=== PATIENT | male | born 1950 | race African-American/Black ===

== ENCOUNTER 2018-08-26 13:08 | Emergency (ER) | payer MEDICARE, OTHER ==
[~2018-08-26] VITALS: Ht 180.3 cm; Wt 127.0 kg
[~2018-08-26 13:08] MED LIST: ASPI325T8 PO; HYDR-3164 PO
[2018-08-26 13:27] VITALS: BP 139/70
[2018-08-26] MEDS ORDERED: NAPROXEN 500 MG TABLET PO STA (13:31)
--- NOTE | 2018-08-26 13:37 | PHYS DOC ---
Past Medical History Past Medical History: No Pertinent History Past Surgical History: No Surgical History Alcohol Use: None Drug Use: None Adult General Chief Complaint Chief Complaint: INSECT BITE [facility] HPI Patient is a 67 year old right handed male who presents with complaining of right middle finger bug bite. Patient complaining of pain and swelling of right middle finger since yesterday as a constant pain and rated his pain 8/10. Patient states he did not have a known insect bite but thinks maybe he had insect bite because of the pain and edema of his finger. Patient denies injury, fever and chills, history of MRSA. Patient is up-to-date with tetanus immunization. Review of Systems Review of Systems Constitutional: Denies fever or chills [] Eyes: Denies change in visual acuity, redness, or eye pain [] HENT: Denies nasal congestion or sore throat [] Respiratory: Denies cough or shortness of breath [] Cardiovascular: No additional information not addressed in HPI [] GI: Denies abdominal pain, nausea, vomiting, bloody stools or diarrhea [] : Denies dysuria or hematuria [] Musculoskeletal: Denies back pain, reports joint pain [] Integument: Denies rash or skin lesions [] Neurologic: Denies headache, focal weakness or sensory changes [] Endocrine: Denies polyuria or polydipsia [] All other systems were reviewed and found to be within normal limits, except as documented in this note. Current Medications Current Medications Current Medications Medications (Trade) Dose Ordered Sig/Karine Start Time Stop Time Status Last Admin Dose Admin Naproxen (Naprosyn) 500 mg 1X STAT 08/26/18 13:31 08/26/18 13:36 DC 08/26/18 13:54 500 MG Allergies Allergies Allergies Coded Allergies Type Severity Reaction Last Updated Verified No Known Drug Allergies 04/03/14 No Physical Exam Physical Exam Constitutional: Well nourished, mild distress, non-toxic appearance. [] HENT: Normocephalic, atraumatic. Eyes: PERRLA, EOMI, conjunctiva normal, no discharge. [] Neck: Normal range of motion, no tenderness, supple, no stridor. [] Cardiovascular:Heart rate regular rhythm, no murmur [] Lungs & Thorax: Bilateral breath sounds clear to auscultation [] Extremities: Right middle finger with edema and tenderness in proximal phalanx without fluctuation or deformity sign of abscess. Neurologic: Alert and oriented X 3, normal motor function, normal sensory function, no focal deficits noted. [] Psychologic: Affect normal, judgement normal, mood normal. [] Current Patient Data Vital Signs Vital Signs Date Time Temp Pulse Resp B/P (MAP) Pulse Ox O2 Delivery O2 Flow Rate FiO2 08/26/18 13:27 98.5 97 16 139/70 (93) 94 Room Air 98.5 EKG EKG [] Radiology/Procedures Radiology/Procedures [facility] [address] [place] [address] IMAGING REPORT Signed PATIENT: FREDA DODD ACCOUNT: [id number] : 1950 LOCATION: ER AGE: 67 SEX: M EXAM STATUS: PRE ER ORD. PHYSICIAN: KAREN MARIE MD REASON: middle finger pain and edema PROCEDURE: FINGER(S) RIGHT Exam performed: 3 views right third digit. HISTORY: Pain and swelling for one day. DATE OF SERVICE: 08/26/2018. COMPARISON: None available FINDINGS: Single AP view and and lateral and oblique views of the third digit are obtained. There is narrowing of several distal interphalangeal joints, most notable in the second digit. There is no acute fracture or dislocation. Diffuse soft tissue swelling is seen. No foreign body. 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 No acute abnormality seen. Electronically signed by: Mayi Gross MD (08/26/2018 1:59 PM) [facility] DICTATED and SIGNED BY: MAYI GROSS MD DATE: 08/26/18 0083 Course & Med Decision Making Course & Med Decision Making Pertinent Labs and Imaging studies reviewed. (See chart for details) [] Dragon Disclaimer Dragon Disclaimer This electronic medical record was generated, in whole or in part, using a voice recognition dictation system. Departure Departure Impression: Primary Impression: Cellulitis of right middle finger Disposition: HOME, SELF-CARE (at 1408) Condition: STABLE Referrals: NO PCP (PCP) Patient Instructions: Cellulitis Additional Instructions: Apply ice on right middle finger Follow-up with your primary care physician in 2 days or return to ER in 2 days for reevaluation Scripts Hydrocodone/Apap 5-325 (NORCO 5-325 TABLET) 1 Each Tablet 1 TAB PO PRN Q6HRS PRN for PAIN, #10 TAB 0 Refills Prov: KAREN MARIE MD 08/26/18 Naproxen (NAPROSYN) 500 Mg Tablet 1 TAB PO BID for pain, #20 TAB Prov: KAREN MARIE MD 08/26/18 Cephalexin (KEFLEX) 500 Mg Capsule 2 CAP PO Q12HR, #28 CAP Prov: KAREN MARIE MD 08/26/18 Sulfamethoxazole/Trimethoprim (BACTRIM DS TABLET) 1 Each Tablet 1 TAB PO BID for infection, #14 TAB Prov: KAREN MARIE MD 08/26/18 KAREN MARIE MD Aug 26, 2018 13:37
--- NOTE | 2018-08-26 14:02 | RAD ---
Exam performed: 3 views right third digit. HISTORY: Pain and swelling for one day. DATE OF SERVICE: 08/26/2018. COMPARISON: None available FINDINGS: Single AP view and and lateral and oblique views of the third digit are obtained. There is narrowing of several distal interphalangeal joints, most notable in the second digit. There is no acute fracture or dislocation. Diffuse soft tissue swelling is seen. No foreign body. 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 No acute abnormality seen. Electronically signed by: Mayi Gross MD (08/26/2018 1:59 PM) [facility]
[2018-08-26] MEDS ORDERED: NAPR-683 PO (14:11)
[2018-08-26] MEDS ORDERED: CEPH-264 PO (14:11)
[2018-08-26] MEDS ORDERED: SULF1TAB24 PO (14:11)
[2018-08-26] MEDS ORDERED: HYDR-3164 PO (14:12)
== END 2018-08-26 14:19 | disposition home or self-care (01) ==
LOC: ER 13:08
DX: L03.011 Cellulitis of right finger (principal); W57.XXXA Bitten or stung by nonvenomous insect and other nonvenomous arthropods, initial encounter; Y93.89 Activity, other specified; Y92.89 Other specified places as the place of occurrence of the external cause; Y99.8 Other external cause status
CPT/HCPCS: 73140; 82962; 99285-25

== ENCOUNTER 2018-08-28 15:22 | Emergency (ER) | payer MEDICARE, OTHER ==
[~2018-08-28] VITALS: Ht 180.3 cm; Wt 127.0 kg
[~2018-08-28 15:22] MED LIST changes: +CEPH-264 PO; +NAPR-683 PO; +SULF1TAB24 PO
[2018-08-28 15:39] VITALS: BP 165/85
--- NOTE | 2018-08-28 15:40 | PHYS DOC ---
Past Medical History Past Medical History: No Pertinent History Past Surgical History: No Surgical History Alcohol Use: None Drug Use: None Adult General Chief Complaint Chief Complaint: WOUND CHECK [facility] Patient is a 67 year old right-handed male who presents with recheck on cellulitis of right middle finger. Patient was seen in this emergency room yesterday because of right middle finger cellulitis and treated with antibiotic and pain medication with improvement of his condition. The patient was advised to return after 48 hours but she decided to come today for reevaluation of his wound. He denies fever. Review of Systems Review of Systems Constitutional: Denies fever or chills [] Eyes: Denies change in visual acuity, redness, or eye pain [] HENT: Denies nasal congestion or sore throat [] Respiratory: Denies cough or shortness of breath [] Cardiovascular: No additional information not addressed in [facility] [] GI: Denies abdominal pain, nausea, vomiting, bloody stools or diarrhea [] : Denies dysuria or hematuria [] Musculoskeletal: Denies back pain, reports joint pain [] Integument: Denies rash or skin lesions [] Neurologic: Denies headache, focal weakness or sensory changes [] Endocrine: Denies polyuria or polydipsia [] All other systems were reviewed and found to be within normal limits, except as documented in this note. Allergies Allergies Allergies Coded Allergies Type Severity Reaction Last Updated Verified No Known Drug Allergies 04/03/14 No Physical Exam Physical Exam Constitutional: Well developed, well nourished, no acute distress, non-toxic appearance. [] HENT: Normocephalic, atraumatic. Eyes: PERRLA, EOMI, conjunctiva normal, no discharge. [] Neck: Normal range of motion, no tenderness, supple, no stridor. [] Cardiovascular:Heart rate regular rhythm, no murmur [] Lungs & Thorax: Bilateral breath sounds clear to auscultation [] Skin: Warm, dry, no rash, right middle finger with mild erythema and edema that improved compared to yesterday when I saw him. [] Back: No tenderness, no CVA tenderness. [] Extremities: No tenderness, no cyanosis, no clubbing, ROM intact. Neurologic: Alert and oriented X 3, normal motor function, normal sensory function, no focal deficits noted. [] Psychologic: Affect normal, judgement normal, mood normal. [] Current Patient Data Vital Signs Vital Signs Date Time Temp Pulse Resp B/P (MAP) Pulse Ox O2 Delivery O2 Flow Rate FiO2 08/28/18 15:39 98.8 77 20 165/85 (111) 96 Room Air 98.8 EKG EKG [] Radiology/Procedures Radiology/Procedures [] Course & Med Decision Making Course & Med Decision Making Evaluation of patient in ER showed 67-year-old male patient presented for evaluation of right middle finger cellulitis after seen in this emergency room yesterday. Patient condition was improved and was advised to continue current medication. Dragon Disclaimer Dragon Disclaimer This electronic medical record was generated, in whole or in part, using a voice recognition dictation system. Departure Departure Impression: Primary Impression: Visit for wound check Disposition: HOME, SELF-CARE (at 1538) Condition: STABLE Referrals: NO PCP (PCP) Patient Instructions: Cellulitis Additional Instructions: Elevate your right hand and apply warm moist wrap on your hand Follow-up with your primary care physician in 3-5 days Return to ER if not getting better Continue current medication KAREN MARIE MD Aug 28, 2018 15:40
== END 2018-08-28 15:46 | disposition home or self-care (01) ==
LOC: ER 15:22
DX: Z48.01 Encounter for change or removal of surgical wound dressing (principal)
CPT/HCPCS: 99281

== ENCOUNTER 2018-11-08 16:08 | Emergency (ER) | payer MEDICARE, OTHER ==
[~2018-11-08] VITALS: Ht 180.3 cm; Wt 149.7 kg
[2018-11-08 17:00] VITALS: BP 171/95
[2018-11-08] MEDS ORDERED: predniSONE 10 MG TABLET PO ONE (19:00)
[2018-11-08] MEDS ORDERED: NAPROXEN 500 MG TABLET PO ONE (19:00)
[2018-11-08] MEDS ORDERED: HYDROcodone/APAP 5/325MG 1 TAB TABLET PO ONE (19:00)
--- NOTE | 2018-11-08 19:07 | PHYS DOC ---
Past Medical History Past Medical History: Arthritis Past Surgical History: No Surgical History Alcohol Use: None Drug Use: None Adult General Chief Complaint Chief Complaint: WRIST PAIN HPI HPI Patient is a 68 year old with history of arthritis who presents to the ED today complaining of 9 out of 10 right elbow pain that began a week ago and right wrist pain that began 4 days ago. Patient states the pain is worse on range of motion. Describes the pain as throbbing and intermittent. Denies anything specifically relieving the pain. Denies any known injury. Review of Systems Review of Systems Constitutional: Denies fever or chills [] Musculoskeletal: Reports right wrist and right elbow pain Integument: Denies rash or skin lesions [] Neurologic: Denies headache, focal weakness or sensory changes [] All other systems were reviewed and found to be within normal limits, except as documented in this note. Current Medications Current Medications Current Medications Medications (Trade) Dose Ordered Sig/Karine Start Time Stop Time Status Last Admin Dose Admin Acetaminophen/ Hydrocodone Bitart (Lortab 5/325) 1 tab 1X ONCE 11/08/18 19:00 11/08/18 19:01 DC Naproxen (Naprosyn) 500 mg 1X ONCE 11/08/18 19:00 11/08/18 19:01 DC Prednisone (Prednisone) 50 mg 1X ONCE 11/08/18 19:00 11/08/18 19:01 DC Allergies Allergies Allergies Coded Allergies Type Severity Reaction Last Updated Verified No Known Drug Allergies 04/03/14 No Physical Exam Physical Exam Constitutional: Well developed, well nourished, no acute distress, non-toxic appearance. [] Back: No tenderness, no CVA tenderness. [] Extremities: Right wrist and right elbow with no obvious deformity. Trace amount of soft tissue swelling noted on the dorsal aspect of the right wrist. Tenderness diffusely on the right wrist. Full range of motion to the right wrist and right elbow. No scaphoid tenderness. Adequate radial, medial, ulnar sensation to the right upper extremity. +2 right radial pulse. Cap refill less than 2 seconds the right fingers. Neurologic: Alert and oriented X 3, normal motor function, normal sensory function, no focal deficits noted. [] Psychologic: Affect normal, judgement normal, mood normal. [] Current Patient Data Vital Signs Vital Signs Date Time Temp Pulse Resp B/P (MAP) Pulse Ox O2 Delivery O2 Flow Rate FiO2 11/08/18 17:00 98.6 91 20 171/95 (120) 97 Room Air 98.6 EKG EKG [] Radiology/Procedures Radiology/Procedures [] Course & Med Decision Making Course & Med Decision Making Pertinent Labs and Imaging studies reviewed. (See chart for details) This is a 68-year-old male patient presented to the ED today with a right wrist and right elbow pain for week, no known injury. Right wrist and right elbow x- rays interpreted by noted for arthritis no acute findings results given to patient with f/u information with Ortho. Patient walked out of the room asking for pain medicine. Informed him we can order pain medicines he stated the medicine is not coming first enough, he eloped Dragon Disclaimer Dragon Disclaimer This electronic medical record was generated, in whole or in part, using a voice recognition dictation system. 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
--- NOTE | 2018-11-09 06:41 | RAD ---
EXAM: PA, oblique and lateral views of the left wrist DATE: 11/08/2018 4:59 PM INDICATION: Pain, no injury COMPARISON: No Prior FINDINGS/ IMPRESSION: No evidence for acute fracture or dislocation. Multifocal degenerative changes are seen with joint space narrowing and associated proliferative changes. This is most prominent at the IP joints. Electronically signed by: Ravindra Arizmendi MD (11/09/2018 6:38 AM) [facility]
--- NOTE | 2018-11-09 06:42 | RAD ---
EXAM: AP, lateral and radial head views of the left elbow DATE: 11/08/2018 4:59 PM INDICATION: Left elbow pain COMPARISON: No Prior FINDINGS/ IMPRESSION: No elbow joint effusion. No evidence of acute fracture or dislocation. Electronically signed by: Ravindra Arizmendi MD (11/09/2018 6:38 AM) [facility]
[2018-11-09] MEDS ORDERED: PRED20TA PO (11:59)
[2018-11-09] MEDS ORDERED: COLC0.6T34 PO (11:59)
[2018-11-09] MEDS ORDERED: NAPR-514 PO (11:59)
== END 2018-11-08 18:45 | disposition left against medical advice (07) ==
LOC: ER 16:08
DX: M19.031 Primary osteoarthritis, right wrist (principal); M19.021 Primary osteoarthritis, right elbow
CPT/HCPCS: 73080; 73110; 99284

== ENCOUNTER 2018-11-09 10:51 | Emergency (ER) | payer MEDICARE, OTHER ==
[~2018-11-09] VITALS: Ht 180.3 cm; Wt 149.7 kg
[2018-11-09 11:04] VITALS: BP 138/83
--- NOTE | 2018-11-09 11:07 | PHYS DOC ---
Past Medical History Past Medical History: Arthritis Past Surgical History: No Surgical History Alcohol Use: None Drug Use: None Adult General Chief Complaint Chief Complaint: INSECT BITE HPI HPI Patient is a 68 year old male who was seen here yesterday for right wrist pain. He is diagnosed arthritis. States that he started having right wrist pain and swelling 4 days ago. States that it feels hot to the touch. His pain as 7 out of 10 in severity states he took Advil 1 tablet around 1 hour ago for arrival. Review of Systems Review of Systems Constitutional: Denies fever or chills [] Eyes: Denies change in visual acuity, redness, or eye pain [] HENT: Denies nasal congestion or sore throat [] Respiratory: Denies cough or shortness of breath [] Cardiovascular: No additional information not addressed in HPI [] GI: Denies abdominal pain, nausea, vomiting, bloody stools or diarrhea [] : Denies dysuria or hematuria [] Musculoskeletal: Denies back pain but reports R wrist pain. Integument: Denies rash or skin lesions [] Neurologic: Denies headache, focal weakness or sensory changes [] Endocrine: Denies polyuria or polydipsia [] Complete systems were reviewed and found to be within normal limits, except as documented in this note. Allergies Allergies Allergies Coded Allergies Type Severity Reaction Last Updated Verified No Known Drug Allergies 04/03/14 No Physical Exam Physical Exam Constitutional: Well developed, well nourished, no acute distress, non-toxic appearance. [] HENT: Normocephalic, atraumatic, bilateral external ears normal, oropharynx moist, no oral exudates, nose normal. [] Eyes: PERRLA, EOMI, conjunctiva normal, no discharge. [] Neck: Normal range of motion, no tenderness, supple, no stridor. [] Cardiovascular:Heart rate regular rhythm, no murmur [] Lungs & Thorax: Bilateral breath sounds clear to auscultation [] Abdomen: Bowel sounds normal, soft, no tenderness, no masses, no pulsatile masses. [] Skin: Warm, dry, no erythema, no rash. [] Back: No tenderness, no CVA tenderness. [] Extremities: Tenderness to R wrist with edema and reduced ROM. Neurologic: Alert and oriented X 3, normal motor function, normal sensory function, no focal deficits noted. [] Psychologic: Affect normal, judgement normal, mood normal. [] Current Patient Data Vital Signs Vital Signs Date Time Temp Pulse Resp B/P (MAP) Pulse Ox O2 Delivery O2 Flow Rate FiO2 11/09/18 11:04 98.8 91 18 138/83 (101) 94 Room Air 98.8 Lab Values Laboratory Tests Test 11/09/18 11:25 White Blood Count 9.7 x10^3/uL (4.0-11.0) Red Blood Count 5.03 x10^6/uL (4.30-5.70) Hemoglobin 13.9 g/dL (13.0-17.5) Hematocrit 41.7 % (39.0-53.0) Mean Corpuscular Volume 83 fL (79-100) Mean Corpuscular Hemoglobin 28 pg (25-35) Mean Corpuscular Hemoglobin Concent 33 g/dL (31-37) Red Cell Distribution Width 14.0 % (11.5-14.5) Platelet Count 268 x10^3/uL (140-400) Neutrophils (%) (Auto) 72 % (31-73) Lymphocytes (%) (Auto) 17 % (24-48) L Monocytes (%) (Auto) 9 % (0-9) Eosinophils (%) (Auto) 1 % (0-3) Basophils (%) (Auto) 1 % (0-3) Neutrophils # (Auto) 7.0 x10^3uL (1.8-7.7) Lymphocytes # (Auto) 1.6 x10^3/uL (1.0-4.8) Monocytes # (Auto) 0.9 x10^3/uL (0.0-1.1) Eosinophils # (Auto) 0.1 x10^3/uL (0.0-0.7) Basophils # (Auto) 0.1 x10^3/uL (0.0-0.2) Sodium Level 140 mmol/L (136-145) Potassium Level 4.0 mmol/L (3.5-5.1) Chloride Level 104 mmol/L (98-107) Carbon Dioxide Level 28 mmol/L (21-32) Anion Gap 8 (6-14) Blood Urea Nitrogen 11 mg/dL (8-26) Creatinine 1.2 mg/dL (0.7-1.3) Estimated GFR (Cockcroft-Gault) 73.3 BUN/Creatinine Ratio 9 (6-20) Glucose Level 148 mg/dL (70-99) H Uric Acid 8.8 mg/dL (3.5-7.2) H Calcium Level 9.5 mg/dL (8.5-10.1) Total Bilirubin 0.5 mg/dL (0.2-1.0) Aspartate Amino Transferase (AST) 21 U/L (15-37) Alanine Aminotransferase (ALT) 27 U/L (16-63) Alkaline Phosphatase 80 U/L (46-116) Total Protein 7.7 g/dL (6.4-8.2) Albumin 3.5 g/dL (3.4-5.0) Albumin/Globulin Ratio 0.8 (1.0-1.7) L Laboratory Tests 11/09/18 11:25 Laboratory Tests 11/09/18 11:25 EKG EKG [] Radiology/Procedures Radiology/Procedures [] Course & Med Decision Making Course & Med Decision Making Pertinent Labs and Imaging studies reviewed. (See chart for details) Gout vs Cellulitis. Will order cbc, cmp, and uric acid. Uric acid is 8.8. Appears to be gout. Dragon Disclaimer Dragon Disclaimer This electronic medical record was generated, in whole or in part, using a voice recognition dictation system. Departure Departure Impression: Primary Impression: Gout attack Disposition: 01 HOME, SELF-CARE Condition: STABLE Referrals: NO PCP (PCP) Patient Instructions: Gout Additional Instructions: Thank you for visiting [facility]. We appreciate you trusting us with your care. If any additional problems come up don't hesitate to return to visit us. Please follow up with your primary care provider so they can plan additional care if needed and know about the problem that you had. If symptoms worsen come back to the Emergency Department. Any concerning symptoms that start such as chest pain, shortness of Air, weakness or numbness on one side of the body, running high fevers or any other concerning symptoms return to the ER. Please fill your medications at any pharmacy and follow the prescription instructions. Please take 2 pills (1.2 mg of Colchicine and 1 hour later take 0.6 mg (1 pill). Scripts Colchicine (COLCRYS) 0.6 Mg Tablet 0.6 MG PO 1X, #3 TAB Take 2 0.6 mg tablets and 1 hour later take another 0.6 mg tablet. Prov: FREDRICK GOTTLIEB APRN 11/09/18 Prednisone (PREDNISONE) 20 Mg Tablet 3 TAB PO DAILY for 5 Days, #15 TAB Prov: FREDRICK GOTTLIEB APRN 11/09/18 Naproxen (NAPROXEN) 500 Mg Tablet 1 TAB PO BID PRN for PAIN, #60 TAB Prov: FREDRICK GOTTLIEB APRN 11/09/18 Problem Qualifiers Primary Impression: Gout attack Gout site: hand Gout etiology: unspecified cause Laterality: right Qualified Codes: M10.9 - Gout, unspecified FREDRICK GOTTLIEB APRN Nov 09, 2018 11:07
[2018-11-09 11:32] LABS: BASO # 0.1 x10^3/uL (0.0-0.2); BASO % 1 % (0-3); EOS # 0.1 x10^3/uL (0.0-0.7); EOS % 1 % (0-3); HEMATOCRIT 41.7 % (39.0-53.0); HEMOGLOBIN 13.9 g/dL (13.0-17.5); LYMPH # 1.6 x10^3/uL (1.0-4.8); LYMPH % 17 % (24-48); MEAN CORPUSCULAR HEMOGLOBIN 28 pg (25-35); MEAN CORPUSCULAR HGB CONC 33 g/dL (31-37); MEAN CORPUSCULAR VOLUME 83 fL (79-100); MONO # 0.9 x10^3/uL (0.0-1.1); MONO % 9 % (0-9); NEUT % 72 % (31-73); PLATELET COUNT 268 x10^3/uL (140-400); RED BLOOD COUNT 5.03 x10^6/uL (4.30-5.70); WHITE BLOOD COUNT 9.7 x10^3/uL (4.0-11.0)
[2018-11-09 11:43] LABS: CALCIUM 9.5 mg/dL (8.5-10.1); CREATININE 1.2 mg/dL (0.7-1.3); GFR 73.3
[2018-11-09 11:49] LABS: ALBUMIN 3.5 g/dL (3.4-5.0); ALBUMIN/GLOBULIN RATIO 0.8 (1.0-1.7); TOTAL BILIRUBIN 0.5 mg/dL (0.2-1.0); TOTAL PROTEIN 7.7 g/dL (6.4-8.2); URIC ACID 8.8 mg/dL (3.5-7.2)
[2018-11-09] MEDS ORDERED: PRED20TA PO (11:59)
[2018-11-09] MEDS ORDERED: COLC0.6T34 PO (11:59)
[2018-11-09] MEDS ORDERED: NAPR-514 PO (11:59)
[2018-11-09] MEDS ORDERED: KETOROLAC 60 MG/2 ML VIAL. IM ONE (12:00)
== END 2018-11-09 12:16 | disposition home or self-care (01) ==
LOC: ER 10:51
DX: M10.9 Gout, unspecified (principal); M19.90 Unspecified osteoarthritis, unspecified site
CPT/HCPCS: 36415; 80053; 84550; 85025; 96372; 99284; J1885

== ENCOUNTER 2019-02-10 18:47 | Inpatient (IN) | payer MEDICARE, OTHER ==
[~2019-02-10] VITALS: Ht 180.3 cm; Wt 152.9 kg
[~2019-02-10 18:47] MED LIST changes: +COLC0.6T34 PO; +NAPR-514 PO; +PRED20TA PO
--- NOTE | 2019-02-10 19:40 | PHYS DOC ---
Past Medical History Past Medical History: Arthritis (MICHELLE PINZON APRN) Past Surgical History: No Surgical History (MICHELLE PINZON APRN) Alcohol Use: None Drug Use: None (MICHELLE PINZON APRN) Adult General Chief Complaint Chief Complaint: LOWER EXTREMITY SWELLING HPI HPI Patient is a 68 year old male who presents with 1 week of lower extremity edema bilaterally. Patient states that he will get lower extremity swelling but in the morning when he wakes up it has gone down. Patient states that the only thing he has been diagnosed with a past of gout and arthritis. Patient denies any pain. Patient states he has been up on his feet a lot recently because he is trying to fix of a house. Patient rates pain a 0 out of 10. Patient states at times he will wake up and he feels like he is having chest pressure and tightness in that short of air that has been coming and going for a while. Patient states he does not feel this way at this time. (MICHELLE PINZON APRN) Review of Systems Review of Systems Respiratory: Denies cough. shortness of breath comes and goes[] Cardiovascular: Chest tightness or pressure comes and goes Musculoskeletal: Bilateral lower extremities swelling. Denies back pain or joint pain [] All other systems were reviewed and found to be within normal limits, except as documented in this note. (MICHELLE PINZON APRN) Current Medications Current Medications Current Medications Medications (Trade) Dose Ordered Sig/Karine Start Time Stop Time Status Last Admin Dose Admin Ceftriaxone Sodium (Rocephin) 1 gm 1X ONCE 02/10/19 21:15 02/10/19 21:16 DC 02/10/19 21:17 1 GM Clonidine HCl (Catapres) 0.1 mg 1X ONCE 02/10/19 21:15 02/10/19 21:16 DC 02/10/19 21:16 0.1 MG (LIN WALTON MD) Allergies Allergies Allergies Coded Allergies Type Severity Reaction Last Updated Verified No Known Drug Allergies 04/03/14 No (LIN WALTON MD) Physical Exam Physical Exam Constitutional: Well developed, well nourished, no acute distress, non-toxic appearance. [] HENT: Normocephalic, atraumatic, bilateral external ears normal, oropharynx moist, no oral exudates, nose normal. [] Eyes: PERRLA, EOMI, conjunctiva normal, no discharge. [] Neck: Normal range of motion, no tenderness, supple, no stridor. [] Cardiovascular: Heart rate regular rhythm, no murmur, Hypertensive [] Lungs & Thorax: Bilateral upper breath sounds clear to auscultation, bilateral lower lobes diminished. [] Abdomen: Bowel sounds normal, soft, no tenderness, no masses, no pulsatile masses. [] Skin: Warm, dry, no erythema, no rash. [] Back: No tenderness, no CVA tenderness. [] Extremities: No tenderness, no cyanosis, no clubbing, ROM intact, Bilateral lower extremities 3-4+ edema. [] Neurologic: Alert and oriented X 3, normal motor function, normal sensory function, no focal deficits noted. [] Psychologic: Affect normal, judgement normal, mood normal. [] (MICHELLE PINZON APRN) Current Patient Data Vital Signs Vital Signs Date Time Temp Pulse Resp B/P (MAP) Pulse Ox O2 Delivery O2 Flow Rate FiO2 02/10/19 21:24 90 35 218/99 (138) 96 Room Air 02/10/19 19:27 98.5 98.5 (LIN WALTON MD) Lab Values Laboratory Tests Test 02/10/19 20:05 02/10/19 20:26 White Blood Count 7.6 x10^3/uL (4.0-11.0) Red Blood Count 4.97 x10^6/uL (4.30-5.70) Hemoglobin 13.8 g/dL (13.0-17.5) Hematocrit 41.2 % (39.0-53.0) Mean Corpuscular Volume 83 fL (79-100) Mean Corpuscular Hemoglobin 28 pg (25-35) Mean Corpuscular Hemoglobin Concent 33 g/dL (31-37) Red Cell Distribution Width 14.5 % (11.5-14.5) Platelet Count 294 x10^3/uL (140-400) Neutrophils (%) (Auto) 60 % (31-73) Lymphocytes (%) (Auto) 26 % (24-48) Monocytes (%) (Auto) 9 % (0-9) Eosinophils (%) (Auto) 5 % (0-3) H Basophils (%) (Auto) 1 % (0-3) Neutrophils # (Auto) 4.6 x10^3/uL (1.8-7.7) Lymphocytes # (Auto) 1.9 x10^3/uL (1.0-4.8) Monocytes # (Auto) 0.7 x10^3/uL (0.0-1.1) Eosinophils # (Auto) 0.4 x10^3/uL (0.0-0.7) Basophils # (Auto) 0.0 x10^3/uL (0.0-0.2) Prothrombin Time 13.2 SEC (11.7-14.0) Prothrombin Time INR 1.0 (0.8-1.1) Sodium Level 143 mmol/L (136-145) Potassium Level 4.7 mmol/L (3.5-5.1) Chloride Level 106 mmol/L (98-107) Carbon Dioxide Level 30 mmol/L (21-32) Anion Gap 7 (6-14) Blood Urea Nitrogen 17 mg/dL (8-26) Creatinine 1.2 mg/dL (0.7-1.3) Estimated GFR (Cockcroft-Gault) 73.3 BUN/Creatinine Ratio 14 (6-20) Glucose Level 207 mg/dL (70-99) H Hemoglobin A1c 7.1 % (4.8-5.6) H Calcium Level 9.7 mg/dL (8.5-10.1) Total Bilirubin 0.3 mg/dL (0.2-1.0) Aspartate Amino Transferase (AST) 26 U/L (15-37) Alanine Aminotransferase (ALT) 27 U/L (16-63) Alkaline Phosphatase 101 U/L (46-116) Troponin I Quantitative < 0.017 ng/mL (0.000-0.055) MW-Wts-D-Type Natriuretic Peptide 65 pg/mL (0-124) Total Protein 7.2 g/dL (6.4-8.2) Albumin 3.5 g/dL (3.4-5.0) Albumin/Globulin Ratio 0.9 (1.0-1.7) L Urine Collection Type Unknown Urine Color Yellow Urine Clarity Cloudy Urine pH 5.5 Urine Specific [place] 1.020 Urine Protein Negative mg/dL (NEG-TRACE) Urine Glucose (UA) Negative mg/dL (NEG) Urine Ketones (Stick) Negative mg/dL (NEG) Urine Blood Negative (NEG) Urine Nitrite Negative (NEG) Urine Bilirubin Negative (NEG) Urine Urobilinogen Dipstick 1.0 mg/dL (0.2 mg/dL) Urine Leukocyte Esterase Moderate (NEG) Urine RBC Occ /HPF (0-2) Urine WBC 20-40 /HPF (0-4) Urine Squamous Epithelial Cells Mod /LPF Urine Bacteria Few /HPF (0-FEW) Urine Mucus Mod /LPF Urine Opiates Screen Neg (NEG) Urine Methadone Screen Neg (NEG) Urine Barbiturates Neg (NEG) Urine Phencyclidine Screen Neg (NEG) Urine Amphetamine/Methamphetamine Neg (NEG) Urine Benzodiazepines Screen Neg (NEG) Urine Cocaine Screen Neg (NEG) Urine Cannabinoids Screen Neg (NEG) Urine Ethyl Alcohol Neg (NEG) Laboratory Tests 02/10/19 20:05 Laboratory Tests 02/10/19 20:05 Microbiology 02/10/19 Urine Culture - Final, Complete 02/10/19 Urine Culture Result 1 (RAHUL) - Final, Complete (LIN WALTON MD) Lab Values Laboratory Tests Test 02/10/19 20:05 02/10/19 20:26 White Blood Count 7.6 x10^3/uL (4.0-11.0) Red Blood Count 4.97 x10^6/uL (4.30-5.70) Hemoglobin 13.8 g/dL (13.0-17.5) Hematocrit 41.2 % (39.0-53.0) Mean Corpuscular Volume 83 fL (79-100) Mean Corpuscular Hemoglobin 28 pg (25-35) Mean Corpuscular Hemoglobin Concent 33 g/dL (31-37) Red Cell Distribution Width 14.5 % (11.5-14.5) Platelet Count 294 x10^3/uL (140-400) Neutrophils (%) (Auto) 60 % (31-73) Lymphocytes (%) (Auto) 26 % (24-48) Monocytes (%) (Auto) 9 % (0-9) Eosinophils (%) (Auto) 5 % (0-3) H Basophils (%) (Auto) 1 % (0-3) Neutrophils # (Auto) 4.6 x10^3/uL (1.8-7.7) Lymphocytes # (Auto) 1.9 x10^3/uL (1.0-4.8) Monocytes # (Auto) 0.7 x10^3/uL (0.0-1.1) Eosinophils # (Auto) 0.4 x10^3/uL (0.0-0.7) Basophils # (Auto) 0.0 x10^3/uL (0.0-0.2) Prothrombin Time 13.2 SEC (11.7-14.0) Prothrombin Time INR 1.0 (0.8-1.1) Sodium Level 143 mmol/L (136-145) Potassium Level 4.7 mmol/L (3.5-5.1) Chloride Level 106 mmol/L (98-107) Carbon Dioxide Level 30 mmol/L (21-32) Anion Gap 7 (6-14) Blood Urea Nitrogen 17 mg/dL (8-26) Creatinine 1.2 mg/dL (0.7-1.3) Estimated GFR (Cockcroft-Gault) 73.3 BUN/Creatinine Ratio 14 (6-20) Glucose Level 207 mg/dL (70-99) H Calcium Level 9.7 mg/dL (8.5-10.1) Total Bilirubin 0.3 mg/dL (0.2-1.0) Aspartate Amino Transferase (AST) 26 U/L (15-37) Alanine Aminotransferase (ALT) 27 U/L (16-63) Alkaline Phosphatase 101 U/L (46-116) Troponin I Quantitative < 0.017 ng/mL (0.000-0.055) BG-Vmm-C-Type Natriuretic Peptide 65 pg/mL (0-124) Total Protein 7.2 g/dL (6.4-8.2) Albumin 3.5 g/dL (3.4-5.0) Albumin/Globulin Ratio 0.9 (1.0-1.7) L Urine Collection Type Unknown Urine Color Yellow Urine Clarity Cloudy Urine pH 5.5 Urine Specific [place] 1.020 Urine Protein Negative mg/dL (NEG-TRACE) Urine Glucose (UA) Negative mg/dL (NEG) Urine Ketones (Stick) Negative mg/dL (NEG) Urine Blood Negative (NEG) Urine Nitrite Negative (NEG) Urine Bilirubin Negative (NEG) Urine Urobilinogen Dipstick 1.0 mg/dL (0.2 mg/dL) Urine Leukocyte Esterase Moderate (NEG) Urine RBC Occ /HPF (0-2) Urine WBC 20-40 /HPF (0-4) Urine Squamous Epithelial Cells Mod /LPF Urine Bacteria Few /HPF (0-FEW) Urine Mucus Mod /LPF Urine Opiates Screen Neg (NEG) Urine Methadone Screen Neg (NEG) Urine Barbiturates Neg (NEG) Urine Phencyclidine Screen Neg (NEG) Urine Amphetamine/Methamphetamine Neg (NEG) Urine Benzodiazepines Screen Neg (NEG) Urine Cocaine Screen Neg (NEG) Urine Cannabinoids Screen Neg (NEG) Urine Ethyl Alcohol Neg (NEG) Laboratory Tests 02/10/19 20:05 Laboratory Tests 02/10/19 20:05 (MICHELLE PINZON APRN) EKG EKG Sinus rhythm with nonspecific T was abnormality. [] Interpretation Time: [address] Walton (MICHELLE PINZON APRN) Radiology/Procedures Radiology/Procedures [] (MICHELLE PINZON APRN) Impressions: [facility] [address] [place], [place] [id number] IMAGING REPORT Signed PATIENT: FREDA DODD ACCOUNT: [id number] : 1950 LOCATION: ER AGE: 68 SEX: M EXAM STATUS: REG ER ORD. PHYSICIAN: MICHELLE PINZON APRN REASON: 3-4+ edema, new onset swelling, Right worse than left PROCEDURE: VENOUS LOWER EXT BILATERAL Bilateral lower extremity venous duplex study 02/10/2019 Clinical History: Bilateral leg swelling. Technique: Using a combination of real time ultrasound imaging and color-flow and pulse Doppler imaging techniques along with graded compression and augmentation, duplex evaluation of the deep venous system of the both lower extremities was performed. Multiple images were obtained. Findings: Echogenic thrombus consistent with partially occlusive DVT is seen involving the right popliteal vein extending to involve the majority of the right superficial femoral vein. The right common femoral vein is patent. There is no sonographic evidence of deep venous thrombosis involving the visualized deep venous structures of the left lower extremity. IMPRESSION: DVT is seen extending from the right popliteal vein to involve the right superficial femoral vein. Electronically signed by: Robles Crawley MD (02/10/2019 10:35 PM) [facility] DICTATED and SIGNED BY: ROBLES CRAWLEY MD DATE: 02/10/192234 (MICHELLE PINZON APRN) Course & Med Decision Making Course & Med Decision Making Patient is a 68 year old male who presents with 1 week of lower extremity edema bilaterally. Patient states that he will get lower extremity swelling but in the morning when he wakes up it has gone down. Patient states that the only thing he has been diagnosed with a past of gout and arthritis. Patient denies any pain. Patient states he has been up on his feet a lot recently because he is trying to fix of a house. Patient rates pain a 0 out of 10. Patient states at times he will wake up and he feels like he is having chest pressure and tightness in that short of air that has been coming and going for a while. Patient states he does not feel this way at this time. Patient is hypertensive. Lungs are clear to auscultation upper lobes but diminished in lower lobes. Right lower extremity from the calf to the foot there is 3-4+ edema with ankle and foot being pitting edema. Cap refill less than 3 seconds. Patient states at times he gets tingling to the bottom of feet but not currently. Left lower extremity is swollen from above the ankle to foot at 3-4+ edema pitting edema. No calf tenderness. Cap Refill less than 3 seconds. Because of the swelling I cannot feel a pedal pulse. Skin is pink warm and dry. There is no redness or heat or tenderness to any joints. Patient has no swelling in his hands. Alert and oriented. Speaks in full clear sentences. Ambulatory with steady gait. Patient denies chest pain, shortness of air, nausea, vomiting, abdominal pain, dizziness, visual changes, syncope, headache. Chest Xray shows no obvious acute findings and was read by Dr Walton. I have consulted with Dr Walton on this patient and the patient is to be admitted for edema and hypertension. Patient admitted by Dr. Aguayo. US Shows IMPRESSION: DVT is seen extending from the right popliteal vein to involve the right superficial femoral vein. Patient given Xeralto 15mg in the ED. Dr Walton aware of this. (MICHELLE PINZON APRN) Course & Med Decision Making Staff Physician Addendum: I was working in the ER during the course of this patient's visit. I was available for consultation as needed, but I was not directly involved in the care of this patient. (LIN WALTON MD) Dragon Disclaimer Dragon Disclaimer This electronic medical record was generated, in whole or in part, using a voice recognition dictation system. (MICHELLE PINZON APRN) The HEART Score for CP Pts HEART Score for Chest Pain: HEART Score for Chest Pain Response (Comments) Value History Slighlty/Non-Suspicious 0 ECG Nonspecific Repolarizatio 1 Age > 65 2 Risk Factors 1 or 2 Risk Factors 1 Troponin < Normal Limit 0 Total 4 Risk Factors: Risk Factors: DM, Current or recent (<one month) smoker, HTN, HLP, family history of CAD, obesity. Risk Scores: Score 0 - 3: 2.5% MACE over next 6 weeks - Discharge Home Score 4 - 6: 20.3% MACE over next 6 weeks - Admit for Clinical Observation Score 7 - 10: 72.7% MACE over next 6 weeks - Early Invasive Strategies (MICHELLE PINZON APRN) Departure Departure Impression: Primary Impression: Hypertension Additional Impressions: Extremity edema DVT (deep venous thrombosis) Disposition: ADMITTED INPATIENT Admitting Physician: CEE (MICHELLE PINZON APRN) Condition: STABLE Referrals: NO PCP (PCP) Scripts Rivaroxaban (XARELTO) 15 Mg Tablet 15 MG PO BID for PE for 30 Days, #60 TAB Prov: LIZET PONCE III DO 02/13/19 Problem Qualifiers Primary Impression: Hypertension Hypertension type: unspecified Qualified Codes: I10 - Essential (primary) hypertension Additional Impressions: DVT (deep venous thrombosis) DVT location: lower extremity Affected thrombotic vein of extremity: unspecified vein of extremity Chronicity: acute Laterality: right Qualified Codes: I82.401 - Acute embolism and thrombosis of unspecified deep veins of right lower extremity MICHELLE PINZON APRN Feb 10, 2019 19:40 LIN WALTON MD Feb 20, 2019 06:13
[2019-02-10 20:18] LABS: BASO % 1 % (0-3); EOS # 0.4 x10^3/uL (0.0-0.7); EOS % 5 % (0-3); HEMATOCRIT 41.2 % (39.0-53.0); HEMOGLOBIN 13.8 g/dL (13.0-17.5); LYMPH # 1.9 x10^3/uL (1.0-4.8); LYMPH % 26 % (24-48); MEAN CORPUSCULAR HEMOGLOBIN 28 pg (25-35); MEAN CORPUSCULAR HGB CONC 33 g/dL (31-37); MEAN CORPUSCULAR VOLUME 83 fL (79-100); MONO # 0.7 x10^3/uL (0.0-1.1); MONO % 9 % (0-9); NEUT # 4.6 x10^3/uL (1.8-7.7); NEUT % 60 % (31-73); PLATELET COUNT 294 x10^3/uL (140-400); RED BLOOD COUNT 4.97 x10^6/uL (4.30-5.70); RED CELL DISTRIBUTION WIDTH 14.5 % (11.5-14.5); WHITE BLOOD COUNT 7.6 x10^3/uL (4.0-11.0)
[2019-02-10 20:24] LABS: CALCIUM 9.7 mg/dL (8.5-10.1); CREATININE 1.2 mg/dL (0.7-1.3); GFR 73.3; POTASSIUM 4.7 mmol/L (3.5-5.1)
[2019-02-10 20:30] LABS: ALBUMIN 3.5 g/dL (3.4-5.0); ALBUMIN/GLOBULIN RATIO 0.9 (1.0-1.7); TOTAL BILIRUBIN 0.3 mg/dL (0.2-1.0); TOTAL PROTEIN 7.2 g/dL (6.4-8.2)
[2019-02-10 20:34] LABS: PROTHROMBIN TIME PATIENT 13.2 SEC (11.7-14.0)
[2019-02-10 20:35] LABS: BILIRUBIN,URINE NEGATIVE (NEG); CLARITY,URINE CLOUDY; COLOR,URINE YELLOW; NITRITE,URINE NEGATIVE (NEG); PH,URINE 5.5; PROTEIN,URINE NEGATIVE (NEG-TRACE)
[2019-02-10 20:39] LABS: BACTERIA,URINE FEW /HPF (0-FEW); RBC,URINE OCC /HPF (0-2); WBC,URINE 20-40 /HPF (0-4)
[2019-02-10 20:40] LABS: SQUAMOUS EPITHELIAL CELL,UR MOD /LPF
[2019-02-10 20:41] LABS: BARBITURATES NEG (NEG); BENZODIAZEPINES NEG (NEG); CANNABINOIDS NEG (NEG); COCAINE NEG (NEG); METHADONE NEG (NEG); OPIATES NEG (NEG); PHENCYCLIDINE NEG (NEG)
[2019-02-10 20:42] LABS: AMPHETAMINE/METHAMPHETAMINE NEG (NEG)
[2019-02-10] MEDS ORDERED: cloNIDine HCL 0.1 MG TABLET PO ONE (21:15)
[2019-02-10] MEDS ORDERED: cefTRIAXone IV Push 1 GM VIAL. IVP ONE (21:15)
[2019-02-10] MEDS ORDERED: ONDANSETRON PF 4 MG/2 ML VIAL. IV PRN (21:45)
[2019-02-10] MEDS ORDERED: ACETAMINOPHEN 325 MG TABLET. PO PRN (21:45)
[2019-02-10] MEDS ORDERED: fentaNYL PF VIAL 100 MCG/2 ML VIAL IV PRN (21:45)
--- NOTE | 2019-02-10 22:17 | RAD ---
AP portable chest radiograph 02/10/2019 Clinical History: Shortness of breath. An AP erect portable digital radiograph of the chest was obtained. No previous studies are available for comparison. The cardiac silhouette is normal in size. The thoracic aorta is mildly tortuous. No acute pulmonary infiltrate is seen. No pleural effusion or pneumothorax is noted. Degenerative changes are seen involving the thoracic spine. IMPRESSION: No acute abnormality is seen. Electronically signed by: Robles Crawley MD (02/10/2019 10:14 PM) [facility]
--- NOTE | 2019-02-10 22:38 | RAD ---
Bilateral lower extremity venous duplex study 02/10/2019 Clinical History: Bilateral leg swelling. Technique: Using a combination of real time ultrasound imaging and color-flow and pulse Doppler imaging techniques along with graded compression and augmentation, duplex evaluation of the deep venous system of the both lower extremities was performed. Multiple images were obtained. Findings: Echogenic thrombus consistent with partially occlusive DVT is seen involving the right popliteal vein extending to involve the majority of the right superficial femoral vein. The right common femoral vein is patent. There is no sonographic evidence of deep venous thrombosis involving the visualized deep venous structures of the left lower extremity. IMPRESSION: DVT is seen extending from the right popliteal vein to involve the right superficial femoral vein. Electronically signed by: Robles Crawley MD (02/10/2019 10:35 PM) [facility]
[2019-02-10] MEDS ORDERED: RIVAROXABAN 15 MG TABLET. PO SCH (23:30)
[2019-02-11] VITALS (7 sets, daily range): BP systolic 127–177; BP diastolic 79–102
[2019-02-11] MEDS ORDERED: INFLUENZA VAX SCREEN BY RX. MC PRN (00:45)
--- NOTE | 2019-02-11 08:52 | PDOC1 ---
History and Physical Date of Admission Date of Admission DATE: 02/11/19 TIME: 08:50 Identification/Chief Complaint Chief Complaint seen in er , 68 year old male who presents with 1 week of lower extremity edema bilaterally. Patient states that he will get lower extremity swelling but in the morning when he wakes up it has gone down. US POS FOR DVT OF LEG CTA OF CHEST PENDING NO PCP, HAS not seen pcp for years rapid response called earlier, to move to CVC BED, CTA CHEST ORDERED STAT Past Medical History Past Medical History Past Medical History Past Medical History: Arthritis Past Surgical History: No Surgical History Alcohol Use: None Drug Use: None fhx obesity Family History Family History: High Cholestrol, Hypertension Social History Smoke: No ALCOHOL: none Drugs: None Current Problem List Problem List Problems Medical Problems: (1) Extremity edema Status: Acute (2) Hypertension Status: Acute Current Medications Current Medications Current Medications Clonidine HCl (Catapres) 0.1 mg 1X ONCE PO Last administered on 02/10/19at 21:16; Start 02/10/19 at 21:15; Stop 02/10/19 at 21:16; Status DC Ceftriaxone Sodium (Rocephin) 1 gm 1X ONCE IVP Last administered on 02/10/19at 21:17; Start 02/10/19 at 21:15; Stop 02/10/19 at 21:16; Status DC Ondansetron HCl (Zofran) 4 mg PRN Q8HRS PRN IV NAUSEA/VOMITING; Start 02/10/19 at 21:45; Stop 02/11/19 at 21:44 Fentanyl Citrate (Fentanyl 2ml Vial) 50 mcg PRN Q1HR PRN IV PAIN; Start 02/10/19 at 21:45; Stop 02/11/19 at 21:44 Acetaminophen (Tylenol) 650 mg PRN Q4HRS PRN PO FEVER; Start 02/10/19 at 21:45; Stop 02/11/19 at 21:44 Rivaroxaban (Xarelto) 15 mg 1X PO ; Start 02/10/19 at 23:30 Influenza Virus Vaccine Quadrival (Afluria Quad 2019-20 (3yr Up) Syringe) 0.5 ml ONCE ONCE VAX IM ; Start 02/11/19 at 09:00; Stop 02/11/19 at 09:01 Info (FLU VACCINE SCREEN per RX) 1 each PRN 1X PRN MC SEE COMMENTS; Start 02/11/19 at 00:45; Status Cancel Active Scripts Active Colcrys (Colchicine) 0.6 Mg Tablet 0.6 Mg PO 1X Take 2 0.6 mg tablets and 1 hour later take another 0.6 mg tablet. Prednisone 20 Mg Tablet 3 Tab PO DAILY 5 Days Naproxen 500 Mg Tablet 1 Tab PO BID PRN Sterling 5-325 Tablet (Acetaminophen/Hydrocodone Bitart) 1 Each Tablet 1 Tab PO PRN Q6HRS PRN Naprosyn (Naproxen) 500 Mg Tablet 1 Tab PO BID Keflex (Cephalexin) 500 Mg Capsule 2 Cap PO Q12HR Bactrim Ds Tablet (Sulfamethoxazole/Trimethoprim) 1 Each Tablet 1 Tab PO BID Sterling 5-325 Tablet (Acetaminophen/Hydrocodone Bitart) 1 Each Tablet 1 Tab PO PRN Q6HRS PRN Reported Aspirin 325 Mg Tablet 1 Tab PO DAILY Allergies Allergies: Coded Allergies: No Known Drug Allergies (Unverified , 04/03/14) ROS Review of System Review of Systems Review of Systems Respiratory: Denies cough. shortness of breath comes and goes[] Cardiovascular: Chest tightness or pressure comes and goes Musculoskeletal: Bilateral lower extremities swelling. Denies back pain or joint pain [] SNORES AT NIGHT 14 PT systems were reviewed and found to be within normal limits, except as documented General: YES: Fatigue PSYCHOLOGICAL ROS: No: Anxiety, Behavioral Disorder, Concentration difficultie, Decreased libido, Depression, Disorientation, Hallucinations, Hostility, Irritablity, Memory difficulties, Mood Swings, Obsessive thoughts, Physical abuse, Sexual abuse, Sleep disturbances, Suicidal ideation, Other ALLERGY AND IMMUNOLOGY: No: Hives, Insect Bite Sensitivity, Itchy/Watery Eyes, Nasal Congestion, Post Nasal Drip, Seasonal Allergies, Other Hematological and Lymphatic: No: Bleeding Problems, Blood Clots, Blood Transfusions, Brusing, Night Sweats, Pallor, Swollen Lymph Nodes, Other Respiratory: YES: Shortness of breath, SOB with excertion Cardiovascular: yes Palpitations, yes Edema; No Chest Pain, No Orthopnea, No Paroxysmal Noc. Dyspnea, No Lt Headedness, No Other Gastrointestinal: No Nausea, No Vomiting, No Abdominal Pain, No Diarrhea, No Constipation, No Melena, No Hematochezia, No Other Musculoskeletal: Yes Gait Disturbance, Yes Joint Stiffness, Yes Joint Swelling Neurological: Yes Gait Disturbance Physical Exam Physical Exam Physical Exam Physical Exam Constitutional: Well developed, well nourished VERY OBESE, no acute distress, non-toxic appearance. [] HENT: Normocephalic, atraumatic, bilateral external ears normal, oropharynx moist, no oral exudates, nose normal. POOR DENTITION[] Eyes: PERRLA, EOMI, conjunctiva normal, no discharge. [] Neck: Normal range of motion, no tenderness, supple, no stridor. [] Cardiovascular: Heart rate regular rhythm, no murmur, Hypertensive [] Lungs & Thorax: Bilateral upper breath sounds clear to auscultation, bilateral lower lobes diminished. [] Abdomen: Bowel sounds normal, soft, no tenderness, no masses, no pulsatile masses. [] Skin: Warm, dry, no erythema, no rash. [] Back: No tenderness, no CVA tenderness. [] Extremities: No tenderness, no cyanosis, no clubbing, ROM intact, Bilateral lower extremities 3-4+ edema. SEVERE ONYCHOMYCOSIS BOTH FEET NAILS[] Neurologic: Alert and oriented X 3, normal motor function, normal sensory function, no focal deficits noted. [] Psychologic: Affect normal, judgment normal, mood normal. [] General: Alert, Oriented X3, Cooperative, No acute distress HEENT: Atraumatic Lungs: Clear to auscultation, Normal air movement Heart: RRR Abdomen: Normal bowel sounds, Soft Rectal Exam: not examined Extremities: No cyanosis Neuro: Normal speech, Cranial nerves 3-12 NL Psych/Mental Status: Mental status NL, Mood NL Vitals Vitals Vital Signs Date Time Temp Pulse Resp B/P (MAP) Pulse Ox O2 Delivery O2 Flow Rate FiO2 02/11/19 07:00 98.8 83 24 154/82 (106) 96 Room Air 98.8 Labs Labs Laboratory Tests Test 02/10/19 20:05 02/10/19 20:26 02/11/19 00:45 White Blood Count 7.6 x10^3/uL (4.0-11.0) Red Blood Count 4.97 x10^6/uL (4.30-5.70) Hemoglobin 13.8 g/dL (13.0-17.5) Hematocrit 41.2 % (39.0-53.0) Mean Corpuscular Volume 83 fL (79-100) Mean Corpuscular Hemoglobin 28 pg (25-35) Mean Corpuscular Hemoglobin Concent 33 g/dL (31-37) Red Cell Distribution Width 14.5 % (11.5-14.5) Platelet Count 294 x10^3/uL (140-400) Neutrophils (%) (Auto) 60 % (31-73) Lymphocytes (%) (Auto) 26 % (24-48) Monocytes (%) (Auto) 9 % (0-9) Eosinophils (%) (Auto) 5 % (0-3) Basophils (%) (Auto) 1 % (0-3) Neutrophils # (Auto) 4.6 x10^3/uL (1.8-7.7) Lymphocytes # (Auto) 1.9 x10^3/uL (1.0-4.8) Monocytes # (Auto) 0.7 x10^3/uL (0.0-1.1) Eosinophils # (Auto) 0.4 x10^3/uL (0.0-0.7) Basophils # (Auto) 0.0 x10^3/uL (0.0-0.2) Prothrombin Time 13.2 SEC (11.7-14.0) Prothromb Time International Ratio 1.0 (0.8-1.1) Sodium Level 143 mmol/L (136-145) Potassium Level 4.7 mmol/L (3.5-5.1) Chloride Level 106 mmol/L (98-107) Carbon Dioxide Level 30 mmol/L (21-32) Anion Gap 7 (6-14) Blood Urea Nitrogen 17 mg/dL (8-26) Creatinine 1.2 mg/dL (0.7-1.3) Estimated GFR (Cockcroft-Gault) 73.3 BUN/Creatinine Ratio 14 (6-20) Glucose Level 207 mg/dL (70-99) Calcium Level 9.7 mg/dL (8.5-10.1) Total Bilirubin 0.3 mg/dL (0.2-1.0) Aspartate Amino Transf (AST/SGOT) 26 U/L (15-37) Alanine Aminotransferase (ALT/SGPT) 27 U/L (16-63) Alkaline Phosphatase 101 U/L (46-116) Troponin I Quantitative < 0.017 ng/mL (0.000-0.055) < 0.017 ng/mL (0.000-0.055) WW-Zlp-[id number]-Type Natriuretic Peptide 65 pg/mL (0-124) Total Protein 7.2 g/dL (6.4-8.2) Albumin 3.5 g/dL (3.4-5.0) Albumin/Globulin Ratio 0.9 (1.0-1.7) Urine Collection Type Unknown Urine Color Yellow Urine Clarity Cloudy Urine pH 5.5 Urine Specific Wilson 1.020 Urine Protein Negative mg/dL (NEG-TRACE) Urine Glucose (UA) Negative mg/dL (NEG) Urine Ketones (Stick) Negative mg/dL (NEG) Urine Blood Negative (NEG) Urine Nitrite Negative (NEG) Urine Bilirubin Negative (NEG) Urine Urobilinogen Dipstick 1.0 mg/dL (0.2 mg/dL) Urine Leukocyte Esterase Moderate (NEG) Urine RBC Occ /HPF (0-2) Urine WBC 20-40 /HPF (0-4) Urine Squamous Epithelial Cells Mod /LPF Urine Bacteria Few /HPF (0-FEW) Urine Mucus Mod /LPF Urine Opiates Screen Neg (NEG) Urine Methadone Screen Neg (NEG) Urine Barbiturates Neg (NEG) Urine Phencyclidine Screen Neg (NEG) Urine Amphetamine/Methamphetamine Neg (NEG) Urine Benzodiazepines Screen Neg (NEG) Urine Cocaine Screen Neg (NEG) Urine Cannabinoids Screen Neg (NEG) Urine Ethyl Alcohol Neg (NEG) Laboratory Tests Test 02/10/19 20:05 02/10/19 20:26 02/11/19 00:45 White Blood Count 7.6 x10^3/uL (4.0-11.0) Red Blood Count 4.97 x10^6/uL (4.30-5.70) Hemoglobin 13.8 g/dL (13.0-17.5) Hematocrit 41.2 % (39.0-53.0) Mean Corpuscular Volume 83 fL (79-100) Mean Corpuscular Hemoglobin 28 pg (25-35) Mean Corpuscular Hemoglobin Concent 33 g/dL (31-37) Red Cell Distribution Width 14.5 % (11.5-14.5) Platelet Count 294 x10^3/uL (140-400) Neutrophils (%) (Auto) 60 % (31-73) Lymphocytes (%) (Auto) 26 % (24-48) Monocytes (%) (Auto) 9 % (0-9) Eosinophils (%) (Auto) 5 % (0-3) Basophils (%) (Auto) 1 % (0-3) Neutrophils # (Auto) 4.6 x10^3/uL (1.8-7.7) Lymphocytes # (Auto) 1.9 x10^3/uL (1.0-4.8) Monocytes # (Auto) 0.7 x10^3/uL (0.0-1.1) Eosinophils # (Auto) 0.4 x10^3/uL (0.0-0.7) Basophils # (Auto) 0.0 x10^3/uL (0.0-0.2) Prothrombin Time 13.2 SEC (11.7-14.0) Prothromb Time International Ratio 1.0 (0.8-1.1) Sodium Level 143 mmol/L (136-145) Potassium Level 4.7 mmol/L (3.5-5.1) Chloride Level 106 mmol/L (98-107) Carbon Dioxide Level 30 mmol/L (21-32) Anion Gap 7 (6-14) Blood Urea Nitrogen 17 mg/dL (8-26) Creatinine 1.2 mg/dL (0.7-1.3) Estimated GFR (Cockcroft-Gault) 73.3 BUN/Creatinine Ratio 14 (6-20) Glucose Level 207 mg/dL (70-99) Calcium Level 9.7 mg/dL (8.5-10.1) Total Bilirubin 0.3 mg/dL (0.2-1.0) Aspartate Amino Transf (AST/SGOT) 26 U/L (15-37) Alanine Aminotransferase (ALT/SGPT) 27 U/L (16-63) Alkaline Phosphatase 101 U/L (46-116) Troponin I Quantitative < 0.017 ng/mL (0.000-0.055) < 0.017 ng/mL (0.000-0.055) WY-[id number]-P-Type Natriuretic Peptide 65 pg/mL (0-124) Total Protein 7.2 g/dL (6.4-8.2) Albumin 3.5 g/dL (3.4-5.0) Albumin/Globulin Ratio 0.9 (1.0-1.7) Urine Collection Type Unknown Urine Color Yellow Urine Clarity Cloudy Urine pH 5.5 Urine Specific Wilson 1.020 Urine Protein Negative mg/dL (NEG-TRACE) Urine Glucose (UA) Negative mg/dL (NEG) Urine Ketones (Stick) Negative mg/dL (NEG) Urine Blood Negative (NEG) Urine Nitrite Negative (NEG) Urine Bilirubin Negative (NEG) Urine Urobilinogen Dipstick 1.0 mg/dL (0.2 mg/dL) Urine Leukocyte Esterase Moderate (NEG) Urine RBC Occ /HPF (0-2) Urine WBC 20-40 /HPF (0-4) Urine Squamous Epithelial Cells Mod /LPF Urine Bacteria Few /HPF (0-FEW) Urine Mucus Mod /LPF Urine Opiates Screen Neg (NEG) Urine Methadone Screen Neg (NEG) Urine Barbiturates Neg (NEG) Urine Phencyclidine Screen Neg (NEG) Urine Amphetamine/Methamphetamine Neg (NEG) Urine Benzodiazepines Screen Neg (NEG) Urine Cocaine Screen Neg (NEG) Urine Cannabinoids Screen Neg (NEG) Urine Ethyl Alcohol Neg (NEG) Images Images Bilateral lower extremity venous duplex study 02/10/2019 Clinical History: Bilateral leg swelling. Technique: Using a combination of real time ultrasound imaging and color-flow and pulse Doppler imaging techniques along with graded compression and augmentation, duplex evaluation of the deep venous system of the both lower extremities was performed. Multiple images were obtained. Findings: Echogenic thrombus consistent with partially occlusive DVT is seen involving the right popliteal vein extending to involve the majority of the right superficial femoral vein. The right common femoral vein is patent. There is no sonographic evidence of deep venous thrombosis involving the visualized deep venous structures of the left lower extremity. IMPRESSION: DVT is seen extending from the right popliteal vein to involve the right superficial femoral vein. Electronically signed by: Robles Crawley MD (02/10/2019 10:35 PM) [facility] AP portable chest radiograph 02/10/2019 Clinical History: Shortness of breath. An AP erect portable digital radiograph of the chest was obtained. No previous studies are available for comparison. The cardiac silhouette is normal in size. The thoracic aorta is mildly tortuous. No acute pulmonary infiltrate is seen. No pleural effusion or pneumothorax is noted. Degenerative changes are seen involving the thoracic spine. IMPRESSION: No acute abnormality is seen. Electronically signed by: Robles Crawley MD (02/10/2019 10:14 PM) [facility] ABDOMEN COMPLETE History: Edema Comparison: CT April 03, 2014. Technique: Transabdominal ultrasound images are obtained of the right upper quadrant. Findings: Visualized pancreas is not well seen due to overlying bowel gas. Liver is increased in echogenicity. Right hepatic lobe measures 21 cm. Portal flow is hepatopedal. Contracted gallbladder degrading evaluation. Cholelithiasis. No pericholecystic fluid. Negative sonographic Castro sign. Common bile duct caliber is normal measuring 3.9 mm in diameter. The right kidney measures 2.7 x 4.9 x 4.4 cm in length. Left kidney measures 12.4 x 5.1 x 7.1 cm. No hydronephrosis bilaterally. Left renal cyst measures 2.7 cm. No solid renal mass. The spleen measures 10.1 cm. Aorta and IVC not well seen due to overlying bowel gas. IMPRESSION: 1. Cholelithiasis with contracted gallbladder. HIDA scan can further evaluate gallbladder function if indicated. 2. Hepatomegaly with steatosis. 3. Left renal cyst. Electronically signed by: Darrell Gleason DO (02/11/2019 10:29 AM) [facility] AP portable chest radiograph 02/10/2019 Clinical History: Shortness of breath. An AP erect portable digital radiograph of the chest was obtained. No previous studies are available for comparison. The cardiac silhouette is normal in size. The thoracic aorta is mildly tortuous. No acute pulmonary infiltrate is seen. No pleural effusion or pneumothorax is noted. Degenerative changes are seen involving the thoracic spine. IMPRESSION: No acute abnormality is seen. Electronically signed by: Robles Crawley MD (02/10/2019 10:14 PM) [facility] DICTATED and SIGNED BY: ROBLES CRAWLEY MD DATE: 02/10/19 2214 VTE Prophylaxis Ordered VTE Prophylaxis Devices: No VTE Pharmacological Prophylaxi: Yes Assessment/Plan Assessment/Plan IMPRESSION 1. UNCONTROLLED HYPERTENSION 2. Extreme morbid obesity 3. Hepatomegaly with steatosis. 4. probable sleep apnea 5. suspected pulmonary hypertension 6. ACUTE DVT is seen extending from the right popliteal vein to involve the right superficial femoral vein. 7. POSSIBLE PE 8. untreated diabetes 9. onychomycosis both feet plan ADMIT cvc bed BP CONTROL Cardiology consult ECHO pulm consult CT PE PROTOCOL STAT podiatry consult ss insulin accuchecks A1C 74 min pt exam, chart review, > 50% ochart review, pt care coordination KUMAR ASH MD Feb 11, 2019 08:52
[2019-02-11] MEDS ORDERED: FLU VAX QS 2019-20 (36MOS+)/PF 0.5 ML SYRINGE. VAX IM ONE (09:00)
--- NOTE | 2019-02-11 10:32 | RAD ---
ABDOMEN COMPLETE History: Edema Comparison: CT April 03, 2014. Technique: Transabdominal ultrasound images are obtained of the right upper quadrant. Findings: Visualized pancreas is not well seen due to overlying bowel gas. Liver is increased in echogenicity. Right hepatic lobe measures 21 cm. Portal flow is hepatopedal. Contracted gallbladder degrading evaluation. Cholelithiasis. No pericholecystic fluid. Negative sonographic Castro sign. Common bile duct caliber is normal measuring 3.9 mm in diameter. The right kidney measures 2.7 x 4.9 x 4.4 cm in length. Left kidney measures 12.4 x 5.1 x 7.1 cm. No hydronephrosis bilaterally. Left renal cyst measures 2.7 cm. No solid renal mass. The spleen measures 10.1 cm. Aorta and IVC not well seen due to overlying bowel gas. IMPRESSION: 1. Cholelithiasis with contracted gallbladder. HIDA scan can further evaluate gallbladder function if indicated. 2. Hepatomegaly with steatosis. 3. Left renal cyst. Electronically signed by: Darrell Gleason DO (02/11/2019 10:29 AM) [facility]
--- NOTE | 2019-02-11 10:52 | NUR ---
Pt heart rate increased to 200's, pt c/o SOB but no chest pain at this time. Rapid Response called. Pt placed on 4L NC, oxygen sat 96%, BP 157/89. Rapid response team had the patient bear down a couple times and pt HR dropped to the 80's and the SOB subsided. Dr. Calabrese notified and requests a transfer to CV. Dr. Aguayo notified. No further orders obtained at this time. Will continue to monitor.
--- NOTE | 2019-02-11 11:15 | NUR ---
rapid Resp note: Called to Rm 658 for rapid HR on pt admitted last night. HR 180 reg. Pt A&O c/o sl SOA since HR increased. Denies chest discomfort. BP 102 /65. Pt was asked to bear down and HR returned to 80's SR. Dr Austin updated and will see pt soon. BP up to 160 sys, denied SOA now. Tx to CVC floor when bed avail. IVx1 patent.
--- NOTE | 2019-02-11 11:20 | EKG ---
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
[2019-02-11] MEDS ORDERED: COLCHICINE 0.6 MG TABLET PO SCH (11:30)
[2019-02-11] MEDS ORDERED: DEXTROSE 50% 25 GM / 50ML DISP.SYRIN. IV PRN (12:00)
[2019-02-11] MEDS ORDERED: IOHEXOL 350 MG/ML 100 ML VIAL. IV ONE ×2 (12:00→17:30)
[2019-02-11] MEDS ORDERED: CONTRAST GIVEN. MC PRN (12:00)
[2019-02-11] MEDS: INSULIN LISPRO 300 UNITS/3 ML VIAL. SQ SCH ×2 (12:00→17:00)
--- NOTE | 2019-02-11 12:12 | EKG ---
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
--- NOTE | 2019-02-11 12:25 | RAD ---
PQRS Compliance statement: One or more of the following individualized dose reduction techniques were utilized for this examination: 1. Automated exposure control. 2. Adjustment of the mA and/or kV according to patient size. 3. Use of iterative reconstruction technique. Indication:Possible PE. TECHNIQUE: CT angiogram of the chest with IV contrast with multiplanar MIP reformats. COMPARISON: None FINDINGS: Suboptimal PE study due to contrast bolus timing and breathing motion artifact. However there are filling defects in the segmental and subsegmental pulmonary arteries. No saddle embolus. Heart is normal in size. No pericardial or pleural effusion. No enlarged axillary, mediastinal or hilar adenopathy. No focal consolidation. Lungs are grossly clear. Visualized sections through the liver, spleen, pancreas, adrenals and upper kidneys within normal limits. No suspicious bony lesion. IMPRESSION: 1. Subpleural PE study due to contrast bolus timing and breathing motion artifact. However, there are segmental or subsegmental filling defects in the bilateral pulmonary arteries. Critical findings were identified on 02/11/2019 12:16 PM, read back and verified with Nurse Gonzalez on 02/11/2019 12:[address] Ahsan Dodson DO. Electronically signed by: Ahsan Dodson DO (02/11/2019 12:23 PM) [facility]
[2019-02-11] MEDS: ASPIRIN 325 MG TABLET PO SCH (12:32)
[2019-02-11] MEDS: RIVAROXABAN 15 MG TABLET. PO SCH ×2 (12:32→20:55)
[2019-02-11 13:00] LABS: BASE EXCESS COOX 0 mmol/L (-3-3); HCO3 COOX 25 mmol/L (21-28); METHEMOGLOBIN 0.3 % (0.0-1.9); OXYHEMOGLOBIN 92.6 %; PCO2 COOX 41 mmHg (35-46); PO2 COOX 69 mmHg (65-108); SAT O2 COOX 93 % (92-99)
--- NOTE | 2019-02-11 16:00 | NUR ---
Pt transferred to room 205. Report called to JACIEL Haile. Pt transported via bed. All belongings left with patient at the time of transfer.
--- NOTE | 2019-02-11 17:53 | PDOC2 ---
CONSULT Date of Consult Date of Consult DATE: 02/11/19 TIME: 17:48 Reason for Consult Reason for Consult: Shortness of breath, PSVT Referring Physician Referring Physician: Dr. Aguayo Identification/Chief Complaint Chief Complaint Shortness of breath, lower extremity swelling Source Source: Chart review, Patient History of Present Illness Reason for Visit: The patient is a 68-year-old male who was admitted through the emergency room with chief complaints of lower extremity swelling, shortness of breath and some chest pressure. Patient states the edema has been increasing over the past week. He also reported occasional episodes of shortness of breath and chest pressure over the past several weeks. Initial workup showed a positive right sided DVT in the lower extremity and he was started on anticoagulation. Earlier today the patient had a run of PSVT which resolved with Valsalva. Following this the patient had a CT of the chest which was positive for pulmonary emboli. The patient is feeling slightly better. His chest pain has resolved. He continues to have some shortness of breath. Past Medical History Cardiovascular: HTN Past Surgical History Past Surgical History: No pertinent history Family History Family History: High Cholestrol, Hypertension Social History No ALCOHOL: none Drugs: None Current Problem List Problem List Problems Medical Problems: (1) Extremity edema Status: Acute (2) Hypertension Status: Acute Current Medications Current Medications Current Medications Clonidine HCl (Catapres) 0.1 mg 1X ONCE PO Last administered on 02/10/19at 21:16; Start 02/10/19 at 21:15; Stop 02/10/19 at 21:16; Status DC Ceftriaxone Sodium (Rocephin) 1 gm 1X ONCE IVP Last administered on 02/10/19at 21:17; Start 02/10/19 at 21:15; Stop 02/10/19 at 21:16; Status DC Ondansetron HCl (Zofran) 4 mg PRN Q8HRS PRN IV NAUSEA/VOMITING; Start 02/10/19 at 21:45; Stop 02/11/19 at 21:44 Fentanyl Citrate (Fentanyl 2ml Vial) 50 mcg PRN Q1HR PRN IV PAIN; Start 02/10/19 at 21:45; Stop 02/11/19 at 21:44 Acetaminophen (Tylenol) 650 mg PRN Q4HRS PRN PO FEVER; Start 02/10/19 at 21:45; Stop 02/11/19 at 21:44 Rivaroxaban (Xarelto) 15 mg 1X PO ; Start 02/10/19 at 23:30; Stop 02/11/19 at 11:37; Status DC Influenza Virus Vaccine Quadrival (Afluria Quad 2019-20 (3yr Up) Syringe) 0.5 ml ONCE ONCE VAX IM ; Start 02/11/19 at 09:00; Stop 02/11/19 at 09:01; Status DC Info (FLU VACCINE SCREEN per RX) 1 each PRN 1X PRN MC SEE COMMENTS; Start 02/11/19 at 00:45; Status Cancel Aspirin (Neeraj Aspirin) 325 mg DAILY PO Last administered on 02/11/19at 12:32; Start 02/11/19 at 12:00 Colchicine (Colcrys) 0.6 mg 1X PO ; Start 02/11/19 at 11:30 Lisinopril (Prinivil) 5 mg BID66 PO ; Start 02/11/19 at 18:00 Rivaroxaban (Xarelto) 15 mg BID PO Last administered on 02/11/19at 12:32; Start 02/11/19 at 12:00 Iohexol (Omnipaque 350 Mg/ml) 100 ml 1X ONCE IV ; Start 02/11/19 at 12:00; Stop 02/11/19 at 12:01; Status DC Info (CONTRAST GIVEN -- Rx MONITORING) 1 each PRN DAILY PRN MC SEE COMMENTS; Start 02/11/19 at 12:00; Stop 02/13/19 at 11:59 Insulin Human Lispro (HumaLOG) 0-5 UNITS TIDWMEALS SQ ; Start 02/11/19 at 12:00 Dextrose (Dextrose 50%-Water Syringe) 12.5 gm PRN Q15MIN PRN IV SEE COMMENTS; Start 02/11/19 at 12:00 Ceftriaxone Sodium (Rocephin) 1 gm Q24H IVP ; Start 02/11/19 at 21:00 Iohexol (Omnipaque 350 Mg/ml) 100 ml 1X ONCE IV Last administered on 02/11/19at 17:23; Start 02/11/19 at 17:30; Stop 02/11/19 at 17:31; Status DC Active Scripts Active Colcrys (Colchicine) 0.6 Mg Tablet 0.6 Mg PO 1X Take 2 0.6 mg tablets and 1 hour later take another 0.6 mg tablet. Prednisone 20 Mg Tablet 3 Tab PO DAILY 5 Days Naproxen 500 Mg Tablet 1 Tab PO BID PRN [place] 5-325 Tablet (Acetaminophen/Hydrocodone Bitart) 1 Each Tablet 1 Tab PO PRN Q6HRS PRN Naprosyn (Naproxen) 500 Mg Tablet 1 Tab PO BID Keflex (Cephalexin) 500 Mg Capsule 2 Cap PO Q12HR Bactrim Ds Tablet (Sulfamethoxazole/Trimethoprim) 1 Each Tablet 1 Tab PO BID [place] 5-325 Tablet (Acetaminophen/Hydrocodone Bitart) 1 Each Tablet 1 Tab PO PRN Q6HRS PRN Reported Aspirin 325 Mg Tablet 1 Tab PO DAILY Allergies Allergies: Coded Allergies: No Known Drug Allergies (Unverified , 04/03/14) ROS General: YES: Fatigue Respiratory: YES: Shortness of breath, SOB with excertion Physical Exam General: mild distress HEENT: Atraumatic Lungs: Clear to auscultation Heart: Regular rate Abdomen: Normal bowel sounds Extremities: Other (+2 edema bilaterally) Vitals VITALS Vital Signs Date Time Temp Pulse Resp B/P (MAP) Pulse Ox O2 Delivery O2 Flow Rate FiO2 02/11/19 15:00 98.6 83 28 127/84 (98) 97 Room Air 98.6 Labs Labs Laboratory Tests Test 02/10/19 20:05 02/10/19 20:26 02/11/19 00:45 02/11/19 12:26 White Blood Count 7.6 x10^3/uL (4.0-11.0) Red Blood Count 4.97 x10^6/uL (4.30-5.70) Hemoglobin 13.8 g/dL (13.0-17.5) Hematocrit 41.2 % (39.0-53.0) Mean Corpuscular Volume 83 fL (79-100) Mean Corpuscular Hemoglobin 28 pg (25-35) Mean Corpuscular Hemoglobin Concent 33 g/dL (31-37) Red Cell Distribution Width 14.5 % (11.5-14.5) Platelet Count 294 x10^3/uL (140-400) Neutrophils (%) (Auto) 60 % (31-73) Lymphocytes (%) (Auto) 26 % (24-48) Monocytes (%) (Auto) 9 % (0-9) Eosinophils (%) (Auto) 5 % (0-3) Basophils (%) (Auto) 1 % (0-3) Neutrophils # (Auto) 4.6 x10^3/uL (1.8-7.7) Lymphocytes # (Auto) 1.9 x10^3/uL (1.0-4.8) Monocytes # (Auto) 0.7 x10^3/uL (0.0-1.1) Eosinophils # (Auto) 0.4 x10^3/uL (0.0-0.7) Basophils # (Auto) 0.0 x10^3/uL (0.0-0.2) Prothrombin Time 13.2 SEC (11.7-14.0) Prothromb Time International Ratio 1.0 (0.8-1.1) Sodium Level 143 mmol/L (136-145) Potassium Level 4.7 mmol/L (3.5-5.1) Chloride Level 106 mmol/L (98-107) Carbon Dioxide Level 30 mmol/L (21-32) Anion Gap 7 (6-14) Blood Urea Nitrogen 17 mg/dL (8-26) Creatinine 1.2 mg/dL (0.7-1.3) Estimated GFR (Cockcroft-Gault) 73.3 BUN/Creatinine Ratio 14 (6-20) Glucose Level 207 mg/dL (70-99) Calcium Level 9.7 mg/dL (8.5-10.1) Total Bilirubin 0.3 mg/dL (0.2-1.0) Aspartate Amino Transf (AST/SGOT) 26 U/L (15-37) Alanine Aminotransferase (ALT/SGPT) 27 U/L (16-63) Alkaline Phosphatase 101 U/L (46-116) Troponin I Quantitative < 0.017 ng/mL (0.000-0.055) < 0.017 ng/mL (0.000-0.055) SX-Sfc-I-Type Natriuretic Peptide 65 pg/mL (0-124) Total Protein 7.2 g/dL (6.4-8.2) Albumin 3.5 g/dL (3.4-5.0) Albumin/Globulin Ratio 0.9 (1.0-1.7) Urine Collection Type Unknown Urine Color Yellow Urine Clarity Cloudy Urine pH 5.5 Urine Specific [place] 1.020 Urine Protein Negative mg/dL (NEG-TRACE) Urine Glucose (UA) Negative mg/dL (NEG) Urine Ketones (Stick) Negative mg/dL (NEG) Urine Blood Negative (NEG) Urine Nitrite Negative (NEG) Urine Bilirubin Negative (NEG) Urine Urobilinogen Dipstick 1.0 mg/dL (0.2 mg/dL) Urine Leukocyte Esterase Moderate (NEG) Urine RBC Occ /HPF (0-2) Urine WBC 20-40 /HPF (0-4) Urine Squamous Epithelial Cells Mod /LPF Urine Bacteria Few /HPF (0-FEW) Urine Mucus Mod /LPF Urine Opiates Screen Neg (NEG) Urine Methadone Screen Neg (NEG) Urine Barbiturates Neg (NEG) Urine Phencyclidine Screen Neg (NEG) Urine Amphetamine/Methamphetamine Neg (NEG) Urine Benzodiazepines Screen Neg (NEG) Urine Cocaine Screen Neg (NEG) Urine Cannabinoids Screen Neg (NEG) Urine Ethyl Alcohol Neg (NEG) Glucose (Fingerstick) 134 mg/dL (70-99) Test 02/11/19 12:57 02/11/19 17:01 O2 Saturation 93 % (92-99) Arterial Blood pH 7.41 (7.35-7.45) Arterial Blood pCO2 at Patient Temp 41 mmHg (35-46) Arterial Blood pO2 at Patient Temp 69 mmHg (65-108) Arterial Blood HCO3 25 mmol/L (21-28) Arterial Blood Base Excess 0 mmol/L (-3-3) Oxyhemoglobin 92.6 % Methemoglobin 0.3 % (0.0-1.9) Carbon Monoxide, Quantitative 0.4 % (0.0-1.9) FiO2 21 Glucose (Fingerstick) 138 mg/dL (70-99) Laboratory Tests Test 02/10/19 20:05 02/10/19 20:26 02/11/19 00:45 02/11/19 12:26 White Blood Count 7.6 x10^3/uL (4.0-11.0) Red Blood Count 4.97 x10^6/uL (4.30-5.70) Hemoglobin 13.8 g/dL (13.0-17.5) Hematocrit 41.2 % (39.0-53.0) Mean Corpuscular Volume 83 fL (79-100) Mean Corpuscular Hemoglobin 28 pg (25-35) Mean Corpuscular Hemoglobin Concent 33 g/dL (31-37) Red Cell Distribution Width 14.5 % (11.5-14.5) Platelet Count 294 x10^3/uL (140-400) Neutrophils (%) (Auto) 60 % (31-73) Lymphocytes (%) (Auto) 26 % (24-48) Monocytes (%) (Auto) 9 % (0-9) Eosinophils (%) (Auto) 5 % (0-3) Basophils (%) (Auto) 1 % (0-3) Neutrophils # (Auto) 4.6 x10^3/uL (1.8-7.7) Lymphocytes # (Auto) 1.9 x10^3/uL (1.0-4.8) Monocytes # (Auto) 0.7 x10^3/uL (0.0-1.1) Eosinophils # (Auto) 0.4 x10^3/uL (0.0-0.7) Basophils # (Auto) 0.0 x10^3/uL (0.0-0.2) Prothrombin Time 13.2 SEC (11.7-14.0) Prothromb Time International Ratio 1.0 (0.8-1.1) Sodium Level 143 mmol/L (136-145) Potassium Level 4.7 mmol/L (3.5-5.1) Chloride Level 106 mmol/L (98-107) Carbon Dioxide Level 30 mmol/L (21-32) Anion Gap 7 (6-14) Blood Urea Nitrogen 17 mg/dL (8-26) Creatinine 1.2 mg/dL (0.7-1.3) Estimated GFR (Cockcroft-Gault) 73.3 BUN/Creatinine Ratio 14 (6-20) Glucose Level 207 mg/dL (70-99) Calcium Level 9.7 mg/dL (8.5-10.1) Total Bilirubin 0.3 mg/dL (0.2-1.0) Aspartate Amino Transf (AST/SGOT) 26 U/L (15-37) Alanine Aminotransferase (ALT/SGPT) 27 U/L (16-63) Alkaline Phosphatase 101 U/L (46-116) Troponin I Quantitative < 0.017 ng/mL (0.000-0.055) < 0.017 ng/mL (0.000-0.055) SA-Ynt-B-Type Natriuretic Peptide 65 pg/mL (0-124) Total Protein 7.2 g/dL (6.4-8.2) Albumin 3.5 g/dL (3.4-5.0) Albumin/Globulin Ratio 0.9 (1.0-1.7) Urine Collection Type Unknown Urine Color Yellow Urine Clarity Cloudy Urine pH 5.5 Urine Specific [place] 1.020 Urine Protein Negative mg/dL (NEG-TRACE) Urine Glucose (UA) Negative mg/dL (NEG) Urine Ketones (Stick) Negative mg/dL (NEG) Urine Blood Negative (NEG) Urine Nitrite Negative (NEG) Urine Bilirubin Negative (NEG) Urine Urobilinogen Dipstick 1.0 mg/dL (0.2 mg/dL) Urine Leukocyte Esterase Moderate (NEG) Urine RBC Occ /HPF (0-2) Urine WBC 20-40 /HPF (0-4) Urine Squamous Epithelial Cells Mod /LPF Urine Bacteria Few /HPF (0-FEW) Urine Mucus Mod /LPF Urine Opiates Screen Neg (NEG) Urine Methadone Screen Neg (NEG) Urine Barbiturates Neg (NEG) Urine Phencyclidine Screen Neg (NEG) Urine Amphetamine/Methamphetamine Neg (NEG) Urine Benzodiazepines Screen Neg (NEG) Urine Cocaine Screen Neg (NEG) Urine Cannabinoids Screen Neg (NEG) Urine Ethyl Alcohol Neg (NEG) Glucose (Fingerstick) 134 mg/dL (70-99) Test 02/11/19 12:57 02/11/19 17:01 O2 Saturation 93 % (92-99) Arterial Blood pH 7.41 (7.35-7.45) Arterial Blood pCO2 at Patient Temp 41 mmHg (35-46) Arterial Blood pO2 at Patient Temp 69 mmHg (65-108) Arterial Blood HCO3 25 mmol/L (21-28) Arterial Blood Base Excess 0 mmol/L (-3-3) Oxyhemoglobin 92.6 % Methemoglobin 0.3 % (0.0-1.9) Carbon Monoxide, Quantitative 0.4 % (0.0-1.9) FiO2 21 Glucose (Fingerstick) 138 mg/dL (70-99) Images Images Lower she may ultrasound positive for right sided DVT. Chest x-ray shows no acute changes. CT scan of the chest possible pulmonary emboli. Assessment/Plan Assessment/Plan 1. Pulmonary emboli. Patient reports shortness of breath and some chest pressure as noted above. Ultrasound is positive for a right lower extremity DVT. Anticoagulation as per the pulmonary service. We'll check echocardiogram for right sided pressures. 2. PSVT. Episode of PSVT converted with Valsalva. Probably secondary to #1 as above. Continue monitoring. Echo as above. 3. Hypertension. Blood pressures under control. Will continue to monitor. 4. Unknown cholesterol panel. Family history of hyperlipidemia. We'll check lab. Thank you for allowing us to participate in the care of your patient. RAUL VILLAR MD Feb 11, 2019 17:53
[2019-02-11] MEDS ORDERED: LISINOPRIL 5 MG TABLET. PO SCH (18:00)
[2019-02-11] MEDS: cefTRIAXone IV Push 1 GM VIAL. IVP SCH (20:55)
[2019-02-11] MEDS: LISINOPRIL 5 MG TABLET. PO SCH (22:01)
[2019-02-12 02:45] VITALS: BP 160/90
[2019-02-12 03:11] LABS: HEMOGLOBIN A1C 7.1 % (4.8-5.6)
[2019-02-12] MEDS: LISINOPRIL 5 MG TABLET. PO SCH ×2 (05:55→08:38)
[2019-02-12 07:00] VITALS: BP 191/90
[2019-02-12] MEDS: INSULIN LISPRO 300 UNITS/3 ML VIAL. SQ SCH ×3 (08:00→17:00)
[2019-02-12] MEDS ORDERED: ANTI-COAG MONITOR BY PHARMACY. MC PRN (08:15)
[2019-02-12] MEDS: ASPIRIN 325 MG TABLET PO SCH (08:38)
[2019-02-12] MEDS: LACTOBACILLUS RHAMNOSUS GG 1 CAPSULE. PO SCH ×2 (08:38→21:16)
[2019-02-12] MEDS: RIVAROXABAN 15 MG TABLET. PO SCH ×2 (08:38→21:16)
[2019-02-12 08:41] LABS: BASO # 0.1 x10^3/uL (0.0-0.2); BASO % 1 % (0-3); EOS # 0.4 x10^3/uL (0.0-0.7); EOS % 6 % (0-3); HEMATOCRIT 39.8 % (39.0-53.0); HEMOGLOBIN 13.2 g/dL (13.0-17.5); LYMPH # 1.5 x10^3/uL (1.0-4.8); LYMPH % 23 % (24-48); MEAN CORPUSCULAR HEMOGLOBIN 28 pg (25-35); MEAN CORPUSCULAR HGB CONC 33 g/dL (31-37); MEAN CORPUSCULAR VOLUME 83 fL (79-100); MONO # 0.6 x10^3/uL (0.0-1.1); MONO % 10 % (0-9); NEUT # 3.7 x10^3/uL (1.8-7.7); NEUT % 60 % (31-73); PLATELET COUNT 289 x10^3/uL (140-400); RED BLOOD COUNT 4.78 x10^6/uL (4.30-5.70); WHITE BLOOD COUNT 6.2 x10^3/uL (4.0-11.0)
[2019-02-12 08:48] LABS: CHOLESTEROL/HDL RATIO 5.3
--- NOTE | 2019-02-12 10:26 | CONS ---
DATE OF CONSULTATION: 02/12/2019 PULMONARY CONSULTATION ATTENDING PHYSICIAN: Alex Aguayo M.D. REASON FOR CONSULTATION: DVT and PE. HISTORY OF PRESENT ILLNESS: The patient is a 68-year-old morbidly obese male with a BMI of 46. The patient was recently noticed to have swelling in his right lower extremity, in fact in both the extremities. He was evaluated and a Doppler of the lower extremity was performed and it was consistent with DVT involving the right lower extremity. This was performed on the . The patient underwent angiography, which was reviewed by me. The patient has evidence of small PE involving the lower lobe segmental and subsegmental arteries. The bolus was not the best, but no obvious central pulmonary emboli were seen. 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 He states that sometimes he has to drive 8 hours at a stretch. He drives between [place] and [place]. He has no known cancers. He has no family history of thromboembolic disease. The patient states he is otherwise active. He was started on anticoagulation and his oxygen requirements are very minimal, in fact, he is on room air. PAST MEDICAL HISTORY: Significant for arthritis. PAST SURGICAL HISTORY: None. FAMILY HISTORY: Dyslipidemia and hypertension. No family history of thromboembolic disease. SOCIAL HISTORY: Does not smoke, does not vape, and no drugs. ALLERGIES: None. CURRENT MEDICATIONS: Reviewed as listed in the MRAD including Xarelto. REVIEW OF SYSTEMS: Twelve-point system obtained. Pertinent positives discussed in my history of present illness, otherwise noncontributory. All systems that were negative were reviewed as well. PHYSICAL EXAMINATION: VITAL SIGNS: Stable, blood pressure is in fact on the high side, has ranged 160 systolic to 191 systolic, afebrile, pulse ox 96% on room air. NECK: Supple. LUNGS: Clear. CARDIOVASCULAR: With a regular rate. ABDOMEN: Soft and obese. EXTREMITIES: With bilateral pitting edema. LABORATORY DATA: Reviewed. White cell count 6.2, hemoglobin 13.2, and platelets are 289. ABGs with a pH of 7.41, pCO2 of 41, and a pO2 of 69 on room air. BUN and creatinine were 17 and 1.2. IMPRESSION: 1. Acute pulmonary embolism involving the segmental and subsegmental branches of the lower lobes and also right lower extremity deep vein thrombosis. The risk factors are underlying morbid obesity and his profession. 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 He has been doing this for 15 years. No history of cancer. No family history of thromboembolic disease. 3. No evidence of right ventricular ischemia. 4. No significant tobacco history. 5. Morbid obesity, suspect underlying obstructive sleep apnea and needs to be ruled out as an outpatient with a sleep study. RECOMMENDATIONS: 1. Continue with Xarelto. We will need minimum of 3-6 months of anticoagulation. 2. Since his risk factors are his profession as well as his morbid obesity, these need to be addressed in future and this will determine the duration of his treatment with anticoagulation. 3. I would recommend followup CTA chest and Dopplers in 6 weeks. 4. We will also consider hypercoagulable workup as an outpatient. 5. Weight loss is strongly emphasized. 6. Consider sleep study as an outpatient. 7. Discussed with RN. AMAN RAZO MD DR: YELITZA/karo JOB#: [id number] / [id number]
[2019-02-12 11:00] VITALS: BP 166/85
--- NOTE | 2019-02-12 13:27 | NUR ---
SS following for discharge planning. SS reviewed pt chart. Pt is from home with spouse and is currently on room air. Pt is receiving heart cath today. SS will continue to follow for discharge planning. Addendum: 02/12/19 at 1330 by ADRIANNA ALLEN SS DISREGARD PREVIOUS NOTE: WRONG PATIENT.
--- NOTE | 2019-02-12 13:32 | NUR ---
SS following for discharge planning. SS reviewed pt chart and received referral regarding homelessness. SS attempted to meet with pt but pt currently in ECHO. SS will meet with pt when back in his room to assess for needs. Pt is currently on room air. SS will continue to follow.
--- NOTE | 2019-02-12 13:48 | CARD ---
MR#: [id number] Date of Study: 02/12/2019 Ordering Physician: KUMAR ASH, Referring Physician: KUMAR ASH Tech: Linda Patterson RDCS APPROVED REPORT EXAM: Two-dimensional and M-mode echocardiogram with Doppler and color Doppler. Other Information Quality : Technically LimitedHR: 79bpm Rhythm : NSRTechnically limited study due to body habitus. INDICATION Hypertension/HCVD 2D DIMENSIONS RVDd3.0 (2.9-3.5cm)Left Atrium(2D)3.4 (1.6-4.0cm) IVSd1.1 (0.7-1.1cm)Aortic Root(2D)3.0 (2.0-3.7cm) LVDd5.0 (3.9-5.9cm)LVOT Diameter2.1 (1.8-2.4cm) PWd1.1 (0.7-1.1cm)LVDs3.7 (2.5-4.0cm) FS (%) 27.0 %SV63.0 ml LVEF(%)52.4 (>50%) M-Mode DIMENSIONS Left Atrium(MM)3.12 (2.5-4.0cm)Aortic Root3.54 (2.2-3.7cm) Aortic Valve AoV Peak Wagner.119.8cm/sAoV VTI18.4cm AO Peak GR.5.7mmHgLVOT Peak Wagner.107.5cm/s AO Mean GR.3mmHgAVA (VMAX)3.11cm2 JESSICA (VTI)3.10cm2 Mitral Valve MV E Oqivaznn91.3cm/sMV DECEL [id number] MV A Giswlspt90.9cm/sE/A Ratio1.0 Pulmonary Valve PV Peak Cdzbpnlz648.8cm/s Pulmonary Vein S1 Svealwlt30.0cm/sD2 Pbnyxhla25.6cm/s LEFT VENTRICLE The left ventricle is normal size. There is mild concentric left ventricular hypertrophy. Left ventri oumou systolic function is normal. The Ejection Fraction is 50-55%. There is normal LV segmental wall m otion. RIGHT VENTRICLE The right ventricle is normal size. There is normal right ventricular wall thickness. The right ventr icular systolic function is normal. ATRIA The left atrium size is normal. The right atrium size is normal. The interatrial septum is intact wit h no evidence for an atrial septal defect or patent foramen ovale as noted on 2-D or Doppler imaging. AORTIC VALVE The aortic valve is calcified but opens well. The aortic valve is trileaflet. Doppler and Color Flow revealed no significant aortic regurgitation. There is no significant aortic valvular stenosis. MITRAL VALVE The mitral valve is normal in structure and function. There is no evidence of mitral valve prolapse. There is no mitral valve stenosis. Doppler and Color Flow revealed no mitral valve regurgitation note d. TRICUSPID VALVE The tricuspid valve is not well visualized. Doppler and Color Flow revealed no tricuspid valve regurg itation noted. There is no tricuspid valve prolapse or vegetation. PULMONIC VALVE The pulmonic valve is not well visualized. GREAT VESSELS The aortic root is normal in size. The ascending aorta is normal in size. The IVC is normal in size a nd collapses >50% with inspiration. PERICARDIAL EFFUSION There is no evidence of significant pericardial effusion. Critical Notification Critical Value: No <Conclusion> Technically difficult study. Valves poorly visualized. Left ventricle systolic function is normal. The Ejection Fraction is 50-55%. There is normal LV segmental wall motion. There is no evidence of significant pericardial effusion. Signed by : Robert Ware, Electronically Approved : 02/12/2019 13:48:27
--- NOTE | 2019-02-12 14:18 | PDOC ---
PROGRESS NOTES Chief Complaint Chief Complaint 1. acute pulmonary embolism 2. morbid obesity, BMI 47 3. Hepatomegaly with steatosis. 4. [place] 5. accelerated hypertension 6. ACUTE DVT is seen extending from the right popliteal vein to involve the right superficial femoral vein. 7. POSSIBLE PE 8. untreated diabetes 2 cvc bed BP CONTROL Cardiology consult ECHO pulm consult CT PE PROTOCOL STAT podiatry consult ss insulin accuchecks A1C History of Present Illness History of Present Illness feels better today still weak str better slept OK plan DC in AM, Xarelto Vitals Vitals Vital Signs Date Time Temp Pulse Resp B/P (MAP) Pulse Ox O2 Delivery O2 Flow Rate FiO2 02/12/19 11:00 97.6 84 20 166/85 (112) 95 Room Air 97.6 Physical Exam General: mild distress Heart: Regular rate Abdomen: Normal bowel sounds Extremities: No cyanosis, Other (+2 edema bilaterally) Skin: No rashes, Other (poor nailcare) Labs LABS Laboratory Tests Test 02/11/19 17:01 02/11/19 20:54 02/12/19 07:11 02/12/19 08:15 Glucose (Fingerstick) 138 mg/dL (70-99) 156 mg/dL (70-99) 133 mg/dL (70-99) White Blood Count 6.2 x10^3/uL (4.0-11.0) Red Blood Count 4.78 x10^6/uL (4.30-5.70) Hemoglobin 13.2 g/dL (13.0-17.5) Hematocrit 39.8 % (39.0-53.0) Mean Corpuscular Volume 83 fL (79-100) Mean Corpuscular Hemoglobin 28 pg (25-35) Mean Corpuscular Hemoglobin Concent 33 g/dL (31-37) Red Cell Distribution Width 14.0 % (11.5-14.5) Platelet Count 289 x10^3/uL (140-400) Neutrophils (%) (Auto) 60 % (31-73) Lymphocytes (%) (Auto) 23 % (24-48) Monocytes (%) (Auto) 10 % (0-9) Eosinophils (%) (Auto) 6 % (0-3) Basophils (%) (Auto) 1 % (0-3) Neutrophils # (Auto) 3.7 x10^3/uL (1.8-7.7) Lymphocytes # (Auto) 1.5 x10^3/uL (1.0-4.8) Monocytes # (Auto) 0.6 x10^3/uL (0.0-1.1) Eosinophils # (Auto) 0.4 x10^3/uL (0.0-0.7) Basophils # (Auto) 0.1 x10^3/uL (0.0-0.2) Triglycerides Level 58 mg/dL (0-150) Cholesterol Level 153 mg/dL (0-200) LDL Cholesterol, Calculated 112 mg/dL (0-100) VLDL Cholesterol, Calculated 12 mg/dL (0-40) Non-HDL Cholesterol Calculated 124 mg/dL (0-129) HDL Cholesterol 29 mg/dL (40-60) Cholesterol/HDL Ratio 5.3 Test 02/12/19 11:51 Glucose (Fingerstick) 129 mg/dL (70-99) Review of Systems Review of Systems no nausea or vomiting, good PO intake, breathing easier Assessment and Plan Assessmemt and Plan Problems Medical Problems: (1) Extremity edema Status: Acute (2) Hypertension Status: Acute Comment Review of Relevant I have reviewed the following items bao (where applicable) has been applied. Labs Laboratory Tests Test 02/10/19 20:05 02/10/19 20:26 02/11/19 00:45 02/11/19 12:26 White Blood Count 7.6 x10^3/uL (4.0-11.0) Red Blood Count 4.97 x10^6/uL (4.30-5.70) Hemoglobin 13.8 g/dL (13.0-17.5) Hematocrit 41.2 % (39.0-53.0) Mean Corpuscular Volume 83 fL (79-100) Mean Corpuscular Hemoglobin 28 pg (25-35) Mean Corpuscular Hemoglobin Concent 33 g/dL (31-37) Red Cell Distribution Width 14.5 % (11.5-14.5) Platelet Count 294 x10^3/uL (140-400) Neutrophils (%) (Auto) 60 % (31-73) Lymphocytes (%) (Auto) 26 % (24-48) Monocytes (%) (Auto) 9 % (0-9) Eosinophils (%) (Auto) 5 % (0-3) Basophils (%) (Auto) 1 % (0-3) Neutrophils # (Auto) 4.6 x10^3/uL (1.8-7.7) Lymphocytes # (Auto) 1.9 x10^3/uL (1.0-4.8) Monocytes # (Auto) 0.7 x10^3/uL (0.0-1.1) Eosinophils # (Auto) 0.4 x10^3/uL (0.0-0.7) Basophils # (Auto) 0.0 x10^3/uL (0.0-0.2) Prothrombin Time 13.2 SEC (11.7-14.0) Prothromb Time International Ratio 1.0 (0.8-1.1) Sodium Level 143 mmol/L (136-145) Potassium Level 4.7 mmol/L (3.5-5.1) Chloride Level 106 mmol/L (98-107) Carbon Dioxide Level 30 mmol/L (21-32) Anion Gap 7 (6-14) Blood Urea Nitrogen 17 mg/dL (8-26) Creatinine 1.2 mg/dL (0.7-1.3) Estimated GFR (Cockcroft-Gault) 73.3 BUN/Creatinine Ratio 14 (6-20) Glucose Level 207 mg/dL (70-99) Hemoglobin A1c 7.1 % (4.8-5.6) Calcium Level 9.7 mg/dL (8.5-10.1) Total Bilirubin 0.3 mg/dL (0.2-1.0) Aspartate Amino Transf (AST/SGOT) 26 U/L (15-37) Alanine Aminotransferase (ALT/SGPT) 27 U/L (16-63) Alkaline Phosphatase 101 U/L (46-116) Troponin I Quantitative < 0.017 ng/mL (0.000-0.055) < 0.017 ng/mL (0.000-0.055) RV-Gva-U-Type Natriuretic Peptide 65 pg/mL (0-124) Total Protein 7.2 g/dL (6.4-8.2) Albumin 3.5 g/dL (3.4-5.0) Albumin/Globulin Ratio 0.9 (1.0-1.7) Urine Collection Type Unknown Urine Color Yellow Urine Clarity Cloudy Urine pH 5.5 Urine Specific [place] 1.020 Urine Protein Negative mg/dL (NEG-TRACE) Urine Glucose (UA) Negative mg/dL (NEG) Urine Ketones (Stick) Negative mg/dL (NEG) Urine Blood Negative (NEG) Urine Nitrite Negative (NEG) Urine Bilirubin Negative (NEG) Urine Urobilinogen Dipstick 1.0 mg/dL (0.2 mg/dL) Urine Leukocyte Esterase Moderate (NEG) Urine RBC Occ /HPF (0-2) Urine WBC 20-40 /HPF (0-4) Urine Squamous Epithelial Cells Mod /LPF Urine Bacteria Few /HPF (0-FEW) Urine Mucus Mod /LPF Urine Opiates Screen Neg (NEG) Urine Methadone Screen Neg (NEG) Urine Barbiturates Neg (NEG) Urine Phencyclidine Screen Neg (NEG) Urine Amphetamine/Methamphetamine Neg (NEG) Urine Benzodiazepines Screen Neg (NEG) Urine Cocaine Screen Neg (NEG) Urine Cannabinoids Screen Neg (NEG) Urine Ethyl Alcohol Neg (NEG) Glucose (Fingerstick) 134 mg/dL (70-99) Test 02/11/19 12:57 02/11/19 17:01 02/11/19 20:54 02/12/19 07:11 O2 Saturation 93 % (92-99) Arterial Blood pH 7.41 (7.35-7.45) Arterial Blood pCO2 at Patient Temp 41 mmHg (35-46) Arterial Blood pO2 at Patient Temp 69 mmHg (65-108) Arterial Blood HCO3 25 mmol/L (21-28) Arterial Blood Base Excess 0 mmol/L (-3-3) Oxyhemoglobin 92.6 % Methemoglobin 0.3 % (0.0-1.9) Carbon Monoxide, Quantitative 0.4 % (0.0-1.9) FiO2 21 Glucose (Fingerstick) 138 mg/dL (70-99) 156 mg/dL (70-99) 133 mg/dL (70-99) Test 02/12/19 08:15 02/12/19 11:51 White Blood Count 6.2 x10^3/uL (4.0-11.0) Red Blood Count 4.78 x10^6/uL (4.30-5.70) Hemoglobin 13.2 g/dL (13.0-17.5) Hematocrit 39.8 % (39.0-53.0) Mean Corpuscular Volume 83 fL (79-100) Mean Corpuscular Hemoglobin 28 pg (25-35) Mean Corpuscular Hemoglobin Concent 33 g/dL (31-37) Red Cell Distribution Width 14.0 % (11.5-14.5) Platelet Count 289 x10^3/uL (140-400) Neutrophils (%) (Auto) 60 % (31-73) Lymphocytes (%) (Auto) 23 % (24-48) Monocytes (%) (Auto) 10 % (0-9) Eosinophils (%) (Auto) 6 % (0-3) Basophils (%) (Auto) 1 % (0-3) Neutrophils # (Auto) 3.7 x10^3/uL (1.8-7.7) Lymphocytes # (Auto) 1.5 x10^3/uL (1.0-4.8) Monocytes # (Auto) 0.6 x10^3/uL (0.0-1.1) Eosinophils # (Auto) 0.4 x10^3/uL (0.0-0.7) Basophils # (Auto) 0.1 x10^3/uL (0.0-0.2) Triglycerides Level 58 mg/dL (0-150) Cholesterol Level 153 mg/dL (0-200) LDL Cholesterol, Calculated 112 mg/dL (0-100) VLDL Cholesterol, Calculated 12 mg/dL (0-40) Non-HDL Cholesterol Calculated 124 mg/dL (0-129) HDL Cholesterol 29 mg/dL (40-60) Cholesterol/HDL Ratio 5.3 Glucose (Fingerstick) 129 mg/dL (70-99) Laboratory Tests Test 02/11/19 17:01 02/11/19 20:54 02/12/19 07:11 02/12/19 08:15 Glucose (Fingerstick) 138 mg/dL (70-99) 156 mg/dL (70-99) 133 mg/dL (70-99) White Blood Count 6.2 x10^3/uL (4.0-11.0) Red Blood Count 4.78 x10^6/uL (4.30-5.70) Hemoglobin 13.2 g/dL (13.0-17.5) Hematocrit 39.8 % (39.0-53.0) Mean Corpuscular Volume 83 fL (79-100) Mean Corpuscular Hemoglobin 28 pg (25-35) Mean Corpuscular Hemoglobin Concent 33 g/dL (31-37) Red Cell Distribution Width 14.0 % (11.5-14.5) Platelet Count 289 x10^3/uL (140-400) Neutrophils (%) (Auto) 60 % (31-73) Lymphocytes (%) (Auto) 23 % (24-48) Monocytes (%) (Auto) 10 % (0-9) Eosinophils (%) (Auto) 6 % (0-3) Basophils (%) (Auto) 1 % (0-3) Neutrophils # (Auto) 3.7 x10^3/uL (1.8-7.7) Lymphocytes # (Auto) 1.5 x10^3/uL (1.0-4.8) Monocytes # (Auto) 0.6 x10^3/uL (0.0-1.1) Eosinophils # (Auto) 0.4 x10^3/uL (0.0-0.7) Basophils # (Auto) 0.1 x10^3/uL (0.0-0.2) Triglycerides Level 58 mg/dL (0-150) Cholesterol Level 153 mg/dL (0-200) LDL Cholesterol, Calculated 112 mg/dL (0-100) VLDL Cholesterol, Calculated 12 mg/dL (0-40) Non-HDL Cholesterol Calculated 124 mg/dL (0-129) HDL Cholesterol 29 mg/dL (40-60) Cholesterol/HDL Ratio 5.3 Test 02/12/19 11:51 Glucose (Fingerstick) 129 mg/dL (70-99) Medications Current Medications Clonidine HCl (Catapres) 0.1 mg 1X ONCE PO Last administered on 02/10/19at 21:16; Start 02/10/19 at 21:15; Stop 02/10/19 at 21:16; Status DC Ceftriaxone Sodium (Rocephin) 1 gm 1X ONCE IVP Last administered on 02/10/19at 21:17; Start 02/10/19 at 21:15; Stop 02/10/19 at 21:16; Status DC Ondansetron HCl (Zofran) 4 mg PRN Q8HRS PRN IV NAUSEA/VOMITING; Start 02/10/19 at 21:45; Stop 02/11/19 at 21:44; Status DC Fentanyl Citrate (Fentanyl 2ml Vial) 50 mcg PRN Q1HR PRN IV PAIN; Start 02/10/19 at 21:45; Stop 02/11/19 at 21:44; Status DC Acetaminophen (Tylenol) 650 mg PRN Q4HRS PRN PO FEVER; Start 02/10/19 at 21:45; Stop 02/11/19 at 21:44; Status DC Rivaroxaban (Xarelto) 15 mg 1X PO ; Start 02/10/19 at 23:30; Stop 02/11/19 at 11:37; Status DC Influenza Virus Vaccine Quadrival (Afluria Quad 2019-20 (3yr Up) Syringe) 0.5 ml ONCE ONCE VAX IM Last administered on 02/11/19at 18:38; Start 02/11/19 at 09:00; Stop 02/11/19 at 09:01; Status DC Info (FLU VACCINE SCREEN per RX) 1 each PRN 1X PRN MC SEE COMMENTS; Start 02/11/19 at 00:45; Status Cancel Aspirin (Neeraj Aspirin) 325 mg DAILY PO Last administered on 02/12/19at 08:38; Start 02/11/19 at 12:00 Colchicine (Colcrys) 0.6 mg 1X PO ; Start 02/11/19 at 11:30; Status Cancel Lisinopril (Prinivil) 5 mg [id number] PO Last administered on 02/11/19at 18:36; Start 02/11/19 at 18:00; Stop 02/11/19 at 21:15; Status DC Rivaroxaban (Xarelto) 15 mg BID PO Last administered on 02/12/19at 08:38; Start 02/11/19 at 12:00 Iohexol (Omnipaque 350 Mg/ml) 100 ml 1X ONCE IV ; Start 02/11/19 at 12:00; Stop 02/11/19 at 12:01; Status DC Info (CONTRAST GIVEN -- Rx MONITORING) 1 each PRN DAILY PRN MC SEE COMMENTS; Start 02/11/19 at 12:00; Stop 02/13/19 at 11:59 Insulin Human Lispro (HumaLOG) 0-5 UNITS TIDWMEALS SQ ; Start 02/11/19 at 12:00 Dextrose (Dextrose 50%-Water Syringe) 12.5 gm PRN Q15MIN PRN IV SEE COMMENTS; Start 02/11/19 at 12:00 Ceftriaxone Sodium (Rocephin) 1 gm Q24H IVP Last administered on 02/11/19at 20:55; Start 02/11/19 at 21:00 Iohexol (Omnipaque 350 Mg/ml) 100 ml 1X ONCE IV Last administered on 02/11/19at 17:23; Start 02/11/19 at 17:30; Stop 02/11/19 at 17:31; Status DC Lisinopril (Prinivil) 10 mg [id number] PO Last administered on 02/12/19at 08:38; Start 02/11/19 at 21:30 Info (Anti-Coagulation Monitoring By Pharmacy) 1 each PRN DAILY PRN MC SEE COMMENTS Last administered on 02/12/19at 08:10; Start 02/12/19 at 08:15 Lactobacillus Rhamnosus (Culturelle) 1 cap BID PO Last administered on 02/12/19at 08:38; Start 02/12/19 at 09:00 Active Scripts Active Colcrys (Colchicine) 0.6 Mg Tablet 0.6 Mg PO 1X Take 2 0.6 mg tablets and 1 hour later take another 0.6 mg tablet. Prednisone 20 Mg Tablet 3 Tab PO DAILY 5 Days Naproxen 500 Mg Tablet 1 Tab PO BID PRN [place] 5-325 Tablet (Acetaminophen/Hydrocodone Bitart) 1 Each Tablet 1 Tab PO PRN Q6HRS PRN Naprosyn (Naproxen) 500 Mg Tablet 1 Tab PO BID Keflex (Cephalexin) 500 Mg Capsule 2 Cap PO Q12HR Bactrim Ds Tablet (Sulfamethoxazole/Trimethoprim) 1 Each Tablet 1 Tab PO BID [place] 5-325 Tablet (Acetaminophen/Hydrocodone Bitart) 1 Each Tablet 1 Tab PO PRN Q6HRS PRN Reported Aspirin 325 Mg Tablet 1 Tab PO DAILY Vitals/I & O Vital Sign - Last 24 Hours 02/11/19 02/11/19 02/11/19 02/11/19 15:00 17:00 18:36 19:40 Temp 98.6 98.3 98.6 98.6 98.3 98.6 Pulse 83 82 85 Resp 28 18 20 B/P (MAP) 127/84 (98) 168/100 (122) 168/100 177/90 (119) Pulse Ox 97 96 96 O2 Delivery Room Air Room Air Room Air 02/11/19 02/11/19 02/11/19 02/12/19 20:00 22:01 23:00 02:45 Temp 97.7 98.2 97.7 98.2 Pulse 85 84 86 Resp 20 20 B/P (MAP) 177/90 160/102 (121) 160/90 (113) Pulse Ox 95 96 O2 Delivery Room Air Room Air 02/12/19 02/12/19 02/12/19 02/12/19 05:55 07:00 08:10 08:38 Temp 98.2 98.2 Pulse 86 81 80 Resp 20 B/P (MAP) 160/90 191/90 (123) Pulse Ox 96 O2 Delivery Room Air Room Air 02/12/19 11:00 Temp 97.6 97.6 Pulse 84 Resp 20 B/P (MAP) 166/85 (112) Pulse Ox 95 O2 Delivery Room Air Intake and Output 02/11/19 02/11/19 02/12/19 14:59 22:59 06:59 Intake Total 520 ml 370 ml Output Total 350 ml Balance 170 ml 370 ml JAYCEE PEDRO MD Feb 12, 2019 14:18
[2019-02-12 15:00] VITALS: BP 168/85
--- NOTE | 2019-02-12 17:34 | PDOC ---
PROGRESS NOTES Subjective Subjective Patient seen and examined Objective Objective Vital Signs Date Time Temp Pulse Resp B/P (MAP) Pulse Ox O2 Delivery O2 Flow Rate FiO2 02/12/19 15:00 98.3 76 20 168/85 (112) 94 Room Air 98.3 Intake and Output 02/12/19 07:00 Intake Total 890 ml Output Total 350 ml Balance 540 ml Intake Oral 890 ml Output Urine Total 350 ml # Voids 2 # Bowel Movements 1 Physical Exam Abdomen: Normal bowel sounds Heart: Regular rate General: No acute distress Lungs: Other (mildly decreased breath sounds) Assessment Assessment Problems Medical Problems: (1) Extremity edema Status: Acute (2) Hypertension Status: Acute 1. Pulmonary emboli. On anticoagulation. Feeling better. Ultrasound is positive for a right lower extremity DVT. Anticoagulation as per the pulmonary service. ECHO with intact LV systolic function and no significant elevation in right side pressures. 2. PSVT. Episode of PSVT converted with Valsalva. Probably secondary to #1 as above. Monitor stable overnight. Continue present treatment. 3. Hypertension. Blood pressures under control. Will continue to monitor. Comment Review of Relevant I have reviewed the following items bao (where applicable) has been applied. Labs Laboratory Tests Test 02/10/19 20:05 02/10/19 20:26 02/11/19 00:45 02/11/19 12:26 White Blood Count 7.6 x10^3/uL (4.0-11.0) Red Blood Count 4.97 x10^6/uL (4.30-5.70) Hemoglobin 13.8 g/dL (13.0-17.5) Hematocrit 41.2 % (39.0-53.0) Mean Corpuscular Volume 83 fL (79-100) Mean Corpuscular Hemoglobin 28 pg (25-35) Mean Corpuscular Hemoglobin Concent 33 g/dL (31-37) Red Cell Distribution Width 14.5 % (11.5-14.5) Platelet Count 294 x10^3/uL (140-400) Neutrophils (%) (Auto) 60 % (31-73) Lymphocytes (%) (Auto) 26 % (24-48) Monocytes (%) (Auto) 9 % (0-9) Eosinophils (%) (Auto) 5 % (0-3) Basophils (%) (Auto) 1 % (0-3) Neutrophils # (Auto) 4.6 x10^3/uL (1.8-7.7) Lymphocytes # (Auto) 1.9 x10^3/uL (1.0-4.8) Monocytes # (Auto) 0.7 x10^3/uL (0.0-1.1) Eosinophils # (Auto) 0.4 x10^3/uL (0.0-0.7) Basophils # (Auto) 0.0 x10^3/uL (0.0-0.2) Prothrombin Time 13.2 SEC (11.7-14.0) Prothromb Time International Ratio 1.0 (0.8-1.1) Sodium Level 143 mmol/L (136-145) Potassium Level 4.7 mmol/L (3.5-5.1) Chloride Level 106 mmol/L (98-107) Carbon Dioxide Level 30 mmol/L (21-32) Anion Gap 7 (6-14) Blood Urea Nitrogen 17 mg/dL (8-26) Creatinine 1.2 mg/dL (0.7-1.3) Estimated GFR (Cockcroft-Gault) 73.3 BUN/Creatinine Ratio 14 (6-20) Glucose Level 207 mg/dL (70-99) Hemoglobin A1c 7.1 % (4.8-5.6) Calcium Level 9.7 mg/dL (8.5-10.1) Total Bilirubin 0.3 mg/dL (0.2-1.0) Aspartate Amino Transf (AST/SGOT) 26 U/L (15-37) Alanine Aminotransferase (ALT/SGPT) 27 U/L (16-63) Alkaline Phosphatase 101 U/L (46-116) Troponin I Quantitative < 0.017 ng/mL (0.000-0.055) < 0.017 ng/mL (0.000-0.055) ZK-Psp-P-Type Natriuretic Peptide 65 pg/mL (0-124) Total Protein 7.2 g/dL (6.4-8.2) Albumin 3.5 g/dL (3.4-5.0) Albumin/Globulin Ratio 0.9 (1.0-1.7) Urine Collection Type Unknown Urine Color Yellow Urine Clarity Cloudy Urine pH 5.5 Urine Specific [place] 1.020 Urine Protein Negative mg/dL (NEG-TRACE) Urine Glucose (UA) Negative mg/dL (NEG) Urine Ketones (Stick) Negative mg/dL (NEG) Urine Blood Negative (NEG) Urine Nitrite Negative (NEG) Urine Bilirubin Negative (NEG) Urine Urobilinogen Dipstick 1.0 mg/dL (0.2 mg/dL) Urine Leukocyte Esterase Moderate (NEG) Urine RBC Occ /HPF (0-2) Urine WBC 20-40 /HPF (0-4) Urine Squamous Epithelial Cells Mod /LPF Urine Bacteria Few /HPF (0-FEW) Urine Mucus Mod /LPF Urine Opiates Screen Neg (NEG) Urine Methadone Screen Neg (NEG) Urine Barbiturates Neg (NEG) Urine Phencyclidine Screen Neg (NEG) Urine Amphetamine/Methamphetamine Neg (NEG) Urine Benzodiazepines Screen Neg (NEG) Urine Cocaine Screen Neg (NEG) Urine Cannabinoids Screen Neg (NEG) Urine Ethyl Alcohol Neg (NEG) Glucose (Fingerstick) 134 mg/dL (70-99) Test 02/11/19 12:57 02/11/19 17:01 02/11/19 20:54 02/12/19 07:11 O2 Saturation 93 % (92-99) Arterial Blood pH 7.41 (7.35-7.45) Arterial Blood pCO2 at Patient Temp 41 mmHg (35-46) Arterial Blood pO2 at Patient Temp 69 mmHg (65-108) Arterial Blood HCO3 25 mmol/L (21-28) Arterial Blood Base Excess 0 mmol/L (-3-3) Oxyhemoglobin 92.6 % Methemoglobin 0.3 % (0.0-1.9) Carbon Monoxide, Quantitative 0.4 % (0.0-1.9) FiO2 21 Glucose (Fingerstick) 138 mg/dL (70-99) 156 mg/dL (70-99) 133 mg/dL (70-99) Test 02/12/19 08:15 02/12/19 11:51 02/12/19 17:09 White Blood Count 6.2 x10^3/uL (4.0-11.0) Red Blood Count 4.78 x10^6/uL (4.30-5.70) Hemoglobin 13.2 g/dL (13.0-17.5) Hematocrit 39.8 % (39.0-53.0) Mean Corpuscular Volume 83 fL (79-100) Mean Corpuscular Hemoglobin 28 pg (25-35) Mean Corpuscular Hemoglobin Concent 33 g/dL (31-37) Red Cell Distribution Width 14.0 % (11.5-14.5) Platelet Count 289 x10^3/uL (140-400) Neutrophils (%) (Auto) 60 % (31-73) Lymphocytes (%) (Auto) 23 % (24-48) Monocytes (%) (Auto) 10 % (0-9) Eosinophils (%) (Auto) 6 % (0-3) Basophils (%) (Auto) 1 % (0-3) Neutrophils # (Auto) 3.7 x10^3/uL (1.8-7.7) Lymphocytes # (Auto) 1.5 x10^3/uL (1.0-4.8) Monocytes # (Auto) 0.6 x10^3/uL (0.0-1.1) Eosinophils # (Auto) 0.4 x10^3/uL (0.0-0.7) Basophils # (Auto) 0.1 x10^3/uL (0.0-0.2) Triglycerides Level 58 mg/dL (0-150) Cholesterol Level 153 mg/dL (0-200) LDL Cholesterol, Calculated 112 mg/dL (0-100) VLDL Cholesterol, Calculated 12 mg/dL (0-40) Non-HDL Cholesterol Calculated 124 mg/dL (0-129) HDL Cholesterol 29 mg/dL (40-60) Cholesterol/HDL Ratio 5.3 Glucose (Fingerstick) 129 mg/dL (70-99) 111 mg/dL (70-99) Laboratory Tests Test 02/11/19 20:54 02/12/19 07:11 02/12/19 08:15 02/12/19 11:51 Glucose (Fingerstick) 156 mg/dL (70-99) 133 mg/dL (70-99) 129 mg/dL (70-99) White Blood Count 6.2 x10^3/uL (4.0-11.0) Red Blood Count 4.78 x10^6/uL (4.30-5.70) Hemoglobin 13.2 g/dL (13.0-17.5) Hematocrit 39.8 % (39.0-53.0) Mean Corpuscular Volume 83 fL (79-100) Mean Corpuscular Hemoglobin 28 pg (25-35) Mean Corpuscular Hemoglobin Concent 33 g/dL (31-37) Red Cell Distribution Width 14.0 % (11.5-14.5) Platelet Count 289 x10^3/uL (140-400) Neutrophils (%) (Auto) 60 % (31-73) Lymphocytes (%) (Auto) 23 % (24-48) Monocytes (%) (Auto) 10 % (0-9) Eosinophils (%) (Auto) 6 % (0-3) Basophils (%) (Auto) 1 % (0-3) Neutrophils # (Auto) 3.7 x10^3/uL (1.8-7.7) Lymphocytes # (Auto) 1.5 x10^3/uL (1.0-4.8) Monocytes # (Auto) 0.6 x10^3/uL (0.0-1.1) Eosinophils # (Auto) 0.4 x10^3/uL (0.0-0.7) Basophils # (Auto) 0.1 x10^3/uL (0.0-0.2) Triglycerides Level 58 mg/dL (0-150) Cholesterol Level 153 mg/dL (0-200) LDL Cholesterol, Calculated 112 mg/dL (0-100) VLDL Cholesterol, Calculated 12 mg/dL (0-40) Non-HDL Cholesterol Calculated 124 mg/dL (0-129) HDL Cholesterol 29 mg/dL (40-60) Cholesterol/HDL Ratio 5.3 Test 02/12/19 17:09 Glucose (Fingerstick) 111 mg/dL (70-99) Medications Current Medications Clonidine HCl (Catapres) 0.1 mg 1X ONCE PO Last administered on 02/10/19at 21:16; Start 02/10/19 at 21:15; Stop 02/10/19 at 21:16; Status DC Ceftriaxone Sodium (Rocephin) 1 gm 1X ONCE IVP Last administered on 02/10/19at 21:17; Start 02/10/19 at 21:15; Stop 02/10/19 at 21:16; Status DC Ondansetron HCl (Zofran) 4 mg PRN Q8HRS PRN IV NAUSEA/VOMITING; Start 02/10/19 at 21:45; Stop 02/11/19 at 21:44; Status DC Fentanyl Citrate (Fentanyl 2ml Vial) 50 mcg PRN Q1HR PRN IV PAIN; Start 02/10/19 at 21:45; Stop 02/11/19 at 21:44; Status DC Acetaminophen (Tylenol) 650 mg PRN Q4HRS PRN PO FEVER; Start 02/10/19 at 21:45; Stop 02/11/19 at 21:44; Status DC Rivaroxaban (Xarelto) 15 mg 1X PO ; Start 02/10/19 at 23:30; Stop 02/11/19 at 11:37; Status DC Influenza Virus Vaccine Quadrival (Afluria Quad 2019-20 (3yr Up) Syringe) 0.5 ml ONCE ONCE VAX IM Last administered on 02/11/19at 18:38; Start 02/11/19 at 09:00; Stop 02/11/19 at 09:01; Status DC Info (FLU VACCINE SCREEN per RX) 1 each PRN 1X PRN MC SEE COMMENTS; Start 02/11/19 at 00:45; Status Cancel Aspirin (Neeraj Aspirin) 325 mg DAILY PO Last administered on 02/12/19at 08:38; Start 02/11/19 at 12:00 Colchicine (Colcrys) 0.6 mg 1X PO ; Start 02/11/19 at 11:30; Status Cancel Lisinopril (Prinivil) 5 mg [id number] PO Last administered on 02/11/19at 18:36; Start 02/11/19 at 18:00; Stop 02/11/19 at 21:15; Status DC Rivaroxaban (Xarelto) 15 mg BID PO Last administered on 02/12/19at 08:38; Start 02/11/19 at 12:00 Iohexol (Omnipaque 350 Mg/ml) 100 ml 1X ONCE IV ; Start 02/11/19 at 12:00; Stop 02/11/19 at 12:01; Status DC Info (CONTRAST GIVEN -- Rx MONITORING) 1 each PRN DAILY PRN MC SEE COMMENTS; Start 02/11/19 at 12:00; Stop 02/13/19 at 11:59 Insulin Human Lispro (HumaLOG) 0-5 UNITS TIDWMEALS SQ ; Start 02/11/19 at 12:00 Dextrose (Dextrose 50%-Water Syringe) 12.5 gm PRN Q15MIN PRN IV SEE COMMENTS; Start 02/11/19 at 12:00 Ceftriaxone Sodium (Rocephin) 1 gm Q24H IVP Last administered on 02/11/19at 20:55; Start 02/11/19 at 21:00 Iohexol (Omnipaque 350 Mg/ml) 100 ml 1X ONCE IV Last administered on 02/11/19at 17:23; Start 02/11/19 at 17:30; Stop 02/11/19 at 17:31; Status DC Lisinopril (Prinivil) 10 mg [id number] PO Last administered on 02/12/19at 08:38; Start 02/11/19 at 21:30 Info (Anti-Coagulation Monitoring By Pharmacy) 1 each PRN DAILY PRN MC SEE COMMENTS Last administered on 02/12/19at 08:10; Start 02/12/19 at 08:15 Lactobacillus Rhamnosus (Culturelle) 1 cap BID PO Last administered on 02/12/19at 08:38; Start 02/12/19 at 09:00 Active Scripts Active Colcrys (Colchicine) 0.6 Mg Tablet 0.6 Mg PO 1X Take 2 0.6 mg tablets and 1 hour later take another 0.6 mg tablet. Prednisone 20 Mg Tablet 3 Tab PO DAILY 5 Days Naproxen 500 Mg Tablet 1 Tab PO BID PRN [place] 5-325 Tablet (Acetaminophen/Hydrocodone Bitart) 1 Each Tablet 1 Tab PO PRN Q6HRS PRN Naprosyn (Naproxen) 500 Mg Tablet 1 Tab PO BID Keflex (Cephalexin) 500 Mg Capsule 2 Cap PO Q12HR Bactrim Ds Tablet (Sulfamethoxazole/Trimethoprim) 1 Each Tablet 1 Tab PO BID [place] 5-325 Tablet (Acetaminophen/Hydrocodone Bitart) 1 Each Tablet 1 Tab PO PRN Q6HRS PRN Reported Aspirin 325 Mg Tablet 1 Tab PO DAILY Vitals/I & O Vital Sign - Last 24 Hours 02/11/19 02/11/19 02/11/19 02/11/19 18:36 19:40 20:00 22:01 Temp 98.6 98.6 Pulse 85 85 Resp 20 B/P (MAP) 168/100 177/90 (119) 177/90 Pulse Ox 96 O2 Delivery Room Air Room Air 02/11/19 02/12/19 02/12/19 02/12/19 23:00 02:45 05:55 07:00 Temp 97.7 98.2 98.2 97.7 98.2 98.2 Pulse 84 86 86 81 Resp 20 20 20 B/P (MAP) 160/102 (121) 160/90 (113) 160/90 191/90 (123) Pulse Ox 95 96 96 O2 Delivery Room Air Room Air 02/12/19 02/12/19 02/12/19 02/12/19 08:10 08:38 11:00 15:00 Temp 97.6 98.3 97.6 98.3 Pulse 80 84 76 Resp 20 20 B/P (MAP) 166/85 (112) 168/85 (112) Pulse Ox 95 94 O2 Delivery Room Air Room Air Room Air Intake and Output 02/11/19 02/11/19 02/12/19 15:00 23:00 07:00 Intake Total 520 ml 370 ml Output Total 350 ml Balance 170 ml 370 ml RAUL VILLAR MD Feb 12, 2019 17:34
[2019-02-12 19:30] VITALS: BP 177/97
[2019-02-12] MEDS: cefTRIAXone IV Push 1 GM VIAL. IVP SCH (21:17)
[2019-02-12 23:00] VITALS: BP 182/104
[2019-02-12] MEDS: ACETAMINOPHEN 500 MG TABLET PO PRN (23:48)
[2019-02-13 03:10] VITALS: BP 192/112
[2019-02-13] MEDS: LISINOPRIL 5 MG TABLET. PO SCH (03:21)
--- NOTE | 2019-02-13 04:00 | NUR ---
BP 192/112. Gave AM dose Prinivil 10mg PO now.
[2019-02-13 05:07] VITALS: BP 158/89
--- NOTE | 2019-02-13 05:09 | NUR ---
1 hour after Prinivil given BP 158/89 with HR 70. Patient sitting at bedside in chair watching TV eating snack. Call light at hand.
[2019-02-13 07:00] VITALS: BP 150/83
[2019-02-13] MEDS: INSULIN LISPRO 300 UNITS/3 ML VIAL. SQ SCH ×2 (08:00→12:35)
[2019-02-13] MEDS: ASPIRIN 325 MG TABLET PO SCH (08:54)
[2019-02-13] MEDS: LACTOBACILLUS RHAMNOSUS GG 1 CAPSULE. PO SCH (08:54)
[2019-02-13] MEDS: RIVAROXABAN 15 MG TABLET. PO SCH (08:54)
[2019-02-13] MEDS: ACETAMINOPHEN 500 MG TABLET PO PRN (08:59)
--- NOTE | 2019-02-13 09:32 | PDOC ---
PULMONARY PROGRESS NOTES Subjective PT NOT MORE SOA NO CHEST PAIN Vitals Vital Signs Date Time Temp Pulse Resp B/P (MAP) Pulse Ox O2 Delivery O2 Flow Rate FiO2 02/13/19 07:00 98.0 74 20 150/83 (105) 97 Room Air 98.0 ROS: No Nausea, No Chest Pain, No Abdominal Pain, No Increase Cough General: Alert Lungs: Clear Cardiovascular: S1, S2 Abdomen: Soft, Other (OBESE) Neuro Exam: Alert Extremities: No Edema Skin: Warm Labs Laboratory Tests Test 02/11/19 12:26 02/11/19 12:57 02/11/19 17:01 02/11/19 20:54 Glucose (Fingerstick) 134 mg/dL (70-99) 138 mg/dL (70-99) 156 mg/dL (70-99) O2 Saturation 93 % (92-99) Arterial Blood pH 7.41 (7.35-7.45) Arterial Blood pCO2 at Patient Temp 41 mmHg (35-46) Arterial Blood pO2 at Patient Temp 69 mmHg (65-108) Arterial Blood HCO3 25 mmol/L (21-28) Arterial Blood Base Excess 0 mmol/L (-3-3) Oxyhemoglobin 92.6 % Methemoglobin 0.3 % (0.0-1.9) Carbon Monoxide, Quantitative 0.4 % (0.0-1.9) FiO2 21 Test 02/12/19 07:11 02/12/19 08:15 02/12/19 11:51 02/12/19 17:09 Glucose (Fingerstick) 133 mg/dL (70-99) 129 mg/dL (70-99) 111 mg/dL (70-99) White Blood Count 6.2 x10^3/uL (4.0-11.0) Red Blood Count 4.78 x10^6/uL (4.30-5.70) Hemoglobin 13.2 g/dL (13.0-17.5) Hematocrit 39.8 % (39.0-53.0) Mean Corpuscular Volume 83 fL (79-100) Mean Corpuscular Hemoglobin 28 pg (25-35) Mean Corpuscular Hemoglobin Concent 33 g/dL (31-37) Red Cell Distribution Width 14.0 % (11.5-14.5) Platelet Count 289 x10^3/uL (140-400) Neutrophils (%) (Auto) 60 % (31-73) Lymphocytes (%) (Auto) 23 % (24-48) Monocytes (%) (Auto) 10 % (0-9) Eosinophils (%) (Auto) 6 % (0-3) Basophils (%) (Auto) 1 % (0-3) Neutrophils # (Auto) 3.7 x10^3/uL (1.8-7.7) Lymphocytes # (Auto) 1.5 x10^3/uL (1.0-4.8) Monocytes # (Auto) 0.6 x10^3/uL (0.0-1.1) Eosinophils # (Auto) 0.4 x10^3/uL (0.0-0.7) Basophils # (Auto) 0.1 x10^3/uL (0.0-0.2) Triglycerides Level 58 mg/dL (0-150) Cholesterol Level 153 mg/dL (0-200) LDL Cholesterol, Calculated 112 mg/dL (0-100) VLDL Cholesterol, Calculated 12 mg/dL (0-40) Non-HDL Cholesterol Calculated 124 mg/dL (0-129) HDL Cholesterol 29 mg/dL (40-60) Cholesterol/HDL Ratio 5.3 Test 02/12/19 20:51 02/13/19 08:03 Glucose (Fingerstick) 232 mg/dL (70-99) 144 mg/dL (70-99) Laboratory Tests Test 02/12/19 11:51 02/12/19 17:09 02/12/19 20:51 02/13/19 08:03 Glucose (Fingerstick) 129 mg/dL (70-99) 111 mg/dL (70-99) 232 mg/dL (70-99) 144 mg/dL (70-99) Medications Active Scripts Medications Dose Route/Sig Max Daily Dose Days Date Category Dose Instructions Colcrys (Colchicine) 0.6 Mg Tablet 0.6 Mg PO 1X 11/09/18 Rx Take 2 0.6 mg tablets and 1 hour later take another 0.6 mg tablet. Prednisone 20 Mg Tablet 3 Tab PO DAILY 5 11/09/18 Rx Naproxen 500 Mg Tablet 1 Tab PO BID PRN 11/09/18 Rx [place] 5-325 Tablet (Acetaminophen/Hydrocodone Bitart) 1 Each Tablet 1 Tab PO PRN Q6HRS PRN 08/26/18 Rx Naprosyn (Naproxen) 500 Mg Tablet 1 Tab PO BID 08/26/18 Rx Keflex (Cephalexin) 500 Mg Capsule 2 Cap PO Q12HR 08/26/18 Rx Bactrim Ds Tablet (Sulfamethoxazole/Trimethoprim) 1 Each Tablet 1 Tab PO BID 08/26/18 Rx [place] 5-325 Tablet (Acetaminophen/Hydrocodone Bitart) 1 Each Tablet 1 Tab PO PRN Q6HRS PRN 04/20/16 Rx Aspirin 325 Mg Tablet 1 Tab PO DAILY 04/03/14 Reported Impression . IMPRESSION: 1. Acute pulmonary embolism involving the segmental and subsegmental branches of the lower lobes and also right lower extremity deep vein thrombosis. The risk factors are underlying morbid obesity and his profession. 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 He has been doing this for 15 years. No history of cancer. No family history of thromboembolic disease. 3. No evidence of right ventricular ischemia. 4. No significant tobacco history. 5. Morbid obesity, suspect underlying obstructive sleep apnea and needs to be ruled out as an outpatient with a sleep study. Plan . FOLLOW UP WITH DR RAZO PT INSTRUCTED TO CONTINUE ON AC OUT PT SLEEP STUDY 1. Continue with Xarelto. We will need minimum of 3-6 months of anticoagulation. 2. Since his risk factors are his profession as well as his morbid obesity, these need to be addressed in future and this will determine the duration of his treatment with anticoagulation. 3. I would recommend followup CTA chest and Dopplers in 6 weeks. 4. We will also consider hypercoagulable workup as an outpatient. 5. Weight loss is strongly emphasized. 6. Consider sleep study as an outpatient. STEPHANE HART MD Feb 13, 2019 09:31
[2019-02-13 11:00] VITALS: BP 150/85
[2019-02-13] MEDS ORDERED: RIVA15TA PO (11:35)
--- NOTE | 2019-02-13 11:36 | PDOC ---
[facility] PROGRESS NOTE Chief Complaint Chief Complaint Acute pulmonary embolism Obesity - BMI 47 Hepatomegaly with steatosis WINSTON Accelerated HTN Untreated DM 2 History of Present Illness History of Present Illness 02/13/19 Pt seen and examined at bedside In good spirits, was resting in bed DW RN Charts and labs reviewed 02/12/19 Feels better today Still weak str better Slept OK Plan DC in AM, Xarelto Vitals/I&O Vitals/I&O: Vital Signs Date Time Temp Pulse Resp B/P (MAP) Pulse Ox O2 Delivery O2 Flow Rate FiO2 02/13/19 08:00 Room Air 02/13/19 07:00 98.0 74 20 150/83 (105) 97 98.0 I & O 02/12/19 02/12/19 02/13/19 15:00 23:00 07:00 Intake Total 30 ml 900 ml Output Total 500 ml 200 ml Balance -470 ml 700 ml Physical Exam General: Alert, Oriented X3, Cooperative, No acute distress Heart: Regular rate Lungs: Clear Abdomen: Normal bowel sounds, No tenderness, Other (Hepatomegaly) Extremities: No cyanosis, Other (+2 edema bilaterally) Skin: No rashes, Other (poor nailcare) Labs Labs: Laboratory Tests Test 02/12/19 11:51 02/12/19 17:09 02/12/19 20:51 02/13/19 08:03 Glucose (Fingerstick) 129 mg/dL (70-99) 111 mg/dL (70-99) 232 mg/dL (70-99) 144 mg/dL (70-99) Review of Systems Review of Systems: No nausea, no vomiting No chest pain, no palpitations Assessment and Plan Assessmemt and Plan Problems Medical Problems: (1) Extremity edema Status: Acute (2) Hypertension Status: Acute Assessment Acute pulmonary embolism Obesity Hepatomegaly WINSTON Hypertension Diabetes mellitus Plan Continue Xarelto per pulmonary Anticoagulation for 3-6 months Weight loss PT/OT Home meds Full code Comment Review of Relevant I have reviewed the following items bao (where applicable) has been applied. Medications: Current Medications Medications (Trade) Dose Ordered Sig/Karine Route PRN Reason Start Time Stop Time Status Last Admin Dose Admin Acetaminophen (Tylenol) 500 mg PRN Q6HRS PRN PO MILD PAIN / TEMP 02/12/19 23:45 02/13/19 08:59 CASTLE,NIAL K III DO Feb 13, 2019 11:36
--- NOTE | 2019-02-13 13:46 | NUR ---
SS following up with discharge planning. Discharge order on the chart for home with self care. SS met with pt and pt reported that he is staying with friends and if needed would pay to stay in a motel for a couple of days. Pt reported that he has friends that will come to the hospital to get him. Pt's RN notified.
[2019-02-13] MEDS ORDERED: hydroCHLOROthiazide 12.5 MG CAPSULE PO SCH (14:00)
[2019-02-13] MEDS ORDERED: HYDR12.575 PO (14:56)
[2019-02-13] MEDS ORDERED: LISI-334 PO (14:56)
[2019-02-13] MEDS ORDERED: AMOX1TAB61 PO (14:57)
[2019-02-13 15:00] VITALS: BP 157/76
--- NOTE | 2019-02-13 16:17 | PDOC ---
CARDIO Progress Notes Date and Time Date of Service 02/13/2019 Time of Evaluation 1400 Subjective Subjective: No Chest Pain, No shortness of breath, No Palpitations Vitals Vitals Vital Signs Date Time Temp Pulse Resp B/P (MAP) Pulse Ox O2 Delivery O2 Flow Rate FiO2 02/13/19 15:00 98.3 96 20 157/76 (103) 96 Room Air 98.3 Weight Weight [ ] Input and Output Intake and Output Intake and Output 02/13/19 08:59 Intake Total 930 ml Output Total 700 ml Balance 230 ml Intake Oral 930 ml Output Urine Total 700 ml Laboratory Labs Laboratory Tests Test 02/12/19 17:09 02/12/19 20:51 02/13/19 08:03 02/13/19 11:27 Glucose (Fingerstick) 111 mg/dL (70-99) 232 mg/dL (70-99) 144 mg/dL (70-99) 256 mg/dL (70-99) Microbiology Micro Microbiology 02/10/19 Urine Culture - Final, Complete 02/10/19 Urine Culture Result 1 (RAHUL) - Final, Complete Physical Exam HEENT: Neck Supple W Full Motion Chest: Symmetric LUNGS: Clear to Auscultation Heart: S1S2, RRR (SR) Abdomen: Soft N/T Extremities: No Calf Tenderness Neurology: alert, oriented, follow commands Assessment Assessment 1. Acute PE/RLE DVT: pulmonary managing. EF/WM nml 2. PSVT: due to above 3. HTN; labile episodes. Recommendations 1. Follow up n office 2.Continue lisinopril and add HCTZ PIETER WHITT APRN Feb 13, 2019 16:17
--- NOTE | 2019-02-13 17:57 | NUR ---
Discharge Note: LUDY DODD PERRYTON Discharge instructions and discharge home medications reviewed with Patient and a copy given. All questions have been answered and understanding verbalized.
--- NOTE | 2019-02-16 08:58 | DS ---
DATE OF DISCHARGE: 02/13/2019 ADMISSION DIAGNOSES: Hypertension and lower extremity edema. DISCHARGE DIAGNOSES: Resolving hypertension, pulmonary embolism, resolving edema, urinary tract infection. HOSPITAL COURSE: The patient is a pleasant 68-year-old male who initially presented with hypertension and lower extremity edema. He was admitted. We have discovered he had a UTI and pulmonary embolism. He was placed on Xarelto and appropriate blood pressure meds. We also gave him Rocephin. Over the next few days, he returned to his baseline. We discharged to home with close outpatient followup. DISPOSITION: Home. ACTIVITY: As tolerated. DIET: Low sodium. MEDICATIONS: Please see the MRAD. We also gave him IV Rocephin and continue his home meds, did some physical therapy. TOTAL TIME: 32 minutes. LIZET PONCE DO DR: PAULO/karo JOB#: [id number] / [id number]
== END 2019-02-13 17:58 | disposition home or self-care (01) | DRG 299 ==
LOC: ER 18:47 → 6 SOUTH 21:35 → 2 NORTH 02-11 16:26
PROVIDERS: ADMIT Family Medicine; ATTEND Family Medicine
DX: I82.401 Acute embolism and thrombosis of unspecified deep veins of right lower extremity (principal); I26.99 Other pulmonary embolism without acute cor pulmonale; Z68.42 Body mass index [BMI] 45.0-49.9, adult; I47.1 Supraventricular tachycardia; N39.0 Urinary tract infection, site not specified; E66.01 Morbid (severe) obesity due to excess calories; E11.9 Type 2 diabetes mellitus without complications; R07.89 Other chest pain; G47.33 Obstructive sleep apnea (adult) (pediatric); I10 Essential (primary) hypertension; M10.9 Gout, unspecified; M19.90 Unspecified osteoarthritis, unspecified site; Z82.49 Family history of ischemic heart disease and other diseases of the circulatory system; Z86.711 Personal history of pulmonary embolism; B35.1 Tinea unguium
CPT/HCPCS: 36415; 36600; 71045; 71275; 76700; 80053; 80061; 80307; 81001; 82805; 82962; 83036; 83880; 84484; 85025; 85610; 87086; 90471; 90686; 93005; 93306; 93970; 96374; J0696; J1815; Q9967; 99285-25; G0378

== ENCOUNTER 2019-07-16 17:53 | Emergency (ER) | payer MEDICARE, OTHER ==
[~2019-07-16] VITALS: Ht 180.3 cm; Wt 144.5 kg
[~2019-07-16 17:53] MED LIST changes: +ACET325T9 PO; +ALBU2.5V8 NEB; +AMOX1TAB10 PO; +AMOX1TAB61 PO; +DOCU-153 PO; +ENOX150D3 MC; +ENOX150D3 SQ; +HYDR12.575 PO; +LACT1CAP19 PO; +LISI-334 PO; +MAG30ORA2 PO; +RIVA15TA PO; +WARF10TA45 MC; +WARF7.5T45 PO
[2019-07-16 18:00] VITALS: BP 126/95
[2019-07-16] MEDS ORDERED: IBUP-1027 PO (18:22)
[2019-07-16] MEDS ORDERED: COLC0.6T34 PO (18:22)
[2019-07-16] MEDS ORDERED: KETOROLAC TROMETHAMINE 10 MG TABLET PO STA (18:23)
--- NOTE | 2019-07-16 18:23 | PHYS DOC ---
Past Medical History Past Medical History: Arthritis, Hypertension (FREDRICK GOTTLIEB APRN) Past Surgical History: No Surgical History (FREDRICK GOTTLIEB APRN) Smoking Status: Never Smoker Alcohol Use: None Drug Use: None (FREDRICK GOTTLIEB APRN) Adult General Chief Complaint Chief Complaint: FINGER INJURY HPI HPI Patient is a 68 year old male who presents with left third finger pain is been ongoing for 2 days. Denies any trauma to the finger. Reports pain is 9 out of 10 in severity and sharp. Complete ROS were reviewed and found to be within normal limits, except as documented in the HPI (FREDRICK GOTTLIEB APRN) Current Medications Current Medications Current Medications Medications (Trade) Dose Ordered Sig/Karine Start Time Stop Time Status Last Admin Dose Admin Colchicine (Colcrys) 1.2 mg 1X ONCE 07/16/19 18:30 07/16/19 18:31 DC 07/16/19 18:30 1.2 MG Ketorolac Tromethamine (Toradol) 10 mg 1X STAT 07/16/19 18:23 07/16/19 18:26 DC 07/16/19 18:30 10 MG (FREDRICK MCCARTY DO) Allergies Allergies Allergies Coded Allergies Type Severity Reaction Last Updated Verified No Known Drug Allergies 04/03/14 No (FREDRICK MCCARTY DO) Physical Exam Physical Exam Constitutional: Well developed, well nourished, no acute distress, non-toxic appearance. [] HENT: Normocephalic, atraumatic, bilateral external ears normal, oropharynx moist, no oral exudates, nose normal. [] Cardiovascular:Heart rate regular rhythm, no murmur [] Lungs & Thorax: Bilateral breath sounds clear to auscultation [] Extremities: Edema and tenderness to the proximal joint of the third digit left hand. Neurologic: Alert and oriented X 3, normal motor function, normal sensory function, no focal deficits noted. [] Psychologic: Affect normal, judgement normal, mood normal. [] (FREDRICK GOTTLIEB APRN) Current Patient Data Vital Signs Vital Signs Date Time Temp Pulse Resp B/P (MAP) Pulse Ox O2 Delivery O2 Flow Rate FiO2 07/16/19 18:56 101 20 96 Room Air 07/16/19 18:00 98.4 126/95 (105) 98.4 (FREDRICK MCCARTY DO) EKG EKG [] (FREDRICK GOTTLIEB APRN) Radiology/Procedures Radiology/Procedures [] (FREDRICK GOTTLIEB APRN) Course & Med Decision Making Course & Med Decision Making Pertinent Labs and Imaging studies reviewed. (See chart for details) Discussed with the patient this is likely gout. Recent creatinine was 1.1. Will place the patient on colchicine and have the patient take NSAIDs for the next 3 days. (FREDRICK GOTTLIEB APRN) Dragon Disclaimer Dragon Disclaimer This electronic medical record was generated, in whole or in part, using a voice recognition dictation system. (FREDRICK GOTTLIEB APRN) Departure Departure Impression: Primary Impression: Gout attack Disposition: HOME, SELF-CARE Condition: STABLE Referrals: NO PCP (PCP) Patient Instructions: Gout Scripts Ibuprofen (IBUPROFEN) 400 Mg Tablet 400 MG PO PRN Q6HRS PRN for INFLAMMATION for 3 Days, TAB Prov: FREDRICK GOTTLIEB APRN 07/16/19 Colchicine (COLCRYS) 0.6 Mg Tablet 1 TAB PO ONCE for gout pain for 1 Day, TAB 0 Refills Had 1.2 mg in ER and needs 0.6 mg 1 hour later. Prov: FREDRICK GOTTLIEB APRN 07/16/19 Attending Signature Attending Signature I have reviewed the PA/BEEF SPLITTER's note and plan of care. I was available for consultation as needed during the patient's visit in the emergency department. I agree with the clinical impression, plan, and disposition. (FREDRICK MCCARTY DO) Problem Qualifiers Primary Impression: Gout attack Gout site: hand Gout etiology: unspecified cause Laterality: left Qualified Codes: M10.9 - Gout, unspecified FREDRICK GOTTLIEB APRN Jul 16, 2019 18:23 FREDRICK MCCARTY DO Jul 16, 2019 20:42
[2019-07-16] MEDS ORDERED: COLCHICINE 0.6 MG TABLET PO ONE (18:30)
== END 2019-07-16 18:56 | disposition home or self-care (01) ==
LOC: ER 17:53
DX: M10.9 Gout, unspecified (principal); I10 Essential (primary) hypertension; M19.90 Unspecified osteoarthritis, unspecified site
CPT/HCPCS: 99284

== ENCOUNTER 2019-08-06 11:36 | Emergency (ER) | payer MEDICARE, OTHER ==
[~2019-08-06] VITALS: Ht 180.3 cm; Wt 140.0 kg
[~2019-08-06 11:36] MED LIST changes: +IBUP-1027 PO
[2019-08-06] MEDS ORDERED: HYDROcodone/APAP 5/325MG 1 TAB TABLET PO ONE (13:45)
[2019-08-06] MEDS ORDERED: predniSONE 20 MG TABLET PO ONE (13:45)
--- NOTE | 2019-08-06 13:46 | PHYS DOC ---
Past Medical History Past Medical History: Arthritis, DVT, Hypertension, Other Additional Past Medical Histor: DJD,PE,GOUT (SANTI CLAIRE APRN) Past Surgical History: No Surgical History (SANTI CLAIRE APRN) Smoking Status: Never Smoker Alcohol Use: None Drug Use: None (SANTI CLAIRE APRN) Adult General Chief Complaint Chief Complaint: UPPER EXTREMITY PAIN HPI HPI Patient is a 68 year old male with history of hypertension, gout, arthritis, who presents to the ED today complaining of moderate pain to the right hand with swelling, symptoms began a couple days ago. Patient is not clear on how many days. States the symptoms are worse on range of motion. Denies any known injury. States he does not have a PCP and comes to the ED for pain management related to gout. He is not on any daily gout medications. (SANTI CLAIRE APRN) Review of Systems Review of Systems Constitutional: Denies fever or chills [] Musculoskeletal: Reports right hand pain and swelling Integument: Denies rash or skin lesions [] Neurologic: Denies headache, focal weakness or sensory changes [] All other systems were reviewed and found to be within normal limits, except as documented in this note. (SANTI CLAIRE APRN) Current Medications Current Medications Current Medications Medications (Trade) Dose Ordered Sig/Karine Start Time Stop Time Status Last Admin Dose Admin Acetaminophen/ Hydrocodone Bitart (Lortab 5/325) 2 tab 1X ONCE 08/06/19 13:45 08/06/19 13:46 DC 08/06/19 14:21 2 TAB Prednisone (Prednisone) 60 mg 1X ONCE 08/06/19 13:45 08/06/19 13:46 DC 08/06/19 14:21 60 MG (GOLLAPALLI,DEVIKA E DO) Allergies Allergies Allergies Coded Allergies Type Severity Reaction Last Updated Verified No Known Drug Allergies 04/03/14 No (GOLLAPALLI,DEVIKA E DO) Physical Exam Physical Exam Constitutional: Well developed, well nourished, no acute distress, non-toxic appearance. [] Skin: Warm, dry, no erythema, no rash. [] Back: No tenderness, no CVA tenderness. [] Extremities: Right hand with no obvious deformity, moderate swelling noted on the right dorsal hand, tenderness on the right dorsal wrist, full passive range of motion to the right hand and wrist. No scaphoid tenderness. Adequate radial, medial, ulnar sensation to the right hand. +2 right radial pulse. Cap refill less than 2 seconds the right fingers. Neurologic: Alert and oriented X 3, normal motor function, normal sensory function, no focal deficits noted. [] Psychologic: Affect normal, judgement normal, mood normal. [] (ALETHEASANTI LINUX KERNEL ENGINEER) Current Patient Data Vital Signs Vital Signs Date Time Temp Pulse Resp B/P (MAP) Pulse Ox O2 Delivery O2 Flow Rate FiO2 08/06/19 15:05 72 18 175/84 (114) 97 Room Air 08/06/19 13:00 98.6 98.6 (GOLLAPALLI,DEVIKA E DO) Lab Values Laboratory Tests Test 08/06/19 13:49 White Blood Count 9.4 x10^3/uL (4.0-11.0) Red Blood Count 5.10 x10^6/uL (4.30-5.70) Hemoglobin 13.5 g/dL (13.0-17.5) Hematocrit 41.1 % (39.0-53.0) Mean Corpuscular Volume 81 fL (79-100) Mean Corpuscular Hemoglobin 27 pg (25-35) Mean Corpuscular Hemoglobin Concent 33 g/dL (31-37) Red Cell Distribution Width 15.2 % (11.5-14.5) H Platelet Count 257 x10^3/uL (140-400) Neutrophils (%) (Auto) 62 % (31-73) Lymphocytes (%) (Auto) 23 % (24-48) L Monocytes (%) (Auto) 12 % (0-9) H Eosinophils (%) (Auto) 2 % (0-3) Basophils (%) (Auto) 1 % (0-3) Neutrophils # (Auto) 5.8 x10^3/uL (1.8-7.7) Lymphocytes # (Auto) 2.1 x10^3/uL (1.0-4.8) Monocytes # (Auto) 1.1 x10^3/uL (0.0-1.1) Eosinophils # (Auto) 0.2 x10^3/uL (0.0-0.7) Basophils # (Auto) 0.1 x10^3/uL (0.0-0.2) Sodium Level 136 mmol/L (136-145) Potassium Level 3.7 mmol/L (3.5-5.1) Chloride Level 103 mmol/L (98-107) Carbon Dioxide Level 26 mmol/L (21-32) Anion Gap 7 (6-14) Blood Urea Nitrogen 15 mg/dL (8-26) Creatinine 1.0 mg/dL (0.7-1.3) Estimated GFR (Cockcroft-Gault) 90.5 BUN/Creatinine Ratio 15 (6-20) Glucose Level 93 mg/dL (70-99) Uric Acid 8.3 mg/dL (3.5-7.2) H Calcium Level 9.6 mg/dL (8.5-10.1) Total Bilirubin 0.6 mg/dL (0.2-1.0) Aspartate Amino Transferase (AST) 14 U/L (15-37) L Alanine Aminotransferase (ALT) 18 U/L (16-63) Alkaline Phosphatase 82 U/L (46-116) Total Protein 7.5 g/dL (6.4-8.2) Albumin 3.5 g/dL (3.4-5.0) Albumin/Globulin Ratio 0.9 (1.0-1.7) L Laboratory Tests 08/06/19 13:49 Laboratory Tests 08/06/19 13:49 ([facility],DEVIKA E DO) Lab Values Laboratory Tests Test 08/06/19 13:49 White Blood Count 9.4 x10^3/uL (4.0-11.0) Red Blood Count 5.10 x10^6/uL (4.30-5.70) Hemoglobin 13.5 g/dL (13.0-17.5) Hematocrit 41.1 % (39.0-53.0) Mean Corpuscular Volume 81 fL (79-100) Mean Corpuscular Hemoglobin 27 pg (25-35) Mean Corpuscular Hemoglobin Concent 33 g/dL (31-37) Red Cell Distribution Width 15.2 % (11.5-14.5) H Platelet Count 257 x10^3/uL (140-400) Neutrophils (%) (Auto) 62 % (31-73) Lymphocytes (%) (Auto) 23 % (24-48) L Monocytes (%) (Auto) 12 % (0-9) H Eosinophils (%) (Auto) 2 % (0-3) Basophils (%) (Auto) 1 % (0-3) Neutrophils # (Auto) 5.8 x10^3/uL (1.8-7.7) Lymphocytes # (Auto) 2.1 x10^3/uL (1.0-4.8) Monocytes # (Auto) 1.1 x10^3/uL (0.0-1.1) Eosinophils # (Auto) 0.2 x10^3/uL (0.0-0.7) Basophils # (Auto) 0.1 x10^3/uL (0.0-0.2) Sodium Level 136 mmol/L (136-145) Potassium Level 3.7 mmol/L (3.5-5.1) Chloride Level 103 mmol/L (98-107) Carbon Dioxide Level 26 mmol/L (21-32) Anion Gap 7 (6-14) Blood Urea Nitrogen 15 mg/dL (8-26) Creatinine 1.0 mg/dL (0.7-1.3) Estimated GFR (Cockcroft-Gault) 90.5 BUN/Creatinine Ratio 15 (6-20) Glucose Level 93 mg/dL (70-99) Uric Acid 8.3 mg/dL (3.5-7.2) H Calcium Level 9.6 mg/dL (8.5-10.1) Total Bilirubin 0.6 mg/dL (0.2-1.0) Aspartate Amino Transferase (AST) 14 U/L (15-37) L Alanine Aminotransferase (ALT) 18 U/L (16-63) Alkaline Phosphatase 82 U/L (46-116) Total Protein 7.5 g/dL (6.4-8.2) Albumin 3.5 g/dL (3.4-5.0) Albumin/Globulin Ratio 0.9 (1.0-1.7) L Laboratory Tests 08/06/19 13:49 Laboratory Tests 08/06/19 13:49 (SANTI CLAIRE APRN) EKG EKG [] (SANTI CLAIRE APRN) Radiology/Procedures Radiology/Procedures []PROCEDURE: HAND RIGHT 3V PROCEDURE: HAND RIGHT 3V STUDY DATE: 08/06/2019 CLINICAL INDICATION / HISTORY: Right hand pain and swelling. History of gout. TECHNIQUE: PA, lateral and oblique views of the right hand. COMPARISON: None FINDINGS: No fracture or dislocation is identified. The bone density is normal. The joint spaces are maintained, and there are no erosions to suggest an inflammatory arthropathy. The soft tissues show mild diffuse swelling notably in the hand and wrist. There are arterial calcifications in the radial artery.. IMPRESSION: No acute osseous abnormality. Electronically signed by: Leatha Bhatt MD (08/06/2019 2:29 PM) [id number] DICTATED and SIGNED BY: LEATHA BHATT MD DATE: 08/06/19 1429 (SANTI CLAIRE APRN) Course & Med Decision Making Course & Med Decision Making Pertinent Labs and Imaging studies reviewed. (See chart for details) This is a 68-year-old male patient presenting to the ED today with right hand pain and swelling for a couple days, no known injury. History of gout. Right hand x-rays interpreted by radiologist are negative for any acute findings. CBC with normal WBC, uric acid 8.3, CMP with normal creatinine as well as BUN. Patient was given prescription for colchicine, medrol dose pack and Tramadol. Provided clinic list for follow up. (SANTI CLAIRE APRN) Dragon Disclaimer Dragon Disclaimer This electronic medical record was generated, in whole or in part, using a voice recognition dictation system. (SANTI CLAIRE APRN) Attending Signature I have participated in the care of this patient and I have reviewed and agree with all pertinent clinical information above including history, exam, and recommendations. (DEVIKA EDMONDS DO) Departure Departure Impression: Primary Impression: Gout attack Disposition: 01 HOME, SELF-CARE Condition: STABLE Referrals: NO PCP (PCP) follow up with a primary care doctor in 1 week Patient Instructions: Gout, [id number] Additional Instructions: You were evaluated in the emergency room with gout pain to right hand. Please follow-up with a primary care doctor in the next 1-2 weeks. Scripts Tramadol Hcl (TRAMADOL HCL) 50 Mg Tablet 50 MG PO Q6HRS PRN for PAIN, #20 TAB Prov: SANTI CLAIRE APRN 08/06/19 Methylprednisolone (MEDROL) 4 Mg Tab.ds.pk 1 PKG PO UD, #1 PKG Prov: SANTI CLAIRE APRN 08/06/19 Colchicine (Colchicine) 0.6 Mg Tablet 1 TAB PO DAILY for gout pain, #3 TAB 0 Refills 1.2 mg now and repeat 0.6 mg in 2 hours Prov: SANTI CLAIRE LINUX KERNEL ENGINEER 08/06/19 Problem Qualifiers Primary Impression: Gout attack Gout site: hand Gout etiology: unspecified cause Laterality: right Qualified Codes: M10.9 - Gout, unspecified SANTI CLAIRE APRN Aug 06, 2019 13:46 DEVIKA EDMONDS DO Aug 08, 2019 10:13
[2019-08-06 14:01] LABS: BASO # 0.1 x10^3/uL (0.0-0.2); BASO % 1 % (0-3); EOS # 0.2 x10^3/uL (0.0-0.7); EOS % 2 % (0-3); HEMATOCRIT 41.1 % (39.0-53.0); HEMOGLOBIN 13.5 g/dL (13.0-17.5); LYMPH # 2.1 x10^3/uL (1.0-4.8); LYMPH % 23 % (24-48); MEAN CORPUSCULAR HEMOGLOBIN 27 pg (25-35); MEAN CORPUSCULAR HGB CONC 33 g/dL (31-37); MEAN CORPUSCULAR VOLUME 81 fL (79-100); MONO # 1.1 x10^3/uL (0.0-1.1); MONO % 12 % (0-9); NEUT # 5.8 x10^3/uL (1.8-7.7); NEUT % 62 % (31-73); PLATELET COUNT 257 x10^3/uL (140-400); RED CELL DISTRIBUTION WIDTH 15.2 % (11.5-14.5); WHITE BLOOD COUNT 9.4 x10^3/uL (4.0-11.0)
[2019-08-06 14:11] LABS: CALCIUM 9.6 mg/dL (8.5-10.1); GFR 90.5; POTASSIUM 3.7 mmol/L (3.5-5.1)
[2019-08-06 14:17] LABS: ALBUMIN 3.5 g/dL (3.4-5.0); ALBUMIN/GLOBULIN RATIO 0.9 (1.0-1.7); TOTAL BILIRUBIN 0.6 mg/dL (0.2-1.0); TOTAL PROTEIN 7.5 g/dL (6.4-8.2); URIC ACID 8.3 mg/dL (3.5-7.2)
--- NOTE | 2019-08-06 14:32 | RAD ---
PROCEDURE: HAND RIGHT 3V STUDY DATE: 08/06/2019 CLINICAL INDICATION / HISTORY: Right hand pain and swelling. History of gout. TECHNIQUE: PA, lateral and oblique views of the right hand. COMPARISON: None FINDINGS: No fracture or dislocation is identified. The bone density is normal. The joint spaces are maintained, and there are no erosions to suggest an inflammatory arthropathy. The soft tissues show mild diffuse swelling notably in the hand and wrist. There are arterial calcifications in the radial artery.. IMPRESSION: No acute osseous abnormality. Electronically signed by: Ranjith Bhatt MD (08/06/2019 2:29 PM) [id number]
[2019-08-06] MEDS ORDERED: METH4TAB2 PO (14:48)
[2019-08-06] MEDS ORDERED: COLC0.6T42 PO (14:48)
[2019-08-06] MEDS ORDERED: TRAM50TA PO (14:48)
[2019-08-06 15:05] VITALS: BP 175/84
== END 2019-08-06 15:09 | disposition home or self-care (01) ==
LOC: ER 11:36
DX: M10.9 Gout, unspecified (principal); I10 Essential (primary) hypertension; Z86.718 Personal history of other venous thrombosis and embolism
CPT/HCPCS: 36415; 73130; 80053; 84550; 85025; 99284; J7512

== ENCOUNTER 2019-10-27 13:25 | Emergency (ER) | payer MEDICARE, OTHER ==
[~2019-10-27] VITALS: Ht 180.3 cm; Wt 154.5 kg
[~2019-10-27 13:25] MED LIST changes: +COLC0.6T42 PO; +METF500T16 PO; +METH4TAB2 PO; +METO25TA4 PO; +TRAM50TA PO
[2019-10-27 13:44] VITALS: BP 160/107
[2019-10-27] MEDS ORDERED: IBUPROFEN 200 MG TABLET. PO ONE (14:00)
--- NOTE | 2019-10-27 14:10 | RAD ---
Left hand and wrist 3 views each 10/27/2019. Reason for exam: Swelling. No known injury. Left hand: No fracture or dislocation is seen. There is no apparent bone destruction or foreign body. There is no unusual arthritic change. Diffuse soft tissue swelling is seen. IMPRESSION: No acute bony abnormality. Left wrist 3 views: No acute fracture or dislocation is seen. There are mild arthritic changes at the first carpometacarpal joint. There is no apparent destructive process. IMPRESSION: Mild arthritic change. No acute abnormality. Electronically signed by: Dhaval Webster Jr., MD (10/27/2019 2:07 PM) [id number]
[2019-10-27] MEDS ORDERED: IBUP-1007 PO (15:11)
--- NOTE | 2019-10-27 15:12 | PHYS DOC ---
Past Medical History Past Medical History: Arthritis, DVT, GERD, Hypertension, Other Additional Past Medical Histor: DJD,PE,GOUT, NECK/BACK PAIN, OBESITY Past Surgical History: No Surgical History Smoking Status: Never Smoker Alcohol Use: None Drug Use: None General Adult EDM: Chief Complaint: UPPER EXTREMITY SWELLING HPI: HPI: Patient is a 69 year old AA male who presents to the emergency department with complaints of swelling and pain in his left wrist and medial left hand. He denies any known injury. Patient states that the pain began 3 days ago. He reports a history of gout however denies any redness or warmth of the affected area and states that the pain is not similar to his gout flares. He denies any fever, cough, nasal congestion, sore throat, ear pain, headache, nausea, vomit ing, diarrhea, abdominal pain, shortness of breath, or rash. He denies any numbness, tingling, or decreased sensation of his left hand. Patient reports he took 200 mg of ibuprofen earlier this morning with no relief of his pain. He currently rates his pain a 9 out of 10 on the pain scale, the pain is worse with palpation and movement, there are no alleviating factors. Review of Systems: Review of Systems: Constitutional: Denies fever or chills. [] Eyes: Denies change in visual acuity. [] HENT: Denies nasal congestion or sore throat. [] Respiratory: Denies cough or shortness of breath. [] Cardiovascular: Denies chest pain or edema. [] GI: Denies abdominal pain, nausea, vomiting, bloody stools or diarrhea. [] : Denies dysuria. [] Musculoskeletal: See HPI Integument: Denies rash. [] Neurologic: Denies headache, focal weakness or sensory changes. [] Endocrine: Denies polyuria or polydipsia. [] Lymphatic: Denies swollen glands. [] Psychiatric: Denies depression or anxiety. [] Heart Score: Risk Factors: Risk Factors: DM, Current or recent (<one month) smoker, HTN, HLP, family history of CAD, obesity. Risk Scores: Score 0 - 3: 2.5% MACE over next 6 weeks - Discharge Home Score 4 - 6: 20.3% MACE over next 6 weeks - Admit for Clinical Observation Score 7 - 10: 72.7% MACE over next 6 weeks - Early Invasive Strategies Current Medications: Current Medications Medications (Trade) Dose Ordered Sig/Karine Start Time Stop Time Status Last Admin Dose Admin Ibuprofen (Motrin) 600 mg 1X ONCE 10/27/19 14:00 10/27/19 14:01 DC 10/27/19 14:17 600 MG Allergies: Allergies: Allergies Coded Allergies Type Severity Reaction Last Updated Verified No Known Drug Allergies 04/03/14 No Physical Exam: PE: Constitutional: Well developed, well nourished, no acute distress, non-toxic appearance, obese. [] HENT: Normocephalic, atraumatic, bilateral external ears normal, nose normal. [] Eyes: PERRLA, EOMI, conjunctiva normal, no discharge. [] Neck: Normal range of motion, no stridor. [] Cardiovascular:Heart rate regular rhythm Lungs & Thorax: Respirations even and unlabored, no retractions, no respiratory distress Skin: Warm, dry, no erythema, no rash. [] Extremities: Left wrist: No obvious deformity, no crepitus, no cyanosis, ROM intact, 1+ edema. [] Neurologic: Alert and oriented X 3, no focal deficits noted. [] Psychologic: Affect normal, judgement normal, mood normal. [] Current Patient Data: Vital Signs: Vital Signs Date Time Temp Pulse Resp B/P (MAP) Pulse Ox O2 Delivery O2 Flow Rate FiO2 10/27/19 13:44 98.2 87 18 160/107 (124) 97 Room Air 98.2 EKG: EKG: [] Radiology/Procedures: Radiology/Procedures: PROCEDURE: HAND LEFT 3V Left hand and wrist 3 views each 10/27/2019. Reason for exam: Swelling. No known injury. Left hand: No fracture or dislocation is seen. There is no apparent bone destruction or foreign body. There is no unusual arthritic change. Diffuse soft tissue swelling is seen. IMPRESSION: No acute bony abnormality. Left wrist 3 views: No acute fracture or dislocation is seen. There are mild arthritic changes at the first carpometacarpal joint. There is no apparent destructive process. IMPRESSION: Mild arthritic change. No acute abnormality. [] Course & Med Decision Making: Course & Med Decision Making Pertinent Labs and Imaging studies reviewed. (See chart for details) Patient is a 69-year-old -[place] male who presented to the emergency department with complaints of pain and swelling in the left wrist and medial hand for 3 days. X-ray of the left wrist and hand revealed no acute findings, only arthritic changes. The patient was given 600 mg of ibuprofen in the emergency department. Prescription was written for 600 mg of ibuprofen every 6 hours as needed for pain. Recommended that the patient follow-up with his primary care doctor symptoms persist, return to the ER symptoms worsen or he develops fever. Patient verbalized an understanding of home care, medications, follow-up, and return to ED instructions and was in agreement with the plan of care. [] Dragon Disclaimer: Dragon Disclaimer: This electronic medical record was generated, in whole or in part, using a voice recognition dictation system. Departure Departure Impression: Primary Impression: Acute pain of left wrist Disposition: 01 HOME, SELF-CARE Condition: STABLE Referrals: SYLVESTER PLASCENCIA MD Patient Instructions: Wrist Pain, [id number] Additional Instructions: Fill prescription(s) and use as directed. Recommend application of ice, elevation, and rest of affected extremity. Wear the splint that was placed until follow up appointment. Follow-up with your primary care doctor or Dr. Plascencia for further evaluation. Rreturn to the ER if your symptoms worsen. Scripts Ibuprofen (IBUPROFEN) 600 Mg Tablet 600 MG PO PRN Q6HRS PRN for INFLAMMATION for 10 Days, #40 TAB 0 Refills Prov: KARIE TINSLEY APRN 10/27/19 Justicifation of Admission Dx: Justifications for Admission: Justification of Admission Dx: N/A KARIE TINSLEY APRN Oct 27, 2019 15:12
== END 2019-10-27 15:37 | disposition home or self-care (01) ==
LOC: ER 13:25
DX: M25.532 Pain in left wrist (principal); M79.642 Pain in left hand; R22.32 Localized swelling, mass and lump, left upper limb; I10 Essential (primary) hypertension; K21.9 Gastro-esophageal reflux disease without esophagitis; Z86.718 Personal history of other venous thrombosis and embolism; M10.9 Gout, unspecified; E66.9 Obesity, unspecified; Z68.41 Body mass index [BMI] 40.0-44.9, adult
CPT/HCPCS: 73110; 73130; 99284

== ENCOUNTER 2019-11-16 07:58 | Emergency (ER) | payer MEDICARE, OTHER ==
[~2019-11-16] VITALS: Ht 180.3 cm; Wt 136.3 kg
[~2019-11-16 07:58] MED LIST changes: +IBUP-1007 PO
[2019-11-16 08:28] VITALS: BP 153/72
--- NOTE | 2019-11-16 09:12 | PHYS DOC ---
Past Medical History Past Medical History: Arthritis, Diabetes-Type II, DVT, GERD, Hypertension, Other Additional Past Medical Histor: DJD,PE,GOUT, NECK/BACK PAIN, OBESITY Past Surgical History: No Surgical History Smoking Status: Never Smoker Alcohol Use: None Drug Use: None General Adult EDM: Chief Complaint: TESTICULAR PAIN OR INJURY HPI: HPI: 69-year-old male presenting with right testicular pain and swelling of the last 24 hours. He reports his pain is a moderate sharp shooting nonradiating pain. No alleviating or exacerbating factors. He denies any abdominal pain or vomiting. He has not had a fever recently. He denies any new rashes. Review of systems negative for rashes chest pain fever abdominal pain vomiting. All other review of systems negative. ED course: 69-year-old male presenting with right-sided testicular pain. He is afebrile here. On examination his right testicle is mildly swollen. The s crotal sac was lifted and there is no underlying rash. No crepitus to palpation of the testicles. Otherwise abdomen is soft and nontender without rebound tenderness or guarding. CBC shows mild leukocytosis. Chemistry unremarkable. Urinalysis shows urinary tract infection. I attempted to initially admit the patient to the hospital and give him IV Rocephin to be monitored overnight for his condition because after the first examination his pain continued and he was having pretty significant pain. On third examination he is feeling much better and does not want to stay in the hospital he does not want any antibiotics. I communicated that these antibiotics are really important for his urinary tract infection. He is not willing to take IV antibiotics but will take oral antibiotics. He will need to follow-up with his doctor tomorrow or the next day. He states he has an appointment on Tuesday. He is to return if he is willing to be monitored for longer. He understands the risks and benefits to his decision. He is able to make medical decisions. He understands the risk of disability and severe pain. He will leave AMA but refused to sign the paperwork for it. PPE Statement: During the patient's care I used an level 3 mask, gloves, and face sheild. Heart Score: Risk Factors: Risk Factors: DM, Current or recent (<one month) smoker, HTN, HLP, family history of CAD, obesity. Risk Scores: Score 0 - 3: 2.5% MACE over next 6 weeks - Discharge Home Score 4 - 6: 20.3% MACE over next 6 weeks - Admit for Clinical Observation Score 7 - 10: 72.7% MACE over next 6 weeks - Early Invasive Strategies Allergies: Allergies: Allergies Coded Allergies Type Severity Reaction Last Updated Verified No Known Drug Allergies 04/03/14 No Physical Exam: PE: Constitutional: Well developed, well nourished, no acute distress, non-toxic appearance. [] HENT: Normocephalic, atraumatic, bilateral external ears normal, oropharynx moist, no oral exudates, nose normal. [] Eyes: PERRLA, EOMI, conjunctiva normal, no discharge. [] Neck: Normal range of motion, no tenderness, supple, no stridor. [] Cardiovascular:Heart rate regular rhythm, no murmur [] Lungs & Thorax: Bilateral breath sounds clear to auscultation [] Abdomen: Bowel sounds normal, soft, no tenderness, no masses, no pulsatile masses. [] exam as above. Skin: Warm, dry, no erythema, no rash. [] Back: No tenderness, no CVA tenderness. [] Extremities: No tenderness, no cyanosis, no clubbing, ROM intact, no edema. [] Neurologic: Alert and oriented X 3, normal motor function, normal sensory function, no focal deficits noted. [] Psychologic: Affect normal, judgement normal, mood normal. [] Current Patient Data: Vital Signs: Vital Signs Date Time Temp Pulse Resp B/P (MAP) Pulse Ox O2 Delivery O2 Flow Rate FiO2 11/16/19 08:28 99.0 96 16 153/72 (99) 96 Room Air 99.0 EKG: EKG: [] Radiology/Procedures: Radiology/Procedures: [] Course & Med Decision Making: Course & Med Decision Making Pertinent Labs and Imaging studies reviewed. (See chart for details) [] Dragon Disclaimer: Dragon Disclaimer: This electronic medical record was generated, in whole or in part, using a voice recognition dictation system. Departure Departure Impression: Primary Impression: UTI (urinary tract infection) Disposition: AGAINST MEDICAL ADVICE Condition: GUARDED Referrals: NO PCP (PCP) Patient Instructions: Urinary Tract Infection Scripts Doxycycline Hyclate (DOXYCYCLINE HYCLATE) 100 Mg Capsule 1 CAP PO BID for 10 Days, #20 CAP Prov: MIRIAN HOLT MD 11/16/19 Justicifation of Admission Dx: Justifications for Admission: Justification of Admission Dx: N/A MIRIAN HOLT MD Nov 16, 2019 09:12
[2019-11-16 09:40] LABS: BASO # 0.1 x10^3/uL (0.0-0.2); BASO % 1 % (0-3); EOS # 0.2 x10^3/uL (0.0-0.7); EOS % 2 % (0-3); HEMATOCRIT 39.9 % (39.0-53.0); HEMOGLOBIN 13.3 g/dL (13.0-17.5); LYMPH # 1.5 x10^3/uL (1.0-4.8); LYMPH % 12 % (24-48); MEAN CORPUSCULAR HEMOGLOBIN 27 pg (25-35); MEAN CORPUSCULAR HGB CONC 33 g/dL (31-37); MEAN CORPUSCULAR VOLUME 81 fL (79-100); MONO # 1.1 x10^3/uL (0.0-1.1); MONO % 9 % (0-9); NEUT # 9.4 x10^3/uL (1.8-7.7); NEUT % 76 % (31-73); PLATELET COUNT 273 x10^3/uL (140-400); RED BLOOD COUNT 4.93 x10^6/uL (4.30-5.70); RED CELL DISTRIBUTION WIDTH 14.9 % (11.5-14.5); WHITE BLOOD COUNT 12.3 x10^3/uL (4.0-11.0)
[2019-11-16 09:55] LABS: CALCIUM 9.3 mg/dL (8.5-10.1); CREATININE 1.1 mg/dL (0.7-1.3); GFR 80.8; POTASSIUM 4.2 mmol/L (3.5-5.1)
[2019-11-16] MEDS: fentaNYL PF VIAL 100 MCG/2 ML VIAL IV PRN ×2 (10:00→10:03)
--- NOTE | 2019-11-16 10:21 | RAD ---
EXAM: SCROTAL SONOGRAM WITH DOPPLER. HISTORY: Right testicular pain. COMPARISON: None. FINDINGS: Grayscale and Doppler analysis of the scrotum and contents was performed. The right testicle measures 4.4 x 3.5 x 2.5 cm. The parenchyma is homogeneous without focal lesions. A benign right epididymal head cyst measures 10 x 5 x 4 mm. Internal flow is normal. There is a moderate right hydrocele. The left testicle measures 4.6 x 3.5 x 3.1 cm. The parenchyma is homogeneous without focal lesions. A benign epididymal head cyst measures 6 x 5 mm. Testicular flow appears mildly asymmetrically increased in comparison with the right. A moderate left hydrocele contains a thin septation. IMPRESSION: 1. Moderate bilateral hydroceles. Correlate for systemic edematous states or scrotal inflammation. 2. Mildly asymmetrically increased testicular flow on the left. Correlate for left orchitis. Electronically signed by: Alex Carrero MD (11/16/2019 10:17 AM) [id number]
[2019-11-16 12:12] LABS: BILIRUBIN,URINE NEGATIVE (NEG); CLARITY,URINE CLEAR; COLOR,URINE YELLOW; NITRITE,URINE POSITIVE (NEG); PH,URINE 5.5 (<5.0-8.0); PROTEIN,URINE NEGATIVE (NEG-TRACE)
[2019-11-16 12:18] LABS: BACTERIA,URINE MANY /HPF (0-FEW); SQUAMOUS EPITHELIAL CELL,UR FEW /LPF; WBC,URINE >40 /HPF (0-4)
[2019-11-16] MEDS ORDERED: DOXY100C2 PO (12:31)
[2019-11-16] MEDS ORDERED: cefTRIAXone IV Push 1 GM VIAL. IVP ONE (12:45)
== END 2019-11-16 12:49 | disposition left against medical advice (07) ==
LOC: ER 07:58
DX: N39.0 Urinary tract infection, site not specified (principal); K21.9 Gastro-esophageal reflux disease without esophagitis; E11.9 Type 2 diabetes mellitus without complications; I10 Essential (primary) hypertension; M10.9 Gout, unspecified; E66.9 Obesity, unspecified; Z68.41 Body mass index [BMI] 40.0-44.9, adult; Z86.718 Personal history of other venous thrombosis and embolism
CPT/HCPCS: 36415; 76870; 80048; 81001; 85025; 87086; 96374; 99284; J3010

== ENCOUNTER 2019-11-18 12:08 | Emergency (ER) | payer MEDICARE, OTHER ==
[~2019-11-18] VITALS: Ht 180.3 cm; Wt 150.0 kg
[~2019-11-18 12:08] MED LIST changes: +DOXY100C2 PO
[2019-11-18] MEDS ORDERED: IV NORMAL SALINE 1000ML BAG 1,000 ML IV ONE (12:15)
[2019-11-18 12:45] VITALS: BP 161/74
[2019-11-18 13:08] LABS: BILIRUBIN,URINE NEGATIVE (NEG); CLARITY,URINE CLOUDY; COLOR,URINE YELLOW; NITRITE,URINE NEGATIVE (NEG); PH,URINE 5.5 (<5.0-8.0); PROTEIN,URINE 100 mg/dL (NEG-TRACE)
[2019-11-18 13:19] LABS: SQUAMOUS EPITHELIAL CELL,UR FEW /LPF
[2019-11-18 13:20] LABS: BACTERIA,URINE FEW /HPF (0-FEW); RBC,URINE 0 /HPF (0-2); WBC,URINE >40 /HPF (0-4)
[2019-11-18] MEDS ORDERED: AZITHROMYCIN 250 MG TABLET. PO ONE (13:45)
[2019-11-18] MEDS ORDERED: cefTRIAXone IM 250 MG VIAL IM ONE (13:45)
[2019-11-18] MEDS ORDERED: LEVO500T59 PO (14:03)
--- NOTE | 2019-11-18 14:04 | PHYS DOC ---
Past Medical History Past Medical History: Arthritis, Diabetes-Type II, DVT, GERD, Hypertension, Other Additional Past Medical Histor: DJD,PE,GOUT, NECK/BACK PAIN, OBESITY Past Surgical History: No Surgical History Smoking Status: Never Smoker Alcohol Use: None Drug Use: None General Adult EDM: Chief Complaint: TESTICULAR PAIN OR INJURY HPI: HPI: Patient is a 69 year old [f__sex] who presents with [] Review of Systems: Review of Systems: Constitutional: Denies fever or chills. [] Eyes: Denies change in visual acuity. [] HENT: Denies nasal congestion or sore throat. [] Respiratory: Denies cough or shortness of breath. [] Cardiovascular: Denies chest pain or edema. [] GI: Denies abdominal pain, nausea, vomiting, bloody stools or diarrhea. [] : Denies dysuria. [] Musculoskeletal: Denies back pain or joint pain. [] Integument: Denies rash. [] Neurologic: Denies headache, focal weakness or sensory changes. [] Endocrine: Denies polyuria or polydipsia. [] Lymphatic: Denies swollen glands. [] Psychiatric: Denies depression or anxiety. [] Heart Score: Risk Factors: Risk Factors: DM, Current or recent (<one month) smoker, HTN, HLP, family history of CAD, obesity. Risk Scores: Score 0 - 3: 2.5% MACE over next 6 weeks - Discharge Home Score 4 - 6: 20.3% MACE over next 6 weeks - Admit for Clinical Observation Score 7 - 10: 72.7% MACE over next 6 weeks - Early Invasive Strategies Current Medications: Current Medications Medications (Trade) Dose Ordered Sig/Karine Start Time Stop Time Status Last Admin Dose Admin Azithromycin (Zithromax) 1,000 mg 1X ONCE 11/18/19 13:45 11/18/19 13:54 DC Ceftriaxone Sodium (Rocephin Im) 250 mg 1X ONCE 11/18/19 13:45 11/18/19 13:54 DC Sodium Chloride 1,000 ml @ 1,000 mls/hr 1X ONCE 11/18/19 12:15 11/18/19 12:36 DC Allergies: Allergies: Allergies Coded Allergies Type Severity Reaction Last Updated Verified No Known Drug Allergies 04/03/14 No Physical Exam: PE: Constitutional: Well developed, well nourished, no acute distress, non-toxic jose alejandro earance. [] HENT: Normocephalic, atraumatic, bilateral external ears normal, oropharynx moist, no oral exudates, nose normal. [] Eyes: PERRLA, EOMI, conjunctiva normal, no discharge. [] Neck: Normal range of motion, no tenderness, supple, no stridor. [] Cardiovascular:Heart rate regular rhythm, no murmur [] Lungs & Thorax: Bilateral breath sounds clear to auscultation [] Abdomen: Bowel sounds normal, soft, no tenderness, no masses, no pulsatile masses. [] Skin: Warm, dry, no erythema, no rash. [] Back: No tenderness, no CVA tenderness. [] Extremities: No tenderness, no cyanosis, no clubbing, ROM intact, no edema. [] Neurologic: Alert and oriented X 3, normal motor function, normal sensory function, no focal deficits noted. [] Psychologic: Affect normal, judgement normal, mood normal. [] Current Patient Data: Labs: Laboratory Tests Test 11/18/19 12:40 Urine Collection Type Unknown Urine Color Yellow Urine Clarity Cloudy Urine pH 5.5 (<5.0-8.0) Urine Specific [place] 1.020 (1.000-1.030) Urine Protein 100 mg/dL (NEG-TRACE) Urine Glucose (UA) Negative mg/dL (NEG) Urine Ketones (Stick) Negative mg/dL (NEG) Urine Blood Small (NEG) Urine Nitrite Negative (NEG) Urine Bilirubin Negative (NEG) Urine Urobilinogen Dipstick 1.0 mg/dL (0.2 mg/dL) Urine Leukocyte Esterase Large (NEG) Urine RBC 0 /HPF (0-2) Urine WBC >40 /HPF (0-4) Urine Squamous Epithelial Cells Few /LPF Urine Bacteria Few /HPF (0-FEW) Urine Mucus Slight /LPF Vital Signs: Vital Signs Date Time Temp Pulse Resp B/P (MAP) Pulse Ox O2 Delivery O2 Flow Rate FiO2 11/18/19 12:45 99.0 88 18 161/74 (103) 97 Room Air 99.0 EKG: EKG: [] Radiology/Procedures: Radiology/Procedures: [] Course & Med Decision Making: Course & Med Decision Making Pertinent Labs and Imaging studies reviewed. (See chart for details) [] Dragon Disclaimer: Dragon Disclaimer: This electronic medical record was generated, in whole or in part, using a voice recognition dictation system. Departure Departure Impression: Primary Impression: Urinary tract infection Qualified Codes: N30.00 - Acute cystitis without hematuria Additional Impressions: Hx of orchitis Hx of hydrocele Disposition: HOME, SELF-CARE Condition: STABLE Referrals: NO PCP (PCP) Patient Instructions: Orchitis, Urinary Tract Infection, [id number] Additional Instructions: May continue previous antibiotics till completion. May use over the counter Tylenol and/or Ibuprofen for pain or discomfort. Purchase scrotal support (IE compression shorts/jock strap) to elevated testicles. Call and make an appointment with Urology for further evaluation and treatment. [facility] Address: [facility] [address] [facility] [address], [place] [address] Scripts Levofloxacin (LEVAQUIN) 500 Mg Tablet 1 TAB PO DAILY, #10 TAB Prov: FREDRICK MCCARTY DO 11/18/19 Justicifation of Admission Dx: Justifications for Admission: Justification of Admission Dx: N/A FREDRICK MCCARTY DO Nov 18, 2019 14:03
== END 2019-11-18 14:30 | disposition home or self-care (01) ==
LOC: ER 12:08
DX: N30.00 Acute cystitis without hematuria (principal); N50.812 Left testicular pain; M19.90 Unspecified osteoarthritis, unspecified site; E11.9 Type 2 diabetes mellitus without complications; K21.9 Gastro-esophageal reflux disease without esophagitis; I10 Essential (primary) hypertension; E66.9 Obesity, unspecified; Z68.42 Body mass index [BMI] 45.0-49.9, adult; Z86.718 Personal history of other venous thrombosis and embolism
CPT/HCPCS: 81001; 87086; 87491; 87591; 96372; 99283; J0696

== ENCOUNTER 2020-07-09 19:57 | Emergency (ER) | payer MEDICARE, OTHER ==
[~2020-07-09] VITALS: Ht 180.3 cm; Wt 113.6 kg
[~2020-07-09 19:57] MED LIST changes: -COLC0.6T42 PO; +COLC0.6T45 PO; +LEVO500T59 PO; -LISI-334 PO; +LISI20TA18 PO
[2020-07-09 20:00] VITALS: BP 142/92
--- NOTE | 2020-07-09 20:44 | PHYS DOC ---
Past Medical History Past Medical History: Arthritis, Diabetes-Type II, DVT, GERD, Hypertension, Other Additional Past Medical Histor: DJD,PE,GOUT, NECK/BACK PAIN, OBESITY (SANTI CLAIRE APRN) Past Surgical History: No Surgical History (SANTI CLAIRE APRN) Smoking Status: Never Smoker Alcohol Use: None Drug Use: None (SANTI CLAIRE APRN) General Adult EDM: Chief Complaint: HAND PROBLEM HPI: HPI: Patient is a 69 year old male with history of gout, arthritis, hypertension, diabetes among other illnesses who presents to the ED today complaining of moderate pain to the right hand and swelling that he thinks began a week ago but is not sure. Patient denies any injuries. He states he used [id number] rubbing balm with some relief. Patient states the pain is worse with using the right hand. He states he is right-handed. Describes the pain as throbbing and intermittent. (SANTI CLAIRE APRN) Review of Systems: Review of Systems: Constitutional: Denies fever or chills. [] Musculoskeletal: Reports right hand pain Integument: Denies rash. [] Neurologic: Denies headache, focal weakness or sensory changes. [] Psychiatric: Denies depression or anxiety. [] (SANTI CLAIRE APRN) Heart Score: Risk Factors: Risk Factors: DM, Current or recent (<one month) smoker, HTN, HLP, family history of CAD, obesity. Risk Scores: Score 0 - 3: 2.5% MACE over next 6 weeks - Discharge Home Score 4 - 6: 20.3% MACE over next 6 weeks - Admit for Clinical Observation Score 7 - 10: 72.7% MACE over next 6 weeks - Early Invasive Strategies (SANTI CLAIRE APRN) Allergies: Allergies: Allergies Coded Allergies Type Severity Reaction Last Updated Verified No Known Drug Allergies 04/03/14 No (SANTI CLAIRE APRN) Physical Exam: PE: Constitutional: Well developed, well nourished, no acute distress, non-toxic appearance. [] Skin: Warm, dry, no erythema, no rash. [] Back: No tenderness, no CVA tenderness. [] Extremities: Right hand with mild diffuse soft tissue swelling on the dorsal aspect. Tenderness diffusely. Full passive range of motion to the right hand and fingers, adequate radial, medial, ulnar sensation to the right hand. +2 right radial pulse. Cap refill less than 2 seconds to right fingers. Neurologic: Alert and oriented X 3, normal motor function, normal sensory function, no focal deficits noted. [] Psychologic: Affect normal, judgement normal, mood normal. [] (SANTI CLAIRE APRN) EKG: EKG: [] (SANTI CLAIRE APRN) Radiology/Procedures: Radiology/Procedures: []PROCEDURE: HAND RIGHT 3V XR HAND_RIGHT 3 VIEWS Clinical Indication: Reason: pain /history of gout. Comparison: Right hand, 3 views, August 06, 2019. Findings: No acute fracture is seen. There is dorsal hand soft tissue swelling and soft tissue swelling of the fingers, similar to prior study. Arterial calcifications are seen. There is second DIP joint space narrowing with marginal osteophytes. Other joint spaces are maintained. No definite bone erosion. IMPRESSION: 1. No acute fracture. 2. Soft tissue swelling. Electronically signed by: Tarun Ramirez MD (07/09/2020 9:47 PM) [facility] DICTATED and SIGNED BY: TARUN RAMIREZ MD DATE: 07/09/20 [id number] (SANTI CLAIRE APRN) Course & Med Decision Making: Course & Med Decision Making Pertinent Labs and Imaging studies reviewed. (See chart for details) This is a 69-year-old male patient presented to the ED today with right hand pain and swelling, symptoms began a week ago. Right hand x-rays interpreted by radiologist are negative for any acute findings. Noted for soft tissue swelling. Garrett wrap applied to the right hand by the ED RN, neurovascular exam is intact, ice elevation encouraged. Discharged home with hydrocodone and Voltaren cream. Encouraged to ice and elevate the affected hand. Provided Ortho for follow-up. (SANTI CLAIRE APRN) Dragon Disclaimer: Dragon Disclaimer: This electronic medical record was generated, in whole or in part, using a voice recognition dictation system. (SANTI CLAIRE APRN) Departure Departure Impression: Primary Impression: Right hand pain Additional Impression: Swelling of right hand Disposition: 01 DC HOME SELF CARE/HOMELESS Condition: STABLE Referrals: NO PCP (PCP) KRIS JAVIER MD follow up in 1 week Patient Instructions: Edema, [id number] Additional Instructions: You were seen for right hand pain. Try to ice and elevate the extremity. Use the prescribed medications as ordered. Follow-up with your doctor in 1 to 2 weeks. You can also follow-up with the provided orthopedic doctor Scripts Hydrocodone Bit/Acetaminophen (HYDROCODONE-APAP 5-325 ) 1 Tab Tablet 1 TAB PO PRN Q6HRS PRN for PAIN, #12 TAB 0 Refills Prov: SANTI CLAIRE APRN 07/09/20 Diclofenac Sodium (VOLTAREN) 100 Gm Gel..gram. 1 GM TP QID for pain for 30 Days, #1 EACH 0 Refills apply to affected area(s) Prov: SANTI CLAIRE APRN 07/09/20 Attending Signature Attending Signature I have reviewed the PA/METER READING CLERK's note and plan of care. I was available for consultation as needed during the patient's visit in the emergency department. I agree with the clinical impression, plan, and disposition. (FREDRICK MCCARTY DO) SANTI CLAIRE APRN Jul 09, 2020 20:44 FREDRICK MCCARTY DO Jul 10, 2020 01:02
[2020-07-09] MEDS ORDERED: NAPROXEN 500 MG TABLET PO STA (21:24)
[2020-07-09] MEDS ORDERED: HYDROcodone/APAP 5/325MG 1 TAB TABLET PO ONE (21:30)
[2020-07-09] MEDS ORDERED: DICL100G54 TP (21:42)
[2020-07-09] MEDS ORDERED: HYDR-2761 PO (21:42)
--- NOTE | 2020-07-09 21:50 | RAD ---
XR HAND_RIGHT 3 VIEWS Clinical Indication: Reason: pain /history of gout. Comparison: Right hand, 3 views, August 06, 2019. Findings: No acute fracture is seen. There is dorsal hand soft tissue swelling and soft tissue swelling of the fingers, similar to prior study. Arterial calcifications are seen. There is second DIP joint space na rrowing with marginal osteophytes. Other joint spaces are maintained. No definite bone erosion. IMPRESSION: 1. No acute fracture. 2. Soft tissue swelling. Electronically signed by: Tarun Ramirez MD (07/09/2020 9:47 PM) [email or web address]
== END 2020-07-09 21:50 | disposition home or self-care (01) ==
LOC: ER 19:57
DX: M79.641 Pain in right hand (principal); R60.0 Localized edema; R20.2 Paresthesia of skin; M19.90 Unspecified osteoarthritis, unspecified site; E11.9 Type 2 diabetes mellitus without complications; K21.9 Gastro-esophageal reflux disease without esophagitis; I10 Essential (primary) hypertension; Z86.718 Personal history of other venous thrombosis and embolism
CPT/HCPCS: 73130; 99283

== ENCOUNTER 2020-07-14 04:22 | Observation (INO) | payer MEDICARE, OTHER ==
[~2020-07-14] VITALS: Ht 180.3 cm; Wt 148.9 kg
[~2020-07-14 04:22] MED LIST changes: +DICL100G54 TP; +HYDR-2761 PO
[2020-07-14] MEDS ORDERED: IBUPROFEN 400 MG TABLET. PO ONE (05:00)
--- NOTE | 2020-07-14 06:37 | PHYS DOC ---
Past Medical History Past Medical History: Arthritis, Diabetes-Type II, DVT, GERD, Hypertension, Other Additional Past Medical Histor: DJD,PE,GOUT, NECK/BACK PAIN, OBESITY Past Surgical History: No Surgical History Smoking Status: Former Smoker Alcohol Use: Rarely Drug Use: None General Adult EDM: Chief Complaint: MULTIPLE COMPLAINTS HPI: HPI: Patient is a 69 year old male with history of DVT who presents with right hand swelling. Patient reports right hand swelling for approximately 1.5 weeks. He denies any injury. He feels like is getting worse. Pain is worse with range of motion of the right wrist. Patient was seen in the emergency department several days ago for similar symptoms. He reports he was sent home and did not follow- up and symptoms have not improved. Patient denies chest pain shortness of breath fever chills nausea vomiting abdominal pain numbness weakness headache. Patient is not a smoker. Denies drugs or alcohol. Patient reports history of DVT in the lower extremity in the past. Currently not on any anticoagulants. Review of Systems: Review of Systems: Review of Systems: Constitutional: Denies fever or chills Eyes: Denies redness or eye pain HENT: Denies nasal congestion or sore throat Respiratory: Denies cough or shortness of breath Cardiovascular: Denies chest pain or palpitations GI: denies abdominal pain and nausea, denies vomiting or diarrhea : Denies dysuria or hematuria Musculoskeletal: Denies back pain or joint pain Integument: Denies rash or skin lesions Neurologic: Denies headache, focal weakness or sensory changes Heart Score: C/O Chest Pain: No Current Medications: Current Medications Medications (Trade) Dose Ordered Sig/[facility] Start Time Stop Time Status Last Admin Dose Admin Ibuprofen (Motrin) 800 mg 1X ONCE 07/14/20 05:00 07/14/20 05:01 DC 07/14/20 05:59 800 MG Allergies: Allergies: Allergies Coded Allergies Type Severity Reaction Last Updated Verified No Known Drug Allergies 04/03/14 No Physical Exam: PE: *GENERAL APPEARANCE: Awake and alert. Cooperative. No acute distress. Non toxic appearing. HEAD: Normocephalic. Atraumatic. EYES: EOM's grossly intact. Sclera anicteric. Conjunctiva clear ENT:. Airway patent. Mucous membranes moist. No trismus. Tolerating secretions. NECK: Supple. Trachea midline. HEART: Regular rate and rhythm. Radial pulses 2+. Good capillary refill. LUNGS: Respirations unlabored. Clear to auscultation bilaterally. No rales, rhonchi, wheezing or retractions. ABDOMEN: Soft. Non-tender. No guarding or rebound. No CVA tenderness. No palpable or pulsatile mass. EXTREMITIES: No acute deformities. No edema, erythema or calf tenderness. Right upper extremity: Swelling over the entire right hand. Range of motion of the wrist is limited secondary to pain. Patient can range the fingers but difficult secondary to edema. Pulses and sensation normal. Warmth over the right hand. SKIN: Warm and dry. No rash. NEUROLOGICAL: Alert and oriented x3. No gross neurological deficits. Moves all 4 extremities spontaneously. PSYCHIATRIC: Normal mood. Current Patient Data: Vital Signs: Vital Signs Date Time Temp Pulse Resp B/P (MAP) Pulse Ox O2 Delivery O2 Flow Rate FiO2 07/14/20 04:30 98.6 106 20 206/108 (140) 93 Room Air 98.6 EKG: EKG: [] Radiology/Procedures: Radiology/Procedures: PROCEDURE: WRIST 2V RIGHT EXAM: XR RT WRIST 2 VIEWS 07/14/2020 6:39 AM CLINICAL INDICATION: Edema and pain for 2 weeks COMPARISON: Right wrist radiographs 11/08/2018 TECHNIQUE: 3 views of the right wrist FINDINGS: No acute fracture. Alignment is normal. There is mild degenerative joint disease of the triscaphe joint. Small scattered erosions including at the thumb MCP joint, fifth metacarpal base and ulnar styloid are unchanged. There is degenerative joint disease with osteophytes at the thumb interphalangeal joint. Mild diffuse soft tissue swelling. IMPRESSION: 1. No acute osseous abnormality. 2. Mild diffuse soft tissue swelling. 3. Unchanged degenerative joint disease and small scattered erosions. Electronically signed by: Julia Mackey MD (07/14/2020 7:15 AM) [id number] DICTATED and SIGNED BY: JULIA MACKEY MD DATE: 07/14/20 [id number] PROCEDURE: VENOUS UPPER EXTREMITY RIGHT EXAMINATION: US DPLX VENOUS EXTREMITY UPPER RT, 07/14/2020 6:35 AM CLINICAL INDICATION: Edema, history of DVT COMPARISON: None PROCEDURE: Multiple grayscale, color Doppler and spectral Doppler sonographic images of the right upper extremity was obtained. FINDINGS: There is no evidence of deep venous thrombosis in the right upper extremity. The right internal jugular vein, subclavian vein, axillary vein, brachial vein, cephalic vein, and basilic vein are echolucent with normal flow on color Doppler imaging and compressibility. The radial and ulnar veins are also patent. IMPRESSION: No evidence of deep venous thrombosis in the right upper extremity. Electronically signed by: Julia Mackey MD (07/14/2020 7:20 AM) [id number] DICTATED and SIGNED BY: JULIA MACKEY MD DATE: 07/14/20 [id number] 0 Course & Med Decision Making: Course & Med Decision Making Medical decision making: This is a 69-year-old male presents emergency department for right hand swelling. Patient has history of DVT. Chart also reports history of diabetes and hypertension. Patient denies this. I suspect patient is noncompliant on medications. Patient was seen in the emergency department several days ago for similar symptoms. At that time he had hand x- ray that showed soft tissue swelling without any other acute abnormalities. Patient was given pain medication and follow-up. Patient unfortunately was unable to get follow-up. He did not fill medications. Patient has limited access to care. He is homeless. Here in the emergency department patient is neurovascularly intact in the arm. He does have some soft tissue swelling. Labs: No leukocytosis. Hemoglobin stable. Glucose 267. Patient is not in diabetic ketoacidosis. CRP 23.1. X-ray right wrist: No acute osseous abnormality. Mild diffuse soft tissue swelling. Unchanged degenerative joint disease and small scattered erosions. Hand x-ray was done during last emergency department visit that showed soft tissue swelling with no acute abnormalities. US RUE: No DVT in right upper extremity. Patient was given a dose of clindamycin. At this time based on patient's symptoms and findings will admit to the hospital for further observation and evaluation. Spoke with patient. Agreeable to admission. They are aware of all labs and imaging. All questions answered and patient stable at time of admission. Dragon Disclaimer: Dragon Disclaimer: This electronic medical record was generated, in whole or in part, using a voice recognition dictation system. I have spoken to the patient and/or caregivers. I have explained the patient's condition, diagnoses and treatment plan based on the information available to me at this time. I have answered the patient's and/or caregiver's questions and addressed my concerns. The patient and/or caregivers has a good understanding of the patient's diagnosis, condition and treatment plan as can be expected at this point. The patient has been stabilized within the capability of the emergency department. The patient will be transported for further care and management or will be moved to an observation or inpatient service. I have communicated with the staff or medical practitioner taking over this patient's care. Departure Departure Impression: Primary Impression: Swelling of right hand Additional Impressions: Right hand pain Hyperglycemia due to diabetes mellitus Disposition: ADMITTED INPT THIS HOSP Admitting Physician: HIMS (accepted by Dr. Aguayo at 0750, agrees with admission and plan. patient stable at time of admission. ) Condition: STABLE Referrals: NO PCP (PCP) DUSTIN RICKS DO Jul 14, 2020 06:37
--- NOTE | 2020-07-14 07:17 | RAD ---
EXAM: XR RT WRIST 2 VIEWS 07/14/2020 6:39 AM CLINICAL INDICATION: Edema and pain for 2 weeks COMPARISON: Right wrist radiographs 11/08/2018 TECHNIQUE: 3 views of the right wrist FINDINGS: No acute fracture. Alignment is normal. There is mild degenerative joint disease of the tr iscaphe joint. Small scattered erosions including at the thumb MCP joint, fifth metacarpal base and u lnar styloid are unchanged. There is degenerative joint disease with osteophytes at the thumb interph alangeal joint. Mild diffuse soft tissue swelling. IMPRESSION: 1. No acute osseous abnormality. 2. Mild diffuse soft tissue swelling. 3. Unchanged degenerative joint disease and small scattered erosions. Electronically signed by: Julia Mackey MD (07/14/2020 7:15 AM) [id number]
--- NOTE | 2020-07-14 07:22 | RAD ---
EXAMINATION: US DPLX VENOUS EXTREMITY UPPER RT, 07/14/2020 6:35 AM CLINICAL INDICATION: Edema, history of DVT COMPARISON: None PROCEDURE: Multiple grayscale, color Doppler and spectral Doppler sonographic images of the right upp er extremity was obtained. FINDINGS: There is no evidence of deep venous thrombosis in the right upper extremity. The right inte rnal jugular vein, subclavian vein, axillary vein, brachial vein, cephalic vein, and basilic vein are echolucent with normal flow on color Doppler imaging and compressibility. The radial and ulnar veins are also patent. IMPRESSION: No evidence of deep venous thrombosis in the right upper extremity. Electronically signed by: Julia Mackey MD (07/14/2020 7:20 AM) [id number]
[2020-07-14] MEDS ORDERED: CLINDAMYCIN 600MG PREMIX 50 ML IV ONE (07:45)
[2020-07-14] MEDS ORDERED: ONDANSETRON PF 4 MG/2 ML VIAL. IV PRN ×2 (08:00→08:45)
[2020-07-14] MEDS ORDERED: MORPHINE SULFATE 4 MG/ML VIAL. IV PRN (08:00)
--- NOTE | 2020-07-14 08:32 | PDOC1 ---
History and Physical Date of Admission Date of Admission DATE: 07/14/20 TIME: 08:31 Identification/Chief Complaint Chief Complaint r wrist and hand pain, swelling legs and r hand x 3 days History of Present Illness History of Present Illness History of Present Illness Mr Marks is a 68-year-old male who is homeless w/ PMHx HTN, DM2, OA, Morbid obesity and h/o DVT/PE. C/o worsening LE edema and pain, found with bilateral deep venous thrombosis in past , involving the femoral and popliteal veins in our ED. Admitted for further treatment. OF CELLULITIS RIGHT WRIST, HAD worsening symptoms x 4 days [He was seen on 02/12/2019. At that time, he had acute pulmonary emboli involving the segmental and subsegmental branches of the lower lobes. 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 He returned in March 2019 with recurrence, unable to afford xarelto, which he h ad previously taken.] Past Medical History Past Medical History Past Medical History Past Medical History Past Medical History: Arthritis, Diabetes-Type II, DVT, GERD, Hypertension, Other Additional Past Medical Histor: DJD,PE,GOUT, NECK/BACK PAIN, OBESITY Past Surgical History: No Surgical History Smoking Status: Former Smoker Alcohol Use: Rarely Drug Use: None FHX OBESITY Cardiovascular: HTN, Other Pulmonary: Pulmonary embolus GI: GERD Hepatobiliary: Cholelithiasis, Other Psych: Other Musculoskeletal: Osteoarthritis Rheumatologic: Gout Infectious disease: No pertinent hx Renal/: Benign prostatic enlarg. Endocrine: No pertinent hx Past Surgical History Past Surgical History: No pertinent history Family History Family History: Hypertension Social History Smoke: No ALCOHOL: none Drugs: None Current Problem List Problem List Problems Medical Problems: (1) Hyperglycemia due to diabetes mellitus Status: Acute (2) Right hand pain Status: Acute (3) Swelling of right hand Status: Acute Current Medications Current Medications Current Medications Ibuprofen (Motrin) 800 mg 1X ONCE PO Last administered on 07/14/20at 05:59; Start 07/14/20 at 05:00; Stop 07/14/20 at 05:01; Status DC Clindamycin Phosphate 50 ml @ 100 mls/hr 1X ONCE IV Last administered on 07/14/20at 07:52; Start 07/14/20 at 07:45; Stop 07/14/20 at 08:14; Status DC Ondansetron HCl (Zofran) 4 mg PRN Q8HRS PRN IV NAUSEA/VOMITING; Start 07/14/20 at 08:00; Stop 07/15/20 at 07:59 Morphine Sulfate (Morphine Sulfate) 4 mg PRN Q2HR PRN IV PAIN; Start 07/14/20 at 08:00; Stop 07/15/20 at 07:59 Active Scripts Active Hydrocodone-Apap 5-325 (Hydrocodone Bit/Acetaminophen) 1 Tab Tablet 1 Tab PO PRN Q6HRS PRN Voltaren (Diclofenac Sodium) 100 Gm Gel..gram. 1 Gm TP QID 30 Days apply to affected area(s) Levaquin (Levofloxacin) 500 Mg Tablet 1 Tab PO DAILY Doxycycline Hyclate 100 Mg Capsule 1 Cap PO BID 10 Days Ibuprofen 600 Mg Tablet 600 Mg PO PRN Q6HRS PRN 10 Days Metformin Hcl 500 Mg Tablet 500 Mg PO BIDWMEALS 30 Days Metoprolol Tartrate 25 Mg Tablet 25 Mg PO BID 30 Days Coumadin (Warfarin Sodium) 10 Mg Tablet 1 Each MC PRN DAILY PRN 30 Days Amox Tr-K Clv 500-125 Mg Tab (Amoxicillin/Potassium Clav) 1 Each Tablet 1 Tab PO BID 5 Days Tramadol Hcl 50 Mg Tablet 50 Mg PO Q6HRS PRN Colchicine 0.6 Mg Tablet 1 Tab PO DAILY 1.2 mg now and repeat 0.6 mg in 2 hours Ibuprofen 400 Mg Tablet 400 Mg PO PRN Q6HRS PRN 3 Days Colcrys (Colchicine) 0.6 Mg Tablet 1 Tab PO ONCE 1 Days Had 1.2 mg in ER and needs 0.6 mg 1 hour later. Culturelle (Lactobacillus Rhamnosus Gg) 1 Each Cap.sprink 1 Cap PO BID 30 Days Dok (Docusate Sodium) 100 Mg Capsule 100 Mg PO PRN BID PRN 14 Days Mag-Al Plus Xs Suspension (Mag Hydrox/Al Hydrox/Simeth) 30 Ml Oral.susp 30 Ml PO PRN DAILY PRN 10 Days Tylenol (Acetaminophen) 325 Mg Tablet 650 Mg PO PRN Q4HRS PRN 14 Days Enoxaparin Sodium 150 Mg/1 Ml Disp.syrin 1 Each MC PRN DAILY PRN 10 Days Proair Hfa (Albuterol Sulfate) 8.5 Gm Hfa.aer.ad 2.5 Mg NEB PRN Q4HRS PRN 30 Days Reported Hydrochlorothiazide Capsule (Hydrochlorothiazide) 12.5 Mg Capsule 12.5 Mg PO DAILY Lisinopril 20 Mg Tablet 1 Tab PO BID Aspirin 325 Mg Tablet 1 Tab PO DAILY Allergies Allergies: Coded Allergies: No Known Drug Allergies (Unverified , 04/03/14) ROS Review of System Review of Systems: Review of Systems: Review of Systems: Constitutional: Denies fever or chills Eyes: Denies redness or eye pain HENT: Denies nasal congestion or sore throat Respiratory: Denies cough or shortness of breath Cardiovascular: Denies chest pain or palpitations GI: denies abdominal pain and nausea, denies vomiting or diarrhea : Denies dysuria or hematuria Musculoskeletal: Denies back pain pos for right wrist and hand joint pain, swelling Integument: right hand rash Neurologic: Denies headache, focal weakness or sensory changes 14 pt ros otherwise neg Physical Exam Physical Exam NECK: Supple. Trachea midline. HEART: Regular rate and rhythm. Radial pulses 2+. Good capillary refill. LUNGS: Respirations unlabored. Clear to auscultation bilaterally. No rales, rhonchi, wheezing or retractions. ABDOMEN: Soft. Non-tender. No guarding or rebound. No CVA tenderness. No palpable or pulsatile mass. EXTREMITIES: No acute deformities. edema, NO erythema or calf tenderness. Right upper extremity: Swelling over the entire right hand. Range of motion of the wrist is limited secondary to pain. Patient can range the fingers but difficult secondary to edema. Pulses and sensation normal. Warmth over the right hand. SKIN: Warm and dry. No rash. NEUROLOGICAL: Alert and oriented x3. No gross neurological deficits. Moves all 4 extremities spontaneously. PSYCHIATRIC: Normal mood. General: Alert, Oriented X3, Cooperative, No acute distress HEENT: Atraumatic, PERRLA, EOMI, Mucous membr. moist/pink Lungs: Clear to auscultation, Normal air movement Heart: RRR, no thrills, no gallops Breasts: Not examined Abdomen: Normal bowel sounds, Soft, Other (obese) Rectal Exam: not examined Extremities: No cyanosis, Other (3 plus edema both lower legs) Skin: Other (onychomycosis severe both feet) Neuro: Normal speech, Cranial nerves 3-12 NL Psych/Mental Status: Mental status NL, Mood NL Vitals Vitals Vital Signs Date Time Temp Pulse Resp B/P (MAP) Pulse Ox O2 Delivery O2 Flow Rate FiO2 07/14/20 07:50 84 18 147/71 (96) Room Air 07/14/20 07:07 100 07/14/20 04:30 98.6 98.6 Images Images PATIENT: FREDA MARKS ACCOUNT: [id number] : 1950 LOCATION: ER AGE: 69 SEX: M EXAM STATUS: REG ER ORD. PHYSICIAN: DUSTIN RICKS DO REASON: edema PROCEDURE: VENOUS UPPER EXTREMITY RIGHT EXAMINATION: US DPLX VENOUS EXTREMITY UPPER RT, 07/14/2020 6:35 AM CLINICAL INDICATION: Edema, history of DVT COMPARISON: None PROCEDURE: Multiple grayscale, color Doppler and spectral Doppler sonographic images of the right upper extremity was obtained. FINDINGS: There is no evidence of deep venous thrombosis in the right upper extremity. The right internal jugular vein, subclavian vein, axillary vein, brachial vein, cephalic vein, and basilic vein are echolucent with normal flow on color Doppler imaging and compressibility. The radial and ulnar veins are als o patent. IMPRESSION: No evidence of deep venous thrombosis in the right upper extremity. Electronically signed by: Julia Mackey MD (07/14/2020 7:20 AM) [id number] DICTATED and SIGNED BY: JULIA MACKEY MD DATE: 07/14/20 [id number] PATIENT: FREDA MARKS ACCOUNT: [id number] : 1950 LOCATION: ER AGE: 69 SEX: M EXAM STATUS: REG ER ORD. PHYSICIAN: DUSTIN RICKS DO REASON: edema and pain x 2 weeks PROCEDURE: WRIST 2V RIGHT EXAM: XR RT WRIST 2 VIEWS 07/14/2020 6:39 AM CLINICAL INDICATION: Edema and pain for 2 weeks COMPARISON: Right wrist radiographs 11/08/2018 TECHNIQUE: 3 views of the right wrist FINDINGS: No acute fracture. Alignment is normal. There is mild degenerative joint disease of the triscaphe joint. Small scattered erosions including at the thumb MCP joint, fifth metacarpal base and ulnar styloid are unchanged. There is degenerative joint disease with osteophytes at the thumb interphalangeal joint. Mild diffuse soft tissue swelling. IMPRESSION: 1. No acute osseous abnormality. 2. Mild diffuse soft tissue swelling. 3. Unchanged degenerative joint disease and small scattered erosions. Electronically signed by: Julia Mackey MD (07/14/2020 7:15 AM) [id number] VTE Prophylaxis Ordered VTE Prophylaxis Devices: Contraindicated VTE Pharmacological Prophylaxi: Yes Assessment/Plan Assessment/Plan IMPRESSION cellulitis right hand and wrist, acute, concern for septic joint, ie wrist HX Extensive bilateral LE DVT - HTN urgency - 2/2 compliance difficulties Acute on chronic diastolic CHF: due to uncontrolled HTN. will nenita, DM2 - A1c 7.3. IN PAST Morbid obesity Compliance difficulties SEC to finances Housing insecure - homelessness History of pulmonary embolism, deep venous thrombosis. Abnormal venous Doppler of the lower extremity with evidence of DVT His risk factors for persistent DVT are underlying morbid obesity and noncompliance. Morbid obesity. Hypertension. Lower extremity edema Hepatomegaly with steatosis. Probable sleep apnea Suspected pulmonary hypertension Onychomycosis both feet, severe Suspect PVD Ventricular tachycardia HX, NONSUSTAINED plan admit blood cultures crp emperic iv zosyn pending ID consult venous dopplers both legs chelsy, // sq lovenox 1 mg/kg sq bid inr ID CONSULT ORTHO CONSULT CT RIGHT WRIST AND HAND 74 MIN Justifications for Admission Other Justification KUMAR ASH MD Jul 14, 2020 08:32
[2020-07-14] MEDS ORDERED: ENOXAPARIN 40 MG/0.4 ML SYRINGE. SQ SCH (08:45)
[2020-07-14] MEDS ORDERED: DOCUSATE SODIUM 100 MG CAPSULE. PO PRN (08:45)
[2020-07-14] MEDS ORDERED: hydrALAZINE 20 MG/ML VIAL. IVP PRN (08:45)
[2020-07-14] MEDS ORDERED: guaiFENesin ORAL 200 MG/10 ML LIQUID. PO PRN (08:45)
[2020-07-14] MEDS ORDERED: MAG HYDROX/ALUMINUM HYD/SIMETH 30 ML ORAL.SUSP PO PRN ×2 (08:45)
[2020-07-14] MEDS ORDERED: 0.9 % SODIUM CHLORIDE 10 ML DISP.SYRIN. IV PRN (08:45)
[2020-07-14] MEDS ORDERED: traMADol 50 MG TABLET PO PRN (08:45)
[2020-07-14] MEDS ORDERED: SODIUM PHOSPHATES 19/7GM 133 ML ENEMA. PR PRN (08:45)
[2020-07-14] MEDS ORDERED: PIPERACILLIN/TAZOBACTAM 3.375 GM in IV NORMAL SALINE 50ML 50 ML IV ONE (08:45)
[2020-07-14] MEDS ORDERED: ACETAMINOPHEN 325 MG TABLET. PO PRN (08:45)
[2020-07-14] MEDS ORDERED: ALBUTEROL SULFATE 2.5 MG/3 ML NEBU. NEB PRN (08:45)
[2020-07-14] MEDS ORDERED: DEXTROSE 50% 25 GM / 50ML DISP.SYRIN. IV PRN (09:00)
[2020-07-14] MEDS ORDERED: FUROSEMIDE 40 MG/4 ML VIAL. IVP ONE (09:00)
[2020-07-14] MEDS: DICLOFENAC SODIUM 1% TOPICAL GEL 100GM TUBE. TP SCH ×4 (09:00→21:10)
[2020-07-14] MEDS ORDERED: metFORMIN 500 MG TABLET PO SCH (09:00)
--- NOTE | 2020-07-14 10:13 | PDOC ---
Infectious Disease Note Vital Sign Vital Signs Vital Signs Date Time Temp Pulse Resp B/P (MAP) Pulse Ox O2 Delivery O2 Flow Rate FiO2 07/14/20 08:59 82 20 149/77 (101) 98 Room Air 07/14/20 04:30 98.6 98.6 Objective Assessment pt seen, consult dictated Plan Plan of Care / YULIET GALLEGO MD Jul 14, 2020 10:13
--- NOTE | 2020-07-14 10:27 | RAD ---
EXAM: Bilateral lower extremity venous Doppler sonogram. HISTORY: DVT follow-up. TECHNIQUE: Johnson scale and color Doppler sonographic evaluation of the bilateral lower extremity veins with spectral waveform analysis was performed. FINDINGS: The exam is limited due to patient body habitus and soft tissue edema. There is persistent nonocclusive thrombus within the bilateral superficial femoral veins and popliteal veins. The calf ve ins are obscured. IMPRESSION: Nonocclusive thrombus within the bilateral superficial femoral and popliteal veins. The p reviously demonstrated occlusive thrombus within both lower extremities is no longer seen. The calf v eins are not well assessed due to body habitus and soft tissue edema. Electronically signed by: Tia Jay MD (07/14/2020 10:24 AM) [id number]
[2020-07-14] MEDS ORDERED: CONTRAST GIVEN. MC PRN (10:30)
[2020-07-14] MEDS ORDERED: IOHEXOL 300 MG/ML 100ML VIAL. IV ONE (10:30)
--- NOTE | 2020-07-14 11:01 | HP ---
ADMIT DATE: 07/14/2020 CHIEF COMPLAINT: Pain in the right wrist and hand with swelling x 3 days. HISTORY OF PRESENT ILLNESS: The patient is a pleasant 69-year-old male who is homeless. He has a history of noncompliance due to economic reasons, hypertension, diabetes, osteoarthritis, history of extensive DVT and PE complaining of worsening edema and pain in the legs. He has a history of bilateral DVTs in the past in both legs. He was seen in the ER today with swelling of the right wrist, cellulitis with hand swelling and worsening for the last 4 days. He has a history of pulmonary emboli in 02/2019 involving segmental and subsegmental branches in the lower lobes, felt to be secondary to immobility. He has been unable to take Xarelto due to cost in the past. PAST MEDICAL HISTORY: Significant for arthritis, diabetes, DVT, GERD, hypertension, degenerative joint disease, gout, neck and back pain, obesity. He is a former smoker. He rarely uses alcohol and denies drug use. FAMILY HISTORY: Positive for obesity. PAST SOCIAL HISTORY: Not currently smoking. Remote history of smoking. No alcohol use or illicit drug use. CURRENT MEDICATIONS: Please see medication reconciliation. REVIEW OF SYSTEMS: Denies fever or chills. Denies eye redness, eye pain or vision loss. Denies nasal congestion, cough, shortness of breath, chest pain or palpitations. Denies abdominal pain, nausea, vomiting, diarrhea, or melena. Denies dysuria or hematuria. Denies back pain, but has right wrist and hand joint pain and swelling, right hand rash, difficulty with closing the right hand. Denies headache, focal weakness or sensory changes. PHYSICAL EXAMINATION NECK: Supple. HEENT: Throat and pharynx clear. Pupils equal and reactive to light. Extraocular muscles are intact. Mucous membranes are moist. Respirations are unlabored. LUNGS: Clear, without rales, rhonchi or wheezing. ABDOMEN: Soft, obese without tenderness. No palpable mass. EXTREMITIES: Some edema of both legs. There is no erythema of the calf muscles or calf tenderness, swelling over the entire right hand with limited range of motion. Pulses and sensation are intact Radial pulses are 2+. NEUROLOGIC: He is alert and oriented, without gross neurological deficits. Moves all extremities well. Gait is normal. Speech is normal. Mental status is normal. Cranial nerves 2-12 are grossly intact. Muscles of masticaton are symmetric bilaterally. ASSESSMENT: 1. Cellulitis of the right wrist and hand with concern for septic joint. His CRP is elevated at 11. procalcitonin pending 2. Extensive bilateral deep vein thrombosis of both extremities. 3. Hypertensive urgency secondary to compliance. 4. Acute on chronic diastolic heart failure with uncontrolled hypertension. We will diurese. 5. Diabetes. We will plan a1c. 6. Morbid obesity. 7. Housing insecurity with homelessness. 8. History of pulmonary embolism with deep vein thrombosis. 9. Risk factors for persistent deep vein thrombosis that are high due to noncompliance. 10. Hypertension. 11. Lower extremity edema. 12. Hepatomegaly with steatosis. 13. Probable sleep apnea. 14. Suspected pulmonary hypertension. 15. Onychomycosis of both feet, severe. 16. Suspected peripheral vascular disease. 17. History of ventricular tachycardia, nonsustained. place on tele bed PLAN: Admit. Blood cultures, CRP, empiric IV Zosyn, pending ID consult, venous Doppler of both legs since possible subcutaneous Lovenox, DVT prophylaxis 1 mg/kg subcutaneous b.i.d., ID consult, Ortho consult, CT right wrist and right hand. Total time spent with the patient's exam, chart review was 74 minutes, greater than 50% of time was spent with the patient's exam, chart review and the patient's care and coordination. This has been a was made difficult patient due to his history of homelessness and noncompliance. Anticipate length of stay greater than [address] ASH MD DR: NADIA/karo JOB#: [id number] / [id number] YVONNE
--- NOTE | 2020-07-14 11:03 | CONS ---
DATE OF CONSULTATION: 07/14/2020 REQUESTING PHYSICIAN: Dr. Aguayo. REASON FOR CONSULTATION: Right hand pain and swelling, possible cellulitis. HISTORY OF PRESENT ILLNESS: This is a 69-year-old -[place] gentleman who apparently is homeless for 1 year, who comes in with right hand pain and swelling. He does not know. He denies any injury. He may have slept on it on that side for a long period of time he says, also has swelling of the legs. He denies any nausea, vomiting, diarrhea. Denies any chest pain, shortness of breath, abdominal pain, urinary symptoms, bowel symptoms, headaches, visual symptoms, fever or chills. PAST MEDICAL HISTORY: History of DVT, hypertension, obesity, gastroesophageal reflux disease, chronic back problem and cardiac disorders. SOCIAL HISTORY: Negative for smoking, alcohol use or drug use, he says. CURRENT MEDICATIONS: Reviewed. REVIEW OF SYSTEMS: As per HPI, all other systems reviewed are negative. PHYSICAL EXAMINATION: GENERAL: Alert, oriented gentleman, not in distress. VITAL SIGNS: Stable, afebrile. HEENT: NAD. NECK: Supple, no JVP, no lymphadenopathy. LUNGS: Clear. HEART: S1, S2 regular. ABDOMEN: Benign. EXTREMITIES: Does have edema of the lower extremity, he does have edema of the right hand and wrist, which wrist has tenderness. There is no erythema. There is no break in the skin or open wound. It is inflamed hand and the wrist. SKIN: Rest of the skin examination unremarkable. NEUROLOGIC: The patient is alert, awake and appropriate. No focal neurologic deficit. LABORATORY DATA: White count is normal. Platelets are normal. BUN and creatinine is normal. His glucose is 267. Hemoglobin A1c 7.5. Uric acid is 8.3. Alkaline phosphatase is 117. CK is 398. CRP is 23.1. Cultures are pending. CT of the upper extremity is pending. Ultrasound was negative for DVT. X-ray of the wrist is showing arthritis and small scattered erosions. IMPRESSION: 1. Right upper extremity swelling, the hand swelling and wrist swelling and pain and it appears to be inflamed. This could be gout versus pseudogout or some soft tissue injury. It does not appear to have any infection. 2. Diabetes looks like new onset. 3. Hypertension. 4. Obesity. 5. Gastroesophageal reflux disease. 6. Homelessness. RECOMMENDATIONS: I do not see the need for any antibiotics at this stage, supportive care may have to use anti-inflammatory. Orthopedic Surgery has been consulted and will see what their opinion is and we will continue to follow. Thank you very much, Dr. Aguayo, for giving me the opportunity to participate in this patient's care. YULIET GALLEGO MD DR: DASHAWN/karo JOB#: [id number] / [id number]
[2020-07-14] MEDS: INSULIN LISPRO 300 UNITS/3 ML VIAL. SQ SCH ×2 (12:00→16:41)
[2020-07-14 12:05] LABS: PROTHROMBIN TIME PATIENT 14.3 SEC (11.7-14.0)
[2020-07-14 12:24] LABS: CREATININE 1.2 mg/dL (0.7-1.3); GFR 73.1; POTASSIUM 4.1 mmol/L (3.5-5.1)
[2020-07-14 12:25] LABS: HEMATOCRIT 40.1 % (39.0-53.0); HEMOGLOBIN 13.2 g/dL (13.0-17.5); RED BLOOD COUNT 4.86 x10^6/uL (4.30-5.70); RED CELL DISTRIBUTION WIDTH 14.9 % (11.5-14.5); WHITE BLOOD COUNT 7.4 x10^3/uL (4.0-11.0)
[2020-07-14 12:30] LABS: ALBUMIN 3.2 g/dL (3.4-5.0); ALBUMIN/GLOBULIN RATIO 0.9 (1.0-1.7); TOTAL BILIRUBIN 0.3 mg/dL (0.2-1.0); TOTAL PROTEIN 6.9 g/dL (6.4-8.2)
[2020-07-14] MEDS: ASPIRIN 325 MG TABLET PO SCH (12:50)
[2020-07-14] MEDS: hydroCHLOROthiazide 12.5 MG CAPSULE PO SCH (12:53)
[2020-07-14] MEDS: METOPROLOL TART IMMED RELEASE 25 MG TABLET. PO SCH ×2 (12:53→21:07)
[2020-07-14] MEDS: LISINOPRIL 20 MG TABLET PO SCH ×2 (12:53→21:07)
[2020-07-14] MEDS: LACTOBACILLUS RHAMNOSUS GG 1 CAPSULE. PO SCH ×2 (12:53→21:07)
[2020-07-14 15:00] VITALS: BP 149/85
--- NOTE | 2020-07-14 15:15 | NUR ---
SW following for discharge planning. Spoke with RN and reviewed chart. Pt homeless, room air, IV pain medications. Pt COVID negative. ID consulted. No abx needed. SW following.
[2020-07-14] MEDS ORDERED: PIPERACILLIN/TAZOBACTAM 3.375 GM in IV NORMAL SALINE 50ML 50 ML IV SCH (17:00)
--- NOTE | 2020-07-14 17:46 | PDOC2 ---
CONSULT Date of Consult Date of Consult DATE: 07/14/20 TIME: 17:38 Reason for Consult Reason for Consult: History of ventricular arrhythmias Referring Physician Referring Physician: Dr. Aguayo Identification/Chief Complaint Chief Complaint Right hand swelling Source Source: Chart review, Patient History of Present Illness Reason for Visit: The patient is a 69-year-old male who is admitted through the emergency room for progressive right hand and upper extremity swelling. Patient states his hand swelling has been present for greater than 10 days. Initial work-up included ultrasound of his right upper extremity was negative for a DVT. In the emergency room his initial blood pressure was greater than 200. He denies chest pain or dizziness. We have been asked to evaluate him for history of VT. He is a limited historian. He denies any history of a heart attack or heart failure but does report a history of cardiac arrhythmias. An echocardiogram in 2019 showed an ejection fraction of 50 to 55%. He has also a history of extensive lower extremity DVTs as well as a pulmonary embolism in 2019 and probably again last year. He reportedly has been unable to take outpatient anticoagulation due to financial issues. At the present time he is comfortable in a chair and responds to questions. Past Medical History Cardiovascular: HTN, Other (Possible VT) Pulmonary: Pulmonary embolus GI: GERD Hepatobiliary: Cholelithiasis, Other Psych: Other Musculoskeletal: Osteoarthritis Rheumatologic: Gout Infectious disease: No pertinent hx Renal/: Benign prostatic enlarg. Endocrine: No pertinent hx, Diabetes Past Surgical History Past Surgical History: No pertinent history Family History Family History: Hypertension Social History Quit ALCOHOL: rare Drugs: None Current Problem List Problem List Problems Medical Problems: (1) Hyperglycemia due to diabetes mellitus Status: Acute (2) Right hand pain Status: Acute (3) Swelling of right hand Status: Acute Current Medications Current Medications Current Medications Ibuprofen (Motrin) 800 mg 1X ONCE PO Last administered on 07/14/20at 05:59; Start 07/14/20 at 05:00; Stop 07/14/20 at 05:01; Status DC Clindamycin Phosphate 50 ml @ 100 mls/hr 1X ONCE IV Last administered on 07/14/20at 07:52; Start 07/14/20 at 07:45; Stop 07/14/20 at 08:14; Status DC Ondansetron HCl (Zofran) 4 mg PRN Q8HRS PRN IV NAUSEA/VOMITING; Start 07/14/20 at 08:00; Stop 07/15/20 at 07:59 Morphine Sulfate (Morphine Sulfate) 4 mg PRN Q2HR PRN IV PAIN; Start 07/14/20 at 08:00; Stop 07/15/20 at 07:59 Piperacillin Sod/ Tazobactam Sod 3.375 gm/Sodium Chloride 50 ml @ 100 mls/hr Q6HRS IV ; Start 07/14/20 at 17:00; Stop 07/14/20 at 10:15; Status DC Piperacillin Sod/ Tazobactam Sod 3.375 gm/Sodium Chloride 50 ml @ 100 mls/hr 1X ONCE IV Last administered on 07/14/20at 09:02; Start 07/14/20 at 08:45; Stop 07/14/20 at 09:14; Status DC Sodium Chloride (Normal Saline Flush) 3 ml QSHIFT PRN IV AFTER MEDS AND BLOOD DRAWS; Start 07/14/20 at 08:45 Ondansetron HCl (Zofran) 4 mg PRN Q4HRS PRN IV NAUSEA/VOMITING; Start 07/14/20 at 08:45 Acetaminophen (Tylenol) 650 mg PRN Q4HRS PRN PO TEMP OVER 100.4F OR MILD PAIN; Start 07/14/20 at 08:45 Al Hydroxide/Mg Hydroxide (Mylanta Plus Xs) 30 ml PRN DAILY PRN PO HEARTBURN / GAS; Start 07/14/20 at 08:45; Stop 07/14/20 at 08:47; Status DC Sodium Monofluorophosphate (Fleet Adult) 133 ml PRN DAILY PRN NV CONSTIPATION; Start 07/14/20 at 08:45 Docusate Sodium (Colace) 100 mg PRN BID PRN PO HARD STOOLS; Start 07/14/20 at 08:45 Albuterol Sulfate (Ventolin Neb Soln) 2.5 mg PRN Q4HRS PRN NEB SHORTNESS OF BREATH; Start 07/14/20 at 08:45 Guaifenesin (Robitussin) 200 mg PRN Q4HRS PRN PO COUGH; Start 07/14/20 at 08:45 Enoxaparin Sodium (Lovenox 40mg Syringe) 40 mg Q24H SQ ; Start 07/14/20 at 08:45; Stop 07/14/20 at 08:52; Status DC Aspirin (Neeraj Aspirin) 325 mg DAILY PO Last administered on 07/14/20at 12:50; Start 07/14/20 at 09:00 Diclofenac Sodium (Voltaren) 1 jose alejandro QID TP Last administered on 07/14/20at 17:10; Start 07/14/20 at 09:00 Hydrochlorothiazide (Microzide) 12.5 mg DAILY PO Last administered on 07/14/20at 12:53; Start 07/14/20 at 09:00 Acetaminophen/ Hydrocodone Bitart (Lortab 5/325) 1 tab PRN Q6HRS PRN PO SEVERE PAIN; Start 07/14/20 at 08:45 Lactobacillus Rhamnosus (Culturelle) 1 cap BID PO Last administered on 07/14/20at 12:53; Start 07/14/20 at 09:00 Lisinopril (Prinivil) 20 mg BID PO Last administered on 07/14/20at 12:53; Start 07/14/20 at 09:00 Al Hydroxide/Mg Hydroxide (Mylanta Plus Xs) 30 ml PRN DAILY PRN PO HEARTBURN / GAS; Start 07/14/20 at 08:45 Metformin HCl (Glucophage) 500 mg BIDWMEALS PO ; Start 07/14/20 at 09:00; Stop 07/14/20 at 10:19; Status DC Metoprolol Tartrate (Lopressor) 25 mg BID PO Last administered on 07/14/20at 12:53; Start 07/14/20 at 09:00 Tramadol HCl (Ultram) 50 mg Q6HRS PRN PO MODERATE PAIN; Start 07/14/20 at 08:45 Hydralazine HCl (Apresoline Inj) 10 mg PRN Q4HRS PRN IVP ELEVATED BP, SEE COMMENTS; Start 07/14/20 at 08:45 Enoxaparin Sodium (Lovenox Per Pharmacy Treatment Dosing) 1 each PRN DAILY PRN MC SEE COMMENTS; Start 07/14/20 at 09:00 Enoxaparin Sodium (Lovenox 150mg Syringe) 140 mg Q12HR SQ Last administered on 07/14/20at 12:52; Start 07/14/20 at 09:00 Insulin Human Lispro (HumaLOG) 0-7 UNITS TIDWMEALS SQ ; Start 07/14/20 at 12:00 Dextrose (Dextrose 50%-Water Syringe) 12.5 gm PRN Q15MIN PRN IV SEE COMMENTS; Start 07/14/20 at 09:00 Furosemide (Lasix) 40 mg 1X ONCE IVP Last administered on 07/14/20at 12:54; Start 07/14/20 at 09:00; Stop 07/14/20 at 09:01; Status DC Iohexol (Omnipaque 300 Mg/ml) 75 ml 1X ONCE IV Last administered on 07/14/20at 10:52; Start 07/14/20 at 10:30; Stop 07/14/20 at 10:31; Status DC Info (CONTRAST GIVEN -- Rx MONITORING) 1 each PRN DAILY PRN MC SEE COMMENTS; Start 07/14/20 at 10:30; Stop 07/16/20 at 10:29 Metformin HCl (Glucophage) 500 mg BIDWMEALS PO ; Start 07/16/20 at 17:00 Active Scripts Active Hydrocodone-Apap 5-325 (Hydrocodone Bit/Acetaminophen) 1 Tab Tablet 1 Tab PO PRN Q6HRS PRN Voltaren (Diclofenac Sodium) 100 Gm Gel..gram. 1 Gm TP QID 30 Days apply to affected area(s) Levaquin (Levofloxacin) 500 Mg Tablet 1 Tab PO DAILY Doxycycline Hyclate 100 Mg Capsule 1 Cap PO BID 10 Days Metformin Hcl 500 Mg Tablet 500 Mg PO BIDWMEALS 30 Days Metoprolol Tartrate 25 Mg Tablet 25 Mg PO BID 30 Days Coumadin (Warfarin Sodium) 10 Mg Tablet 1 Each MC PRN DAILY PRN 30 Days Amox Tr-K Clv 500-125 Mg Tab (Amoxicillin/Potassium Clav) 1 Each Tablet 1 Tab PO BID 5 Days Tramadol Hcl 50 Mg Tablet 50 Mg PO Q6HRS PRN Colchicine 0.6 Mg Tablet 1 Tab PO DAILY 1.2 mg now and repeat 0.6 mg in 2 hours Ibuprofen 400 Mg Tablet 400 Mg PO PRN Q6HRS PRN 3 Days Colcrys (Colchicine) 0.6 Mg Tablet 1 Tab PO ONCE 1 Days Had 1.2 mg in ER and needs 0.6 mg 1 hour later. Culturelle (Lactobacillus Rhamnosus Gg) 1 Each Cap.sprink 1 Cap PO BID 30 Days Dok (Docusate Sodium) 100 Mg Capsule 100 Mg PO PRN BID PRN 14 Days Mag-Al Plus Xs Suspension (Mag Hydrox/Al Hydrox/Simeth) 30 Ml Oral.susp 30 Ml PO PRN DAILY PRN 10 Days Tylenol (Acetaminophen) 325 Mg Tablet 650 Mg PO PRN Q4HRS PRN 14 Days Enoxaparin Sodium 150 Mg/1 Ml Disp.syrin 1 Each MC PRN DAILY PRN 10 Days Proair Hfa (Albuterol Sulfate) 8.5 Gm Hfa.aer.ad 2.5 Mg NEB PRN Q4HRS PRN 30 Days Reported Hydrochlorothiazide Capsule (Hydrochlorothiazide) 12.5 Mg Capsule 12.5 Mg PO DAILY Lisinopril 20 Mg Tablet 1 Tab PO BID Aspirin 325 Mg Tablet 1 Tab PO DAILY Allergies Allergies: Coded Allergies: No Known Drug Allergies (Unverified , 04/03/14) ROS General: YES: Fatigue Respiratory: YES: SOB with excertion Physical Exam General: mild distress HEENT: Atraumatic Lungs: Other (Slightly decreased breath sounds) Heart: Regular rate Abdomen: Normal bowel sounds Extremities: Other (Right hand swelling) Vitals VITALS Vital Signs Date Time Temp Pulse Resp B/P (MAP) Pulse Ox O2 Delivery O2 Flow Rate FiO2 07/14/20 15:00 98.6 66 20 149/85 (106) 96 Room Air 98.6 Labs Labs Laboratory Tests Test 07/14/20 04:57 07/14/20 10:56 07/14/20 11:40 07/14/20 13:42 Procalcitonin < 0.10 ng/mL (0.00-0.10) Glucose (Fingerstick) 168 mg/dL (70-99) White Blood Count 7.4 x10^3/uL (4.0-11.0) Red Blood Count 4.86 x10^6/uL (4.30-5.70) Hemoglobin 13.2 g/dL (13.0-17.5) Hematocrit 40.1 % (39.0-53.0) Mean Corpuscular Volume 82 fL (79-100) Mean Corpuscular Hemoglobin 27 pg (25-35) Mean Corpuscular Hemoglobin Concent 33 g/dL (31-37) Red Cell Distribution Width 14.9 % (11.5-14.5) Platelet Count 322 x10^3/uL (140-400) Prothrombin Time 14.3 SEC (11.7-14.0) Prothromb Time International Ratio 1.1 (0.8-1.1) Sodium Level 141 mmol/L (136-145) Potassium Level 4.1 mmol/L (3.5-5.1) Chloride Level 104 mmol/L (98-107) Carbon Dioxide Level 28 mmol/L (21-32) Anion Gap 9 (6-14) Blood Urea Nitrogen 10 mg/dL (8-26) Creatinine 1.2 mg/dL (0.7-1.3) Estimated GFR (Cockcroft-Gault) 73.1 BUN/Creatinine Ratio 8 (6-20) Glucose Level 214 mg/dL (70-99) Calcium Level 9.0 mg/dL (8.5-10.1) Total Bilirubin 0.3 mg/dL (0.2-1.0) Aspartate Amino Transf (AST/SGOT) 19 U/L (15-37) Alanine Aminotransferase (ALT/SGPT) 29 U/L (16-63) Alkaline Phosphatase 116 U/L (46-116) C-Reactive Protein, Quantitative 21.9 mg/L (0-3.3) Total Protein 6.9 g/dL (6.4-8.2) Albumin 3.2 g/dL (3.4-5.0) Albumin/Globulin Ratio 0.9 (1.0-1.7) SARS-CoV-2 Antigen (Rapid) Negative (NEGATIVE) Test 07/14/20 16:35 Glucose (Fingerstick) 143 mg/dL (70-99) Laboratory Tests Test 07/14/20 04:57 07/14/20 10:56 07/14/20 11:40 07/14/20 13:42 Procalcitonin < 0.10 ng/mL (0.00-0.10) Glucose (Fingerstick) 168 mg/dL (70-99) White Blood Count 7.4 x10^3/uL (4.0-11.0) Red Blood Count 4.86 x10^6/uL (4.30-5.70) Hemoglobin 13.2 g/dL (13.0-17.5) Hematocrit 40.1 % (39.0-53.0) Mean Corpuscular Volume 82 fL (79-100) Mean Corpuscular Hemoglobin 27 pg (25-35) Mean Corpuscular Hemoglobin Concent 33 g/dL (31-37) Red Cell Distribution Width 14.9 % (11.5-14.5) Platelet Count 322 x10^3/uL (140-400) Prothrombin Time 14.3 SEC (11.7-14.0) Prothromb Time International Ratio 1.1 (0.8-1.1) Sodium Level 141 mmol/L (136-145) Potassium Level 4.1 mmol/L (3.5-5.1) Chloride Level 104 mmol/L (98-107) Carbon Dioxide Level 28 mmol/L (21-32) Anion Gap 9 (6-14) Blood Urea Nitrogen 10 mg/dL (8-26) Creatinine 1.2 mg/dL (0.7-1.3) Estimated GFR (Cockcroft-Gault) 73.1 BUN/Creatinine Ratio 8 (6-20) Glucose Level 214 mg/dL (70-99) Calcium Level 9.0 mg/dL (8.5-10.1) Total Bilirubin 0.3 mg/dL (0.2-1.0) Aspartate Amino Transf (AST/SGOT) 19 U/L (15-37) Alanine Aminotransferase (ALT/SGPT) 29 U/L (16-63) Alkaline Phosphatase 116 U/L (46-116) C-Reactive Protein, Quantitative 21.9 mg/L (0-3.3) Total Protein 6.9 g/dL (6.4-8.2) Albumin 3.2 g/dL (3.4-5.0) Albumin/Globulin Ratio 0.9 (1.0-1.7) SARS-CoV-2 Antigen (Rapid) Negative (NEGATIVE) Test 07/14/20 16:35 Glucose (Fingerstick) 143 mg/dL (70-99) Images Images Right upper extremity ultrasound with no DVT. Assessment/Plan Assessment/Plan 1. Right hand and upper extremity swelling. As noted above the patient's ultrasound showed no evidence of DVT in his right upper extremity. He is being evaluated by the ID service. 2. Hypertensive urgency. Significantly elevated blood pressure on admission to the ER. Improved at this time. We will continue present treatment and monitoring. 3. Reported history of ventricular tachycardia. We will place the patient on telemetry. We will attempt to obtain further old records. The patient however denies a history of coronary disease or heart failure. We will check an echocardiogram in the morning to evaluate LV function after checking a Covid test. 4. Diabetes mellitus. Initial glucose of 267. As per the primary service. 5. History of DVTs and PEs. Patient apparently has been unable to take outpatient anticoagulation secondary to financial considerations. Thank you for allowing us to participate in the care of your patient. RAUL VILLAR MD Jul 14, 2020 17:45
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
--- NOTE | 2020-07-14 18:46 | RAD ---
EXAMINATION: CT RIGHT WRIST WITH AND WITHOUT IV CONTRAST CLINICAL HISTORY: POSSIBLE SEPTIC JOINT, WRIST, HAND TECHNIQUE: Serial axial images obtained through the right wrist with and without intravenous contrast with sagittal and coronal reconstructions. CT Dose Reduction Employed: One or more of the following individualized dose reduction techniques wer e utilized for this examination: 1. Automated exposure control 2. Adjustment of the mA and/or kV ac cording to patient size 3. Use of iterative reconstruction technique. COMPARISON: Right wrist radiographs same day FINDINGS: 1.2 cm collection with thin enhancing goss along the volar aspect of the ulnar styloid. No evidence of additional organized collection or joint effusion. Diffuse subcutaneous edema, greatest along the dorsal aspect of the wrist and hand. Redemonstration of scattered subchondral cystic changes and/or erosions in the distal radius, ulnar h ead/styloid, throughout the carpal bones, first and fifth metacarpal base is, and first proximal phal angeal base. Marked degenerative changes in the second DIP joint with mild radial subluxation of the distal phalanx. No acute fracture. Tiny corticated ossicle along the dorsal aspect of the first IP alix int, likely related to remote trauma. Limited evaluation of the muscles and flexor and extensor tendons unremarkable. IMPRESSION: 1.2 cm collection along the volar ulnar styloid as described, nonspecific. Recommend MRI for further evaluation of suspected septic joint if the patient is able to undergo MRI. Degenerative changes throughout the wrist and scattered in the hand as described. Electronically signed by: Boby Mix DO (07/14/2020 6:44 PM) [id number]
[2020-07-14 18:58] LABS: BILIRUBIN,URINE NEGATIVE (NEG); CLARITY,URINE CLEAR; COLOR,URINE YELLOW; NITRITE,URINE NEGATIVE (NEG); PROTEIN,URINE NEGATIVE (NEG-TRACE); UROBILINOGEN,URINE 0.2 mg/dL (0.2 mg/dL)
[2020-07-14 19:00] VITALS: BP 149/92
[2020-07-14 19:07] LABS: BACTERIA,URINE 0 /HPF (0-FEW); RBC,URINE 0 /HPF (0-2); WBC,URINE RARE /HPF (0-4)
[2020-07-14 22:48] VITALS: BP 152/84
[2020-07-15] MEDS: HYDROcodone/APAP 5/325MG 1 TAB TABLET PO PRN ×2 (00:27→07:39)
[2020-07-15 01:09] LABS: HEMOGLOBIN A1C 8.4 % (4.8-5.6)
[2020-07-15 02:45] VITALS: BP 158/94
[2020-07-15 07:00] VITALS: BP 151/99
[2020-07-15] MEDS: INSULIN LISPRO 300 UNITS/3 ML VIAL. SQ SCH ×3 (08:00→17:44)
[2020-07-15 08:49] LABS: BASO # 0.1 x10^3/uL (0.0-0.2); BASO % 1 % (0-3); EOS # 0.4 x10^3/uL (0.0-0.7); EOS % 5 % (0-3); HEMOGLOBIN 13.3 g/dL (13.0-17.5); LYMPH # 1.6 x10^3/uL (1.0-4.8); LYMPH % 23 % (24-48); MEAN CORPUSCULAR HEMOGLOBIN 27 pg (25-35); MEAN CORPUSCULAR HGB CONC 33 g/dL (31-37); MEAN CORPUSCULAR VOLUME 82 fL (79-100); MONO # 0.6 x10^3/uL (0.0-1.1); MONO % 8 % (0-9); NEUT # 4.2 x10^3/uL (1.8-7.7); NEUT % 62 % (31-73); PLATELET COUNT 367 x10^3/uL (140-400); RED BLOOD COUNT 4.99 x10^6/uL (4.30-5.70); RED CELL DISTRIBUTION WIDTH 14.9 % (11.5-14.5); WHITE BLOOD COUNT 6.8 x10^3/uL (4.0-11.0)
[2020-07-15 09:05] LABS: CALCIUM 9.3 mg/dL (8.5-10.1); CREATININE 1.1 mg/dL (0.7-1.3); GFR 80.8; MAGNESIUM 1.8 mg/dL (1.8-2.4); POTASSIUM 3.9 mmol/L (3.5-5.1); URIC ACID 8.3 mg/dL (3.5-7.2)
[2020-07-15] MEDS: hydroCHLOROthiazide 12.5 MG CAPSULE PO SCH (09:13)
[2020-07-15] MEDS: ASPIRIN 325 MG TABLET PO SCH (09:13)
[2020-07-15] MEDS: METOPROLOL TART IMMED RELEASE 25 MG TABLET. PO SCH ×2 (09:13→21:37)
[2020-07-15] MEDS: LACTOBACILLUS RHAMNOSUS GG 1 CAPSULE. PO SCH ×2 (09:13→21:37)
[2020-07-15] MEDS: LISINOPRIL 20 MG TABLET PO SCH ×2 (09:14→21:38)
[2020-07-15 09:16] LABS: CHOLESTEROL/HDL RATIO 5.4
[2020-07-15] MEDS: DICLOFENAC SODIUM 1% TOPICAL GEL 100GM TUBE. TP SCH ×4 (09:18→21:38)
--- NOTE | 2020-07-15 09:34 | EKG ---
[facility] [address] [place] [id number] Test Date: 2020-07-15 Test Time: 09:31:59 Pat Name: FREDA DODD Department: Room: [facility] Gender: M V [employer]: AGNES : 1950 Requested By: RAUL VILLAR Order Number: [id number] Reading MD: Measurements Intervals [place] Rate: 73 P: 48 VA: 164 QRS: 67 QRSD: 102 T: 117 QT: 390 QTc: 433 Interpretive Statements SINUS RHYTHM T ABNORMALITY IN ANTERIOR LEADS ABNORMAL ECG RI6.01 Compared to ECG 10/10/2019 10:43:25 T-wave abnormality now present
--- NOTE | 2020-07-15 10:00 | PDOC ---
Infectious Disease Note Subjective Subjective pt is feeling better ROS ROS no n/v/d/sob Vital Sign Vital Signs Vital Signs Date Time Temp Pulse Resp B/P (MAP) Pulse Ox O2 Delivery O2 Flow Rate FiO2 07/15/20 09:14 80 151/99 07/15/20 09:14 99 Room Air 07/15/20 07:39 20 07/15/20 07:00 98.0 98.0 Physical Exam PHYSICAL EXAM GENERAL: Alert, oriented gentleman, not in distress. VITAL SIGNS: Stable, afebrile. HEENT: NAD. NECK: Supple, no JVP, no lymphadenopathy. LUNGS: Clear. HEART: S1, S2 regular. ABDOMEN: Benign. EXTREMITIES: Does have edema of the lower extremity, he does have edema of the right hand and wrist, which wrist has tenderness. There is no erythema. There is no break in the skin or open wound. It is inflamed hand and the wrist. SKIN: Rest of the skin examination unremarkable. NEUROLOGIC: The patient is alert, awake and appropriate. No focal neurologic deficit. Labs Lab Laboratory Tests Test 07/14/20 10:56 07/14/20 11:40 07/14/20 13:42 07/14/20 16:35 Glucose (Fingerstick) 168 mg/dL (70-99) 143 mg/dL (70-99) White Blood Count 7.4 x10^3/uL (4.0-11.0) Red Blood Count 4.86 x10^6/uL (4.30-5.70) Hemoglobin 13.2 g/dL (13.0-17.5) Hematocrit 40.1 % (39.0-53.0) Mean Corpuscular Volume 82 fL (79-100) Mean Corpuscular Hemoglobin 27 pg (25-35) Mean Corpuscular Hemoglobin Concent 33 g/dL (31-37) Red Cell Distribution Width 14.9 % (11.5-14.5) Platelet Count 322 x10^3/uL (140-400) Prothrombin Time 14.3 SEC (11.7-14.0) Prothromb Time International Ratio 1.1 (0.8-1.1) Sodium Level 141 mmol/L (136-145) Potassium Level 4.1 mmol/L (3.5-5.1) Chloride Level 104 mmol/L (98-107) Carbon Dioxide Level 28 mmol/L (21-32) Anion Gap 9 (6-14) Blood Urea Nitrogen 10 mg/dL (8-26) Creatinine 1.2 mg/dL (0.7-1.3) Estimated GFR (Cockcroft-Gault) 73.1 BUN/Creatinine Ratio 8 (6-20) Glucose Level 214 mg/dL (70-99) Hemoglobin A1c 8.4 % (4.8-5.6) Uric Acid 7.2 mg/dL (3.5-7.2) Calcium Level 9.0 mg/dL (8.5-10.1) Total Bilirubin 0.3 mg/dL (0.2-1.0) Aspartate Amino Transf (AST/SGOT) 19 U/L (15-37) Alanine Aminotransferase (ALT/SGPT) 29 U/L (16-63) Alkaline Phosphatase 116 U/L (46-116) C-Reactive Protein, Quantitative 21.9 mg/L (0-3.3) Total Protein 6.9 g/dL (6.4-8.2) Albumin 3.2 g/dL (3.4-5.0) Albumin/Globulin Ratio 0.9 (1.0-1.7) SARS-CoV-2 Antigen (Rapid) Negative (NEGATIVE) Test 07/14/20 17:26 07/14/20 19:57 07/15/20 07:44 07/15/20 08:20 Urine Collection Type Unknown Urine Color Yellow Urine Clarity Clear Urine pH 5.0 (<5.0-8.0) Urine Specific Fitzwilliam 1.010 (1.000-1.030) Urine Protein Negative mg/dL (NEG-TRACE) Urine Glucose (UA) Negative mg/dL (NEG) Urine Ketones (Stick) Negative mg/dL (NEG) Urine Blood Negative (NEG) Urine Nitrite Negative (NEG) Urine Bilirubin Negative (NEG) Urine Urobilinogen Dipstick 0.2 mg/dL (0.2 mg/dL) Urine Leukocyte Esterase Negative (NEG) Urine RBC 0 /HPF (0-2) Urine WBC Rare /HPF (0-4) Urine Squamous Epithelial Cells Occ /LPF Urine Bacteria 0 /HPF (0-FEW) Glucose (Fingerstick) 204 mg/dL (70-99) 167 mg/dL (70-99) White Blood Count 6.8 x10^3/uL (4.0-11.0) Red Blood Count 4.99 x10^6/uL (4.30-5.70) Hemoglobin 13.3 g/dL (13.0-17.5) Hematocrit 41.0 % (39.0-53.0) Mean Corpuscular Volume 82 fL (79-100) Mean Corpuscular Hemoglobin 27 pg (25-35) Mean Corpuscular Hemoglobin Concent 33 g/dL (31-37) Red Cell Distribution Width 14.9 % (11.5-14.5) Platelet Count 367 x10^3/uL (140-400) Neutrophils (%) (Auto) 62 % (31-73) Lymphocytes (%) (Auto) 23 % (24-48) Monocytes (%) (Auto) 8 % (0-9) Eosinophils (%) (Auto) 5 % (0-3) Basophils (%) (Auto) 1 % (0-3) Neutrophils # (Auto) 4.2 x10^3/uL (1.8-7.7) Lymphocytes # (Auto) 1.6 x10^3/uL (1.0-4.8) Monocytes # (Auto) 0.6 x10^3/uL (0.0-1.1) Eosinophils # (Auto) 0.4 x10^3/uL (0.0-0.7) Basophils # (Auto) 0.1 x10^3/uL (0.0-0.2) Sodium Level 140 mmol/L (136-145) Potassium Level 3.9 mmol/L (3.5-5.1) Chloride Level 104 mmol/L (98-107) Carbon Dioxide Level 30 mmol/L (21-32) Anion Gap 6 (6-14) Blood Urea Nitrogen 10 mg/dL (8-26) Creatinine 1.1 mg/dL (0.7-1.3) Estimated GFR (Cockcroft-Gault) 80.8 Glucose Level 163 mg/dL (70-99) Uric Acid 8.3 mg/dL (3.5-7.2) Calcium Level 9.3 mg/dL (8.5-10.1) Magnesium Level 1.8 mg/dL (1.8-2.4) Triglycerides Level 96 mg/dL (0-150) Cholesterol Level 166 mg/dL (0-200) LDL Cholesterol, Calculated 116 mg/dL (0-100) VLDL Cholesterol, Calculated 19 mg/dL (0-40) Non-HDL Cholesterol Calculated 135 mg/dL (0-129) HDL Cholesterol 31 mg/dL (40-60) Cholesterol/HDL Ratio 5.4 Micro Microbiology 07/14/20 Gram Stain - Final, Complete 07/14/20 Gram Stain - Final, Resulted 07/14/20 Aerobic and Anaerobic Culture - Preliminary, Resulted Objective Assessment IMPRESSION: 1. Right upper extremity swelling, the hand swelling and wrist swelling and pain and it appears to be inflamed. This could be gout versus pseudogout or some soft tissue injury. It does not appear to have any infection. 2. Diabetes looks like new onset. 3. Hypertension. 4. Obesity. 5. Gastroesophageal reflux disease. 6. Homelessness. Plan Plan of Care supportive care anti inflammatory YULIET Mireles MD Jul 15, 2020 10:00
[2020-07-15 11:00] VITALS: BP 177/80
[2020-07-15] MEDS ORDERED: PERFLUTREN PROTEIN-A MICROSPHR 0.22 MG/ML 3 ML VIAL. IV ONE ×2 (11:33→12:15)
--- NOTE | 2020-07-15 13:29 | NUR ---
SW following for discharge planning. Spoke with RN and reviewed chart. SW consulted as pt is homeless. Pt to have echo today. No plans for surgery or IV abx. Possible discharge today, 07/15. Discharge plan is self-care to [facility]. Pt to be provided cab pass. RN notified. No additional SW needs at this time. Addendum: 07/15/20 at 1436 by RENNY COLÓN Ze[employer] prescription drug savings card provided to pt prior to discharge.
--- NOTE | 2020-07-15 14:17 | CARD ---
MR#: [id number] Date of Study: 07/15/2020 Ordering Physician: DHAVAL AUSTIN, Referring Physician: DHAVAL AUSTIN, Tech: Fifi Ford [facility] APPROVED REPORT EXAM: Two-dimensional and M-mode echocardiogram with Doppler and color Doppler. Other Information Quality : Technically LimitedHR: 91bpm Rhythm : NSR INDICATION Dyspnea Echo Enhancing Agent Indication: Endocardial border delineation Agent/Amount Used: Optison 2mL RISK FACTORS Hypertension Obesity Hyperlipidemia Diabetes 2D DIMENSIONS RVDd2.8 (2.9-3.5cm)Left Atrium(2D)3.4 (1.6-4.0cm) IVSd1.2 (0.7-1.1cm)Aortic Root(2D)4.0 (2.0-3.7cm) LVDd5.1 (3.9-5.9cm)LVOT Diameter2.3 (1.8-2.4cm) PWd1.2 (0.7-1.1cm)LVDs3.0 (2.5-4.0cm) FS (%) 41.9 %SV89.5 ml Aortic Valve AoV Peak Wagner.134.7cm/sAoV VTI23.8cm AO Peak GR.7.3mmHgLVOT Peak Wagner.99.0cm/s AO Mean GR.3mmHgAVA (VMAX)2.95cm2 Mitral Valve MV E Jtwigtqi84.2cm/sMV DECEL PYJQ970be MV A Fxyfmziw64.3cm/sE/A Ratio1.0 Pulmonary Valve PV Peak Zupbwjci363.5cm/s LEFT VENTRICLE The left ventricle is normal size. There is mild concentric left ventricular hypertrophy. The left ve ntricular systolic function is normal. Estimated ejection fraction 55-60% There is normal LV segmenta l wall motion. Transmitral Doppler flow pattern is Grade I-abnormal relaxation pattern. RIGHT VENTRICLE The right ventricle is normal size. There is normal right ventricular wall thickness. The right ventr icular systolic function is normal. ATRIA The left atrium size is normal. The right atrium size is normal. The interatrial septum is intact wit h no evidence for an atrial septal defect or patent foramen ovale as noted on 2-D or Doppler imaging. AORTIC VALVE The aortic valve is normal in structure and function. Doppler and Color Flow revealed trace aortic re gurgitation. There is no significant aortic valvular stenosis. MITRAL VALVE The mitral valve is normal in structure and function. There is no evidence of mitral valve prolapse. There is no mitral valve stenosis. Doppler and Color Flow revealed no mitral valve regurgitation note d. TRICUSPID VALVE The tricuspid valve is normal in structure and function. Doppler and Color Flow revealed no tricuspid valve regurgitation noted. There is no tricuspid valve stenosis. PULMONIC VALVE The pulmonary valve is normal in structure and function. Doppler and Color Flow revealed no pulmonic valvular regurgitation. GREAT VESSELS The aortic root is mildly enlarged. Due to poor image quality, the IVC could not be assessed. PERICARDIAL EFFUSION There is no evidence of significant pericardial effusion. Critical Notification Critical Value: No <Conclusion> The left ventricle is normal size. The left ventricular systolic function is normal. Estimated ejection fraction 55-60% There is mild concentric left ventricular hypertrophy. Doppler and Color Flow revealed trace aortic regurgitation. There is no significant aortic valvular stenosis. Doppler and Color Flow revealed no mitral valve regurgitation noted. Doppler and Color Flow revealed no tricuspid valve regurgitation noted. Signed by : Dhaval Austin MD Electronically Approved : 07/15/2020 14:16:54
[2020-07-15 15:00] VITALS: BP 130/72
[2020-07-15] MEDS ORDERED: ANTI-COAG MONITOR BY PHARMACY. MC PRN (15:15)
--- NOTE | 2020-07-15 16:08 | PDOC ---
PIETER WHITT SCOURING PADS SUPERVISOR 07/15/20 1608: CARDIO Progress Notes Date and Time Date of Service 07/15/2020 Time of Evaluation 1220 Subjective Subjective: No Chest Pain, No shortness of breath, No Palpitations Vitals Vitals Vital Signs Date Time Temp Pulse Resp B/P (MAP) Pulse Ox O2 Delivery O2 Flow Rate FiO2 07/15/20 15:00 98.4 89 18 130/72 (91) 96 Room Air 98.4 Weight Weight [ ] Input and Output Intake and Output Intake and Output 07/15/20 07:00 Intake Total 100 ml Balance 100 ml IV Total 100 ml # Voids 6 Laboratory Labs Laboratory Tests Test 07/14/20 16:35 07/14/20 17:26 07/14/20 19:57 07/15/20 07:44 Glucose (Fingerstick) 143 mg/dL (70-99) 204 mg/dL (70-99) 167 mg/dL (70-99) Urine Collection Type Unknown Urine Color Yellow Urine Clarity Clear Urine pH 5.0 (<5.0-8.0) Urine Specific Laura 1.010 (1.000-1.030) Urine Protein Negative mg/dL (NEG-TRACE) Urine Glucose (UA) Negative mg/dL (NEG) Urine Ketones (Stick) Negative mg/dL (NEG) Urine Blood Negative (NEG) Urine Nitrite Negative (NEG) Urine Bilirubin Negative (NEG) Urine Urobilinogen Dipstick 0.2 mg/dL (0.2 mg/dL) Urine Leukocyte Esterase Negative (NEG) Urine RBC 0 /HPF (0-2) Urine WBC Rare /HPF (0-4) Urine Squamous Epithelial Cells Occ /LPF Urine Bacteria 0 /HPF (0-FEW) Test 07/15/20 08:20 07/15/20 11:26 White Blood Count 6.8 x10^3/uL (4.0-11.0) Red Blood Count 4.99 x10^6/uL (4.30-5.70) Hemoglobin 13.3 g/dL (13.0-17.5) Hematocrit 41.0 % (39.0-53.0) Mean Corpuscular Volume 82 fL (79-100) Mean Corpuscular Hemoglobin 27 pg (25-35) Mean Corpuscular Hemoglobin Concent 33 g/dL (31-37) Red Cell Distribution Width 14.9 % (11.5-14.5) Platelet Count 367 x10^3/uL (140-400) Neutrophils (%) (Auto) 62 % (31-73) Lymphocytes (%) (Auto) 23 % (24-48) Monocytes (%) (Auto) 8 % (0-9) Eosinophils (%) (Auto) 5 % (0-3) Basophils (%) (Auto) 1 % (0-3) Neutrophils # (Auto) 4.2 x10^3/uL (1.8-7.7) Lymphocytes # (Auto) 1.6 x10^3/uL (1.0-4.8) Monocytes # (Auto) 0.6 x10^3/uL (0.0-1.1) Eosinophils # (Auto) 0.4 x10^3/uL (0.0-0.7) Basophils # (Auto) 0.1 x10^3/uL (0.0-0.2) Sodium Level 140 mmol/L (136-145) Potassium Level 3.9 mmol/L (3.5-5.1) Chloride Level 104 mmol/L (98-107) Carbon Dioxide Level 30 mmol/L (21-32) Anion Gap 6 (6-14) Blood Urea Nitrogen 10 mg/dL (8-26) Creatinine 1.1 mg/dL (0.7-1.3) Estimated GFR (Cockcroft-Gault) 80.8 Glucose Level 163 mg/dL (70-99) Uric Acid 8.3 mg/dL (3.5-7.2) Calcium Level 9.3 mg/dL (8.5-10.1) Magnesium Level 1.8 mg/dL (1.8-2.4) Triglycerides Level 96 mg/dL (0-150) Cholesterol Level 166 mg/dL (0-200) LDL Cholesterol, Calculated 116 mg/dL (0-100) VLDL Cholesterol, Calculated 19 mg/dL (0-40) Non-HDL Cholesterol Calculated 135 mg/dL (0-129) HDL Cholesterol 31 mg/dL (40-60) Cholesterol/HDL Ratio 5.4 Glucose (Fingerstick) 224 mg/dL (70-99) Microbiology Micro Microbiology 07/14/20 Gram Stain - Final, Complete 07/14/20 Gram Stain - Final, Resulted 07/14/20 Aerobic and Anaerobic Culture - Preliminary, Resulted 07/14/20 Blood Culture - Preliminary, Resulted NO GROWTH AFTER 1 DAY Physical Exam HEENT: Neck Supple W Full Motion Chest: Symmetric LUNGS: Other (diminished bases) Heart: RRR (SR) Abdomen: Soft N/T Extremities: No Calf Tenderness, Other (2-3+ bilateral LE pittined edema) Neurology: alert, oriented, follow commands Assessment Assessment 1. Right wrist and forearm swelling: possibly gout, ortho following 2. HTN urgency: labile episodes 3. Hx of VT: no regimen and tele revealed no significnat arrhythmias. 4. DM2 5. History of DVTs and PE: could not afford anticoagulation as an outpt hence not continued before. Presently still has bilateral nonocclusive LE DVT Recommendations 1. Continue current BP regimen including metoprolol and adjust per BP trend 2. anticoagulation per PCP 3. Secondary prevention measures with ASA, ACEi and statin 4. Nothing further cardiac linder. Follow up in office. Justicifation of Admission Dx: Justifications for Admission: Justification of Admission Dx: N/A RAUL VILLAR MD 07/16/20 1033: CARDIO Progress Notes Assessment Assessment Patient seen and examined on 07/15/20. I agree with our nurse practitioners assessment and plan. Right wrist and forearm swelling: ortho following, ID has reviewed. HTN urgency: labile episodes. Overall improving on metoprolol. Reported history of VT: no regimen and tele revealed no significnat arrhythmias. Echocardiogram shows intact LV systolic function. Continue beta- blockers. DM2 History of DVTs and PE: could not afford anticoagulation as an outpt hence not continued before. Presently still has bilateral nonocclusive LE DVT. Anticoagulation as above. PIETER WHITT APRN Jul 15, 2020 16:08 RAUL VILLAR MD Jul 16, 2020 10:33
[2020-07-15 18:49] VITALS: BP 149/85
[2020-07-15] MEDS ORDERED: ATORVASTATIN CALCIUM 20 MG TABLET PO SCH (21:00)
[2020-07-15 23:00] VITALS: BP 142/82
[2020-07-16 02:45] VITALS: BP 158/84
[2020-07-16 07:26] VITALS: BP 195/81
[2020-07-16] MEDS: LACTOBACILLUS RHAMNOSUS GG 1 CAPSULE. PO SCH (08:25)
[2020-07-16] MEDS: hydroCHLOROthiazide 12.5 MG CAPSULE PO SCH (08:25)
[2020-07-16] MEDS: LISINOPRIL 20 MG TABLET PO SCH (08:25)
[2020-07-16] MEDS: ASPIRIN 325 MG TABLET PO SCH (08:25)
[2020-07-16] MEDS: METOPROLOL TART IMMED RELEASE 25 MG TABLET. PO SCH (08:26)
[2020-07-16] MEDS: DICLOFENAC SODIUM 1% TOPICAL GEL 100GM TUBE. TP SCH ×2 (08:26→13:00)
[2020-07-16] MEDS: INSULIN LISPRO 300 UNITS/3 ML VIAL. SQ SCH ×2 (08:29→11:36)
[2020-07-16] MEDS ORDERED: METF500T PO (08:52)
[2020-07-16] MEDS ORDERED: ATOR20TA58 PO (08:52)
[2020-07-16] MEDS ORDERED: LISI-130 PO (08:52)
[2020-07-16] MEDS ORDERED: METO25TA4 PO (08:53)
[2020-07-16] MEDS ORDERED: ALLO100T PO (08:55)
--- NOTE | 2020-07-16 10:53 | NUR ---
SW following for discharge planning. Discharge held from 07/15. SW met with pt. Pt stated he drives and can stay with friends. Pt declined to go to a homeless skilled nursing or NH. Pt requesting discharge today, 07/16. Pt stated he is ambulatory. Pt confirmed his [facility] pharmacy ([phone]) and SW called to check on benefits for Eliquis script. Pharmacist confirmed that between pt's Medicare and Medicaid that pt will have a $4 copay. Pt to discharge today, self-care. Copy of script on chart. Script faxed to [facility]. Pt also has a GoodRx card. RN notified. No further SW needs at this time.
[2020-07-16 11:08] VITALS: BP 149/89
--- NOTE | 2020-07-16 11:25 | PDOC ---
Infectious Disease Note Subjective Subjective Hand is feeling much better patient says ready to go home ROS ROS No nausea vomiting diarrhea Vital Sign Vital Signs Vital Signs Date Time Temp Pulse Resp B/P (MAP) Pulse Ox O2 Delivery O2 Flow Rate FiO2 07/16/20 11:08 98.2 75 20 149/89 (109) 96 Room Air 98.2 Physical Exam PHYSICAL EXAM GENERAL: Alert, oriented gentleman, not in distress. VITAL SIGNS: Stable, afebrile. HEENT: NAD. NECK: Supple, no JVP, no lymphadenopathy. LUNGS: Clear. HEART: S1, S2 regular. ABDOMEN: Benign. EXTREMITIES: Does have edema of the lower extremity, he does have edema of the right hand and wrist, which wrist has tenderness. There is no erythema. There is no break in the skin or open wound. It is inflamed hand and the wrist. SKIN: Rest of the skin examination unremarkable. NEUROLOGIC: The patient is alert, awake and appropriate. No focal neurologic deficit. Labs Lab Laboratory Tests Test 07/15/20 11:26 07/15/20 17:35 07/15/20 19:35 07/16/20 07:00 Glucose (Fingerstick) 224 mg/dL (70-99) 170 mg/dL (70-99) 228 mg/dL (70-99) 158 mg/dL (70-99) Micro GRAM STAIN Final Final NO ORGANISMS SEEN. SQUAMOUS EPI CELL:NOT APPLICABLE PMN (WBCs):RARE Unless otherwise specified, Testing Performed by: [address] [id number] For Inquires, the Physician may contact the Microbiology department at [phone] ANAEROBIC-AEROBIC CULTURE Preliminary Preliminary No Growth on 07/15/20 at 0918 No Growth on 07/16/20 at 0830 Unless otherwise specified, Testing Performed by: [address] [id number] For Inquires, the Physician may contact the Microbiology department at [phone] Objective Assessment IMPRESSION: 1. Right upper extremity swelling, the hand swelling and wrist swelling and pain and it appears to be inflamed. This could be gout versus pseudogout or some soft tissue injury. It does not appear to have any infection. 2. Diabetes looks like new onset. 3. Hypertension. 4. Obesity. 5. Gastroesophageal reflux disease. 6. Homelessness. Plan Plan of Care supportive care anti inflammatory meds Okay to [facility] YULIET GALLEGO MD Jul 16, 2020 11:25
--- NOTE | 2020-07-16 11:50 | DISCH ---
DISCHARGE INSTRUCTIONS Condition on Discharge Condition on Discharge: Stable Activity After Discharge Activity Instructions for Disc: Activity as tolerated Exercise Instruction after Dis: Progress as tolerated Weight Bearing Status after Di: As tolerated Diet after Discharge Diet after Discharge: Regular Diet Texture: Regular Swallowing Supervision: None needed Checks after Discharge Checks after discharge: Check blood press - daily, Check blood sugar, ac/hs, Check your Temp as needed, Weigh Yourself Daily Contacting the DR. after DC Call your doctor for: If your condition worsens Follow-Up Follow up with: PCP within 2 weeks of discharge Follow Up With: Cardiology as scheduled Treatment/Equipment after DC Adaptive Equipment Issued: None SERVANDO YIP MD Jul 16, 2020 11:50
--- NOTE | 2020-07-16 14:44 | NUR ---
Discharge Note: PT DISCHARGED HOME WITH SELF CARE. PT LEFT FACILITY VIA PRIVATE VEHICLE WITH SELF. PT STABLE AND ALERT UPON DISCHARGE. PT PIV REMOVED FROM L AC WITHOUT COMPLICATIONS, BANDAGE APPLIED. PT EDUCATED ABOUT DISCHARGE INSTRUCTIONS, DISCHARGE MEDICATIONS, AND FOLLOW-UP INSTRUCTIONS/APPOINTMENT. PT EDUCATED TO RAILROAD DISPATCHER PRESCRIPTIONS AT [facility] UPON DISCHARGE, PT ALSO EDUCATED TO CALL DR. MULLINS OFFICE FOR A FOLLOW-UP APPOINTMENT. PT VOICED NO CONCERNS AT THIS TIME. PT LEFT WITH ALL PERSONAL BELONGINGS. SANDRA DODD Discharge instructions and discharge home medications reviewed with Patient and a copy given. All questions have been answered and understanding verbalized.
[2020-07-16] MEDS ORDERED: metFORMIN 500 MG TABLET PO SCH (17:00)
--- NOTE | 2020-07-17 21:22 | PDOC3 ---
[facility]-Discharge Summary Date of Admission: Date of Admission: Jul 14, 2020 Date of Discharge: Date of Discharge: Jul 16, 2020 Discharge Diagnosis: Discharge Diagnosis: 1. Acute gout flare 2. Extensive bilateral deep vein thrombosis of both extremities. 3. Hypertensive urgency secondary to compliance. 4. Acute on chronic diastolic heart failure with uncontrolled hypertension. We will diurese. 5. Diabetes. We will plan a1c. 6. Morbid obesity. 7. Housing insecurity with homelessness. 8. History of pulmonary embolism with deep vein thrombosis. 9. Risk factors for persistent deep vein thrombosis that are high due to noncompliance. 10. Hypertension. 11. Lower extremity edema. 12. Hepatomegaly with steatosis. 13. Probable sleep apnea. 14. Suspected pulmonary hypertension. 15. Onychomycosis of both feet, severe. 16. Suspected peripheral vascular disease. 17. History of ventricular tachycardia, nonsustained. place on tele bed Hospital Course: Hospital Course: 69-year-old male who is homeless. He has a history of noncompliance due to economic reasons, hypertension, diabetes, osteoarthritis, history of extensive DVT and PE complaining of worsening edema and pain in the legs. He has a history of bilateral DVTs in the past in both legs. He was seen in the ER today with swelling of the right wrist, cellulitis with hand swelling and worsening for the last 4 days. He has a history of pulmonary emboli in 02/2019 involving segmental and subsegmental branches in the lower lobes, felt to be secondary to immobility. He has been unable to take Xarelto due to cost in the past. Patient was evaluted by ID and Ortho and both believe this is a gout flare. A uric acid level ordered and his level was 8.7. Patient will be sent home with allopurinol for chronic management for his gout. He will also need close follow up with a PCP for the rest of his comorbidities. Scripts were sent to his desired pharmacy. Disposition: Disposition/Orders: D/C to Home Activity: Activity: Resume previous activity Diet: Diet: Cardiac Medications: Home Meds Active Scripts Allopurinol (ALLOPURINOL) 100 Mg Tablet, 1 TAB PO DAILY for gout, #30 TAB 5 Refills Prov:SERVANDO YIP MD 07/16/20 Metoprolol Tartrate (METOPROLOL TARTRATE) 25 Mg Tablet, 25 MG PO BID for rate control for 30 Days, #60 TAB Prov:SERVANDO YIP MD 07/16/20 Metformin Hcl (GLUCOPHAGE) 500 Mg Tablet, 500 MG PO BIDWMEALS for diabetes for 30 Days, #60 TAB Prov:SERVANDO YIP MD 07/16/20 Lisinopril (LISINOPRIL) 40 Mg Tablet, 20 MG PO BID for blood pressure for 30 Days, #30 TAB Prov:SERVANDO YIP MD 07/16/20 Atorvastatin Calcium (ATORVASTATIN CALCIUM) 20 Mg Tablet, 20 MG PO QHS for cholesterol for 30 Days, #30 TAB Prov:SERVANDO YIP MD 07/16/20 Diclofenac Sodium (VOLTAREN) 100 Gm Gel..gram., 1 GM TP QID for pain for 30 Days, #1 EACH 0 Refills apply to affected area(s) Prov:SANTI CLAIRE QUALITY PROCESS AUDITOR 07/09/20 Ibuprofen (IBUPROFEN) 600 Mg Tablet, 600 MG PO PRN Q6HRS PRN for INFLAMMATION for 10 Days, #40 TAB 0 Refills Prov:KARIE TINSLEY QUALITY PROCESS AUDITOR 10/27/19 Ibuprofen (IBUPROFEN) 400 Mg Tablet, 400 MG PO PRN Q6HRS PRN for INFLAMMATION for 3 Days, TAB Prov:FREDRICK GOTTLIEB QUALITY PROCESS AUDITOR 07/16/19 Lactobacillus Rhamnosus Gg (CULTURELLE) 1 Each Cap.sprink, 1 CAP PO BID for SUPPLEMENT for 30 Days, #60 CAP Prov:KUMAR ASH MD 04/03/19 Acetaminophen (TYLENOL) 325 Mg Tablet, 650 MG PO PRN Q4HRS PRN for TEMP OVER 100.4F OR MILD PAIN for 14 Days, #30 TAB Prov:KUMAR ASH MD 04/03/19 Albuterol Sulfate (Proair Hfa) 8.5 Gm Hfa.aer.ad, 2.5 MG NEB PRN Q4HRS PRN for SHORTNESS OF BREATH for 30 Days, #1 INHALER Prov:KUMAR ASH MD 04/03/19 Reported Medications Aspirin (ASPIRIN) 325 Mg Tablet, 1 TAB PO DAILY, #30 TAB 5 Refills 04/03/14 Discontinued Reported Medications Hydrochlorothiazide (HYDROCHLOROTHIAZIDE CAPSULE ) 12.5 Mg Capsule, 12.5 MG PO DAILY for DIURETIC, CAP 0 Refills 02/13/19 Lisinopril (LISINOPRIL) 20 Mg Tablet, 1 TAB PO BID for HTN, #30 TAB 5 Refills 02/13/19 Discontinued Scripts Hydrocodone Bit/Acetaminophen (HYDROCODONE-APAP 5-325 ) 1 Tab Tablet, 1 TAB PO PRN Q6HRS PRN for PAIN, #12 TAB 0 Refills Prov:SANTI CLAIRE APRN 07/09/20 Levofloxacin (LEVAQUIN) 500 Mg Tablet, 1 TAB PO DAILY, #10 TAB Prov:FREDRICK MCCARTY DO 11/18/19 Doxycycline Hyclate (DOXYCYCLINE HYCLATE) 100 Mg Capsule, 1 CAP PO BID for 10 Days, #20 CAP Prov:MIRIAN HOLT MD 11/16/19 Metformin Hcl (METFORMIN HCL) 500 Mg Tablet, 500 MG PO BIDWMEALS for ANTI- DIABETIC for 30 Days, #60 TAB 0 Refills Prov:PAWAN AKHTAR MD 10/11/19 Warfarin Sodium (COUMADIN) 10 Mg Tablet, 1 EACH MC PRN DAILY PRN for SEE COMMENTS for 30 Days, #30 TAB Prov:PAWAN AKHTAR MD 10/11/19 Amoxicillin/Potassium Clav (AMOX TR-K CLV 500-125 MG TAB) 1 Each Tablet, 1 TAB PO BID for bronchitis for 5 Days, #10 TAB Prov:PAWAN AKHTAR MD 10/11/19 Tramadol Hcl (TRAMADOL HCL) 50 Mg Tablet, 50 MG PO Q6HRS PRN for PAIN, #20 TAB Prov:SANTI CLAIRE APRN 08/06/19 Colchicine (Colchicine) 0.6 Mg Tablet, 1 TAB PO DAILY for gout pain, #3 TAB 0 Refills 1.2 mg now and repeat 0.6 mg in 2 hours Prov:SANTI CLAIRE APRN 08/06/19 Colchicine (COLCRYS) 0.6 Mg Tablet, 1 TAB PO ONCE for gout pain for 1 Day, TAB 0 Refills Had 1.2 mg in ER and needs 0.6 mg 1 hour later. Prov:FREDRICK GOTTLIEB APRN 07/16/19 Docusate Sodium (DOK) 100 Mg Capsule, 100 MG PO PRN BID PRN for CONSTIPATION for 14 Days, #14 CAP Prov:KUMAR ASH MD 04/03/19 Mag Hydrox/Al Hydrox/Simeth (MAG-AL PLUS XS SUSPENSION) 30 Ml Oral.susp, 30 ML PO PRN DAILY PRN for HEARTBURN / GAS for 10 Days, #120 MISC Prov:KUMAR ASH MD 04/03/19 Enoxaparin Sodium (ENOXAPARIN SODIUM) 150 Mg/1 Ml Disp.syrin, 1 EACH MC PRN DAILY PRN for SEE COMMENTS for 10 Days, #10 DIS.SYR Prov:KUMAR ASH MD 04/03/19 Scheduled Allopurinol (Allopurinol), 1 TAB PO DAILY Aspirin (Aspirin), 1 TAB PO DAILY, (Reported) Atorvastatin Calcium (Atorvastatin Calcium), 20 MG PO QHS Diclofenac Sodium (Voltaren), 1 GM TP QID Lactobacillus Rhamnosus Gg (Culturelle), 1 CAP PO BID Lisinopril (Lisinopril), 20 MG PO BID Metformin Hcl (Glucophage), 500 MG PO BIDWMEALS Metoprolol Tartrate (Metoprolol Tartrate), 25 MG PO BID Scheduled PRN Acetaminophen (Tylenol), 650 MG PO PRN Q4HRS PRN for TEMP OVER 100.4F OR MILD PAIN Albuterol Sulfate (Proair Hfa), 2.5 MG NEB PRN Q4HRS PRN for SHORTNESS OF BREATH Ibuprofen (Ibuprofen), 400 MG PO PRN Q6HRS PRN for INFLAMMATION Ibuprofen (Ibuprofen), 600 MG PO PRN Q6HRS PRN for INFLAMMATION Discontinued Medications Amoxicillin/Potassium Clav (Amox Tr-K Clv 500-125 Mg Tab), 1 TAB PO BID Colchicine (Colcrys), 1 TAB PO ONCE Colchicine (Colchicine), 1 TAB PO DAILY Docusate Sodium (Dok), 100 MG PO PRN BID PRN for CONSTIPATION Doxycycline Hyclate (Doxycycline Hyclate), 1 CAP PO BID Enoxaparin Sodium (Enoxaparin Sodium), 1 EACH MC PRN DAILY PRN for SEE COMMENTS Hydrochlorothiazide (Hydrochlorothiazide Capsule ), 12.5 MG PO DAILY, (Reported) Hydrocodone Bit/Acetaminophen (Hydrocodone-Apap 5-325 ), 1 TAB PO PRN Q6HRS PRN for PAIN Levofloxacin (Levaquin), 1 TAB PO DAILY Lisinopril (Lisinopril), 1 TAB PO BID, (Reported) Mag Hydrox/Al Hydrox/Simeth (Mag-Al Plus Xs Suspension), 30 ML PO PRN DAILY PRN for HEARTBURN / GAS Metformin Hcl (Metformin Hcl), 500 MG PO BIDWMEALS Tramadol Hcl (Tramadol Hcl), 50 MG PO Q6HRS PRN for PAIN Warfarin Sodium (Coumadin), 1 EACH MC PRN DAILY PRN for SEE COMMENTS Total Time: Total Time: Total time spent was 50 minutes in preparing scripts, discharge planning with SW and RN, and preparing this discharge summary. Patient seen and examined on day of discharge. Justicifation of Admission Dx: Justifications for Admission: Justification of Admission Dx: N/A SERVANDO YIP MD Jul 17, 2020 21:22
== END 2020-07-16 14:47 | disposition home or self-care (01) ==
LOC: ER 04:22 → INTOOBSV 07:50 → 6 SOUTH 07:50
PROVIDERS: ADMIT Family Medicine; ATTEND Family Medicine
DX: E11.65 Type 2 diabetes mellitus with hyperglycemia (principal); Z20.822 Contact with and (suspected) exposure to COVID-19; L03.113 Cellulitis of right upper limb; I82.403 Acute embolism and thrombosis of unspecified deep veins of lower extremity, bilateral; I11.0 Hypertensive heart disease with heart failure; I50.33 Acute on chronic diastolic (congestive) heart failure; M25.531 Pain in right wrist; M79.89 Other specified soft tissue disorders; M19.90 Unspecified osteoarthritis, unspecified site; M10.9 Gout, unspecified; E66.01 Morbid (severe) obesity due to excess calories; G47.30 Sleep apnea, unspecified; K80.20 Calculus of gallbladder without cholecystitis without obstruction; R16.0 Hepatomegaly, not elsewhere classified; N40.0 Benign prostatic hyperplasia without lower urinary tract symptoms; Z87.891 Personal history of nicotine dependence; Z86.711 Personal history of pulmonary embolism; Z86.79 Personal history of other diseases of the circulatory system; Z91.14 Patient's other noncompliance with medication regimen; Z91.19 Patient's noncompliance with other medical treatment and regimen; Z79.84 Long term (current) use of oral hypoglycemic drugs; Z79.82 Long term (current) use of aspirin; Z79.01 Long term (current) use of anticoagulants; Z59.0 Homelessness; Z79.899 Other long term (current) drug therapy; Z98.890 Other specified postprocedural states; Z68.42 Body mass index [BMI] 45.0-49.9, adult
CPT/HCPCS: 36415; 73100; 73202; 80048; 80053; 80061; 81001; 82962; 83036; 83735; 84145; 84550; 85025; 85027; 85610; 86140; 87040; 87071; 87075; 87426; 93005; 93306; 93970; 93971; 96365; 96367; 96372; 96375; 97110; 97162; 97166; 97530; 97535; 99285; G0378; J1650; J1815; J1940; J2543; J3490; Q9956; Q9967; U0003; G0379

== ENCOUNTER 2020-08-03 15:34 | Emergency (ER) | payer MEDICARE, OTHER ==
[~2020-08-03] VITALS: Ht 180.3 cm; Wt 122.0 kg
[~2020-08-03 15:34] MED LIST changes: +ALLO100T PO; +ATOR20TA58 PO; +LISI-130 PO; +METF500T PO
--- NOTE | 2020-08-03 16:13 | ED.ADGEN ---
Past Medical History Past Medical History: Arthritis, Diabetes-Type II, DVT, GERD, Hypertension, Other Additional Past Medical Histor: DJD,PE,GOUT, NECK/BACK PAIN, OBESITY Past Surgical History: No Surgical History Smoking Status: Former Smoker Alcohol Use: Rarely Drug Use: None General Adult EDM: Chief Complaint: LOWER EXTREMITY SWELLING HPI: HPI: Patient is a 69 year old AA male who presents to the emergency department with complaints of continued swelling in his right hand and forearm and swelling and both of his lower extremities. Patient reports he was admitted here at the beginning of the month and he was diagnosed with gout and prescribed medications. Patient denies any nausea, vomiting, abdominal pain, cough, chest pain, shortness of breath, fever, numbness, tingling, weakness, body aches, or fatigue. He denies any known injury to his extremities. The patient reports that he has a wound to the back of his left leg but he denies any drainage or bleeding from the site. Patient states he has been taking his medications as previously prescribed. He currently denies any pain. Review of Systems: Review of Systems: Complete ROS is negative unless otherwise noted in HPI. Allergies: Allergies: Allergies Coded Allergies Type Severity Reaction Last Updated Verified No Known Drug Allergies 04/03/14 No Physical Exam: PE: See Above Constitutional: Well developed, well nourished, no acute distress, non-toxic appearance, morbidly obese. [] HENT: Normocephalic, atraumatic, bilateral external ears normal, nose normal. [] Eyes: PERRLA, EOMI, conjunctiva normal, no discharge. [] Neck: Normal range of motion, no stridor. [] Cardiovascular:Heart rate regular rhythm Lungs & Thorax: Respirations even and unlabored, no retractions, no respiratory distress Abdomen: soft, no tenderness Skin: Warm, dry, no erythema, no rash. [] Extremities: RUE 3+ edema right hand, no erythema, nontender to palpation, no wa rmth, no cyanosis, ROM intact; BLE: Appearance of lymphedema bilaterally with 3+ edema, no erythema, no warmth, cap refill less than 2 seconds, nontender to palpation, ROM intact, sensation intact Neurologic: Alert and oriented X 3, normal motor, normal sensory, no focal deficits noted. [] Psychologic: Affect normal, judgement normal, mood normal. [] Current Patient Data: Labs: Laboratory Tests Test 08/03/20 16:21 08/03/20 19:18 White Blood Count 7.5 x10^3/uL (4.0-11.0) Red Blood Count 4.92 x10^6/uL (4.30-5.70) Hemoglobin 13.1 g/dL (13.0-17.5) Hematocrit 40.3 % (39.0-53.0) Mean Corpuscular Volume 82 fL (79-100) Mean Corpuscular Hemoglobin 27 pg (25-35) Mean Corpuscular Hemoglobin Concent 33 g/dL (31-37) Red Cell Distribution Width 13.9 % (11.5-14.5) Platelet Count 330 x10^3/uL (140-400) Neutrophils (%) (Auto) 60 % (31-73) Lymphocytes (%) (Auto) 25 % (24-48) Monocytes (%) (Auto) 10 % (0-9) H Eosinophils (%) (Auto) 4 % (0-3) H Basophils (%) (Auto) 1 % (0-3) Neutrophils # (Auto) 4.5 x10^3/uL (1.8-7.7) Lymphocytes # (Auto) 1.9 x10^3/uL (1.0-4.8) Monocytes # (Auto) 0.7 x10^3/uL (0.0-1.1) Eosinophils # (Auto) 0.3 x10^3/uL (0.0-0.7) Basophils # (Auto) 0.0 x10^3/uL (0.0-0.2) Sodium Level 138 mmol/L (136-145) Potassium Level 4.1 mmol/L (3.5-5.1) Chloride Level 101 mmol/L (98-107) Carbon Dioxide Level 29 mmol/L (21-32) Anion Gap 8 (6-14) Blood Urea Nitrogen 10 mg/dL (8-26) Creatinine 1.0 mg/dL (0.7-1.3) Estimated GFR (Cockcroft-Gault) 90.2 BUN/Creatinine Ratio 10 (6-20) Glucose Level 116 mg/dL (70-99) H Lactic Acid Level 1.5 mmol/L (0.4-2.0) Uric Acid 6.7 mg/dL (3.5-7.2) Calcium Level 9.6 mg/dL (8.5-10.1) Magnesium Level 2.0 mg/dL (1.8-2.4) Total Bilirubin 0.4 mg/dL (0.2-1.0) Aspartate Amino Transferase (AST) 41 U/L (15-37) H Alanine Aminotransferase (ALT) 50 U/L (16-63) Alkaline Phosphatase 99 U/L (46-116) Total Protein 7.8 g/dL (6.4-8.2) Albumin 3.1 g/dL (3.4-5.0) L Albumin/Globulin Ratio 0.7 (1.0-1.7) L Urine Collection Type Unknown Urine Color Yellow Urine Clarity Clear Urine pH 5.0 (<5.0-8.0) Urine Specific Laie 1.015 (1.000-1.030) Urine Protein Negative mg/dL (NEG-TRACE) Urine Glucose (UA) Negative mg/dL (NEG) Urine Ketones (Stick) Negative mg/dL (NEG) Urine Blood Negative (NEG) Urine Nitrite Negative (NEG) Urine Bilirubin Negative (NEG) Urine Urobilinogen Dipstick 1.0 mg/dL (0.2 mg/dL) Urine Leukocyte Esterase Small (NEG) Urine RBC 0 /HPF (0-2) Urine WBC 1-4 /HPF (0-4) Urine Squamous Epithelial Cells Few /LPF Urine Bacteria Few /HPF (0-FEW) Urine Mucus Mod /LPF Laboratory Tests 08/03/20 16:21 Laboratory Tests 08/03/20 16:21 Vital Signs: Vital Signs Date Time Temp Pulse Resp B/P (MAP) Pulse Ox O2 Delivery O2 Flow Rate FiO2 08/03/20 19:17 86 118/79 (92) 97 Room Air 08/03/20 15:42 98.5 12 98.5 EKG: EKG: [] Heart Score: C/O Chest Pain: No Risk Scores: Score 0 - 3: 2.5% MACE over next 6 weeks - Discharge Home Score 4 - 6: 20.3% MACE over next 6 weeks - Admit for Clinical Observation Score 7 - 10: 72.7% MACE over next 6 weeks - Early Invasive Strategies Radiology/Procedures: Radiology/Procedures: [] Course & Med Decision Making: Course & Med Decision Making Pertinent Labs and Imaging studies reviewed. (See chart for details) Patient presented to the emergency department with complaints of ongoing swelling in both of his lower extremities and his right hand after taking medic ation as prescribed for previous hospitalization and diagnosis of gout. Work-up included CBC, CMP, UA, lactic acid, and uric acid. CBC is unremarkable; CMP revealed a blood glucose of 116, AST of 41, otherwise unremarkable, the patient's lactic acid was 1.5, uric acid 6.7 and improving from previous visit; urinalysis is unremarkable. Dennis- Dr Rodriguez at bedside to evaluate pt. Per Dr. Rodriguez, pt's hand swelling has not increased since recent admission. Recommends pt take 40 mg of Prednisone daily x7 days and continue taking allopurinol as prescribed. Follow up with PCP as planned. Prescription written for prednisone 40 mg p.o. daily. Advised patient that this medication will raise his blood sugar. I encouraged him to continue taking his allopurinol as previously prescribed and follow-up with her primary care doctor as planned. Return to the ER if his symptoms worsened or fever develop. Patient verbalized an understanding of home care, medications, follow-up, and return to ED instructions and was in agreement with the plan of care. [] Dragon Disclaimer: Dragon Disclaimer: This electronic medical record was generated, in whole or in part, using a voice recognition dictation system. Departure Departure Impression: Primary Impression: Chronic gout Additional Impression: Gout attack Disposition: DC HOME SELF CARE/HOMELESS Condition: STABLE Referrals: NO PCP (PCP) Patient Instructions: Diet - Purine Restricted, Gout, [id number] Additional Instructions: Fill the prescription and take it as directed, please be aware that your blood sugar will be elevated while you take this medication. Continue taking the allopurinol as previously prescribed. Follow the diet instructions provided. Follow-up with your primary care doctor for further treatment and evaluation. Return to the ER if your symptoms worsen or fever develops. Scripts Prednisone (PREDNISONE) 20 Mg Tablet 2 TAB PO DAILY for 7 Days, #14 TAB 0 Refills Prov: KARIE TINSLEY Yue INSPECTOR AND SORTER 08/03/20 Attending Signature Attending Signature I have reviewed the PA/TEST ENGINE MECHANIC's note and plan of care. I was available for consultation as needed during the patient's visit in the emergency department. I agree with the clinical impression, plan, and disposition. Problem Qualifiers Primary Impression: Chronic gout Gout site: multiple sites Gout etiology: unspecified cause Qualified Codes: M1A.09X0 - Idiopathic chronic gout, multiple sites, without tophus (tophi) Additional Impression: Gout attack Gout site: multiple sites Gout etiology: unspecified cause Qualified Codes: M10.9 - Gout, unspecified KARIE TINSLEY APRN Aug 03, 2020 16:13 FREDRICK MCCARTY DO Aug 04, 2020 02:56
[2020-08-03 16:39] LABS: BASO % 1 % (0-3); EOS # 0.3 x10^3/uL (0.0-0.7); EOS % 4 % (0-3); HEMATOCRIT 40.3 % (39.0-53.0); HEMOGLOBIN 13.1 g/dL (13.0-17.5); LYMPH # 1.9 x10^3/uL (1.0-4.8); LYMPH % 25 % (24-48); MEAN CORPUSCULAR HEMOGLOBIN 27 pg (25-35); MEAN CORPUSCULAR HGB CONC 33 g/dL (31-37); MEAN CORPUSCULAR VOLUME 82 fL (79-100); MONO # 0.7 x10^3/uL (0.0-1.1); MONO % 10 % (0-9); NEUT # 4.5 x10^3/uL (1.8-7.7); NEUT % 60 % (31-73); PLATELET COUNT 330 x10^3/uL (140-400); RED BLOOD COUNT 4.92 x10^6/uL (4.30-5.70); RED CELL DISTRIBUTION WIDTH 13.9 % (11.5-14.5); WHITE BLOOD COUNT 7.5 x10^3/uL (4.0-11.0)
[2020-08-03 16:47] LABS: CALCIUM 9.6 mg/dL (8.5-10.1); GFR 90.2; POTASSIUM 4.1 mmol/L (3.5-5.1)
[2020-08-03 16:53] LABS: ALBUMIN 3.1 g/dL (3.4-5.0); ALBUMIN/GLOBULIN RATIO 0.7 (1.0-1.7); TOTAL BILIRUBIN 0.4 mg/dL (0.2-1.0); TOTAL PROTEIN 7.8 g/dL (6.4-8.2)
[2020-08-03 19:17] VITALS: BP 118/79
[2020-08-03 19:28] LABS: BILIRUBIN,URINE NEGATIVE (NEG); CLARITY,URINE CLEAR; COLOR,URINE YELLOW; NITRITE,URINE NEGATIVE (NEG); PROTEIN,URINE NEGATIVE (NEG-TRACE)
[2020-08-03 19:39] LABS: BACTERIA,URINE FEW /HPF (0-FEW); RBC,URINE 0 /HPF (0-2)
[2020-08-03] MEDS ORDERED: PRED20TA PO (20:07)
== END 2020-08-03 20:37 | disposition home or self-care (01) ==
LOC: ER 15:34
DX: M1A.9XX0 Chronic gout, unspecified, without tophus (tophi) (principal); R60.0 Localized edema; M19.90 Unspecified osteoarthritis, unspecified site; E11.9 Type 2 diabetes mellitus without complications; K21.9 Gastro-esophageal reflux disease without esophagitis; I10 Essential (primary) hypertension; E66.9 Obesity, unspecified; Z87.891 Personal history of nicotine dependence; Z68.37 Body mass index [BMI] 37.0-37.9, adult
CPT/HCPCS: 36415; 80053; 81001; 83605; 83735; 84550; 85025; 87086; 99285

== ENCOUNTER 2020-12-26 21:02 | Emergency (ER) | payer MEDICARE, OTHER ==
[~2020-12-26] VITALS: Ht 180.3 cm; Wt 157.6 kg
[~2020-12-26 21:02] MED LIST changes: +DOCU-148 PO; -DOCU-153 PO; -DOXY100C2 PO; +DOXY100C3 PO
[2020-12-27 01:00] VITALS: BP 118/79
[2020-12-27] MEDS ORDERED: AMOX1TAB61 PO (01:14)
--- NOTE | 2020-12-27 01:14 | PHYS DOC ---
Past Medical History Past Medical History: Arthritis, Diabetes-Type II, DVT, GERD, Hypertension, Other Additional Past Medical Histor: DJD,PE,GOUT, NECK/BACK PAIN, OBESITY Past Surgical History: No Surgical History Smoking Status: Former Smoker Alcohol Use: Rarely Drug Use: None General Adult EDM: Chief Complaint: ANIMAL BITE HPI: HPI: Patient is a 70 Review of Systems: Review of Systems: Constitutional: Denies fever or chills Eyes: Denies redness or eye pain HENT: Denies nasal congestion or sore throat Respiratory: Denies cough or shortness of breath Cardiovascular: Denies chest pain or palpitations GI: Denies abdominal pain, nausea, or vomiting : Denies dysuria or hematuria Musculoskeletal: Denies back pain or joint pain Integument: Denies rash or skin lesions Neurologic: Denies headache, focal weakness or sensory changes Complete systems were reviewed and found to be within normal limits, except as documented in this note. Heart Score: C/O Chest Pain: N/A Current Medications: Current Medications Medications (Trade) Dose Ordered Sig/Karine Start Time Stop Time Status Last Admin Dose Admin Amoxicillin/ Clavulanate Potassium (Augmentin 875/ 125mg) 1 tab 1X ONCE 12/27/20 01:15 12/27/20 01:16 Allergies: Allergies: Allergies Coded Allergies Type Severity Reaction Last Updated Verified No Known Drug Allergies 04/03/14 No Physical Exam: PE: Constitutional: Well developed, obese, poor hygiene, no acute distress, non- toxic appearance HENT: Normocephalic, atraumatic Eyes: Conjunctiva normal, no discharge Neck: Normal range of motion, no tenderness, supple Lungs & Thorax: No respiratory distress, equal chest rise and fall Skin: Warm, dry, no erythema, no rash Extremities: No tenderness, ROM intact, no edema, thickened long toenails, old blood noticed around nail bed of right middle toe Neurologic: Alert and oriented X 3, no focal deficits noted Psychologic: Affect normal, judgment normal EKG: EKG: [] Radiology/Procedures: Radiology/Procedures: [] Course & Med Decision Making: Course & Med Decision Making Patient stable for discharge with outpatient follow-up with PCP/podiatry. Podiatry referral provided. Discussed findings and plan with patient, who acknowledges understanding and agreement. Celestino Disclaimer: Celestino Disclaimer: This electronic medical record was generated, in whole or in part, using a voice recognition dictation system. Departure Departure Impression: Primary Impression: Dog bite of toe Qualified Codes: S91.159A - Open bite of unspecified toe(s) without damage to nail, initial encounter; W54.0XXA - Bitten by dog, initial encounter Disposition: HOME / SELF CARE / HOMELESS Condition: STABLE Referrals: NO PCP (PCP) GALINDO CAPONE DPM Patient Instructions: Animal Bite, [id number] Additional Instructions: Do not soak your wound. You may shower. Clean wound daily with soap and water. Change dressing 2 times daily. Use over the counter antibiotic ointment with each dressing change. Scripts Amoxicillin/Potassium Clav (AUGMENTIN 875-125 TABLET) 1 Each Tablet 1 TAB PO BID for 7 Days, #14 TAB Prov: FREDRICK MCCARTY DO 12/27/20 FREDRICK MCCARTY DO Dec 27, 2020 01:14
[2020-12-27] MEDS ORDERED: DIPH,PERTUSS(ACELL),TET VAC/PF 0.5 ML SYRINGE. VAX IM ONE (01:15)
[2020-12-27] MEDS ORDERED: NEOMY/BACITR/POLYMYXIN OINT PACKET. TP ONE (01:15)
[2020-12-27] MEDS ORDERED: AMOXICILLIN/K CLAV 875/125MG TABLET. PO ONE (01:15)
== END 2020-12-27 02:35 | disposition home or self-care (01) ==
LOC: ER 21:02
DX: S91.154A Open bite of right lesser toe(s) without damage to nail, initial encounter (principal); E11.9 Type 2 diabetes mellitus without complications; K21.9 Gastro-esophageal reflux disease without esophagitis; I10 Essential (primary) hypertension; M10.9 Gout, unspecified; Z86.718 Personal history of other venous thrombosis and embolism; Z87.891 Personal history of nicotine dependence; Z86.711 Personal history of pulmonary embolism; W54.0XXA Bitten by dog, initial encounter; Y93.89 Activity, other specified; Y92.89 Other specified places as the place of occurrence of the external cause; Y99.8 Other external cause status
CPT/HCPCS: 90471; 90715; 99283

== ENCOUNTER 2021-01-11 15:15 | Emergency (ER) | payer OTHER, MEDICARE ==
[~2021-01-11] VITALS: Ht 180.3 cm; Wt 152.7 kg
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
[2021-01-11] MEDS ORDERED: CYCL10TA2 PO (17:07)
[2021-01-11 17:10] VITALS: BP 161/90
== END 2021-01-11 17:17 | disposition home or self-care (01) ==
LOC: ER 15:15
DX: R07.81 Pleurodynia (principal); G89.11 Acute pain due to trauma; E11.9 Type 2 diabetes mellitus without complications; I10 Essential (primary) hypertension; K21.9 Gastro-esophageal reflux disease without esophagitis; Z86.718 Personal history of other venous thrombosis and embolism; V49.49XA Driver injured in collision with other motor vehicles in traffic accident, initial encounter; Y93.89 Activity, other specified; Y92.488 Other paved roadways as the place of occurrence of the external cause; Y99.8 Other external cause status
CPT/HCPCS: 71101; 99283

== ENCOUNTER 2021-05-08 16:48 | Inpatient (IN) | payer OTHER, MEDICARE ==
[~2021-05-08] VITALS: Ht 180.3 cm; Wt 154.2 kg
[~2021-05-08 16:48] MED LIST changes: +CYCL10TA19 PO
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
[2021-05-08] MEDS ORDERED: ADENOSINE 6 MG/2 ML VIAL. IV ONE ×2 (19:00→19:27)
[2021-05-08] MEDS ORDERED: ASPIRIN 325 MG TABLET PO ONE (19:00)
[2021-05-08] MEDS ORDERED: IV NORMAL SALINE 1000ML BAG 1,000 ML IV ONE (19:00)
[2021-05-08 19:28] LABS: BASO # 0.1 x10^3/uL (0.0-0.2); BASO % 1 % (0-3); EOS # 0.3 x10^3/uL (0.0-0.7); EOS % 3 % (0-3); HEMATOCRIT 42.9 % (39.0-53.0); HEMOGLOBIN 14.2 g/dL (13.0-17.5); LYMPH # 2.5 x10^3/uL (1.0-4.8); LYMPH % 26 % (24-48); MEAN CORPUSCULAR HEMOGLOBIN 27 pg (25-35); MEAN CORPUSCULAR HGB CONC 33 g/dL (31-37); MEAN CORPUSCULAR VOLUME 81 fL (79-100); MONO % 11 % (0-9); NEUT # 5.7 x10^3/uL (1.8-7.7); NEUT % 59 % (31-73); PLATELET COUNT 282 x10^3/uL (140-400); RED BLOOD COUNT 5.31 x10^6/uL (4.30-5.70); RED CELL DISTRIBUTION WIDTH 15.2 % (11.5-14.5); WHITE BLOOD COUNT 9.6 x10^3/uL (4.0-11.0)
[2021-05-08] MEDS ORDERED: CLINDAMYCIN 600MG PREMIX 50 ML IV ONE (19:30)
--- NOTE | 2021-05-08 19:37 | RAD ---
EXAMINATION: Chest radiograph. VIEWS: Single AP view of the chest COMPARISON: September 26, 2019 INDICATION:70 years, Male, shortness of air. FINDINGS: Stable cardiomediastinal silhouette. Increased indistinct central pulmonary vasculature. Hazy bilater al perihilar and basilar opacities. No pleural effusion or pneumothorax. No acute osseous process. IMPRESSION: Findings may represent moderate interstitial pulmonary edema and/or multifocal pneumonia. Electronically signed by: Yimi Cintron DO (05/08/2021 7:35 PM) [facility]
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
[2021-05-08 20:40] LABS: PROTHROMBIN TIME PATIENT 13.7 SEC (11.7-14.0)
[2021-05-08 20:46] LABS: CREATININE 1.7 mg/dL (0.7-1.3); GFR 48.7; POTASSIUM 4.4 mmol/L (3.5-5.1)
[2021-05-08 20:52] LABS: ALBUMIN 3.1 g/dL (3.4-5.0); ALBUMIN/GLOBULIN RATIO 0.7 (1.0-1.7); TOTAL BILIRUBIN 0.2 mg/dL (0.2-1.0); TOTAL PROTEIN 7.3 g/dL (6.4-8.2)
[2021-05-08 21:03] LABS: FREE T4 0.91 ng/dL (0.76-1.46); THYROID STIM HORMONE (TSH) 2.572 uIU/mL (0.358-3.74)
[2021-05-08] MEDS ORDERED: HEPARIN for IV BOLUS 10,000 UNIT/10 ML VIAL. IV PRN (21:15)
[2021-05-08] MEDS ORDERED: HEPARIN 25,000UTS/250ML PREMIX 250 ML IV PRN (21:15)
[2021-05-08] MEDS ORDERED: HEPARIN for IV BOLUS 10,000 UNIT/10 ML VIAL. IV ONE (21:30)
[2021-05-08] MEDS ORDERED: ANTI-COAG MONITOR BY PHARMACY. MC PRN (21:30)
[2021-05-08] MEDS ORDERED: DEXTROSE 50% 25 GM / 50ML DISP.SYRIN. IV PRN (21:45)
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
[2021-05-08 23:14] VITALS: BP 139/69
[2021-05-09 02:33] VITALS: BP 151/76
--- NOTE | 2021-05-09 02:53 | EKG ---
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
--- NOTE | 2021-05-09 02:54 | EKG ---
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
--- NOTE | 2021-05-09 04:36 | NUR ---
Pt refused morning lab work, stating "Im not here for that." Will continue monitor for status changes.
[2021-05-09 07:37] VITALS: BP 129/57
[2021-05-09] MEDS ORDERED: INSULIN LISPRO 300 UNITS/3 ML VIAL. SQ SCH (08:00)
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
[2021-05-09] MEDS ORDERED: MORPHINE SULFATE 2 MG/ML INJ. IV PRN (09:45)
[2021-05-09] MEDS ORDERED: ZOLPIDEM 5 MG TABLET. PO PRN (09:45)
[2021-05-09] MEDS ORDERED: diphenhydrAMINE 50 MG/ML VIAL IVP PRN (09:45)
[2021-05-09] MEDS ORDERED: PROCHLORPERAZINE 10 MG/2 ML VIAL. IV PRN (09:45)
[2021-05-09] MEDS ORDERED: ONDANSETRON PF 4 MG/2 ML VIAL. IVP PRN (09:45)
[2021-05-09] MEDS ORDERED: MORPHINE SULFATE 2 MG/ML INJ. IVP PRN (09:45)
[2021-05-09] MEDS ORDERED: SENNOSIDES 8.6 MG TABLET PO PRN (09:45)
[2021-05-09] MEDS ORDERED: diphenhydrAMINE HCL 25 MG CAPSULE PO PRN ×2 (09:45)
[2021-05-09] MEDS ORDERED: ACETAMINOPHEN 325 MG TABLET. PO PRN (09:45)
[2021-05-09] MEDS ORDERED: hydrALAZINE 20 MG/ML VIAL. IVP PRN (09:45)
[2021-05-09] MEDS ORDERED: DEXTROSE 50% 25 GM / 50ML DISP.SYRIN. IV PRN (09:45)
[2021-05-09] MEDS ORDERED: LORazepam 0.5 MG TABLET PO PRN (09:45)
[2021-05-09] MEDS ORDERED: LABETALOL 20 MG/4 ML DISP.SYRIN. IVP PRN (09:45)
[2021-05-09] MEDS ORDERED: oxyCODONE/APAP 5/325 1 TAB TABLET PO PRN ×2 (09:45)
[2021-05-09] MEDS ORDERED: DOCUSATE SODIUM 100 MG CAPSULE. PO PRN (09:45)
[2021-05-09 10:39] VITALS: BP 132/70
[2021-05-09 10:44] LABS: HEMATOCRIT 39.2 % (39.0-53.0); HEMOGLOBIN 12.9 g/dL (13.0-17.5); RED BLOOD COUNT 4.83 x10^6/uL (4.30-5.70); RED CELL DISTRIBUTION WIDTH 15.1 % (11.5-14.5); WHITE BLOOD COUNT 6.7 x10^3/uL (4.0-11.0)
[2021-05-09] MEDS: ENOXAPARIN 40 MG/0.4 ML SYRINGE. SQ SCH ×2 (12:03→21:00)
[2021-05-09] MEDS: INSULIN LISPRO 300 UNITS/3 ML VIAL. SQ SCH ×2 (12:07→17:22)
[2021-05-09 14:19] VITALS: BP 138/64
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
[2021-05-09 19:00] VITALS: BP 145/84
[2021-05-09 22:40] VITALS: BP 180/83
[2021-05-10] VITALS (7 sets, daily range): BP systolic 136–196; BP diastolic 69–93
[2021-05-10 05:09] LABS: BASO # 0.1 x10^3/uL (0.0-0.2); BASO % 1 % (0-3); EOS # 0.4 x10^3/uL (0.0-0.7); EOS % 6 % (0-3); HEMATOCRIT 36.4 % (39.0-53.0); HEMOGLOBIN 12.1 g/dL (13.0-17.5); LYMPH # 1.6 x10^3/uL (1.0-4.8); LYMPH % 26 % (24-48); MEAN CORPUSCULAR HEMOGLOBIN 27 pg (25-35); MEAN CORPUSCULAR HGB CONC 33 g/dL (31-37); MEAN CORPUSCULAR VOLUME 81 fL (79-100); MONO # 0.7 x10^3/uL (0.0-1.1); MONO % 11 % (0-9); NEUT # 3.5 x10^3/uL (1.8-7.7); NEUT % 56 % (31-73); PLATELET COUNT 229 x10^3/uL (140-400); RED BLOOD COUNT 4.48 x10^6/uL (4.30-5.70); RED CELL DISTRIBUTION WIDTH 14.7 % (11.5-14.5); WHITE BLOOD COUNT 6.2 x10^3/uL (4.0-11.0)
[2021-05-10 05:54] LABS: CHOLESTEROL/HDL RATIO 4.5
[2021-05-10 06:17] LABS: CALCIUM 8.5 mg/dL (8.5-10.1); CREATININE 1.1 mg/dL (0.7-1.3); GFR 80.5; MAGNESIUM 1.9 mg/dL (1.8-2.4); PHOSPHORUS 3.7 mg/dL (2.6-4.7); POTASSIUM 4.4 mmol/L (3.5-5.1)
--- NOTE | 2021-05-10 09:28 | EKG ---
[facility] [address] [place] [address] Test Date: 2021-05-10 Test Time: 09:21:40 Pat Name: FREDA DODD Department: Room: 3 1 Gender: M Worship Leader: KILLIAN : 1950 Requested By: RAUL VILLAR Order Number: [id number] Reading MD: Measurements Intervals [place] Rate: 90 P: 52 WV: 158 QRS: 70 QRSD: 98 T: 226 QT: 396 QTc: 489 Interpretive Statements SINUS RHYTHM LVH WITH REPOLARIZATION ABNORMALITY PROLONGED QT ABNORMAL ECG RI6.02 Compared to ECG 05/08/2021 19:29:39 Prolonged QT interval now present
[2021-05-10] MEDS: INSULIN LISPRO 300 UNITS/3 ML VIAL. SQ SCH ×3 (09:49→17:53)
[2021-05-10] MEDS: ENOXAPARIN 40 MG/0.4 ML SYRINGE. SQ SCH ×2 (09:49→20:58)
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
--- NOTE | 2021-05-10 14:02 | PDOC ---
PROGRESS NOTES Date of Service DATE: 05/10/21 TIME: 13:58 Subjective Subjective Patient seen and examined Objective Objective Vital Signs Date Time Temp Pulse Resp B/P (MAP) Pulse Ox O2 Delivery O2 Flow Rate FiO2 05/10/21 10:43 98.1 98 16 137/74 (95) 98 Room Air 98.1 Intake and Output 05/10/21 07:00 Intake Total 1200 ml Output Total 1050 ml Balance 150 ml Intake Oral 1200 ml Output Urine Total 1050 ml Physical Exam Abdomen: Normal bowel sounds Heart: Regular rate General: No acute distress Lungs: Other (Slightly decreased breath sound) Assessment Assessment Problems Medical Problems: (1) Hyperglycemia Status: Acute (2) Lactic acidosis Status: Acute (3) Leg ulcer, left Status: Acute (4) Noncompliance w/medication treatment due to intermit use of medication Status: Acute (5) NSTEMI (non-ST elevated myocardial infarction) Status: Acute (6) Renal insufficiency Status: Acute (7) SVT (supraventricular tachycardia) Status: Acute 1. PSVT. Patient converted to sinus rhythm with adenosine. He has remained in sinus rhythm. Beta-blockers have been restarted. 2. Minimally elevated troponin initially at 143 and decreased to 56. No chest pain. Most consistent with right influence demand ischemia. Continue monitoring. Probable outpatient ischemia evaluation.. His now decreased to 56. Most consistent with rate influence demand ischemia. 3. Possible mild heart failure. Infiltrates on chest x-ray. Continue present medications. We will check an echocardiogram. 4. Morning cholesterol panel shows an LDL of 93, HDL 32, total cholesterol 144 and triglycerides of 93. Continue present treatment. 5. Diabetes mellitus. As per the primary service. 6. Lower extremity wound. Continue present medications. 7. History of hypertension. Improved. We will continue present medications. Comment Review of Relevant I have reviewed the following items bao (where applicable) has been applied. Labs Laboratory Tests Test 05/08/21 19:15 05/08/21 20:20 05/09/21 08:04 05/09/21 09:15 White Blood Count 9.6 x10^3/uL (4.0-11.0) 6.7 x10^3/uL (4.0-11.0) Red Blood Count 5.31 x10^6/uL (4.30-5.70) 4.83 x10^6/uL (4.30-5.70) Hemoglobin 14.2 g/dL (13.0-17.5) 12.9 g/dL (13.0-17.5) Hematocrit 42.9 % (39.0-53.0) 39.2 % (39.0-53.0) Mean Corpuscular Volume 81 fL (79-100) 81 fL (79-100) Mean Corpuscular Hemoglobin 27 pg (25-35) 27 pg (25-35) Mean Corpuscular Hemoglobin Concent 33 g/dL (31-37) 33 g/dL (31-37) Red Cell Distribution Width 15.2 % (11.5-14.5) 15.1 % (11.5-14.5) Platelet Count 282 x10^3/uL (140-400) 233 x10^3/uL (140-400) Neutrophils (%) (Auto) 59 % (31-73) Lymphocytes (%) (Auto) 26 % (24-48) Monocytes (%) (Auto) 11 % (0-9) Eosinophils (%) (Auto) 3 % (0-3) Basophils (%) (Auto) 1 % (0-3) Neutrophils # (Auto) 5.7 x10^3/uL (1.8-7.7) Lymphocytes # (Auto) 2.5 x10^3/uL (1.0-4.8) Monocytes # (Auto) 1.0 x10^3/uL (0.0-1.1) Eosinophils # (Auto) 0.3 x10^3/uL (0.0-0.7) Basophils # (Auto) 0.1 x10^3/uL (0.0-0.2) Prothrombin Time 13.7 SEC (11.7-14.0) Prothromb Time International Ratio 1.1 (0.8-1.1) Activated Partial Thromboplast Time 33 SEC (24-38) Sodium Level 142 mmol/L (136-145) Potassium Level 4.4 mmol/L (3.5-5.1) Chloride Level 107 mmol/L (98-107) Carbon Dioxide Level 27 mmol/L (21-32) Anion Gap 8 (6-14) Blood Urea Nitrogen 28 mg/dL (8-26) Creatinine 1.7 mg/dL (0.7-1.3) Estimated GFR (Cockcroft-Gault) 48.7 BUN/Creatinine Ratio 16 (6-20) Glucose Level 250 mg/dL (70-99) Lactic Acid Level 2.6 mmol/L (0.4-2.0) 2.7 mmol/L (0.4-2.0) Calcium Level 9.0 mg/dL (8.5-10.1) Magnesium Level 2.0 mg/dL (1.8-2.4) Total Bilirubin 0.2 mg/dL (0.2-1.0) Aspartate Amino Transf (AST/SGOT) 15 U/L (15-37) Alanine Aminotransferase (ALT/SGPT) 22 U/L (16-63) Alkaline Phosphatase 96 U/L (46-116) Troponin I High Sensitivity 143 ng/L (4-75) 56 ng/L (4-75) PR-Cgz-M-Type Natriuretic Peptide 675 pg/mL (0-124) Total Protein 7.3 g/dL (6.4-8.2) Albumin 3.1 g/dL (3.4-5.0) Albumin/Globulin Ratio 0.7 (1.0-1.7) Lipase 73 U/L (73-393) Thyroid Stimulating Hormone (TSH) 2.572 uIU/mL (0.358-3.74) Free Thyroxine 0.91 ng/dL (0.76-1.46) Free Triiodothyronine (T3) pg/mL 2.69 pg/mL (2.18-3.98) Glucose (Fingerstick) 205 mg/dL (70-99) Heparin Anti-Xa Act, Unfractionated 0.17 IU/mL (0.30-0.70) Test 05/09/21 12:14 05/09/21 16:31 05/09/21 20:47 05/10/21 04:15 Glucose (Fingerstick) 222 mg/dL (70-99) 246 mg/dL (70-99) 196 mg/dL (70-99) White Blood Count 6.2 x10^3/uL (4.0-11.0) Red Blood Count 4.48 x10^6/uL (4.30-5.70) Hemoglobin 12.1 g/dL (13.0-17.5) Hematocrit 36.4 % (39.0-53.0) Mean Corpuscular Volume 81 fL (79-100) Mean Corpuscular Hemoglobin 27 pg (25-35) Mean Corpuscular Hemoglobin Concent 33 g/dL (31-37) Red Cell Distribution Width 14.7 % (11.5-14.5) Platelet Count 229 x10^3/uL (140-400) Neutrophils (%) (Auto) 56 % (31-73) Lymphocytes (%) (Auto) 26 % (24-48) Monocytes (%) (Auto) 11 % (0-9) Eosinophils (%) (Auto) 6 % (0-3) Basophils (%) (Auto) 1 % (0-3) Neutrophils # (Auto) 3.5 x10^3/uL (1.8-7.7) Lymphocytes # (Auto) 1.6 x10^3/uL (1.0-4.8) Monocytes # (Auto) 0.7 x10^3/uL (0.0-1.1) Eosinophils # (Auto) 0.4 x10^3/uL (0.0-0.7) Basophils # (Auto) 0.1 x10^3/uL (0.0-0.2) Sodium Level 144 mmol/L (136-145) Potassium Level 4.4 mmol/L (3.5-5.1) Chloride Level 107 mmol/L (98-107) Carbon Dioxide Level 25 mmol/L (21-32) Anion Gap 12 (6-14) Blood Urea Nitrogen 13 mg/dL (8-26) Creatinine 1.1 mg/dL (0.7-1.3) Estimated GFR (Cockcroft-Gault) 80.5 Glucose Level 192 mg/dL (70-99) Calcium Level 8.5 mg/dL (8.5-10.1) Phosphorus Level 3.7 mg/dL (2.6-4.7) Magnesium Level 1.9 mg/dL (1.8-2.4) Triglycerides Level 93 mg/dL (0-150) Cholesterol Level 144 mg/dL (0-200) LDL Cholesterol, Calculated 93 mg/dL (0-100) VLDL Cholesterol, Calculated 19 mg/dL (0-40) Non-HDL Cholesterol Calculated 112 mg/dL (0-129) HDL Cholesterol 32 mg/dL (40-60) Cholesterol/HDL Ratio 4.5 Test 05/10/21 08:02 05/10/21 12:08 Glucose (Fingerstick) 208 mg/dL (70-99) 200 mg/dL (70-99) Laboratory Tests Test 05/09/21 16:31 05/09/21 20:47 05/10/21 04:15 05/10/21 08:02 Glucose (Fingerstick) 246 mg/dL (70-99) 196 mg/dL (70-99) 208 mg/dL (70-99) White Blood Count 6.2 x10^3/uL (4.0-11.0) Red Blood Count 4.48 x10^6/uL (4.30-5.70) Hemoglobin 12.1 g/dL (13.0-17.5) Hematocrit 36.4 % (39.0-53.0) Mean Corpuscular Volume 81 fL (79-100) Mean Corpuscular Hemoglobin 27 pg (25-35) Mean Corpuscular Hemoglobin Concent 33 g/dL (31-37) Red Cell Distribution Width 14.7 % (11.5-14.5) Platelet Count 229 x10^3/uL (140-400) Neutrophils (%) (Auto) 56 % (31-73) Lymphocytes (%) (Auto) 26 % (24-48) Monocytes (%) (Auto) 11 % (0-9) Eosinophils (%) (Auto) 6 % (0-3) Basophils (%) (Auto) 1 % (0-3) Neutrophils # (Auto) 3.5 x10^3/uL (1.8-7.7) Lymphocytes # (Auto) 1.6 x10^3/uL (1.0-4.8) Monocytes # (Auto) 0.7 x10^3/uL (0.0-1.1) Eosinophils # (Auto) 0.4 x10^3/uL (0.0-0.7) Basophils # (Auto) 0.1 x10^3/uL (0.0-0.2) Sodium Level 144 mmol/L (136-145) Potassium Level 4.4 mmol/L (3.5-5.1) Chloride Level 107 mmol/L (98-107) Carbon Dioxide Level 25 mmol/L (21-32) Anion Gap 12 (6-14) Blood Urea Nitrogen 13 mg/dL (8-26) Creatinine 1.1 mg/dL (0.7-1.3) Estimated GFR (Cockcroft-Gault) 80.5 Glucose Level 192 mg/dL (70-99) Calcium Level 8.5 mg/dL (8.5-10.1) Phosphorus Level 3.7 mg/dL (2.6-4.7) Magnesium Level 1.9 mg/dL (1.8-2.4) Triglycerides Level 93 mg/dL (0-150) Cholesterol Level 144 mg/dL (0-200) LDL Cholesterol, Calculated 93 mg/dL (0-100) VLDL Cholesterol, Calculated 19 mg/dL (0-40) Non-HDL Cholesterol Calculated 112 mg/dL (0-129) HDL Cholesterol 32 mg/dL (40-60) Cholesterol/HDL Ratio 4.5 Test 05/10/21 12:08 Glucose (Fingerstick) 200 mg/dL (70-99) Microbiology 05/08/21 Blood Culture - Preliminary, Resulted NO GROWTH AFTER 1 DAY Medications Current Medications Aspirin (Neeraj Aspirin) 325 mg 1X ONCE PO Last administered on 05/08/21at 19:10; Start 05/08/21 at 19:00; Stop 05/08/21 at 19:01; Status DC Sodium Chloride 1,000 ml @ 1,000 mls/hr 1X ONCE IV Last administered on 05/08/21at 19:35; Start 05/08/21 at 19:00; Stop 05/08/21 at 19:59; Status DC Adenosine (Adenocard) 6 mg 1X ONCE IV Last administered on 05/08/21at 19:33; Start 05/08/21 at 19:00; Stop 05/08/21 at 19:01; Status DC Clindamycin Phosphate 50 ml @ 100 mls/hr 1X ONCE IV Last administered on 05/08/21at 19:34; Start 05/08/21 at 19:30; Stop 05/08/21 at 19:59; Status DC Heparin Sodium (Porcine) (Heparin Sodium) 4,000 unit 1X ONCE IV Last ad ministered on 05/08/21at 21:34; Start 05/08/21 at 21:30; Stop 05/08/21 at 21:31; Status DC Heparin Sodium/ Dextrose 250 ml @ 10 mls/hr CONT PRN IV PER PROTOCOL Last administered on 05/08/21at 21:37; Start 05/08/21 at 21:15; Stop 05/09/21 at 09:44; Status DC Heparin Sodium (Porcine) (Heparin Sodium) 3,900 unit PRN Q6HRS PRN IV FOR UFH LEVEL LESS THAN 0.2; Start 05/08/21 at 21:15; Stop 05/09/21 at 09:44; Status DC Info (Anti-Coagulation Monitoring By Pharmacy) 1 each PRN DAILY PRN MC PER PROTOCOL Last administered on 05/09/21at 00:52; Start 05/08/21 at 21:30 Insulin Human Lispro (HumaLOG) 0-5 UNITS TIDWMEALS SQ ; Start 05/09/21 at 08:00; Status Cancel Dextrose (Dextrose 50%-Water Syringe) 12.5 gm PRN Q15MIN PRN IV SEE COMMENTS; Start 05/08/21 at 21:45; Stop 05/09/21 at 09:39; Status DC Adenosine (Adenocard) 12 mg 1X ONCE IV Last administered on 05/08/21at 19:28; Start 05/08/21 at 19:27; Stop 05/08/21 at 22:04; Status DC Sennosides (Senna) 17.2 mg PRN BID PRN PO CONSTIPATION; Start 05/09/21 at 09:45 Docusate Sodium (Colace) 100 mg PRN DAILY PRN PO HARD STOOLS; Start 05/09/21 at 09:45 Ondansetron HCl (Zofran) 4 mg PRN Q6HRS PRN IVP NAUSEA/VOMITING; Start 05/09/21 at 09:45 Insulin Human Lispro (HumaLOG) 0-9 UNITS TIDWMEALS SQ Last administered on 05/10/21at 12:39; Start 05/09/21 at 12:00 Dextrose (Dextrose 50%-Water Syringe) 12.5 gm PRN Q15MIN PRN IV SEE COMMENTS; Start 05/09/21 at 09:45 Acetaminophen (Tylenol) 650 mg PRN Q4HRS PRN PO TEMP OVER 100.4F OR MILD PAIN; Start 05/09/21 at 09:45 Lorazepam (Ativan) 0.5 mg PRN Q6HRS PRN PO ANXIETY / AGITATION; Start 05/09/21 at 09:45 Lorazepam (Ativan Inj) 0.25 mg PRN Q4HRS PRN IV ANXIETY / AGITATION; Start 05/09/21 at 09:45 Enoxaparin Sodium (Lovenox 40mg Syringe) 40 mg BID SQ Last administered on 05/10/21at 09:49; Start 05/09/21 at 10:00 Oxycodone/ Acetaminophen (Percocet 5/325) 1 tab PRN Q4HRS PRN PO MILD PAIN, 1ST CHOICE; Start 05/09/21 at 09:45 Oxycodone/ Acetaminophen (Percocet 5/325) 2 tab PRN Q4HRS PRN PO MODERATE PAIN, SEVERE PAIN; Start 05/09/21 at 09:45 Morphine Sulfate (Morphine Sulfate) 1 mg PRN Q1HR PRN IV PAIN; Start 05/09/21 at 09:45 Morphine Sulfate (Morphine Sulfate) 2 mg PRN Q2HR PRN IVP SEVERE PAIN 7-10; Start 05/09/21 at 09:45; Stop 05/10/21 at 09:44; Status DC Prochlorperazine Edisylate (Compazine) 10 mg PRN Q6HRS PRN IV NAUSEA/VOMITING, 2ND CHOICE; Start 05/09/21 at 09:45 Diphenhydramine HCl (Benadryl) 25 mg PRN Q6HRS PRN IVP ITCHING; Start 05/09/21 at 09:45 Diphenhydramine HCl (Benadryl) 25 mg PRN Q6HRS PRN PO ITCHING; Start 05/09/21 at 09:45 Diphenhydramine HCl (Benadryl) 25 mg PRN QHS PRN PO INSOMNIA, 1ST CHOICE; Start 05/09/21 at 09:45 Zolpidem Tartrate (Ambien) 2.5 mg PRN QHS PRN PO INSOMNIA, 2ND CHOICE; Start 05/09/21 at 09:45 Hydralazine HCl (Apresoline Inj) 10 mg PRN Q4HRS PRN IVP ELEVATED BP, SEE COMMENTS; Start 05/09/21 at 09:45 Labetalol HCl (Normodyne Iv Push) 20 mg PRN Q2HRS PRN IVP HYPERTENSION, 2ND CHOICE; Start 05/09/21 at 09:45 Active Scripts Active Cyclobenzaprine Hcl 10 Mg Tablet 1 Tab PO TID Augmentin 875-125 Tablet (Amoxicillin/Potassium Clav) 1 Each Tablet 1 Tab PO BID 7 Days Prednisone 20 Mg Tablet 2 Tab PO DAILY 7 Days Allopurinol 100 Mg Tablet 1 Tab PO DAILY Metoprolol Tartrate 25 Mg Tablet 25 Mg PO BID 30 Days Glucophage (Metformin Hcl) 500 Mg Tablet 500 Mg PO BIDWMEALS 30 Days Lisinopril 40 Mg Tablet 20 Mg PO BID 30 Days Atorvastatin Calcium 20 Mg Tablet 20 Mg PO QHS 30 Days Voltaren (Diclofenac Sodium) 100 Gm Gel..gram. 1 Gm TP QID 30 Days apply to affected area(s) Ibuprofen 600 Mg Tablet 600 Mg PO PRN Q6HRS PRN 10 Days Ibuprofen 400 Mg Tablet 400 Mg PO PRN Q6HRS PRN 3 Days Culturelle (Lactobacillus Rhamnosus Gg) 1 Each Cap.sprink 1 Cap PO BID 30 Days Tylenol (Acetaminophen) 325 Mg Tablet 650 Mg PO PRN Q4HRS PRN 14 Days Proair Hfa (Albuterol Sulfate) 8.5 Gm Hfa.aer.ad 2.5 Mg NEB PRN Q4HRS PRN 30 Days Reported Aspirin 325 Mg Tablet 1 Tab PO DAILY Vitals/I & O Vital Sign - Last 24 Hours 05/09/21 05/09/21 05/09/21 05/09/21 14:19 19:00 20:00 22:40 Temp 97.9 97.9 98.3 97.9 97.9 98.3 Pulse 75 75 79 Resp 18 18 18 B/P (MAP) 138/64 (88) 145/84 (104) 180/83 (115) Pulse Ox 99 97 99 O2 Delivery Room Air Room Air Room Air Room Air 05/10/21 05/10/21 05/10/21 03:50 07:55 10:43 Temp 98.7 97.9 98.1 98.7 97.9 98.1 Pulse 75 79 98 Resp 16 16 16 B/P (MAP) 162/78 (106) 136/77 (96) 137/74 (95) Pulse Ox 100 99 98 O2 Delivery Room Air Room Air Room Air Intake and Output 05/09/21 05/09/21 05/10/21 15:00 23:00 07:00 Intake Total 800 ml 400 ml 0 ml Output Total 400 ml 650 ml Balance 400 ml -250 ml 0 ml Justifications for Admission Other Justification Non-STEMI RAUL VILLAR MD May 10, 2021 14:02
--- NOTE | 2021-05-10 17:09 | NUR ---
Nursing: Patient requested flu shot.
--- NOTE | 2021-05-10 19:30 | NUR ---
Assessment completed vss poc explained pt without c/o pain at time of assessment,pt agreed to take flu vaccine call light in reach bed alarm set will resume care and continue to monitor pt.
[2021-05-10] MEDS ORDERED: FLU VACC QUAD 21-22 (6MOS+) PF 0.5 ML SYRINGE. VAX IM ONE (21:00)
[2021-05-11 03:12] VITALS: BP 208/98
[2021-05-11 04:10] VITALS: BP 168/86
[2021-05-11 05:09] LABS: BASO % 0 % (0-3); EOS # 0.3 x10^3/uL (0.0-0.7); EOS % 6 % (0-3); HEMATOCRIT 37.5 % (39.0-53.0); HEMOGLOBIN 12.1 g/dL (13.0-17.5); LYMPH # 1.4 x10^3/uL (1.0-4.8); LYMPH % 26 % (24-48); MEAN CORPUSCULAR HEMOGLOBIN 26 pg (25-35); MEAN CORPUSCULAR HGB CONC 32 g/dL (31-37); MEAN CORPUSCULAR VOLUME 82 fL (79-100); MONO # 0.6 x10^3/uL (0.0-1.1); MONO % 11 % (0-9); NEUT # 3.2 x10^3/uL (1.8-7.7); NEUT % 57 % (31-73); PLATELET COUNT 233 x10^3/uL (140-400); RED BLOOD COUNT 4.59 x10^6/uL (4.30-5.70); WHITE BLOOD COUNT 5.7 x10^3/uL (4.0-11.0)
[2021-05-11 06:04] LABS: CALCIUM 8.8 mg/dL (8.5-10.1); CREATININE 1.1 mg/dL (0.7-1.3); GFR 80.5; MAGNESIUM 2.1 mg/dL (1.8-2.4); POTASSIUM 4.3 mmol/L (3.5-5.1)
[2021-05-11] MEDS ORDERED: PERFLUTREN PROTEIN-A MICROSPHR 0.22 MG/ML 3 ML VIAL. IV ONE (07:30)
[2021-05-11 07:50] VITALS: BP 174/78
[2021-05-11] MEDS: ENOXAPARIN 40 MG/0.4 ML SYRINGE. SQ SCH (09:09)
[2021-05-11] MEDS: INSULIN LISPRO 300 UNITS/3 ML VIAL. SQ SCH ×3 (09:10→17:00)
--- NOTE | 2021-05-11 10:20 | PDOC ---
FREDERICK ALSTON SYSTEMS TECHNOLOGIST 05/11/21 1020: CARDIO Progress Notes Date and Time Date of Service 05/11/21 Time of Evaluation 1015 Subjective Subjective: No Chest Pain, No shortness of breath, No Palpitations Vitals Vitals Vital Signs Date Time Temp Pulse Resp B/P (MAP) Pulse Ox O2 Delivery O2 Flow Rate FiO2 05/11/21 07:50 98.3 72 18 174/78 (110) 100 Room Air 98.3 Weight Weight [ ] Input and Output Intake and Output Intake and Output 05/11/21 07:00 Intake Total 1600 ml Output Total 2150 ml Balance -550 ml Intake Oral 1600 ml Output Urine Total 2150 ml Laboratory Labs Laboratory Tests Test 05/10/21 12:08 05/10/21 16:39 05/10/21 21:03 05/11/21 05:00 Glucose (Fingerstick) 200 mg/dL (70-99) 195 mg/dL (70-99) 231 mg/dL (70-99) White Blood Count 5.7 x10^3/uL (4.0-11.0) Red Blood Count 4.59 x10^6/uL (4.30-5.70) Hemoglobin 12.1 g/dL (13.0-17.5) Hematocrit 37.5 % (39.0-53.0) Mean Corpuscular Volume 82 fL (79-100) Mean Corpuscular Hemoglobin 26 pg (25-35) Mean Corpuscular Hemoglobin Concent 32 g/dL (31-37) Red Cell Distribution Width 15.0 % (11.5-14.5) Platelet Count 233 x10^3/uL (140-400) Neutrophils (%) (Auto) 57 % (31-73) Lymphocytes (%) (Auto) 26 % (24-48) Monocytes (%) (Auto) 11 % (0-9) Eosinophils (%) (Auto) 6 % (0-3) Basophils (%) (Auto) 0 % (0-3) Neutrophils # (Auto) 3.2 x10^3/uL (1.8-7.7) Lymphocytes # (Auto) 1.4 x10^3/uL (1.0-4.8) Monocytes # (Auto) 0.6 x10^3/uL (0.0-1.1) Eosinophils # (Auto) 0.3 x10^3/uL (0.0-0.7) Basophils # (Auto) 0.0 x10^3/uL (0.0-0.2) Sodium Level 142 mmol/L (136-145) Potassium Level 4.3 mmol/L (3.5-5.1) Chloride Level 108 mmol/L (98-107) Carbon Dioxide Level 24 mmol/L (21-32) Anion Gap 10 (6-14) Blood Urea Nitrogen 11 mg/dL (8-26) Creatinine 1.1 mg/dL (0.7-1.3) Estimated GFR (Cockcroft-Gault) 80.5 Glucose Level 236 mg/dL (70-99) Calcium Level 8.8 mg/dL (8.5-10.1) Magnesium Level 2.1 mg/dL (1.8-2.4) Test 05/11/21 07:39 Glucose (Fingerstick) 199 mg/dL (70-99) Microbiology Micro Microbiology 05/08/21 Blood Culture - Preliminary, Resulted NO GROWTH AFTER 2 DAYS Physical Exam HEENT: Neck Supple W Full Motion Chest: Symmetric LUNGS: Clear to Auscultation Heart: RRR Abdomen: Soft N/T, Other (obese) Extremities: Other (1+ bilateral LE edema ) Neurology: alert, oriented, follow commands Assessment Assessment 1. PSVT; converted back to SR s/p adenosine. Has maintained SR 2. Minimal troponin elevation; high sensitivity trop peak at 143. Most probably type II ,demand ischemia. Echo with preserved LV systolic function 3. Accelerated hypertension; remains labile 4. Mild acute on chronic diastolic CHF; appears compensated 5. Diabetes, II 6. Hyperlipidemia; statin 7. DOROTA; resolved Recommendations Continue BB therapy Add amlodipine for BP control Continue statin Add ASA Will plan outpatient event monitor Probable outpatient ischemia evaluation Supportive care Justicifation of Admission Dx: Justifications for Admission: Justification of Admission Dx: N/A RAUL VILLAR MD 05/11/21 1627: CARDIO Progress Notes Assessment Assessment Patient seen and examined I agree with our nurse practitioners assessment and plan. PSVT; converted back to SR s/p adenosine. Has maintained SR, continuing beta- blockers. Outpatient monitor. Minimal troponin elevation; high sensitivity trop peak at 143. Most probably type II ,demand ischemia. Echo with preserved LV systolic function. Outpatient ischemia evaluation and follow-up. Accelerated hypertension; improved. Continue beta-blockers and adding amlodipine. Mild acute on chronic diastolic CHF; appears compensated Diabetes, II Hyperlipidemia; statin DOROTA; resolved. FREDERICK ALSTON APRN May 11, 2021 10:20 RAUL VILLAR MD May 11, 2021 16:27
[2021-05-11 11:00] VITALS: BP 178/80
--- NOTE | 2021-05-11 12:36 | NUR ---
SS following for discharge planning. SS reviewed pt chart and discussed with pt RN. Pt is from home and is currently on room air. SS will continue to follow for discharge planning.
--- NOTE | 2021-05-11 13:40 | CARD ---
MR#: [id number] Date of Study: 05/11/2021 Ordering Physician: RAUL VILLAR, Referring Physician: RAUL VILLAR, Tech: Fifi Ford [facility] APPROVED REPORT EXAM: Two-dimensional and M-mode echocardiogram with Doppler and color Doppler. Other Information Quality : Technically LimitedHR: 71bpm Rhythm : Atrial Fibrillation INDICATION Edema RISK FACTORS Hypertension Obesity Hyperlipidemia Diabetes 2D DIMENSIONS RVDd3.5 (2.9-3.5cm)Left Atrium(2D)3.2 (1.6-4.0cm) IVSd1.2 (0.7-1.1cm)Aortic Root(2D)3.5 (2.0-3.7cm) LVDd4.5 (3.9-5.9cm)LVOT Diameter2.2 (1.8-2.4cm) PWd1.2 (0.7-1.1cm)LVDs3.4 (2.5-4.0cm) FS (%) 24.7 %SV45.7 ml LVEF(%)49.1 (>50%) Aortic Valve AoV Peak Wagner.114.5cm/sAoV VTI21.5cm AO Peak GR.5.2mmHgLVOT Peak Wagner.91.3cm/s AO Mean GR.3mmHgAVA (VMAX)3.00cm2 Mitral Valve MV E Ueyebksb62.5cm/sMV DECEL [id number] MV A Uhnntslt41.8cm/sE/A Ratio1.3 Pulmonary Valve PV Peak Fuvxnvpp05.0cm/s LEFT VENTRICLE The left ventricle is normal size. There is mild concentric left ventricular hypertrophy. The left ve ntricular systolic function is normal. Estimated ejection fraction appears to be 55-60%. There is no rmal LV segmental wall motion. The left ventricular diastolic function and filling is normal for age. RIGHT VENTRICLE The right ventricle is normal size. There is normal right ventricular wall thickness. The right ventr icular systolic function is normal. ATRIA The left atrium size is normal. The right atrium size is normal. The interatrial septum is intact wit h no evidence for an atrial septal defect or patent foramen ovale as noted on 2-D or Doppler imaging. AORTIC VALVE The aortic valve is normal in structure and function. Doppler and Color Flow revealed no significant aortic regurgitation. There is no significant aortic valvular stenosis. MITRAL VALVE The mitral valve is normal in structure and function. There is no evidence of mitral valve prolapse. There is no mitral valve stenosis. Doppler and Color Flow revealed no mitral valve regurgitation note d. TRICUSPID VALVE The tricuspid valve is normal in structure and function. Doppler and Color Flow revealed no tricuspid valve regurgitation noted. There is no tricuspid valve stenosis. PULMONIC VALVE The pulmonary valve is normal in structure and function. Doppler and Color Flow revealed no pulmonic valvular regurgitation. GREAT VESSELS The aortic root is normal in size. The ascending aorta is normal in size. The IVC is normal in size a nd collapses >50% with inspiration. PERICARDIAL EFFUSION There is no evidence of significant pericardial effusion. Critical Notification Critical Value: No <Conclusion> The left ventricular systolic function is normal. Estimated ejection fraction appears to be 55-60%. There is normal LV segmental wall motion. There is no evidence of significant pericardial effusion. Signed by : Robert Ware, Electronically Approved : 05/11/2021 13:39:40
[2021-05-11] MEDS ORDERED: METOPROLOL TART IMMED RELEASE 25 MG TABLET. PO SCH (14:00)
[2021-05-11] MEDS ORDERED: LISINOPRIL 20 MG TABLET PO SCH (14:00)
--- NOTE | 2021-05-11 15:04 | NUR ---
Wound/Ostomy Care Wound Type/Assessment: Patient seen per wound care consult. See wound assessment. Patient has VLU secondary to lymphedema to the left lower posterior leg. Wound cleansed, assessed, and measured. Wound is hypergranulated, minimal slough with lymphedema most likely in both lower legs. No other wounds noted. Patient states he has had this wound along with others for months now. Treatment Recommendations/Plan: Recommendations for honey alginate applied to wound and cover with ABD pad and kerlix. Change every 3 days or sooner if needed to drainage. Education provided: Patient educated on dressing changes and PU prevention. Patient refusing assessment of his bottom. Patient able to assist with turning and ambulation. Offloading surface/device: N/A Recommended Referrals/Tests: N/A Discharge Recommendations for dressings: Dressing change instructions left in room as well as extra honey alginate. Bed lowered and call light in reach. Wound care will follow up on 05/19/21.
[2021-05-11 15:14] VITALS: BP 169/83
[2021-05-11 15:30] VITALS: BP 152/83
[2021-05-11] MEDS ORDERED: AMLO-187 PO (16:35)
--- NOTE | 2021-05-11 16:36 | DISCH ---
DISCHARGE INSTRUCTIONS Condition on Discharge Condition on Discharge: Stable Activity After Discharge Activity Instructions for Disc: No restrictions, Resume previous activity, Activity as tolerated Exercise Instruction after Dis: Progress as tolerated Weight Bearing Status after Di: No restrictions, Full weight bearing, As tolerated Diet after Discharge Diet after Discharge: Cardiac, Regular, Diabetic No Calorie Level Diet Texture: Regular Swallowing Supervision: None needed Wound Incision Care Wound/Incision Care: No wound care needed Checks after Discharge Checks after discharge: Check blood press - daily, Check blood sugar, ac/hs, Check your Temp as needed, Weigh Yourself Daily Contacting the DR. after DC Call your doctor for: If your condition worsens Follow-Up Follow up with: PCP within 2 weeks of discharge Treatment/Equipment after DC Adaptive Equipment Issued: SERVANDO Perez MD May 11, 2021 16:36
--- NOTE | 2021-05-11 18:00 | NUR ---
DISCHARGED PATIENT TO HOME. DISCHARGE INSTRUCTIONS GIVEN. PIV AND HEART MONITOR REMOVED. ESCORTED PATIENT TO ER INTO A PRIVATE VEHICLE.
[2021-05-11] MEDS ORDERED: ATORVASTATIN CALCIUM 20 MG TABLET PO SCH (21:00)
[2021-05-12] MEDS ORDERED: ASPIRIN ENTERIC COATED 81 MG TABLET.DR. PO SCH (08:00)
[2021-05-12] MEDS ORDERED: ALLOPURINOL 100 MG TABLET. PO SCH (09:00)
== END 2021-05-11 18:00 | disposition home or self-care (01) | DRG 280 ==
LOC: ER 16:48 → 6 SOUTH 21:10
PROVIDERS: ADMIT Internal Medicine; ATTEND Internal Medicine
DX: I21.4 Non-ST elevation (NSTEMI) myocardial infarction (principal); I50.33 Acute on chronic diastolic (congestive) heart failure; N17.0 Acute kidney failure with tubular necrosis; I47.1 Supraventricular tachycardia; L97.921 Non-pressure chronic ulcer of unspecified part of left lower leg limited to breakdown of skin; E11.65 Type 2 diabetes mellitus with hyperglycemia; E66.01 Morbid (severe) obesity due to excess calories; E78.00 Pure hypercholesterolemia, unspecified; E78.5 Hyperlipidemia, unspecified; I11.0 Hypertensive heart disease with heart failure; M47.812 Spondylosis without myelopathy or radiculopathy, cervical region; Z82.49 Family history of ischemic heart disease and other diseases of the circulatory system; Z86.711 Personal history of pulmonary embolism; Z86.718 Personal history of other venous thrombosis and embolism; Z91.19 Patient's noncompliance with other medical treatment and regimen; E66.9 Obesity, unspecified; K21.9 Gastro-esophageal reflux disease without esophagitis; M10.9 Gout, unspecified; M19.90 Unspecified osteoarthritis, unspecified site
CPT/HCPCS: 36415; 70450; 71045; 72125; 80048; 80053; 80061; 82962; 83605; 83690; 83735; 83880; 84100; 84439; 84443; 84481; 84484; 85025; 85027; 85520; 85610; 85730; 87040; 87426; 90471; 90686; 93005; 93306; 96365; 96367; 96375; 96376; J0153; J0360; J1644; J1650; J1815; J3490; J7030; Q9956; U0003; U0005; 99291-25; G0378

== ENCOUNTER 2021-07-13 18:00 | Observation (INO) | payer OTHER, MEDICARE ==
[~2021-07-13] VITALS: Ht 180.3 cm; Wt 155.5 kg
[~2021-07-13 18:00] MED LIST changes: +AMLO-187 PO
[2021-07-13] MEDS ORDERED: IV NORMAL SALINE 1000ML BAG 1,000 ML IV ONE (19:15)
[2021-07-13] MEDS ORDERED: ADENOSINE 6 MG/2 ML VIAL. IV ONE ×2 (19:15→19:30)
[2021-07-13 19:18] LABS: BASO # 0.1 x10^3/uL (0.0-0.2); BASO % 1 % (0-3); EOS # 0.1 x10^3/uL (0.0-0.7); EOS % 2 % (0-3); HEMATOCRIT 41.7 % (39.0-53.0); HEMOGLOBIN 13.5 g/dL (13.0-17.5); LYMPH # 1.5 x10^3/uL (1.0-4.8); LYMPH % 18 % (24-48); MEAN CORPUSCULAR HEMOGLOBIN 26 pg (25-35); MEAN CORPUSCULAR HGB CONC 32 g/dL (31-37); MEAN CORPUSCULAR VOLUME 82 fL (79-100); MONO # 0.7 x10^3/uL (0.0-1.1); MONO % 9 % (0-9); NEUT # 5.6 x10^3/uL (1.8-7.7); NEUT % 70 % (31-73); PLATELET COUNT 280 x10^3/uL (140-400); RED BLOOD COUNT 5.12 x10^6/uL (4.30-5.70); RED CELL DISTRIBUTION WIDTH 15.3 % (11.5-14.5)
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
[2021-07-13 19:34] LABS: CALCIUM 9.3 mg/dL (8.5-10.1); CREATININE 1.6 mg/dL (0.7-1.3); GFR 52.3; POTASSIUM 4.3 mmol/L (3.5-5.1)
[2021-07-13 19:40] LABS: ALBUMIN 3.5 g/dL (3.4-5.0); ALBUMIN/GLOBULIN RATIO 0.8 (1.0-1.7); TOTAL BILIRUBIN 0.5 mg/dL (0.2-1.0); TOTAL PROTEIN 7.9 g/dL (6.4-8.2)
--- NOTE | 2021-07-13 19:53 | EKG ---
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
[2021-07-13] MEDS ORDERED: HYDR-2759 PO ×3 (21:15→21:20)
--- NOTE | 2021-07-13 21:28 | RAD ---
XR LT WRIST 3VIEWS History: Reason: wrist pain / Spl. Instructions: / History: Technique: 3 views left wrist Comparison: None. Findings: No dislocation. No acute fracture. Moderate first carpometacarpal and triscaphe DJD. Vascular calcifi cations. Impression: 1. No acute osseous abnormality. 2. Moderate first carpometacarpal triscaphe DJD. Electronically signed by: Darrell Gleason DO (07/13/2021 9:26 PM) NELLIE
[2021-07-13] MEDS ORDERED: FURO-68 PO ×2 (22:58→22:59)
[2021-07-13] MEDS ORDERED: METO25TA4 PO (22:59)
[2021-07-13] MEDS ORDERED: ATOR20TA58 PO (22:59)
[2021-07-13] MEDS ORDERED: LISI-130 PO (22:59)
--- NOTE | 2021-07-13 23:27 | RAD ---
EXAMINATION: Chest radiograph. VIEWS: 1 COMPARISON: 05/08/2021 INDICATION:70 years, Male, tachycardia. FINDINGS: Normal cardiomediastinal silhouette. Bilateral perihilar and basilar pulmonary infiltrates, greater i n the left. No pleural effusion or pneumothorax. No acute osseous process. IMPRESSION: Bilateral perihilar and basilar pulmonary infiltrates, greater in the left. Differential includes pul monary edema versus atypical infection. Electronically signed by: Selina Pinto MD (07/13/2021 11:25 PM) [facility]
[2021-07-14 00:15] VITALS: BP 174/111
[2021-07-14 01:32] VITALS: BP 142/79
--- NOTE | 2021-07-14 04:57 | EKG ---
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
[2021-07-14 07:00] VITALS: BP 195/99
[2021-07-14] MEDS ORDERED: ALLOPURINOL 100 MG TABLET. PO SCH (09:00)
[2021-07-14] MEDS ORDERED: metFORMIN 500 MG TABLET PO SCH (09:00)
[2021-07-14] MEDS ORDERED: FUROSEMIDE 40 MG TABLET. PO SCH (09:00)
[2021-07-14] MEDS ORDERED: METOPROLOL TART IMMED RELEASE 25 MG TABLET. PO SCH (09:00)
[2021-07-14] MEDS ORDERED: LISINOPRIL 20 MG TABLET PO SCH (09:00)
[2021-07-14] MEDS ORDERED: ASPIRIN 325 MG TABLET PO SCH (09:00)
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
[2021-07-14] MEDS ORDERED: CEPH250C PO (09:50)
--- NOTE | 2021-07-14 09:50 | NUR ---
SW following. Discussed with RN, pt from home alone, room air, cardiac diet, ad deepak. Pt to be seen by wound care prior to discharge. RN advised no SW needs, anticipates discharge home today. SW will continue to follow.
[2021-07-14] MEDS ORDERED: DICLOFENAC SODIUM 1% TOPICAL GEL 100GM TUBE. TP SCH (10:00)
[2021-07-14] MEDS ORDERED: CEPHALEXIN 250 MG CAPSULE. PO SCH (10:00)
--- NOTE | 2021-07-14 10:20 | NUR ---
Wound Care 70 y/o Black male seen at Physician request for a reported small wound at the back of left heel. Patient is obese, diabetic with a history of CHF and SVT. Exam of lower extremities are thickened and warm with no signs of acute cellulitis. Both legs show typical signs of chronic edema. No active open wounds were visualized. Small eschar covered area that is closed on back of left heel. No other active wounds noted. Pulses by doppler. Patient has bilateral Charcot deformities. Wound Type/Assessment: Chronic Lymphophlebodema Treatment Recommendations/Plan: Medications as directed. Elevation of extremities. Evaluation by Wound Care Clinic should new open ulcers occur. Possible eval by OT lymphedema clinic. Education provided: Elevation of extremities for most efficient way to alleviate edema Offloading surface/device: None Recommended Referrals/Tests: Discharge Recommendations for dressings: None
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
[2021-07-14 11:00] VITALS: BP 168/90
--- NOTE | 2021-07-14 13:03 | NUR ---
Discharge Note: PT DISCHARGED HOME WITH SELF CARE. PT LEFT FACILITY VIA PRIVATE VEHICLE WITH SELF. PT STABLE AND ALERT UPON DISCHARGE. PT C/O OF FEELING WEAK AND L WRIST PAIN, INFORMED PT TO GO HOME AND GET SOME REST, AND THERE WAS NO FRACTURE IN THE L WRIST JUST A SPRAIN THAT WOULD TAKE TIME TO HEAL AND WILL BE PAINFUL FOR THE TIME BEING, PT OK AFTER THAT DISCUSSION. PT HAD NO IV ACCESS TO REMOVED, TELE BOX REMOVED. PT EDUCATED ABOUT DISCHARGE INSTRUCTIONS, DISCHARGE MEDICATIONS, AND FOLLOW-UP CARE INSTRUCTIONS. PT LEFT WITH ALL PERSONAL BELONGINGS. LUDY DODD Discharge instructions and discharge home medications reviewed with Patient and a copy given. All questions have been answered and understanding verbalized.
[2021-07-14] MEDS ORDERED: ATORVASTATIN CALCIUM 20 MG TABLET PO SCH (21:00)
== END 2021-07-14 13:09 | disposition home or self-care (01) ==
LOC: ER 18:00 → INTOOBSV 23:20 → 2 NORTH 23:20
PROVIDERS: ADMIT Student in an Organized Health Care Education/Training Program; ATTEND Student in an Organized Health Care Education/Training Program
DX: M25.532 Pain in left wrist (principal); I10 Essential (primary) hypertension; E11.9 Type 2 diabetes mellitus without complications; I21.4 Non-ST elevation (NSTEMI) myocardial infarction; I47.1 Supraventricular tachycardia; K21.9 Gastro-esophageal reflux disease without esophagitis; M19.90 Unspecified osteoarthritis, unspecified site; M10.9 Gout, unspecified; E78.00 Pure hypercholesterolemia, unspecified; Z79.82 Long term (current) use of aspirin; Z79.84 Long term (current) use of oral hypoglycemic drugs; V89.2XXA Person injured in unspecified motor-vehicle accident, traffic, initial encounter; Y92.410 Unspecified street and highway as the place of occurrence of the external cause; Y93.89 Activity, other specified; Y99.8 Other external cause status
CPT/HCPCS: 36415; 71045; 73120; 80053; 82962; 83880; 84484; 85025; 93005; 96374; 99285; G0378; J0153; G0379

== ENCOUNTER 2021-09-19 08:10 | Inpatient (IN) | payer MEDICARE, OTHER ==
[~2021-09-19] VITALS: Ht 180.3 cm; Wt 157.1 kg
[~2021-09-19 08:10] MED LIST changes: +CEPH250C PO; +FURO-68 PO; +HYDR-2759 PO
[2021-09-19] MEDS ORDERED: ADENOSINE 6 MG/2 ML VIAL. IV ONE ×3 (08:26→09:00)
[2021-09-19 08:58] LABS: BASO # 0.1 x10^3/uL (0.0-0.2); BASO % 1 % (0-3); EOS # 0.3 x10^3/uL (0.0-0.7); EOS % 4 % (0-3); HEMATOCRIT 43.4 % (39.0-53.0); HEMOGLOBIN 14.1 g/dL (13.0-17.5); LYMPH # 2.3 x10^3/uL (1.0-4.8); LYMPH % 29 % (24-48); MEAN CORPUSCULAR HEMOGLOBIN 27 pg (25-35); MEAN CORPUSCULAR HGB CONC 32 g/dL (31-37); MEAN CORPUSCULAR VOLUME 82 fL (79-100); MONO # 0.8 x10^3/uL (0.0-1.1); MONO % 10 % (0-9); NEUT # 4.4 x10^3/uL (1.8-7.7); NEUT % 56 % (31-73); PLATELET COUNT 293 x10^3/uL (140-400); RED BLOOD COUNT 5.31 x10^6/uL (4.30-5.70); RED CELL DISTRIBUTION WIDTH 14.9 % (11.5-14.5); WHITE BLOOD COUNT 7.9 x10^3/uL (4.0-11.0)
[2021-09-19] MEDS ORDERED: ASPIRIN 325 MG TABLET PO ONE (09:00)
[2021-09-19 09:09] LABS: PROTHROMBIN TIME PATIENT 14.8 SEC (11.7-14.0)
[2021-09-19 09:11] LABS: CALCIUM 9.7 mg/dL (8.5-10.1); CREATININE 1.9 mg/dL (0.7-1.3); GFR 42.9; POTASSIUM 3.8 mmol/L (3.5-5.1)
[2021-09-19 09:16] LABS: ALBUMIN 3.5 g/dL (3.4-5.0); ALBUMIN/GLOBULIN RATIO 0.7 (1.0-1.7); MAGNESIUM 1.8 mg/dL (1.8-2.4); TOTAL BILIRUBIN 0.9 mg/dL (0.2-1.0); TOTAL PROTEIN 8.4 g/dL (6.4-8.2)
--- NOTE | 2021-09-19 09:17 | RAD ---
EXAM: Chest, single view. HISTORY: Chest pain. COMPARISON: 07/13/2021 FINDINGS: A frontal view of the chest is obtained. There is no infiltrate, pleural effusion or pneumo thorax. The heart is normal in size. IMPRESSION: No acute pulmonary finding. Electronically signed by: Tia Jay MD (09/19/2021 9:14 AM) [id number]
[2021-09-19] MEDS ORDERED: DIGOXIN IV 500 MCG/2 ML AMPUL. IV ONE (09:30)
[2021-09-19] MEDS ORDERED: ASPIRIN CHEWABLE 81 MG TABLET. PO ONE (09:30)
[2021-09-19] MEDS ORDERED: METOPROLOL IV PUSH 5 MG/5 ML VIAL. IVP ONE (09:30)
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
--- NOTE | 2021-09-19 10:40 | EKG ---
[facility] [address] [place] [address] Test Date: 2021-09-19 Test Time: 08:24:17 Pat Name: FREDA DODD Department: Room: 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
--- NOTE | 2021-09-19 10:41 | EKG ---
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
--- NOTE | 2021-09-19 10:45 | EKG ---
[facility] [address] [place] [address] Test Date: 2021-09-19 Test Time: 08:48:40 Pat Name: FREDA DODD Department: Room: 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
--- NOTE | 2021-09-19 10:46 | EKG ---
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
--- NOTE | 2021-09-19 10:47 | EKG ---
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
[2021-09-19 11:34] LABS: BARBITURATES NEG (NEG); BENZODIAZEPINES NEG (NEG); CANNABINOIDS NEG (NEG); COCAINE NEG (NEG); METHADONE NEG (NEG); OPIATES NEG (NEG); PHENCYCLIDINE NEG (NEG)
[2021-09-19 11:35] LABS: AMPHETAMINE/METHAMPHETAMINE NEG (NEG)
[2021-09-19 11:40] VITALS: BP 152/85
[2021-09-19 11:53] LABS: WBC,URINE 20-40 /HPF (0-4)
[2021-09-19 11:54] LABS: BACTERIA,URINE MANY /HPF (0-FEW)
--- NOTE | 2021-09-19 12:00 | PDOC1 ---
History and Physical Date of Service: DOS: DATE: 09/19/21 TIME: 11:55 Chief Complaint: Chief Complain: Fast heart rate History of Present Illness: HPI: 70-year-old male with past medical history of diabetes mellitus type 2, GERD, hypertension, gout and SVT who comes in with diaphoretic feeling, tachycardia with palpitations and lightheadedness. Patient was admitted with similar presentation in May. Patient does endorse fatigue and also palpitations at the time. In the ED, patient was given multiple cardiac medications. He is found to have SVT at 220 bpm. He was given adenosine twice and diltiazem 20 mg one-time dose. His heart rate improved to about 120s. Cardiology was consulted and recommended 0.5 digoxin one-time 5 mg metoprolol and continue full dose anticoagulation. At this point his heart rate improved to 90. After his heart rate improved by patient had improved symptoms. Currently denies any fevers, nausea vomiting, abdominal pain, diarrhea, dysuria or hematuria or syncope. Of note, patient also on states that he does express burning upon urination. He does not take any prostate medications. Past Medical/Surgical History: PMH/PSH: Past Medical History: Arthritis, Diabetes-Type II, DVT, GERD, High Cholesterol, Hypertension, GOUT, "HEART PROBLEMS", SVT Past Surgical History: No Surgical History Allergies: Allergies: Coded Allergies: No Known Drug Allergies (Unverified , 05/08/21) Family History: Family History: Reviewed with no relative findings in the chart Social History: Social History: Smoking Status: Never Smoker Alcohol Use: None Drug Use: None Current Medications: Current Medications Current Medications Adenosine (Adenocard) 6 mg STK-MED ONCE IV ; Start 09/19/21 at 08:26; Stop 09/19/21 at 08:26; Status DC Adenosine (Adenocard) 6 mg 1X ONCE IV Last administered on 09/19/21at 08:36; Start 09/19/21 at 09:00; Stop 09/19/21 at 09:01; Status DC Aspirin (Neeraj Aspirin) 325 mg 1X ONCE PO ; Start 09/19/21 at 09:00; Stop 09/19/21 at 09:12; Status DC Diltiazem HCl (Cardizem Iv Push) 25 mg STK-MED ONCE .ROUTE ; Start 09/19/21 at 08:42; Stop 09/19/21 at 08:43; Status DC Adenosine (Adenocard) 12 mg 1X ONCE IV Last administered on 09/19/21at 08:39; Start 09/19/21 at 08:39; Stop 09/19/21 at 09:07; Status DC Diltiazem HCl (Cardizem Iv Push) 20 mg 1X ONCE IVP Last administered on 09/19/21at 08:45; Start 09/19/21 at 08:45; Stop 09/19/21 at 09:07; Status DC Digoxin (Lanoxin) 500 mcg 1X ONCE IV Last administered on 09/19/21at 09:25; Start 09/19/21 at 09:30; Stop 09/19/21 at 09:31; Status DC Aspirin (Aspirin Chewable) 243 mg 1X ONCE PO Last administered on 09/19/21at 09:24; Start 09/19/21 at 09:30; Stop 09/19/21 at 09:31; Status DC Metoprolol Tartrate (Lopressor Vial) 5 mg 1X ONCE IVP Last administered on 09/19/21at 11:14; Start 09/19/21 at 09:30; Stop 09/19/21 at 09:31; Status DC Enoxaparin Sodium (Lovenox 80mg Syringe) 80 mg 1X ONCE SQ Last administered on 09/19/21at 11:15; Start 09/19/21 at 09:30; Stop 09/19/21 at 09:31; Status DC Active Scripts Active Keflex (Cephalexin) 250 Mg Capsule 500 Mg PO BID 7 Days Lasix (Furosemide) 40 Mg Tablet 1 Tab PO DAILY 30 Days Metoprolol Tartrate 25 Mg Tablet 25 Mg PO BID 30 Days Lisinopril 40 Mg Tablet 20 Mg PO BID 30 Days Atorvastatin Calcium 20 Mg Tablet 20 Mg PO QHS 30 Days Hydrocodone-Acetamin 5-325 mg (Hydrocodone/Acetaminophen) 1 Each Tablet 1 Each PO Q4-6HRS Amlodipine Besylate 10 Mg Tablet 10 Mg PO DAILY 30 Days Cyclobenzaprine Hcl 10 Mg Tablet 1 Tab PO TID Allopurinol 100 Mg Tablet 1 Tab PO DAILY Glucophage (Metformin Hcl) 500 Mg Tablet 500 Mg PO BIDWMEALS 30 Days Voltaren (Diclofenac Sodium) 100 Gm Gel..gram. 1 Gm TP QID 30 Days apply to affected area(s) Ibuprofen 600 Mg Tablet 600 Mg PO PRN Q6HRS PRN 10 Days Ibuprofen 400 Mg Tablet 400 Mg PO PRN Q6HRS PRN 3 Days Culturelle (Lactobacillus Rhamnosus Gg) 1 Each Cap.sprink 1 Cap PO BID 30 Days Tylenol (Acetaminophen) 325 Mg Tablet 650 Mg PO PRN Q4HRS PRN 14 Days Proair Hfa (Albuterol Sulfate) 8.5 Gm Hfa.aer.ad 2.5 Mg NEB PRN Q4HRS PRN 30 Days Reported Aspirin 325 Mg Tablet 1 Tab PO DAILY ROS: Review of Systems Review of System REVIEW OF SYSTEMS: GENERAL: Denies weakness SKIN: No bruising, hair changes or rashes. EYES: No blurred, double or loss of vision. NOSE AND THROAT: No history of nosebleeds, hoarseness or sore throat. HEART: Positive for palpitations LUNGS: Denies cough, hemoptysis, wheezing or shortness of breath. GASTROINTESTINAL: Denies changes in appetite, nausea, vomiting, diarrhea or constipation. GENITOURINARY: Positive burning upon urination NEUROLOGIC: Denies history of numbness, tingling, or tremor. PSYCHIATRIC: No history of panic, anxiety or depression. ENDOCRINE: No history of heat or cold intolerance, polyuria or polydipsia. EXTREMITIES: Denies joint pain, pain on walking or stiffness. Physical Exam: Vital Signs: Vital Signs Date Time Temp Pulse Resp B/P (MAP) Pulse Ox O2 Delivery O2 Flow Rate FiO2 09/19/21 11:25 70 18 176/79 (111) 97 Room Air 09/19/21 10:40 2.0 09/19/21 08:13 98.7 98.7 Physcial Exam: General: Well developed, well nourished, no acute distress, well appearing HEENT: Pupils equally round and reactive to light, EOMI, no discharge, normal conjunctiva Neck: Supple, no nuchal rigidity, no JVD, trachea midline, no tenderness Cardiac: Sinus tachycardic, no murmurs, no gallops, no rubs Chest/Lungs: CTAB, no wheeze, no rhonchi, no crackles Abdomen: soft, non-distended, no guarding, no peritoneal signs, non-tender Back: No tenderness Extremities: Bilateral lower extremity edema with venous stasis dermatitis. There is a well-healed wound on the left posterior calf Neuro: Alert and oriented x 4, no focal deficits, normal speech Labs: Labs: Laboratory Tests Test 09/19/21 08:32 09/19/21 11:00 White Blood Count 7.9 x10^3/uL (4.0-11.0) Red Blood Count 5.31 x10^6/uL (4.30-5.70) Hemoglobin 14.1 g/dL (13.0-17.5) Hematocrit 43.4 % (39.0-53.0) Mean Corpuscular Volume 82 fL (79-100) Mean Corpuscular Hemoglobin 27 pg (25-35) Mean Corpuscular Hemoglobin Concent 32 g/dL (31-37) Red Cell Distribution Width 14.9 % (11.5-14.5) Platelet Count 293 x10^3/uL (140-400) Neutrophils (%) (Auto) 56 % (31-73) Lymphocytes (%) (Auto) 29 % (24-48) Monocytes (%) (Auto) 10 % (0-9) Eosinophils (%) (Auto) 4 % (0-3) Basophils (%) (Auto) 1 % (0-3) Neutrophils # (Auto) 4.4 x10^3/uL (1.8-7.7) Lymphocytes # (Auto) 2.3 x10^3/uL (1.0-4.8) Monocytes # (Auto) 0.8 x10^3/uL (0.0-1.1) Eosinophils # (Auto) 0.3 x10^3/uL (0.0-0.7) Basophils # (Auto) 0.1 x10^3/uL (0.0-0.2) Prothrombin Time 14.8 SEC (11.7-14.0) Prothromb Time International Ratio 1.2 (0.8-1.1) Sodium Level 143 mmol/L (136-145) Potassium Level 3.8 mmol/L (3.5-5.1) Chloride Level 106 mmol/L (98-107) Carbon Dioxide Level 21 mmol/L (21-32) Anion Gap 16 (6-14) Blood Urea Nitrogen 10 mg/dL (8-26) Creatinine 1.9 mg/dL (0.7-1.3) Estimated GFR (Cockcroft-Gault) 42.9 BUN/Creatinine Ratio 5 (6-20) Glucose Level 319 mg/dL (70-99) Calcium Level 9.7 mg/dL (8.5-10.1) Magnesium Level 1.8 mg/dL (1.8-2.4) Total Bilirubin 0.9 mg/dL (0.2-1.0) Aspartate Amino Transf (AST/SGOT) 42 U/L (15-37) Alanine Aminotransferase (ALT/SGPT) 31 U/L (16-63) Alkaline Phosphatase 91 U/L (46-116) Troponin I High Sensitivity 24 ng/L (4-75) GO-Bkf-Q-Type Natriuretic Peptide 269 pg/mL (0-124) Total Protein 8.4 g/dL (6.4-8.2) Albumin 3.5 g/dL (3.4-5.0) Albumin/Globulin Ratio 0.7 (1.0-1.7) Lipase 57 U/L (73-393) Thyroid Stimulating Hormone (TSH) 2.948 uIU/mL (0.358-3.74) Urine Collection Type Void Urine Color (Auto) Light yellow Urine Turbidity Hazy Urine pH (Auto) 6.5 (<5.0-8.0) Urine Specific [place] 1.011 (1.000-1.030) Urine Protein (Auto) 70 mg/dL (Negative) Urine Glucose (Auto)(UA) 200 mg/dL (Negative) Urine Ketones (Auto) 10 mg/dL (Negative) Urine Blood (Auto) Trace (Negative) Urine Nitrite (Auto) Positive (Negative) Urine Bilirubin (Auto) Negative (Negative) Urine Urobilinogen (Auto) Normal mg/dL (Normal) Urine Leukocyte Esterase (Auto) Large (Negative) Urine RBC 3-5 /HPF (0-2) Urine WBC 20-40 /HPF (0-4) Urine Squamous Epithelial Cells Mod /LPF Urine Bacteria Many /HPF (0-FEW) Urine Mucus Mod /LPF Urine Opiates Screen Neg (NEG) Urine Methadone Screen Neg (NEG) Urine Barbiturates Neg (NEG) Urine Phencyclidine Screen Neg (NEG) Urine Amphetamine/Methamphetamine Neg (NEG) Urine Benzodiazepines Screen Neg (NEG) Urine Cocaine Screen Neg (NEG) Urine Cannabinoids Screen Neg (NEG) Urine Ethyl Alcohol Neg (NEG) Laboratory Tests Test 09/19/21 08:32 09/19/21 11:00 White Blood Count 7.9 x10^3/uL (4.0-11.0) Red Blood Count 5.31 x10^6/uL (4.30-5.70) Hemoglobin 14.1 g/dL (13.0-17.5) Hematocrit 43.4 % (39.0-53.0) Mean Corpuscular Volume 82 fL (79-100) Mean Corpuscular Hemoglobin 27 pg (25-35) Mean Corpuscular Hemoglobin Concent 32 g/dL (31-37) Red Cell Distribution Width 14.9 % (11.5-14.5) Platelet Count 293 x10^3/uL (140-400) Neutrophils (%) (Auto) 56 % (31-73) Lymphocytes (%) (Auto) 29 % (24-48) Monocytes (%) (Auto) 10 % (0-9) Eosinophils (%) (Auto) 4 % (0-3) Basophils (%) (Auto) 1 % (0-3) Neutrophils # (Auto) 4.4 x10^3/uL (1.8-7.7) Lymphocytes # (Auto) 2.3 x10^3/uL (1.0-4.8) Monocytes # (Auto) 0.8 x10^3/uL (0.0-1.1) Eosinophils # (Auto) 0.3 x10^3/uL (0.0-0.7) Basophils # (Auto) 0.1 x10^3/uL (0.0-0.2) Prothrombin Time 14.8 SEC (11.7-14.0) Prothromb Time International Ratio 1.2 (0.8-1.1) Sodium Level 143 mmol/L (136-145) Potassium Level 3.8 mmol/L (3.5-5.1) Chloride Level 106 mmol/L (98-107) Carbon Dioxide Level 21 mmol/L (21-32) Anion Gap 16 (6-14) Blood Urea Nitrogen 10 mg/dL (8-26) Creatinine 1.9 mg/dL (0.7-1.3) Estimated GFR (Cockcroft-Gault) 42.9 BUN/Creatinine Ratio 5 (6-20) Glucose Level 319 mg/dL (70-99) Calcium Level 9.7 mg/dL (8.5-10.1) Magnesium Level 1.8 mg/dL (1.8-2.4) Total Bilirubin 0.9 mg/dL (0.2-1.0) Aspartate Amino Transf (AST/SGOT) 42 U/L (15-37) Alanine Aminotransferase (ALT/SGPT) 31 U/L (16-63) Alkaline Phosphatase 91 U/L (46-116) Troponin I High Sensitivity 24 ng/L (4-75) MA-Viw-G-Type Natriuretic Peptide 269 pg/mL (0-124) Total Protein 8.4 g/dL (6.4-8.2) Albumin 3.5 g/dL (3.4-5.0) Albumin/Globulin Ratio 0.7 (1.0-1.7) Lipase 57 U/L (73-393) Thyroid Stimulating Hormone (TSH) 2.948 uIU/mL (0.358-3.74) Urine Collection Type Void Urine Color (Auto) Light yellow Urine Turbidity Hazy Urine pH (Auto) 6.5 (<5.0-8.0) Urine Specific [place] 1.011 (1.000-1.030) Urine Protein (Auto) 70 mg/dL (Negative) Urine Glucose (Auto)(UA) 200 mg/dL (Negative) Urine Ketones (Auto) 10 mg/dL (Negative) Urine Blood (Auto) Trace (Negative) Urine Nitrite (Auto) Positive (Negative) Urine Bilirubin (Auto) Negative (Negative) Urine Urobilinogen (Auto) Normal mg/dL (Normal) Urine Leukocyte Esterase (Auto) Large (Negative) Urine RBC 3-5 /HPF (0-2) Urine WBC 20-40 /HPF (0-4) Urine Squamous Epithelial Cells Mod /LPF Urine Bacteria Many /HPF (0-FEW) Urine Mucus Mod /LPF Urine Opiates Screen Neg (NEG) Urine Methadone Screen Neg (NEG) Urine Barbiturates Neg (NEG) Urine Phencyclidine Screen Neg (NEG) Urine Amphetamine/Methamphetamine Neg (NEG) Urine Benzodiazepines Screen Neg (NEG) Urine Cocaine Screen Neg (NEG) Urine Cannabinoids Screen Neg (NEG) Urine Ethyl Alcohol Neg (NEG) Images: Images PROCEDURE: PORTABLE CHEST 1V EXAM: Chest, single view. HISTORY: Chest pain. COMPARISON: 07/13/2021 FINDINGS: A frontal view of the chest is obtained. There is no infiltrate, pleural effusion or pneumothorax. The heart is normal in size. IMPRESSION: No acute pulmonary finding. Assessment/Plan Assessment/Plan Acute palpitations due to SVT DOROTA due to vasomotor nephropathy Acute UTI Hx of Supraventricular tachycardia Morbid obesity History of gout History of DVT/PE History of degenerative joint disease History of diabetes mellitus type 2 Admit to hospitalist for further management Cardiology consult Continue telemetry monitoring Metoprolol as needed for tachycardia Continue IV fluids Strict I's/O Monitor urine output Avoid nephrotoxic agents, hold allopurinol and furosemide Continue empiric IV antibiotics Pending urine culture Post void bladder scans Lovenox for DVT prophylaxis ADA/cardiac diet CODE STATUS full Discussed with RN and SW Disposition inpatient management as above DPOA: Brother Justifications for Admission Other Justification Non-STEMI SERVANDO YIP MD September 19, 2021 12:00
[2021-09-19] MEDS ORDERED: LORazepam 0.5 MG TABLET PO PRN (13:45)
[2021-09-19] MEDS ORDERED: PROCHLORPERAZINE 10 MG/2 ML VIAL. IV PRN (13:45)
[2021-09-19] MEDS ORDERED: ZOLPIDEM 5 MG TABLET. PO PRN (13:45)
[2021-09-19] MEDS ORDERED: diphenhydrAMINE HCL 25 MG CAPSULE PO PRN ×2 (13:45)
[2021-09-19] MEDS ORDERED: DOCUSATE SODIUM 100 MG CAPSULE. PO PRN (13:45)
[2021-09-19] MEDS ORDERED: ACETAMINOPHEN 325 MG TABLET. PO PRN (13:45)
[2021-09-19] MEDS ORDERED: diphenhydrAMINE 50 MG/ML VIAL IVP PRN (13:45)
[2021-09-19] MEDS ORDERED: ONDANSETRON PF 4 MG/2 ML VIAL. IVP PRN (13:45)
[2021-09-19] MEDS ORDERED: DEXTROSE 50% 25 GM / 50ML DISP.SYRIN. IV PRN ×2 (13:45)
[2021-09-19] MEDS ORDERED: SENNOSIDES 8.6 MG TABLET PO PRN (13:45)
[2021-09-19] MEDS ORDERED: METOPROLOL IV PUSH 5 MG/5 ML VIAL. IVP PRN (14:00)
[2021-09-19] MEDS: IV NORMAL SALINE 1000ML BAG 1,000 ML IV SCH (14:35)
[2021-09-19] MEDS: cefTRIAXone IV Push 1 GM VIAL. IVP SCH (14:36)
[2021-09-19 15:00] VITALS: BP 164/80
[2021-09-19] MEDS: INSULIN LISPRO 300 UNITS/3 ML VIAL. SQ SCH (16:48)
[2021-09-19] MEDS: metFORMIN 500 MG TABLET PO SCH (16:49)
[2021-09-19 19:55] VITALS: BP 149/71
[2021-09-19] MEDS: ATORVASTATIN CALCIUM 20 MG TABLET PO SCH (20:37)
[2021-09-19] MEDS: METOPROLOL TART IMMED RELEASE 25 MG TABLET. PO SCH (20:38)
[2021-09-19] MEDS: LISINOPRIL 20 MG TABLET PO SCH (20:38)
[2021-09-19 23:07] VITALS: BP 154/76
[2021-09-20 03:35] VITALS: BP 129/58
[2021-09-20 05:16] LABS: BASO % 1 % (0-3); EOS # 0.3 x10^3/uL (0.0-0.7); EOS % 5 % (0-3); LYMPH # 1.6 x10^3/uL (1.0-4.8); LYMPH % 29 % (24-48); MEAN CORPUSCULAR HEMOGLOBIN 27 pg (25-35); MEAN CORPUSCULAR HGB CONC 33 g/dL (31-37); MEAN CORPUSCULAR VOLUME 82 fL (79-100); MONO # 0.6 x10^3/uL (0.0-1.1); MONO % 10 % (0-9); NEUT % 55 % (31-73); PLATELET COUNT 220 x10^3/uL (140-400); RED BLOOD COUNT 4.38 x10^6/uL (4.30-5.70); RED CELL DISTRIBUTION WIDTH 14.7 % (11.5-14.5); WHITE BLOOD COUNT 5.5 x10^3/uL (4.0-11.0)
[2021-09-20 05:49] LABS: CALCIUM 8.7 mg/dL (8.5-10.1); CREATININE 1.3 mg/dL (0.7-1.3); GFR 66.4; MAGNESIUM 1.8 mg/dL (1.8-2.4); PHOSPHORUS 3.4 mg/dL (2.6-4.7)
[2021-09-20 07:00] VITALS: BP 209/82
[2021-09-20] MEDS: metFORMIN 500 MG TABLET PO SCH (07:39)
[2021-09-20] MEDS: METOPROLOL TART IMMED RELEASE 25 MG TABLET. PO SCH ×2 (07:39→20:41)
[2021-09-20] MEDS: LISINOPRIL 20 MG TABLET PO SCH ×2 (07:40→20:41)
[2021-09-20] MEDS: INSULIN LISPRO 300 UNITS/3 ML VIAL. SQ SCH ×5 (07:44→20:43)
[2021-09-20] MEDS ORDERED: ASPIRIN 325 MG TABLET PO SCH (09:00)
--- NOTE | 2021-09-20 09:21 | PDOC ---
[facility] PROGRESS NOTE Date of Service DOS: DATE: 09/20/21 TIME: 09:09 Chief Complaint Chief Complaint Acute palpitations due to SVT DOROTA due to vasomotor nephropathy Acute UTI - f/u culture results, likely will need a week of antibiotics for complicated male UTI Hx of Supraventricular tachycardia Morbid obesity History of gout History of DVT/PE History of degenerative joint disease History of diabetes mellitus type 2 Urinary retention - by history his IPSS score is 14, should be on medications, check PVR, bladder scan protocol Admit to hospitalist for further management Cardiology consult Continue telemetry monitoring Metoprolol as needed for tachycardia Continue IV fluids Strict I's/O Monitor urine output Avoid nephrotoxic agents, hold allopurinol and furosemide Continue empiric IV antibiotics Pending urine culture Post void bladder scans Lovenox for DVT prophylaxis ADA/cardiac diet CODE STATUS full Discussed with RN and SW Disposition inpatient management as above DPOA: Brother History of Present Illness History of Present Illness 70-year-old male with past medical history of diabetes mellitus type 2, GERD, hypertension, gout and SVT who comes in with diaphoretic feeling, tachycardia with palpitations and lightheadedness. Patient was admitted with similar presentation in May. Patient does endorse fatigue and also palpitations at the time. In the ED, patient was given multiple cardiac medications. He is found to have SVT at 220 bpm. He was given adenosine twice and diltiazem 20 mg one-time dose. His heart rate improved to about 120s. Cardiology was consulted and recommended 0.5 digoxin one-time 5 mg metoprolol and continue full dose ant icoagulation. At this point his heart rate improved to 90. After his heart rate improved by patient had improved symptoms. Currently denies any fevers, nausea vomiting, abdominal pain, diarrhea or syncope. Of note, patient also on states that he does express burning upon urination. He does not take any prostate medications. 09/20: Converted to sinus. He notes he intermittently has the feelings a "ghost" and received in feels his heart fluttering this happens several times a month. He also notes he still having difficulty getting up to urinate more than 6 times a night and having a little difficulty getting the stream started. Blood sugars in the 200s currently. Vitals/I&O Vitals/I&O: Vital Signs Date Time Temp Pulse Resp B/P (MAP) Pulse Ox O2 Delivery O2 Flow Rate FiO2 09/20/21 07:40 77 209/82 09/20/21 07:00 98.0 18 96 Room Air 98.0 09/19/21 10:40 2.0 I & O 09/19/21 09/19/21 09/20/21 15:00 23:00 07:00 Intake Total 1400 ml Balance 1400 ml Physical Exam General: Alert, Oriented X3, Cooperative Heart: Regular rate, Normal S1, Normal S2 Lungs: Clear, Other Abdomen: Normal bowel sounds, Soft Extremities: No clubbing, No cyanosis Skin: No rashes, No breakdown Labs Labs: Laboratory Tests Test 09/19/21 11:00 09/19/21 12:26 09/19/21 16:00 09/19/21 16:46 Urine Collection Type Void Urine Color (Auto) Light yellow Urine Turbidity Hazy Urine pH (Auto) 6.5 (<5.0-8.0) Urine Specific [place] 1.011 (1.000-1.030) Urine Protein (Auto) 70 mg/dL (Negative) Urine Glucose (Auto)(UA) 200 mg/dL (Negative) Urine Ketones (Auto) 10 mg/dL (Negative) Urine Blood (Auto) Trace (Negative) Urine Nitrite (Auto) Positive (Negative) Urine Bilirubin (Auto) Negative (Negative) Urine Urobilinogen (Auto) Normal mg/dL (Normal) Urine Leukocyte Esterase (Auto) Large (Negative) Urine RBC 3-5 /HPF (0-2) Urine WBC 20-40 /HPF (0-4) Urine Squamous Epithelial Cells Mod /LPF Urine Bacteria Many /HPF (0-FEW) Urine Mucus Mod /LPF Urine Opiates Screen Neg (NEG) Urine Methadone Screen Neg (NEG) Urine Barbiturates Neg (NEG) Urine Phencyclidine Screen Neg (NEG) Urine Amphetamine/Methamphetamine Neg (NEG) Urine Benzodiazepines Screen Neg (NEG) Urine Cocaine Screen Neg (NEG) Urine Cannabinoids Screen Neg (NEG) Urine Ethyl Alcohol Neg (NEG) Troponin I High Sensitivity 56 ng/L (4-75) 85 ng/L (4-75) Glucose (Fingerstick) 230 mg/dL (70-99) Test 09/19/21 20:55 09/20/21 04:30 09/20/21 07:22 Glucose (Fingerstick) 210 mg/dL (70-99) 239 mg/dL (70-99) White Blood Count 5.5 x10^3/uL (4.0-11.0) Red Blood Count 4.38 x10^6/uL (4.30-5.70) Hemoglobin 12.0 g/dL (13.0-17.5) Hematocrit 36.0 % (39.0-53.0) Mean Corpuscular Volume 82 fL (79-100) Mean Corpuscular Hemoglobin 27 pg (25-35) Mean Corpuscular Hemoglobin Concent 33 g/dL (31-37) Red Cell Distribution Width 14.7 % (11.5-14.5) Platelet Count 220 x10^3/uL (140-400) Neutrophils (%) (Auto) 55 % (31-73) Lymphocytes (%) (Auto) 29 % (24-48) Monocytes (%) (Auto) 10 % (0-9) Eosinophils (%) (Auto) 5 % (0-3) Basophils (%) (Auto) 1 % (0-3) Neutrophils # (Auto) 3.0 x10^3/uL (1.8-7.7) Lymphocytes # (Auto) 1.6 x10^3/uL (1.0-4.8) Monocytes # (Auto) 0.6 x10^3/uL (0.0-1.1) Eosinophils # (Auto) 0.3 x10^3/uL (0.0-0.7) Basophils # (Auto) 0.0 x10^3/uL (0.0-0.2) Sodium Level 141 mmol/L (136-145) Potassium Level 4.0 mmol/L (3.5-5.1) Chloride Level 106 mmol/L (98-107) Carbon Dioxide Level 23 mmol/L (21-32) Anion Gap 12 (6-14) Blood Urea Nitrogen 12 mg/dL (8-26) Creatinine 1.3 mg/dL (0.7-1.3) Estimated GFR (Cockcroft-Gault) 66.4 Glucose Level 305 mg/dL (70-99) Calcium Level 8.7 mg/dL (8.5-10.1) Phosphorus Level 3.4 mg/dL (2.6-4.7) Magnesium Level 1.8 mg/dL (1.8-2.4) Assessment and Plan Assessmemt and Plan Problems Medical Problems: (1) DOROTA (acute kidney injury) Status: Acute (2) SVT (supraventricular tachycardia) Status: Acute Comment Review of Relevant I have reviewed the following items bao (where applicable) has been applied. Medications: Current Medications Medications (Trade) Dose Ordered Sig/Karine Route PRN Reason Start Time Stop Time Status Last Admin Dose Admin Digoxin (Lanoxin) 500 mcg 1X ONCE IV 09/19/21 09:30 09/19/21 09:31 DC 09/19/21 09:25 Aspirin (Aspirin Chewable) 243 mg 1X ONCE PO 09/19/21 09:30 09/19/21 09:31 DC 09/19/21 09:24 Metoprolol Tartrate (Lopressor Vial) 5 mg 1X ONCE IVP 09/19/21 09:30 09/19/21 09:31 DC 09/19/21 11:14 Enoxaparin Sodium (Lovenox 80mg Syringe) 80 mg 1X ONCE SQ 09/19/21 09:30 09/19/21 09:31 DC 09/19/21 11:15 Amlodipine Besylate (Norvasc) 10 mg DAILY PO 09/19/21 14:00 09/20/21 07:39 Atorvastatin Calcium (Lipitor) 20 mg QHS PO 09/19/21 21:00 09/19/21 20:37 Lisinopril (Prinivil) 20 mg BID PO 09/19/21 21:00 09/20/21 07:40 Metformin HCl (Glucophage) 500 mg BIDWMEALS PO 09/19/21 17:00 09/20/21 07:39 Metoprolol Tartrate (Lopressor) 25 mg BID PO 09/19/21 21:00 09/20/21 07:39 Insulin Human Lispro (HumaLOG) 0-7 UNITS TIDWMEALS SQ 09/19/21 17:00 09/20/21 07:44 Enoxaparin Sodium (Lovenox 120mg Syringe) 120 mg Q12HR SQ 09/19/21 21:00 09/20/21 07:40 Sodium Chloride 1,000 ml @ 100 mls/hr Q10H IV 09/19/21 15:00 09/20/21 00:00 Ceftriaxone Sodium (Rocephin) 1 gm Q24H IVP 09/19/21 15:00 09/19/21 14:36 Justifications for Admission Other Justification SVT and UTI JIL BROWNE MD September 20, 2021 09:21
[2021-09-20] MEDS ORDERED: TAMSULOSIN 0.4 MG CAP.ER.24H. PO ONE (09:30)
[2021-09-20] MEDS: LINAGLIPTIN 5 MG TABLET PO SCH (09:54)
[2021-09-20] MEDS: FINASTERIDE 5 MG TABLET. PO SCH (09:54)
[2021-09-20] MEDS: INSULIN GLARGINE SYRINGE. SQ SCH ×2 (09:56→20:43)
[2021-09-20] MEDS: IV NORMAL SALINE 1000ML BAG 1,000 ML IV SCH ×3 (09:58→20:45)
[2021-09-20 11:00] VITALS: BP 142/77
--- NOTE | 2021-09-20 11:50 | PDOC2 ---
CARDIOLOGY CONSULT NOTE DATE OF SERVICE: DATE: 09/20/21 TIME: 11:34 CHIEF COMPLAINT: SOA HPI: Patient was admitted to the hospital yesterday with a racing heart and shortness of breath. He also reports coughing up some blood after taking a shower. He denies chest pain, lower extremity pain. He states he has been admitted to the hospital for a racing heart before. Denies history of SC. He does not have a current pcp or referral coordinator. His last physician was a Dr. Wade from [place]. He claims he is not sure if he is being treated for Diabetes. He does not have a home med list. Denies pain on urination. Was able to urinate this morning. PMHX: 1. PSVT; 2. Minimal troponin elevation; high sensitivity trop peak at 143. Most probably type II ,demand ischemia. Echo with preserved LV systolic function 3. Accelerated hypertension; remains labile 4. Mild acute on chronic diastolic CHF; 5. Diabetes, II 6. Hyperlipidemia; statin 7. DOROTA; resolved SOCHX: Prior smoker 4 year history 1 pack a day. Denies alcohol. FAMHX: Denies family history of CAD CURRENT MEDS: Current Medications Medications (Trade) Dose Ordered Sig/Karine Route PRN Reason Start Time Stop Time Status Last Admin Dose Admin Amlodipine Besylate (Norvasc) 10 mg DAILY PO 09/19/21 14:00 09/20/21 07:39 Aspirin (Neeraj Aspirin) 325 mg DAILY PO 09/20/21 09:00 09/20/21 09:55 Atorvastatin Calcium (Lipitor) 20 mg QHS PO 09/19/21 21:00 09/19/21 20:37 Lisinopril (Prinivil) 20 mg BID PO 09/19/21 21:00 09/20/21 07:40 Metformin HCl (Glucophage) 500 mg BIDWMEALS PO 09/19/21 17:00 Hold 09/20/21 07:39 Metoprolol Tartrate (Lopressor) 25 mg BID PO 09/19/21 21:00 09/20/21 07:39 Insulin Human Lispro (HumaLOG) 0-7 UNITS TIDWMEALS SQ 09/19/21 17:00 09/20/21 09:13 DC 09/20/21 07:44 Enoxaparin Sodium (Lovenox 120mg Syringe) 120 mg Q12HR SQ 09/19/21 21:00 09/20/21 07:40 Sodium Chloride 1,000 ml @ 100 mls/hr Q10H IV 09/19/21 15:00 09/20/21 09:58 Ceftriaxone Sodium (Rocephin) 1 gm Q24H IVP 09/19/21 15:00 09/19/21 14:36 Linagliptin (Tradjenta) 5 mg DAILY PO 09/20/21 09:15 09/20/21 09:54 Insulin Glargine (Lantus Syringe) 10 unit QAM SQ 09/20/21 10:00 09/20/21 09:56 Tamsulosin HCl (Flomax) 0.4 mg 1X ONCE PO 09/20/21 09:30 09/20/21 09:31 DC 09/20/21 09:55 Finasteride (Proscar) 5 mg DAILY PO 09/20/21 09:30 09/20/21 09:54 ALLERGIES: Allergies Coded Allergies Type Severity Reaction Last Updated Verified No Known Drug Allergies 05/08/21 No ROS: Reports dry cough, shortness of breath. Denies chest pain, reports palpitations Denies leg pain, reports increased swelling in b/l lower extremity PHYSICAL EXAM: Vital Signs/I&O: Vital Signs Date Time Temp Pulse Resp B/P (MAP) Pulse Ox O2 Delivery O2 Flow Rate FiO2 09/20/21 08:00 Room Air 2.0 09/20/21 07:40 77 209/82 09/20/21 07:00 98.0 18 96 98.0 I & O 0 09/19/21 09/19/21 09/20/21 15:00 23:00 07:00 Intake Total 1400 ml Balance 1400 ml Physical Exam: General: Patient is alert and oriented. He has some tangential thinking. He is obese. Heart: RRR, no palpitations Lungs: CTAB, no rales or ronchi Abdomen: large distended, without tenderness in 4 quadrants LE: Edema 4+ B/L. Normal sensation in both feet. No tenderness to calf or behind knee. DIAGNOSTIC TESTING: EKG demonstrates atrial fibrillation initially, repeat EKG with SR after treatment with Digoxin and Metoprolol. Lab Labs reviewed. ASSESSMENT: 1. SVT: Appears to be atrial fibrillation. --We will start amiodarone and eliquis. Stop asa/lovenox -Continue metoprolol. 2.Chronic diastolic HF: Based on exam, CXR and low BNP, lower suspicion for CHF as the cause of bilateral lower extremity edema. Likely related to lymphedema. -Continue home medical therapy with lisinopril. 3.DM: -Continue Current Meds -Establish care and regular follow up with PCP including diabetic neuropathy exam 4.UTI: -Culture pending -Ceftriaxone for broad spectrum coverage 5. DOROTA - Improving after treatment with IVF. 6. HTN: -Restart home meds and monitor, may need additional agents like p.o hydralazine depending on how he responds. Supportive care. Plan for outpt stress test. Thanks IAIN DIAZ MD September 20, 2021 11:50
[2021-09-20] MEDS: AMIODARONE HCL 200 MG TABLET. PO SCH ×2 (13:30→20:41)
[2021-09-20] MEDS: cefTRIAXone IV Push 1 GM VIAL. IVP SCH (14:52)
[2021-09-20 15:00] VITALS: BP 135/64
[2021-09-20] MEDS ORDERED: INSULIN LISPRO 300 UNITS/3 ML VIAL. SQ SCH (17:00)
[2021-09-20 19:00] VITALS: BP 176/79
[2021-09-20] MEDS: LACTOBACILLUS RHAMNOSUS GG 1 CAPSULE. PO SCH (20:40)
[2021-09-20] MEDS: TAMSULOSIN 0.4 MG CAP.ER.24H. PO SCH (20:40)
[2021-09-20] MEDS: ATORVASTATIN CALCIUM 20 MG TABLET PO SCH (20:40)
[2021-09-20] MEDS: APIXABAN 5 MG TABLET. PO SCH (20:41)
[2021-09-20 23:00] VITALS: BP 133/64
[2021-09-21 03:00] VITALS: BP 141/78
[2021-09-21 07:00] VITALS: BP 130/62
[2021-09-21 07:39] LABS: BASO % 1 % (0-3); EOS # 0.3 x10^3/uL (0.0-0.7); EOS % 5 % (0-3); HEMATOCRIT 34.9 % (39.0-53.0); HEMOGLOBIN 11.6 g/dL (13.0-17.5); LYMPH # 1.5 x10^3/uL (1.0-4.8); LYMPH % 26 % (24-48); MEAN CORPUSCULAR HEMOGLOBIN 27 pg (25-35); MEAN CORPUSCULAR HGB CONC 33 g/dL (31-37); MEAN CORPUSCULAR VOLUME 81 fL (79-100); MONO # 0.5 x10^3/uL (0.0-1.1); MONO % 9 % (0-9); NEUT # 3.6 x10^3/uL (1.8-7.7); NEUT % 60 % (31-73); PLATELET COUNT 215 x10^3/uL (140-400); RED BLOOD COUNT 4.31 x10^6/uL (4.30-5.70); RED CELL DISTRIBUTION WIDTH 14.7 % (11.5-14.5)
[2021-09-21 07:53] LABS: CALCIUM 8.9 mg/dL (8.5-10.1); CREATININE 1.1 mg/dL (0.7-1.3); GFR 80.5; MAGNESIUM 1.7 mg/dL (1.8-2.4); POTASSIUM 4.3 mmol/L (3.5-5.1)
[2021-09-21] MEDS: AMIODARONE HCL 200 MG TABLET. PO SCH ×2 (07:58→20:40)
[2021-09-21] MEDS: APIXABAN 5 MG TABLET. PO SCH ×2 (07:58→20:40)
[2021-09-21] MEDS: LACTOBACILLUS RHAMNOSUS GG 1 CAPSULE. PO SCH ×2 (07:59→20:40)
[2021-09-21] MEDS: METOPROLOL TART IMMED RELEASE 25 MG TABLET. PO SCH ×2 (07:59→20:41)
[2021-09-21] MEDS: LISINOPRIL 20 MG TABLET PO SCH ×2 (07:59→20:41)
[2021-09-21] MEDS: FINASTERIDE 5 MG TABLET. PO SCH (07:59)
[2021-09-21] MEDS ORDERED: MAGNESIUM SULFATE 2GM 50 ML IV ONE (08:00)
[2021-09-21] MEDS: LINAGLIPTIN 5 MG TABLET PO SCH (08:00)
--- NOTE | 2021-09-21 08:01 | PDOC ---
[facility] [facility] PROGRESS NOTE Date of Service DOS: DATE: 09/21/21 TIME: 08:00 Chief Complaint Chief Complaint Acute palpitations due to SVT DOROTA due to vasomotor nephropathy Acute UTI - f/u culture results, likely will need a week of antibiotics for complicated male UTI Hx of Supraventricular tachycardia Morbid obesity History of gout History of DVT/PE History of degenerative joint disease History of diabetes mellitus type 2 Urinary retention - by history his IPSS score is 14, should be on medications, check PVR, bladder scan protocol Admit to hospitalist for further management Cardiology consult Continue telemetry monitoring Metoprolol as needed for tachycardia Continue IV fluids Strict I's/O Monitor urine output Avoid nephrotoxic agents, hold allopurinol and furosemide Continue empiric IV antibiotics Pending urine culture Post void bladder scans Lovenox for DVT prophylaxis ADA/cardiac diet CODE STATUS full Discussed with RN and SW Disposition inpatient management as above DPOA: Brother History of Present Illness History of Present Illness 70-year-old male with past medical history of diabetes mellitus type 2, GERD, hypertension, gout and SVT who comes in with diaphoretic feeling, tachycardia with palpitations and lightheadedness. Patient was admitted with similar presentation in May. Patient does endorse fatigue and also palpitations at the time. In the ED, patient was given multiple cardiac medications. He is found to have SVT at 220 bpm. He was given adenosine twice and diltiazem 20 mg one-time dose. His heart rate improved to about 120s. Cardiology was consulted and recommended 0.5 digoxin one-time 5 mg metoprolol and continue full dose ant icoagulation. At this point his heart rate improved to 90. After his heart rate improved by patient had improved symptoms. Currently denies any fevers, nausea vomiting, abdominal pain, diarrhea or syncope. Of note, patient also on states that he does express burning upon urination. He does not take any prostate medications. 09/20: Converted to sinus. He notes he intermittently has the feelings a "ghost" and received in feels his heart fluttering this happens several times a month. He also notes he still having difficulty getting up to urinate more than 6 times a night and having a little difficulty getting the stream started. Blood sugars in the 200s currently. 09/21: Blood glucose improving. Telemetry reviewed no A. fib. Urine with Proteus mirabilis. Vitals/I&O Vitals/I&O: Vital Signs Date Time Temp Pulse Resp B/P (MAP) Pulse Ox O2 Delivery O2 Flow Rate FiO2 09/21/21 03:00 98.5 75 20 141/78 (99) 95 Room Air 98.5 09/20/21 08:00 2.0 I & O 09/20/21 09/20/21 09/21/21 15:00 23:00 07:00 Intake Total 300 ml 1000 ml 720 ml Output Total 375 ml Balance 300 ml 625 ml 720 ml Physical Exam General: Alert, Oriented X3, Cooperative Heart: Regular rate, Normal S1, Normal S2 Lungs: Clear, Other Abdomen: Normal bowel sounds, Soft Extremities: No clubbing, No cyanosis Skin: No rashes, No breakdown Labs Labs: Laboratory Tests Test 09/20/21 11:45 09/20/21 16:40 09/20/21 19:24 09/21/21 06:55 Glucose (Fingerstick) 215 mg/dL (70-99) 265 mg/dL (70-99) 211 mg/dL (70-99) White Blood Count 6.0 x10^3/uL (4.0-11.0) Red Blood Count 4.31 x10^6/uL (4.30-5.70) Hemoglobin 11.6 g/dL (13.0-17.5) Hematocrit 34.9 % (39.0-53.0) Mean Corpuscular Volume 81 fL (79-100) Mean Corpuscular Hemoglobin 27 pg (25-35) Mean Corpuscular Hemoglobin Concent 33 g/dL (31-37) Red Cell Distribution Width 14.7 % (11.5-14.5) Platelet Count 215 x10^3/uL (140-400) Neutrophils (%) (Auto) 60 % (31-73) Lymphocytes (%) (Auto) 26 % (24-48) Monocytes (%) (Auto) 9 % (0-9) Eosinophils (%) (Auto) 5 % (0-3) Basophils (%) (Auto) 1 % (0-3) Neutrophils # (Auto) 3.6 x10^3/uL (1.8-7.7) Lymphocytes # (Auto) 1.5 x10^3/uL (1.0-4.8) Monocytes # (Auto) 0.5 x10^3/uL (0.0-1.1) Eosinophils # (Auto) 0.3 x10^3/uL (0.0-0.7) Basophils # (Auto) 0.0 x10^3/uL (0.0-0.2) Sodium Level 143 mmol/L (136-145) Potassium Level 4.3 mmol/L (3.5-5.1) Chloride Level 110 mmol/L (98-107) Carbon Dioxide Level 22 mmol/L (21-32) Anion Gap 11 (6-14) Blood Urea Nitrogen 8 mg/dL (8-26) Creatinine 1.1 mg/dL (0.7-1.3) Estimated GFR (Cockcroft-Gault) 80.5 Glucose Level 175 mg/dL (70-99) Calcium Level 8.9 mg/dL (8.5-10.1) Magnesium Level 1.7 mg/dL (1.8-2.4) Test 09/21/21 07:23 Glucose (Fingerstick) 188 mg/dL (70-99) Assessment and Plan Assessmemt and Plan Problems Medical Problems: (1) DOROTA (acute kidney injury) Status: Acute (2) SVT (supraventricular tachycardia) Status: Acute Comment Review of Relevant I have reviewed the following items bao (where applicable) has been applied. Medications: Current Medications Medications (Trade) Dose Ordered Sig/Karine Route PRN Reason Start Time Stop Time Status Last Admin Dose Admin Aspirin (Neeraj Aspirin) 325 mg DAILY PO 09/20/21 09:00 09/20/21 13:02 DC 09/20/21 09:55 Linagliptin (Tradjenta) 5 mg DAILY PO 09/20/21 09:15 09/20/21 09:54 Insulin Glargine (Lantus Syringe) 10 unit QAM SQ 09/20/21 10:00 09/20/21 09:56 Insulin Human Lispro (HumaLOG) 0-9 UNITS TIDAC SQ 09/20/21 11:30 09/20/21 16:45 Tamsulosin HCl (Flomax) 0.4 mg 1X ONCE PO 09/20/21 09:30 09/20/21 09:31 DC 09/20/21 09:55 Tamsulosin HCl (Flomax) 0.4 mg QHS PO 09/20/21 21:00 09/20/21 20:40 Finasteride (Proscar) 5 mg DAILY PO 09/20/21 09:30 09/20/21 09:54 Apixaban (Eliquis) 5 mg BID PO 09/20/21 21:00 09/20/21 20:41 Amiodarone HCl (Cordarone) 200 mg BID PO 09/20/21 13:30 09/20/21 20:41 Lactobacillus Rhamnosus (Culturelle) 1 cap BID PO 09/20/21 21:00 09/20/21 20:40 Insulin Glargine (Lantus Syringe) 15 unit QHS SQ 09/20/21 21:00 09/20/21 20:43 Insulin Human Lispro (HumaLOG) 3 units TIDAC SQ 09/20/21 21:00 09/20/21 20:43 Justifications for Admission Other Justification SVT and UTI JIL BROWNE MD September 21, 2021 08:00
[2021-09-21] MEDS: INSULIN LISPRO 300 UNITS/3 ML VIAL. SQ SCH ×6 (08:12→17:10)
[2021-09-21] MEDS: IV NORMAL SALINE 1000ML BAG 1,000 ML IV SCH (08:17)
[2021-09-21] MEDS: INSULIN GLARGINE SYRINGE. SQ SCH ×2 (08:55→20:40)
[2021-09-21 11:00] VITALS: BP 150/70
--- NOTE | 2021-09-21 12:32 | PDOC ---
FREDERICK ALSTON SNOWMAKER 09/21/21 1232: CARDIO Progress Notes Date and Time Date of Service 09/21/21 Time of Evaluation 1220 Subjective Subjective: No Chest Pain, No shortness of breath, No Palpitations, No Dizziness Vitals Vitals Vital Signs Date Time Temp Pulse Resp B/P (MAP) Pulse Ox O2 Delivery O2 Flow Rate FiO2 09/21/21 11:00 98.2 68 18 150/70 (96) 97 Room Air 98.2 09/20/21 08:00 2.0 Weight Weight [ ] Input and Output Intake and Output Intake and Output 09/21/21 07:00 Intake Total 2020 ml Output Total 375 ml Balance 1645 ml Intake Oral 1020 ml IV Total 1000 ml Output Urine Total 375 ml # Bowel Movements 1 Laboratory Labs Laboratory Tests Test 09/20/21 16:40 09/20/21 19:24 09/21/21 06:55 09/21/21 07:23 Glucose (Fingerstick) 265 mg/dL (70-99) 211 mg/dL (70-99) 188 mg/dL (70-99) White Blood Count 6.0 x10^3/uL (4.0-11.0) Red Blood Count 4.31 x10^6/uL (4.30-5.70) Hemoglobin 11.6 g/dL (13.0-17.5) Hematocrit 34.9 % (39.0-53.0) Mean Corpuscular Volume 81 fL (79-100) Mean Corpuscular Hemoglobin 27 pg (25-35) Mean Corpuscular Hemoglobin Concent 33 g/dL (31-37) Red Cell Distribution Width 14.7 % (11.5-14.5) Platelet Count 215 x10^3/uL (140-400) Neutrophils (%) (Auto) 60 % (31-73) Lymphocytes (%) (Auto) 26 % (24-48) Monocytes (%) (Auto) 9 % (0-9) Eosinophils (%) (Auto) 5 % (0-3) Basophils (%) (Auto) 1 % (0-3) Neutrophils # (Auto) 3.6 x10^3/uL (1.8-7.7) Lymphocytes # (Auto) 1.5 x10^3/uL (1.0-4.8) Monocytes # (Auto) 0.5 x10^3/uL (0.0-1.1) Eosinophils # (Auto) 0.3 x10^3/uL (0.0-0.7) Basophils # (Auto) 0.0 x10^3/uL (0.0-0.2) Sodium Level 143 mmol/L (136-145) Potassium Level 4.3 mmol/L (3.5-5.1) Chloride Level 110 mmol/L (98-107) Carbon Dioxide Level 22 mmol/L (21-32) Anion Gap 11 (6-14) Blood Urea Nitrogen 8 mg/dL (8-26) Creatinine 1.1 mg/dL (0.7-1.3) Estimated GFR (Cockcroft-Gault) 80.5 Glucose Level 175 mg/dL (70-99) Calcium Level 8.9 mg/dL (8.5-10.1) Magnesium Level 1.7 mg/dL (1.8-2.4) Test 09/21/21 11:25 Glucose (Fingerstick) 192 mg/dL (70-99) Microbiology Micro Microbiology 09/19/21 Urine Culture - Preliminary, Resulted Proteus Mirabilis/Penneri Physical Exam HEENT: Neck Supple W Full Motion Chest: Symmetric LUNGS: Other (diminished bases) Abdomen: Soft N/T, Other (obese) Extremities: Other (chronic LE lymphedema ) Neurology: alert, oriented, follow commands Assessment Assessment 1. SVT: Appears to be AFIB. Converted back to SR and is maintaining. Reports possibly history of irregular heartbeat. TSH WNL 2. Chronic diastolic CHF; appears compensated 3. LE lymphedema 4. Diabetes, II 5. UTI 6. DOROTA; resolved s/p IVFs 7. HTN: now controlled 8. Hypomagnesemia; replaced Recommendations Continue metoprolol for rate control Amiodarone for rhythm maintenance Eliquis for stroke prophylaxis Discontinued IVFs Supportive care Justicifation of Admission Dx: Justifications for Admission: Justification of Admission Dx: N/A RAUL VILLAR MD 09/21/21 5164: CARDIO Progress Notes Assessment Assessment Patient seen and examined I agree with our nurse practitioners assessment and plan. SVT: Appears to be AFIB. Converted back to SR and is maintaining. Reports possibly history of irregular heartbeat. TSH WNL. Continuing beta-blockers, amiodarone and anticoagulation. Chronic diastolic CHF; appears compensated LE lymphedema Diabetes, II UTI DOROTA; resolved s/p IVFs HTN: now controlled Hypomagnesemia; replaced FREDERICK ALSTON APRN September 21, 2021 12:32 RAUL VILLAR MD September 21, 2021 17:55
[2021-09-21] MEDS ORDERED: CIPROFLOXACIN HCL 250 MG TABLET. PO SCH (14:00)
[2021-09-21] MEDS: MAGNESIUM OXIDE 400 MG TABLET PO SCH (14:55)
[2021-09-21 15:00] VITALS: BP 144/71
--- NOTE | 2021-09-21 16:37 | NUR ---
Wound/Ostomy Care Wound Type/Assessment: Patient seen per wound care consult. See wound assessment. Patient has skin tear to back from what appears to be from an AED pad. Wound cleansed, assessed, measured, and pictured. This is very superficial. Treatment Recommendations/Plan: Recommendation for xeroform gauze and telfa dressing. Change o n 09/24/21 and 09/27/21or until healed. No other wounds noted. Dressing applied. Education provided: Patient educated on dressing changes and PU prevention. Offloading surface/device: N/A Recommended Referrals/Tests: N/A Discharge Recommendations for dressings: Dressing change instructions left in room. Bed lowered and call light in reach. Wound care will follow up on 09/30/21.
[2021-09-21 19:50] VITALS: BP 139/71
[2021-09-21] MEDS: ATORVASTATIN CALCIUM 20 MG TABLET PO SCH (20:40)
[2021-09-21] MEDS: CEFDINIR 300 MG CAPSULE PO SCH (20:40)
[2021-09-21] MEDS: TAMSULOSIN 0.4 MG CAP.ER.24H. PO SCH (20:40)
[2021-09-22 07:00] VITALS: BP 156/76
[2021-09-22] MEDS: METOPROLOL TART IMMED RELEASE 25 MG TABLET. PO SCH (08:00)
[2021-09-22] MEDS: AMIODARONE HCL 200 MG TABLET. PO SCH (08:00)
[2021-09-22] MEDS: LINAGLIPTIN 5 MG TABLET PO SCH (08:00)
[2021-09-22] MEDS: FINASTERIDE 5 MG TABLET. PO SCH (08:00)
[2021-09-22] MEDS: LISINOPRIL 20 MG TABLET PO SCH (08:00)
[2021-09-22] MEDS: CEFDINIR 300 MG CAPSULE PO SCH (08:01)
[2021-09-22] MEDS: LACTOBACILLUS RHAMNOSUS GG 1 CAPSULE. PO SCH (08:01)
[2021-09-22] MEDS: MAGNESIUM OXIDE 400 MG TABLET PO SCH (08:01)
[2021-09-22] MEDS: APIXABAN 5 MG TABLET. PO SCH (08:01)
[2021-09-22] MEDS: INSULIN GLARGINE SYRINGE. SQ SCH (08:06)
[2021-09-22] MEDS: INSULIN LISPRO 300 UNITS/3 ML VIAL. SQ SCH ×4 (08:06→11:30)
--- NOTE | 2021-09-22 09:28 | PDOC ---
CARDIO Progress Notes Date and Time Date of Service 09/22/21 Time of Evaluation 0930 Subjective Subjective: No Chest Pain, No shortness of breath, No Palpitations, No Dizziness Vitals Vitals Vital Signs Date Time Temp Pulse Resp B/P (MAP) Pulse Ox O2 Delivery O2 Flow Rate FiO2 09/22/21 08:01 64 156/76 09/22/21 08:00 Room Air 09/22/21 07:00 98.1 19 100 98.1 Weight Weight [ ] Input and Output Intake and Output Intake and Output 09/22/21 07:00 Intake Total 1650 ml Output Total 900 ml Balance 750 ml Intake Oral 1300 ml IV Total 350 ml Output Urine Total 900 ml # Voids 2 # Bowel Movements 1 Laboratory Labs Laboratory Tests Test 09/21/21 11:25 09/21/21 16:31 09/21/21 21:02 09/22/21 07:21 Glucose (Fingerstick) 192 mg/dL (70-99) 152 mg/dL (70-99) 174 mg/dL (70-99) 190 mg/dL (70-99) Microbiology Micro Microbiology 09/19/21 Urine Culture - Preliminary, Resulted Proteus Mirabilis/Penneri Physical Exam HEENT: Neck Supple W Full Motion Chest: Symmetric LUNGS: Other (diminished bases) Heart: RRR Abdomen: Soft N/T, Other (obese) Extremities: Other (chronic LE lymphedema ) Neurology: alert, oriented, follow commands Assessment Assessment 1. SVT: Appears to be AFIB. Converted back to SR and is maintaining. Reports possibly history of irregular heartbeat. TSH WNL 2. Chronic diastolic CHF; appears compensated 3. LE lymphedema 4. Diabetes, II 5. UTI 6. DOROTA; resolved s/p IVFs 7. HTN: now controlled 8. Hypomagnesemia; replaced Recommendations Continue metoprolol for rate control Amiodarone for rhythm maintenance Eliquis for stroke prophylaxis Supportive care Follow up in our office with Dr. Calabrese as scheduled Justicifation of Admission Dx: Justifications for Admission: Justification of Admission Dx: N/A FREDERICK ALSTON APRN September 22, 2021 09:28
[2021-09-22 10:16] LABS: BASO # 0.1 x10^3/uL (0.0-0.2); BASO % 1 % (0-3); EOS # 0.3 x10^3/uL (0.0-0.7); EOS % 5 % (0-3); HEMATOCRIT 39.4 % (39.0-53.0); HEMOGLOBIN 12.9 g/dL (13.0-17.5); LYMPH # 1.5 x10^3/uL (1.0-4.8); LYMPH % 26 % (24-48); MEAN CORPUSCULAR HEMOGLOBIN 27 pg (25-35); MEAN CORPUSCULAR HGB CONC 33 g/dL (31-37); MEAN CORPUSCULAR VOLUME 82 fL (79-100); MONO # 0.5 x10^3/uL (0.0-1.1); MONO % 8 % (0-9); NEUT # 3.6 x10^3/uL (1.8-7.7); NEUT % 61 % (31-73); PLATELET COUNT 258 x10^3/uL (140-400)
[2021-09-22 10:32] LABS: CALCIUM 9.3 mg/dL (8.5-10.1); CREATININE 1.1 mg/dL (0.7-1.3); GFR 80.5; MAGNESIUM 1.9 mg/dL (1.8-2.4); POTASSIUM 4.1 mmol/L (3.5-5.1)
[2021-09-22 10:44] VITALS: BP 141/69
--- NOTE | 2021-09-22 13:57 | NUR ---
SS following for discharge planning. SS reviewed pt chart and discussed with pt RN. Pt is from home and is currently on room air. Cardiology following. PT/OT recommended senior care unit. Pt declining senior care unit at this time and is ambulatory. Discharge order on the chart for home with self care.
[2021-09-22] MEDS ORDERED: CIPR250T PO (14:01)
[2021-09-22] MEDS ORDERED: APIX5TAB PO (14:01)
[2021-09-22] MEDS ORDERED: AMIO200T53 PO (14:03)
--- NOTE | 2021-09-22 14:05 | PDOC ---
[employer] PROGRESS NOTE Date of Service DOS: DATE: 09/22/21 TIME: 14:04 Chief Complaint Chief Complaint Acute palpitations due to SVT DOROTA due to vasomotor nephropathy Acute UTI - f/u culture results, likely will need a week of antibiotics for complicated male UTI Hx of Supraventricular tachycardia Morbid obesity History of gout History of DVT/PE History of degenerative joint disease History of diabetes mellitus type 2 Urinary retention - by history his IPSS score is 14, should be on medications, check PVR, bladder scan protocol Admit to hospitalist for further management Cardiology consult Continue telemetry monitoring Metoprolol as needed for tachycardia Continue IV fluids Strict I's/O Monitor urine output Avoid nephrotoxic agents, hold allopurinol and furosemide Continue empiric IV antibiotics Pending urine culture Post void bladder scans Lovenox for DVT prophylaxis ADA/cardiac diet CODE STATUS full Discussed with RN and SW Disposition inpatient management as above DPOA: Brother History of Present Illness History of Present Illness 70-year-old male with past medical history of diabetes mellitus type 2, GERD, hypertension, gout and SVT who comes in with diaphoretic feeling, tachycardia with palpitations and lightheadedness. Patient was admitted with similar presentation in May. Patient does endorse fatigue and also palpitations at the time. In the ED, patient was given multiple cardiac medications. He is found to have SVT at 220 bpm. He was given adenosine twice and diltiazem 20 mg one-time dose. His heart rate improved to about 120s. Cardiology was consulted and recommended 0.5 digoxin one-time 5 mg metoprolol and continue full dose ant icoagulation. At this point his heart rate improved to 90. After his heart rate improved by patient had improved symptoms. Currently denies any fevers, nausea vomiting, abdominal pain, diarrhea or syncope. Of note, patient also on states that he does express burning upon urination. He does not take any prostate medications. 09/20: Converted to sinus. He notes he intermittently has the feelings a "ghost" and received in feels his heart fluttering this happens several times a month. He also notes he still having difficulty getting up to urinate more than 6 times a night and having a little difficulty getting the stream started. Blood sugars in the 200s currently. 09/21: Blood glucose improving. Telemetry reviewed no A. fib. Urine with Proteus mirabilis. 09/22: Blood glucose stable. Telemetry with no atrial fibrillation Amiodarone and Eliquis per cardiology has been loaded. Urine unfortunately returned as ESBL needs to take ciprofloxacin tolerated without adverse telemetry events. Will discharge on Cipro for 10 days and follow-up outpatient with cardiology. Vitals/I&O Vitals/I&O: Vital Signs Date Time Temp Pulse Resp B/P (MAP) Pulse Ox O2 Delivery O2 Flow Rate FiO2 09/22/21 10:44 97.3 58 19 141/69 (93) 98 Room Air 97.3 I & O 09/21/21 09/21/21 09/22/21 15:00 23:00 07:00 Intake Total 1250 ml 400 ml Output Total 900 ml Balance 1250 ml -500 ml Physical Exam General: Alert, Oriented X3, Cooperative Heart: Regular rate, Normal S1, Normal S2 Lungs: Clear, Other Abdomen: Normal bowel sounds, Soft Extremities: No clubbing, No cyanosis Skin: No rashes, No breakdown Labs Labs: Laboratory Tests Test 09/21/21 16:31 09/21/21 21:02 09/22/21 07:21 09/22/21 09:44 Glucose (Fingerstick) 152 mg/dL (70-99) 174 mg/dL (70-99) 190 mg/dL (70-99) White Blood Count 6.0 x10^3/uL (4.0-11.0) Red Blood Count 4.80 x10^6/uL (4.30-5.70) Hemoglobin 12.9 g/dL (13.0-17.5) Hematocrit 39.4 % (39.0-53.0) Mean Corpuscular Volume 82 fL (79-100) Mean Corpuscular Hemoglobin 27 pg (25-35) Mean Corpuscular Hemoglobin Concent 33 g/dL (31-37) Red Cell Distribution Width 15.0 % (11.5-14.5) Platelet Count 258 x10^3/uL (140-400) Neutrophils (%) (Auto) 61 % (31-73) Lymphocytes (%) (Auto) 26 % (24-48) Monocytes (%) (Auto) 8 % (0-9) Eosinophils (%) (Auto) 5 % (0-3) Basophils (%) (Auto) 1 % (0-3) Neutrophils # (Auto) 3.6 x10^3/uL (1.8-7.7) Lymphocytes # (Auto) 1.5 x10^3/uL (1.0-4.8) Monocytes # (Auto) 0.5 x10^3/uL (0.0-1.1) Eosinophils # (Auto) 0.3 x10^3/uL (0.0-0.7) Basophils # (Auto) 0.1 x10^3/uL (0.0-0.2) Sodium Level 141 mmol/L (136-145) Potassium Level 4.1 mmol/L (3.5-5.1) Chloride Level 108 mmol/L (98-107) Carbon Dioxide Level 22 mmol/L (21-32) Anion Gap 11 (6-14) Blood Urea Nitrogen 9 mg/dL (8-26) Creatinine 1.1 mg/dL (0.7-1.3) Estimated GFR (Cockcroft-Gault) 80.5 Glucose Level 199 mg/dL (70-99) Calcium Level 9.3 mg/dL (8.5-10.1) Magnesium Level 1.9 mg/dL (1.8-2.4) Assessment and Plan Assessmemt and Plan Problems Medical Problems: (1) DOROTA (acute kidney injury) Status: Acute (2) SVT (supraventricular tachycardia) Status: Acute Comment Review of Relevant I have reviewed the following items bao (where applicable) has been applied. Medications: Current Medications Medications (Trade) Dose Ordered Sig/Karine Route PRN Reason Start Time Stop Time Status Last Admin Dose Admin Cefdinir (Omnicef) 300 mg BID PO 09/21/21 21:00 09/22/21 08:01 Magnesium Oxide (Magnesium Oxide) 400 mg DAILY PO 09/21/21 14:15 09/22/21 08:01 Justifications for Admission Other Justification SVT and UTI JIL BROWNE MD September 22, 2021 14:05
--- NOTE | 2021-09-22 14:07 | PDOC3 ---
Discharge Summary Visit Information Date of Admission: September 19, 2021 Date of Discharge: September 22, 2021 Admitting Diagnosis: SVT, DOROTA, UTI in male Final Diagnosis Problems Medical Problems: (1) DOROTA (acute kidney injury) Status: Acute (2) SVT (supraventricular tachycardia) Status: Acute Brief Hospital Course Allergies Allergies Coded Allergies Type Severity Reaction Last Updated Verified No Known Drug Allergies 05/08/21 No Vital Signs Vital Signs Date Time Temp Pulse Resp B/P (MAP) Pulse Ox O2 Delivery O2 Flow Rate FiO2 09/22/21 10:44 97.3 58 19 141/69 (93) 98 Room Air 97.3 Lab Results Laboratory Tests Test 09/20/21 16:40 09/20/21 19:24 09/21/21 06:55 09/21/21 07:23 Glucose (Fingerstick) 265 mg/dL (70-99) 211 mg/dL (70-99) 188 mg/dL (70-99) White Blood Count 6.0 x10^3/uL (4.0-11.0) Red Blood Count 4.31 x10^6/uL (4.30-5.70) Hemoglobin 11.6 g/dL (13.0-17.5) Hematocrit 34.9 % (39.0-53.0) Mean Corpuscular Volume 81 fL (79-100) Mean Corpuscular Hemoglobin 27 pg (25-35) Mean Corpuscular Hemoglobin Concent 33 g/dL (31-37) Red Cell Distribution Width 14.7 % (11.5-14.5) Platelet Count 215 x10^3/uL (140-400) Neutrophils (%) (Auto) 60 % (31-73) Lymphocytes (%) (Auto) 26 % (24-48) Monocytes (%) (Auto) 9 % (0-9) Eosinophils (%) (Auto) 5 % (0-3) Basophils (%) (Auto) 1 % (0-3) Neutrophils # (Auto) 3.6 x10^3/uL (1.8-7.7) Lymphocytes # (Auto) 1.5 x10^3/uL (1.0-4.8) Monocytes # (Auto) 0.5 x10^3/uL (0.0-1.1) Eosinophils # (Auto) 0.3 x10^3/uL (0.0-0.7) Basophils # (Auto) 0.0 x10^3/uL (0.0-0.2) Sodium Level 143 mmol/L (136-145) Potassium Level 4.3 mmol/L (3.5-5.1) Chloride Level 110 mmol/L (98-107) Carbon Dioxide Level 22 mmol/L (21-32) Anion Gap 11 (6-14) Blood Urea Nitrogen 8 mg/dL (8-26) Creatinine 1.1 mg/dL (0.7-1.3) Estimated GFR (Cockcroft-Gault) 80.5 Glucose Level 175 mg/dL (70-99) Calcium Level 8.9 mg/dL (8.5-10.1) Magnesium Level 1.7 mg/dL (1.8-2.4) Test 09/21/21 11:25 09/21/21 16:31 09/21/21 21:02 09/22/21 07:21 Glucose (Fingerstick) 192 mg/dL (70-99) 152 mg/dL (70-99) 174 mg/dL (70-99) 190 mg/dL (70-99) Test 09/22/21 09:44 White Blood Count 6.0 x10^3/uL (4.0-11.0) Red Blood Count 4.80 x10^6/uL (4.30-5.70) Hemoglobin 12.9 g/dL (13.0-17.5) Hematocrit 39.4 % (39.0-53.0) Mean Corpuscular Volume 82 fL (79-100) Mean Corpuscular Hemoglobin 27 pg (25-35) Mean Corpuscular Hemoglobin Concent 33 g/dL (31-37) Red Cell Distribution Width 15.0 % (11.5-14.5) Platelet Count 258 x10^3/uL (140-400) Neutrophils (%) (Auto) 61 % (31-73) Lymphocytes (%) (Auto) 26 % (24-48) Monocytes (%) (Auto) 8 % (0-9) Eosinophils (%) (Auto) 5 % (0-3) Basophils (%) (Auto) 1 % (0-3) Neutrophils # (Auto) 3.6 x10^3/uL (1.8-7.7) Lymphocytes # (Auto) 1.5 x10^3/uL (1.0-4.8) Monocytes # (Auto) 0.5 x10^3/uL (0.0-1.1) Eosinophils # (Auto) 0.3 x10^3/uL (0.0-0.7) Basophils # (Auto) 0.1 x10^3/uL (0.0-0.2) Sodium Level 141 mmol/L (136-145) Potassium Level 4.1 mmol/L (3.5-5.1) Chloride Level 108 mmol/L (98-107) Carbon Dioxide Level 22 mmol/L (21-32) Anion Gap 11 (6-14) Blood Urea Nitrogen 9 mg/dL (8-26) Creatinine 1.1 mg/dL (0.7-1.3) Estimated GFR (Cockcroft-Gault) 80.5 Glucose Level 199 mg/dL (70-99) Calcium Level 9.3 mg/dL (8.5-10.1) Magnesium Level 1.9 mg/dL (1.8-2.4) Laboratory Tests Test 09/21/21 16:31 09/21/21 21:02 09/22/21 07:21 09/22/21 09:44 Glucose (Fingerstick) 152 mg/dL (70-99) 174 mg/dL (70-99) 190 mg/dL (70-99) White Blood Count 6.0 x10^3/uL (4.0-11.0) Red Blood Count 4.80 x10^6/uL (4.30-5.70) Hemoglobin 12.9 g/dL (13.0-17.5) Hematocrit 39.4 % (39.0-53.0) Mean Corpuscular Volume 82 fL (79-100) Mean Corpuscular Hemoglobin 27 pg (25-35) Mean Corpuscular Hemoglobin Concent 33 g/dL (31-37) Red Cell Distribution Width 15.0 % (11.5-14.5) Platelet Count 258 x10^3/uL (140-400) Neutrophils (%) (Auto) 61 % (31-73) Lymphocytes (%) (Auto) 26 % (24-48) Monocytes (%) (Auto) 8 % (0-9) Eosinophils (%) (Auto) 5 % (0-3) Basophils (%) (Auto) 1 % (0-3) Neutrophils # (Auto) 3.6 x10^3/uL (1.8-7.7) Lymphocytes # (Auto) 1.5 x10^3/uL (1.0-4.8) Monocytes # (Auto) 0.5 x10^3/uL (0.0-1.1) Eosinophils # (Auto) 0.3 x10^3/uL (0.0-0.7) Basophils # (Auto) 0.1 x10^3/uL (0.0-0.2) Sodium Level 141 mmol/L (136-145) Potassium Level 4.1 mmol/L (3.5-5.1) Chloride Level 108 mmol/L (98-107) Carbon Dioxide Level 22 mmol/L (21-32) Anion Gap 11 (6-14) Blood Urea Nitrogen 9 mg/dL (8-26) Creatinine 1.1 mg/dL (0.7-1.3) Estimated GFR (Cockcroft-Gault) 80.5 Glucose Level 199 mg/dL (70-99) Calcium Level 9.3 mg/dL (8.5-10.1) Magnesium Level 1.9 mg/dL (1.8-2.4) Brief Hospital Course 70-year-old male with past medical history of diabetes mellitus type 2, GERD, hypertension, gout and SVT who comes in with diaphoretic feeling, tachycardia with palpitations and lightheadedness. Patient was admitted with similar presentation in May. Patient does endorse fatigue and also palpitations at the time. In the ED, patient was given multiple cardiac medications. He is found to have SVT at 220 bpm. He was given adenosine twice and diltiazem 20 mg one-time dose. His heart rate improved to about 120s. Cardiology was consulted and recommended 0.5 digoxin one-time 5 mg metoprolol and continue full dose anticoagulation. At this point his heart rate improved to 90. After his heart rate improved by patient had improved symptoms. Currently denies any fevers, nausea vomiting, abdominal pain, diarrhea or syncope. Of note, patient also on states that he does express burning upon urination. He does not take any prostate medications. 09/20: Converted to sinus. He notes he intermittently has the feelings a "ghost" and received in feels his heart fluttering this happens several times a month. He also notes he still having difficulty getting up to urinate more than 6 times a night and having a little difficulty getting the stream started. Blood sugars in the 200s currently. 09/21: Blood glucose improving. Telemetry reviewed no A. fib. Urine with Proteus mirabilis. 09/22: Blood glucose stable. Telemetry with no atrial fibrillation Amiodarone and Eliquis per cardiology has been loaded. Urine unfortunately returned as ESBL needs to take ciprofloxacin tolerated without adverse telemetry events. Will discharge on Cipro for 10 days and follow-up outpatient with cardiology. Consults: Cardiology Problem list: Acute palpitations due to SVT - on amio, metoprolol, eliquis DOROTA due to vasomotor nephropathy - improved Acute UTI - f/u culture results, Proteus mirabilis ESBL week of antibiotics for complicated male UTI Hx of Supraventricular tachycardia Morbid obesity History of gout History of DVT/PE History of degenerative joint disease History of diabetes mellitus type 2 Urinary retention - by history his IPSS score is 14, should be on medications, check PVR, bladder scan protocol Greater than 30 minutes spent on discharge home with self-care Discharge Information Condition at Discharge: Improved Follow Up: Weeks (1) Disposition/Orders: D/C to Home Scheduled Allopurinol (Allopurinol) 100 Mg Tablet, 1 TAB PO DAILY for gout, #30 Ref 5 Prescribed by: SERVANDO YIP MD on 07/16/20 0855 Last Action: HELD on 09/19/211335 by SERVANDO YIP MD Amiodarone Hcl (Amiodarone Hcl) 200 Mg Tablet, 200 MG PO DAILY for Afib for 30 Days, #30 Ref 5 Prescribed by: JIL BROWNE MD on 09/22/21 1403 Amlodipine Besylate (Amlodipine Besylate) 10 Mg Tablet, 10 MG PO DAILY for blood pressure for 30 Days, #30 Prescribed by: SERVANDO YIP MD on 05/11/21 1635 Last Action: Continued on 09/19/21 133 by SERVANDO YIP MD Apixaban (Eliquis) 5 Mg Tablet, 5 MG PO BID for Afib for 30 Days, #60 Ref 5 Prescribed by: JIL BROWNE MD on 09/22/21 1401 Aspirin (Aspirin) 325 Mg Tablet, 1 TAB PO DAILY, #30 Ref 5 (Reported) Entered as Reported by: FELICE RIDER on 04/03/14 1308 Last Action: Continued on 09/19/211335 by SERVANDO YIP MD Atorvastatin Calcium (Atorvastatin Calcium) 20 Mg Tablet, 20 MG PO QHS for ch olesterol for 30 Days, #30 Prescribed by: DANIA RENE D.O. on 07/13/212258 Last Action: Continued on 09/19/211335 by SERVANDO YIP MD Ciprofloxacin Hcl (Ciprofloxacin Hcl) 250 Mg Tablet, 1 TAB PO BID for UTI in Male, proteus for 10 Days, #20 Prescribed by: JIL BROWNE MD on 09/22/21 1401 Cyclobenzaprine Hcl (Cyclobenzaprine Hcl) 10 Mg Tablet, 1 TAB PO TID, #30 Prescribed by: Rebecca Castillo APRN on 01/11/21 1707 Diclofenac Sodium (Voltaren) 100 Gm Gel..gram., 1 GM TP QID for pain for 30 Days, #1 Ref 0 apply to affected area(s) Prescribed by: Rebecca Castillo APRN on 07/09/20 2142 Furosemide (Lasix) 40 Mg Tablet, 1 TAB PO DAILY for 30 Days, #30 Ref 0 Prescribed by: DANIA RENE D.O. on 07/13/212258 Last Action: HELD on 09/19/211335 by SERVANDO YIP MD Lactobacillus Rhamnosus Gg (Culturelle) 1 Each Cap.sprink, 1 CAP PO BID for SUPPLEMENT for 30 Days, #60 Prescribed by: KUMAR ASH MD on 04/03/19 1143 Lisinopril (Lisinopril) 40 Mg Tablet, 20 MG PO BID for blood pressure for 30 Days, #30 Prescribed by: DANIA RENE D.O. on 07/13/212258 Last Action: Continued on 09/19/211335 by SERVANDO IYP MD Metformin Hcl (Glucophage) 500 Mg Tablet, 500 MG PO BIDWMEALS for diabetes for 30 Days, #60 Prescribed by: SERVANDO YIP MD on 07/16/20 0852 Last Action: Continued on 09/19/211335 by SERVANDO YIP MD Metoprolol Tartrate (Metoprolol Tartrate) 25 Mg Tablet, 25 MG PO BID for rate control for 30 Days, #60 Prescribed by: DANIA RENE D.O. on 07/13/219 Last Action: Continued on 09/19/211335 by SERVANDO YIP MD Scheduled PRN Acetaminophen (Tylenol) 325 Mg Tablet, 650 MG PO PRN Q4HRS PRN for TEMP OVER 100.4F OR MILD PAIN for 14 Days, #30 Prescribed by: KUMAR ASH MD on 04/03/19 1143 Albuterol Sulfate (Proair Hfa) 8.5 Gm Hfa.aer.ad, 2.5 MG NEB PRN Q4HRS PRN for SHORTNESS OF BREATH for 30 Days, #1 Prescribed by: KUMAR ASH MD on 04/03/19 1143 Discontinued Medications Cephalexin (Keflex) 250 Mg Capsule, 500 MG PO BID for skin soft tissue for 7 Days, #28 Prescribed by: JIL DARNELL MD on 07/14/21 0950 Hydrocodone/Acetaminophen (Hydrocodone-Acetamin 5-325 mg) 1 Each Tablet, 1 EACH PO Q4-6HRS, #14 Prescribed by: DANIA RENE D.O. on 07/13/21 2121 Ibuprofen (Ibuprofen) 400 Mg Tablet, 400 MG PO PRN Q6HRS PRN for INFLAMMATION for 3 Days Prescribed by: FREDRICK GOTTLIEB APRN on 07/16/19 1822 Ibuprofen (Ibuprofen) 600 Mg Tablet, 600 MG PO PRN Q6HRS PRN for INFLAMMATION for 10 Days, #40 Ref 0 Prescribed by: KARIE TINSLEY APRN on 10/27/19 1511 Last Action: HELD on 09/19/211335 by SERVANDO YIP MD Justicifation of Admission Dx: Justifications for Admission: Justification of Admission Dx: N/A JIL BROWNE MD September 22, 2021 14:07
[2021-09-22] MEDS ORDERED: CIPROFLOXACIN HCL 250 MG TABLET. PO ONE (14:15)
--- NOTE | 2021-09-22 16:23 | NUR ---
Discharge Note: [facility] Discharge instructions and discharge home medications reviewed with Patient and a copy given. All questions have been answered and understanding verbalized. The following instructions and handouts were given: Follow up and new medications Discontinued lines and drains: IV and utility porter removed Patient discharged to home
== END 2021-09-22 14:20 | disposition home or self-care (01) | DRG 291 ==
LOC: ER 08:10 → 6 SOUTH 09:47
PROVIDERS: ADMIT Internal Medicine; ATTEND Internal Medicine
DX: I11.0 Hypertensive heart disease with heart failure (principal); N17.0 Acute kidney failure with tubular necrosis; I50.33 Acute on chronic diastolic (congestive) heart failure; I47.1 Supraventricular tachycardia; N39.0 Urinary tract infection, site not specified; Z68.42 Body mass index [BMI] 45.0-49.9, adult; E11.9 Type 2 diabetes mellitus without complications; E66.01 Morbid (severe) obesity due to excess calories; E78.00 Pure hypercholesterolemia, unspecified; E78.5 Hyperlipidemia, unspecified; E83.42 Hypomagnesemia; E86.0 Dehydration; I48.91 Unspecified atrial fibrillation; I89.0 Lymphedema, not elsewhere classified; Z86.711 Personal history of pulmonary embolism; Z86.718 Personal history of other venous thrombosis and embolism; Z87.891 Personal history of nicotine dependence; K21.9 Gastro-esophageal reflux disease without esophagitis; M10.9 Gout, unspecified; M19.90 Unspecified osteoarthritis, unspecified site; B96.4 Proteus (mirabilis) (morganii) as the cause of diseases classified elsewhere
CPT/HCPCS: 36415; 71045; 80048; 80053; 80307; 81001; 82962; 83690; 83735; 83880; 84100; 84443; 84484; 85025; 85610; 87077; 87086; 87186; 93005; 96372; 96374; 96375; 96376; J0153; J0696; J1160; J1650; J1815; J3475; J3490; J7030; 97110-GP; 97116-GP; 97535-GO; 99285-25; G0378